=== PATIENT | female | born 1975 | race African-American/Black ===

== ENCOUNTER 2022-10-08 21:13 | Outpatient (OUT) | payer OTHER, SELFPAY ==
[2022-10-11 18:09] LABS: Age Gdln ACOG Testing Note (.); HPV Aptima Negative (Negative); IGP, Aptima HPV, rfx 16/18,45 Note (.)
== END 2022-10-08 21:14 ==
PROVIDERS: PCP Physician Assistant; Visit Provider Physician Assistant
DX: Z12.4 Encounter for screening for malignant neoplasm of cervix (principal); Z11.51 Encounter for screening for human papillomavirus (HPV)
CPT/HCPCS: 87624; G0145

== ENCOUNTER 2023-10-07 09:13 | Emergency (ER) | payer OTHER, SELFPAY ==
[2023-10-07 09:17] VITALS: BP 165/101; PULSE 74; TEMP 36.4; O2SAT 100; BMI 36.4
--- NOTE | 2023-10-07 09:43 | CT_ITS ---
The [address] [address] Patient Name: ERIC LANDIS MRN: [id number] date: 1975 Sex: F Assigned Patient Location: ER Current Patient Location: ER Accession/Order Number: [id number] Exam Date: 10/07/2023 10:28 Report Date: 10/07/2023 11:53 At the request of: THANH FLOREZ Procedure: CT head/brain wo con EXAMINATION: CT head/brain wo con, 10/07/2023 10:28 AM EDT HISTORY: headache COMPARISON: None. TECHNIQUE: CT scan of the head was performed without IV contrast. CT dose reduction technique was used, including Automated Exposure Control. FINDINGS: Linear hyperdensity is identified in the right middle cranial fossa on the initial images thought to possibly represent artifact, repeat scan through this area was therefore performed BRAIN: Hyperdensity posterior right middle cranial fossa axial images 8 through 11 on the initial exam, this changes slightly on the repeat exam and does not correspond to anatomic distribution of hemorrhage. Hemorrhage in this region would likely be related to significant trauma which also was not present. No additional parenchymal hemorrhage mass or attenuation artifact CSF SPACES: No hydrocephalus, subarachnoid hemorrhage, or mass. Appropriate for age. SKULL: No fracture, mass, or other significant visible lesion. SINUSES: No significant mucosal thickening or fluid on the limited views. ORBITS: No appreciable abnormality on the limited views. OTHER: Techniques were discussed with Dr. florez by telephone CT/CT head/brain wo con IMPRESSION: Linear hyperdensity posterior right middle cranial fossa slightly changed on repeat imaging. I favor artifact although hemorrhage cannot be entirely excluded. Electronically authenticated by: MORENA GALLARDO Date: 10/07/2023 11:53
--- NOTE | 2023-10-07 09:44 | ED_ITS ---
HPI HPI - General Adult General Chief complaint: Nausea/Vomiting/Diarrhea Stated complaint: HEADACHE/VOMITTING Time Seen by Provider: 10/07/23 09:31 Source: patient Mode of arrival: walk-in Limitations: no limitations History of Present Illness HPI narrative: Patient is a 48-year-old female who is presenting to the ER today with chief complaint of headache that started yesterday today, but patient is been having sinus congestion for the past week. Patient was at work today, she works at [employer]. Patient stated she was feeling hot, slightly lightheaded, sinus headache and pressure. Patient had 2 episodes of nausea and vomiting. Patient went to the nurses station, she was hypertensive. Patient does have a history of hypertension, she takes Cardizem 300 mg a day to help with blood pressure. Patient has had no new fall. Patient has no vision or hearing changes. No chest pain or shortness of breath. No syncopal episodes. Patient has mild nausea at this time, no abdominal pain. All systems are negative except as noted/marked. All systems reviewed and otherwise negative. Nurses note and vital signs reviewed and patient is not hypoxic. General: The patient appears well and in no apparent distress. Patient is resting comfortably on cart. Patient is not toxic, lethargic, or listless Skin: Warm, dry, no pallor noted. There is no rash noted. No petechiae, purpu ra. Head: Normocephalic, atraumatic; patient has no midline or paracervical tenderness to palpation. Full range of motion of cervical spine with no difficulty, no meningeal signs or symptoms. Eye: Normal conjunctiva, no drainage, EOMI. PERRL Ears, Nose, Mouth, and Throat: oral mucosa is moist. Nares patent. Mouth without vesicles. Cardiovascular: Regular Rate and Rhythm, no murmur, gallop, rub Respiratory: Patient is in no distress, no accessory muscle use, lungs are clear to auscultation, no wheezing, rales or rhonchi Back: non-tender, no CVA tenderness bilaterally to percussion. No CT LS midline pain GI: No midepigastric tenderness to palpation, no peritoneal signs, no flank pain bilateral, otherwise no tenderness to palpation, no masses appreciated. No rebound, guarding, or rigidity noted. No distention Musculoskeletal: Patient has full range of motion of all of the extremities, no motor, sensory, or focal neurological deficits Neurological: A&O x4, normal speech Psychiatric: Cooperative Related Data Previous Rx's ?Medication ?Instructions ?Recorded metoclopramide HCl 10 mg tablet 10 mg PO Q6H PRN nausea and 10/07/23 (Reglan) vomiting, headache 3 days #7 tabs Allergies Allergy/AdvReac Type Severity Reaction Status Date / Time No Known Drug Allergies Allergy Verified 10/07/23 09:16 Opioid HPI Opioid Management Most Recent Opioid Data: Last Pain Scale 2 10/07/23 10:53 Last ED Pain Assessment 10/07/23 10:53 Last MAR Pain Assessment 10/07/23 09:53 Exam Constitutional Vital Signs, click to edit/add: Last Vital Signs Temp 98.0 F 10/07/23 12:45 Pulse 77 10/07/23 12:45 Resp 16 10/07/23 12:45 BP 147/88 H 10/07/23 12:45 Pulse Ox 99 10/07/23 12:45 O2 Del Method Room Air 10/07/23 12:45 Course Vital Signs Vital signs: Vital Signs Temperature 97.5 F L 10/07/23 09:17 Pulse Rate 74 10/07/23 09:17 Respiratory Rate 17 10/07/23 09:17 Blood Pressure 165/101 H 10/07/23 09:17 Pulse Oximetry 100 10/07/23 09:17 Oxygen Delivery Method Room Air 10/07/23 09:17 Temperature 98.0 F 10/07/23 12:45 Pulse Rate 77 10/07/23 12:45 Respiratory Rate 16 10/07/23 12:45 Blood Pressure 147/88 H 10/07/23 12:45 Pulse Oximetry 99 10/07/23 12:45 Oxygen Delivery Method Room Air 10/07/23 12:45 Medical Decision Making MDM Narrative Medical decision making narrative: 2 attempts at IV access was done by Marcia ZELAYA, without success. Patient appears to have possible sinus symptoms and headache, but we will perform a CT of the brain to be safe secondary to high blood pressure and headache. Patient does have a history of high blood pressure, she did take her Cardizem 30 mg tablet this morning. Patient was given Zofran for nausea, Reglan for nausea, vomiting and headache, patient rates her headache a 5/10. Patient also will be given Tylenol for headache as well. Patient did take 2 ibuprofen this morning which did to help with her headache somewhat as well CT of the brain showed no acute findings. Patient initially had images of the brain, And there was some artifact and questionable images there were not clear so patient had repeat CT of the brain done. On the repeat CT of the brain, this was reviewed again by Doctor Ruffin and Doctor Ruffin also had a neuroradiologist review the films as well. I spoke to Dr. Irizarry on the phone about patient's CT of the brain.He believes that this was most likely artifact, but cannot 100% rule out any hemorrhage.Patient was given a copy of the CT report of the brain and the possibility of artifact versus hemorrhage was discussed in the impression of the CT report.Patient's headache has completely improved with medication given. Her nausea is better.Patient has been having sinus congestion and most likely sinus headache today. However patient is aware to return to the ER if she is having intractable headache, nausea, vomiting, or any other acute complaints. Patient is comfortable going home. Patient was sent home with a prescription for Reglan To use for nausea, vomiting or headache if needed. Patient mother was at bedside. We talked at length during HPI with patient and at discharge with patient and mother. Patient is aware to record her blood pressure twice a day to either purchase a blood pressure cuff or have it checked at work when she is working at [employer].Patient is aware that if her blood pressure is consistently 140/90, she may need medication adjustment. Patient understands this, no questions at discharge Discharge Plan Discharge Stand Alone Forms: Portal Instructions Chief Complaint: Nausea/Vomiting/Diarrhea Clinical Impression: Headache, Hypertension, Nausea & vomiting Patient Disposition: Home, Self-Care Time of Disposition Decision: 12:11 Condition: Fair Prescriptions / Home Meds: New metoclopramide HCl [Reglan] 10 mg tablet 10 mg PO Q6H PRN (Reason: nausea and vomiting, headache) 3 Days Qty: 7 0RF Print Language: Greek Instructions: Acute Nausea and Vomiting (ED), Hypertension (ED), General Headache (ED) Additional Instructions: Increase fluids at home. Increase fluids at home, Gatorade, Powerade, or water. Continue using Claritin or Zyrtec l, and Flonase. Add Mucinex as well as needed. Alternate Tylenol and Motrin every 4 hours to help with fever control, body aches or joint pain. Use [id number] vitamin C, vitamin D3, and zinc to help fight infection and help with her immune system. Prescription for Reglan was given to you if needed for nausea, vomiting or headache. Follow-up with PCP for further recommendations on changes of blood pressure medication if needed. Referrals: Zeina Portillo [Physician Super[employer]] - 1 week Hao Galvin MD [Primary Care Provider] - 1 week Discharge Date/Time: 10/07/23 12:46
[2023-10-07] MEDS: ONDANSETRON 4 MG RAPDIS TABLET SL (09:53)
[2023-10-07] MEDS: ACETAMINOPHEN 500 MG TABLET PO (09:53)
[2023-10-07] MEDS: METOCLOPRAMIDE HCL 10 MG TABLET PO (09:53)
[2023-10-07 12:45] VITALS: BP 147/88; PULSE 77; TEMP 36.7; O2SAT 99
== END 2023-10-07 12:46 | disposition home or self-care (01) ==
PROVIDERS: Emergency Provider Emergency Medicine; PCP Family Medicine
DX: R51.9 Headache, unspecified (principal); I10 Essential (primary) hypertension; R11.2 Nausea with vomiting, unspecified; Z79.899 Other long term (current) drug therapy
CPT/HCPCS: 70450; 99284; Q0162

== ENCOUNTER 2023-10-23 16:10 | Outpatient (OUT) | payer OTHER, SELFPAY ==
--- OUTSIDE RECORDS SUMMARY | 2023-10-23 16:18 | XMS_ITS | CCD ---
Author Organization [facility] Care Team Providers Care Aerospace Stress Engineer Name Role Phone HORACE, BARI Admitting Unavailable HORACE, BARI Attending Unavailable AP CARTYY Primary Care Unavailable HORACE, BARI Admitting Unavailable HORACE, BARI Attending Unavailable JASKARAN BRAXTON Primary Care Unavailable HORACE, BARI Consulting Unavailable HORACE, BARI Admitting Unavailable HORACE, BARI Attending Unavailable MACHELLE, BRANDI Primary Care Unavailable HORACE, BARI Consulting Unavailable HILLARY VAUGHAN JR Consulting Unavailable CAL WANG Consulting Unavailable HILLARY VAUGHAN JR Procedure Practitioner BARI Elliott Procedure Practitioner UnavailMARIA INES Gan Consulting Unavailable ERIN YIN Consulting Unavailable HORACE, BARI Admitting Unavailable HORACE, BARI Attending Unavailable MACHELLE, BRANDI Primary Care Unavailable HORACE, BARI Consulting Unavailable CAMILA WHITAKER Admitting Unavailable CAMILA WHITAKER Attending Unavailable CAMILA WHITAKER Primary Care Unavailable CAMILA WHITAKER Consulting Unavailable CAMILA WHITAKER Admitting Unavailable CAMILA WHITAKER Attending Unavailable CAMILA WHITAKER Consulting Unavailable Jez Givens Primary Care Provider JEZ LEE Attending Unavailable SHAWN ULLOA Referring Unavailable JEZ LEE Primary Care Unavailable Medications Current Medications Medication Drug Class(es) Dates Sig (Normalized) Sig (Original) [id number] 200 actuat albuterol 0.09 mg/actuat metered dose inhaler (3 sources) beta2-Adrenergic Agonist Start: 06-30-2022 albuterol (PROVENTIL HFA;VENTOLIN HFA) 90 mcg/actuation inhaler Inhale 2 puffs as needed. 0 06/30/2022 Active amoxicillin 500 mg oral capsule (1 source) Penicillin-class Antibacterial Start: 07-03-2023 End: 07-10-2023 take 1 capsule by mouth in the morning, then take 1 capsule by mouth at bedtime amoxicillin (AMOXIL) 500 mg capsule Take 1 capsule (500 mg total) by mouth in the morning and 1 capsule (500 mg total) before bedtime. Do all this for 7 days. 14 capsule 0 07/03/2023 07/10/2023 Active aspirin 81 mg chewable tablet (3 sources) Platelet Aggregation Inhibitor, Nonsteroidal Anti-inflammatory Drug aspirin 81 mg chewable tablet Chew 1 tablet (81 mg total) and swallow in the morning. 0 Active benzonatate 100 mg oral capsule (3 sources) Non-narcotic Antitussive Start: 07-03-2023 take 1 capsule by mouth three times daily as needed for cough benzonatate (TESSALON PERLES) 100 mg capsule Take 1 capsule (100 mg total) by mouth 3 (three) times a day as needed for cough. 20 capsule 0 07/03/2023 Active 24 hr dilTIAZem hydrochloride 300 mg extended release oral capsule (4 sources) Calcium Channel Nehemias Start: 01-17-2023 End: 07-17-2023 take 1 capsule by mouth every twenty-four hours in the morning dilTIAZem CD (CARDIZEM CD) 300 mg 24 hr capsule Indications: Primary hypertension , Essential hypertension TAKE 1 CAPSULE(300 MG) BY MOUTH IN THE MORNING 90 capsule 1 07/17/2023 Active 12 hr guaiFENesin 600 mg extended release oral tablet (3 sources) Start: 07-03-2023 take 1 tablet by mouth once guaiFENesin (MUCINEX) 600 mg tablet extended release 12hr Take 1 tablet (600 mg total) by mouth every 12 (twelve) hours. 14 tablet 0 07/03/2023 Active ibuprofen 800 mg oral tablet (3 sources) Nonsteroidal Anti-inflammatory Drug Start: 12-19-2021 take 1 tablet by mouth every eight hours as needed for pain ibuprofen (MOTRIN) 800 mg tablet Indications: Chronic pain of right knee Take 1 tablet (800 mg total) by mouth every 8 (eight) hours as needed for pain. 90 tablet 0 12/19/2021 Active loratadine 10 mg oral tablet (3 sources) Start: 08-20-2018 take 1 tablet by mouth twice daily loratadine (CLARITIN) 10 mg tablet Indications: Seasonal allergies Take one tablet by mouth BID 60 tablet 0 08/20/2018 Active predniSONE 20 mg oral tablet (1 source) Start: 07-03-2023 End: 07-08-2023 take 1 tablet by mouth in the morning, then take 1 tablet by mouth at bedtime predniSONE (DELTASONE) 20 mg tablet Take 1 tablet (20 mg total) by mouth in the morning and 1 tablet (20 mg total) before bedtime. Do all this for 5 days. 10 tablet 0 07/03/2023 07/08/2023 Active Completed/Discontinued Medications Medication Drug Class(es) Dates Sig (Normalized) Sig (Original) fluconazole 150 mg oral tablet (1 source) Azole Antifungal Start: 07-03-2023 End: 07-03-2023 take 1 tablet by mouth once fluconazole (DIFLUCAN) 150 mg tablet Take 1 tablet (150 mg total) by mouth once for 1 dose. 1 tablet 0 07/03/2023 07/03/2023 Problems Active Problems Problem Classification Problem Date Documented Date Episodic/Chronic Abdominal pain (1 source) Pelvic and perineal pain; Translations: [PELVIC AND PERINEAL PAIN] Onset: 9 Chronic obstructive pulmonary disease and bronchiectasis (2 sources) Bronchitis; Translations: [Bronchitis, not specified as acute or chronic] Onset: 4 07-03-2023 Episodic Deficiency and other anemia (3 sources) Iron deficiency anemia due to blood loss; Translations: [Iron deficiency anemia secondary to blood loss (chronic)] Onset: 3 01-28-2023 Chronic Disorders of lipid metabolism (1 source) Pure hypercholesterolemia, unspecified; Translations: [PURE HYPERCHOLESTEROLEMIA UNSPEC] Onset: 9 Endometriosis (2 sources) Endometriosis, unspecified; Translations: [Endometriosis of pelvic peritoneum] Onset: 9 Chronic Essential hypertension (8 sources) Essential (primary) hypertension; Translations: [Essential hypertension] Onset: 8 07-03-2023 Chronic Immunizations and screening for infectious disease (5 sources) Contact with and (suspected) exposure to infections with a predominantly sexual mode of transmission; Translations: [Encounter for screening for human papillomavirus (HPV)] Onset: 0 Episodic Menstrual disorders (1 source) Dysmenorrhea, unspecified; Translations: [DYSMENORRHEA UNSPECIFIED] Onset: 9 Chronic Other female genital disorders (3 sources) Abnormal uterine and vaginal bleeding, unspecified; Translations: [ABNORMAL UTERINE VAGINAL BLEED UNS] Onset: 9 Chronic Other female genital disorders (1 source) Unspecified dyspareunia; Translations: [UNSPECIFIED DYSPAREUNIA] Onset: 9 Other screening for suspected conditions (not mental disorders or infectious disease) (7 sources) Encounter for screening for malignant neoplasm of cervix; Translations: [Patient encounter status] Onset: 0 07-03-2023 Episodic Other upper respiratory infections (2 sources) Acute maxillary sinusitis; Translations: [Acute maxillary sinusitis, unspecified] Onset: 4 07-03-2023 Episodic Unclassified (1 source) Abnormal findings on diagnostic imaging of other specified body structures; Translations: [ABNORML FIND DX IMG OTH BODY STRUC] Onset: 9 Unclassified (1 source) new patient Onset: 4 Past or Other Problems Problem Classification Problem Date Documented Da te Episodic/Chronic Benign neoplasm of uterus (1 source) Leiomyoma of uterus, unspecified; Translations: [LEIOMYOMA OF UTERUS UNSPECIFIED] Onset: 12-15-2018 Episodic Mood disorders (3 sources) Mood disorders Onset: 07-03-2023 07-03-2023 Other aftercare (1 source) Other halfway (current) drug therapy; Translations: [OTH CLOTH WASHER BACK TENDER CURRENT DRUG THERAPY] Onset: 12-15-2018 Episodic Other aftercare (1 source) 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; Translations: [PRISON CURRENT USE OF ASPIRIN] Onset: 12-15-2018 Episodic Sprains and strains (3 sources) Strain of muscle of left groin region; Translations: [Strain of muscle, fascia and tendon of pelvis, initial encounter] Onset: 05-06-2018 05-06-2018 Episodic Unclassified (3 sources) Onset: 01-02-2022 01-02-2022 Results Test Name Value Interpretation Reference Range Facil ity PAP ACOG PANEL 2: 30 to 65on 10-30-2019 Age Gdln ACOG Testing 30-65 Normal [facility] Comment on above: Performed By: #### C BC #### [facility] [address] [address] Gomez Brown DIAGNOSIS: Comment Normal [facility] Comment on above: Result Comment: NEGA TIVE FOR INTRAEPITHELIAL LESION OR MALIGNANCY. Performed at: WB Performed By: #### C BC #### [facility] [address] [address] Gomez Brown HPV Aptima Negative Normal Negative [facility] Comment on above: Result Comment: This test was developed and its performance characteristics determined by [employer]. It has not been cleared or approved by the Food and Drug Administration. This nucleic acid amplification test detects fourteen high-risk HPV types (16,18,31,33,35,39,45,51,52,56,58,59,66,68) without differentiation. Performed at: =G Performed By: #### C BC #### [facility] [address] [place] [address] Gomez Brown Methodology: Comment Normal [facility] Comment on above: Result Comment: This liquid based SurePath(R) pap test was screened with the assistance of an image guided system. Performed at: WB Performed By: #### C BC #### [facility] [address] [address] Gomez Brown Note: Comment Normal [facility] Comment on above: Result Comment: The Pap smear is a screening test designed to aid in the detection of premalignant and malignant conditions of the uterine cervix. It is not a diagnostic procedure and should not be used as the sole means of detecting cervical cancer. Both false-positive and false-negative reports do occur. . Performed at: WB Performed By: #### C BC #### [facility] [address] [address] Gomez Brown Performed by: Comment Normal [facility] Comment on above: Result Comment: Dakota Baltazar, Component Engineer (ASCP) Performed at: WB Performed By: #### C BC #### [facility] [address] [address] Gomez Brown Specimen adequacy: Comment Normal [facility] Comment on above: Result Comment: Sati sfactory for evaluation. Endocervical and/or squamous metaplastic cells (endocervical component) are present. Performed at: WB Performed By: #### C BC #### [facility] [address] [place] [address] Gomez Brown . . Normal [facility] Comment on above: Result Comment: Perf ormed at: WB Performed By: #### C BC #### [facility] [address] [place] [address] Gomez Brown HEPATITIS PANEL, ACUTEon HBsAg Screen Negative Normal Negative [facility] Comment on above: Performed By: #### H EPACUT #### [facility] [address] [place] [address] Gomez Brown Hep A Ab, IgM Negative Normal Negative [facility] Comment on above: Performed By: #### H EPACUT #### [facility] [address] [place] [address] Gomez Brown Hep B Core Ab, IgM Negative Normal Negative [facility] Comment on above: Performed By: #### H EPACUT #### [facility] [address] [place] [address] Gomez Brown Hep C Virus Ab <0.1 Normal 0.0-0.9 [facility] Comment on above: Result Comment: Nega tive: < 0.8 Indeterminate: 0.8 - 0.9 Positive: > 0.9 . The CDC recommends that a positive HCV antibody result be followed up with a HCV Nucleic Acid Amplification test ([id number]). Performed By: #### H EPACUT #### [facility] [address] [place] [address] Gomez Brown HIV 1 AND 2 WITH REFLEXon HIV Screen 4th Generation wRfx Non Reactive Normal Non Reactive [facility] Comment on above: Performed By: #### H IV12 #### [facility] [address] [place] [address] Gomez Brown RPR QUANTon 10-24-2019 Rapid Plasma Reagin, Quant Non Reactive Normal NonRea<1:1 [facility] Comment on above: Performed By: #### C BC #### [facility] [address] [place], [place] [id number] Gomez Stephanie BUNon 12-04-2018 Urea nitrogen [Mass/Vol] 5.0 mg/dL Critically low 7.0-17.0 [facility] Comment on above: Performed By: #### B ALVARADO MARTINEZ #### [facility] [address] [place], [place] [id number] Gomez Stephanie CBC AUTO DIFFon 12-04-2018 Basophils (Bld) [#/Vol] 0.0 103/ul Normal 0.0-0.1 [facility] Comment on above: Performed By: #### C BC #### [facility] [address] [place] [address] Gomez Stephanie Basophils/100 WBC (Bld) 0.2 % Normal 0.2-2.0 [facility] Comment on above: Performed By: #### C BC #### [facility] [address] [place] [address] Gomez Stephanie Eosinophils (Bld) [#/Vol] 0.0 103/ul Normal 0.0-0.7 [facility] Comment on above: Performed By: #### C BC #### [facility] [address] [place] [address] Gomez Stephanie Eosinophils/100 WBC (Bld) 0.1 % Critically low 0.9-7.0 [facility] Comment on above: Performed By: #### C BC #### [facility] [address] [place] [address] Gomez Stephanie Erythrocyte distribution width (RBC) [Ratio] 12.1 % Normal 11.0-15.0 [facility] Comment on above: Performed By: #### C BC #### [facility] [address] [place] [address] Gomez Stephanie Hematocrit (Bld) [Volume fraction] 29.4 % Critically low 36.0-48.0 [facility] Comment on above: Performed By: #### C BC #### [facility] [address] [place] [address] Gomez Stephanie Hemoglobin (Bld) [Mass/Vol] 9.5 g/dL Critically low 12.0-16.0 [facility] Comment on above: Result Comment: FLUI DS GIVEN Performed By: #### C BC #### [facility] [address] [place] [address] Gomez Stephanie IG # 0.05 10e3/ul Critically high 0.00-0.03 [facility] Comment on above: Performed By: #### C BC #### [facility] [address] [place] [address] Gomez Stephanie IG % 0.4 % Normal 0.0-0.5 [facility] Comment on above: Performed By: #### C BC #### [facility] [address] [place] [address] Gomez Stephanie Lymphocytes (Bld) [#/Vol] 1.1 103/ul Critically low 1.2-3.8 [facility] Comment on above: Performed By: #### C BC #### [facility] [address] [place] [address] Gomez Stephanie Lymphocytes/100 WBC (Bld) 9.5 % Critically low 20.5-60.0 [facility] Comment on above: Performed By: #### C BC #### [facility] [address] [place], [place] [id number] Gomez Brown MANUAL DIFF REQ NO Normal [facility] Comment on above: Performed By: #### C BC #### [facility] [address] [place], [place] [address] Gomez Stephanie MCH (RBC) [Entitic mass] 29.7 pg Normal 26.7-34.0 [facility] Comment on above: Performed By: #### C BC #### [facility] [address] [place], [place] [id number] Gomez Stephanie MCHC (RBC) [Mass/Vol] 32.3 g/dL Normal 29.9-35.2 [facility] Comment on above: Performed By: #### C BC #### [facility] [address] [place], [place] [address] Gomez Stephanie MCV (RBC) [Entitic vol] 91.9 fL Normal 81.0-99.0 [facility] Comment on above: Performed By: #### C BC #### [facility] [address] [place] [id number] Gomez Stephanie Monocytes (Bld) [#/Vol] 1.5 103/ul Critically high 0.3-0.8 [facility] Comment on above: Performed By: #### C BC #### [facility] [address] [place], [place] [address] Gomez Stephanie Monocytes/100 WBC (Bld) 12.9 % Critically high 1.7-12.0 [facility] Comment on above: Performed By: #### C BC #### [facility] [address] [place], [place] [address] Gomez Stephanie Neutrophils (Bld) [#/Vol] 9.0 103/ul Critically high 1.4-6.5 [facility] Comment on above: Performed By: #### C BC #### [facility] [address] [place], [place] [address] Gomez Stephanie Neutrophils/100 WBC (Bld) 76.9 % Critically high 43.0-75.0 [facility] Comment on above: Performed By: #### C BC #### [facility] [address] [place], [place] [phone] Gomez Stephanie Platelet mean volume (Bld) [Entitic vol] 11.4 fL Normal 9.5-13.5 [facility] Comment on above: Performed By: #### C BC #### [facility] [address] [place], [place] [address] Gomez Stephanie Platelets (Bld) [#/Vol] 221 103/ul Normal 150-450 [facility] Comment on above: Performed By: #### C BC #### [facility] [address] [place], [place] [address] Gomez Stephanie RBC (Bld) [#/Vol] 3.20 106/ul Critically low 4.20-5.40 [facility] Comment on above: Performed By: #### C BC #### [facility] [address] [place] [address] Gomez Stephanie WBC (Bld) [#/Vol] 11.7 103/ul Critically high 4.0-11.0 [facility] Comment on above: Performed By: #### C BC #### [facility] [address] [place] [address] Gomez Stephanie CREATININEon 12-04-2018 Creatinine [Mass/Vol] mg/dL Normal >=60 [facility] Comment on above: Performed By: #### B JUAN, CREA #### [facility] [address] [place] [phone] Gomez Stephanie Creatinine [Mass/Vol] 0.72 mg/dL Normal 0.52-1.04 [facility] Comment on above: Performed By: #### B JUAN, CREA #### [facility] [address] [place] [address] Gomez Stephanie CBC AUTO DIFFon 12-03-2018 Basophils (Bld) [#/Vol] 0.1 103/ul Normal 0.0-0.1 [facility] Comment on above: Performed By: #### C BC #### [facility] [address] [place] [address] Gomez Stephanie Basophils/100 WBC (Bld) 0.7 % Normal 0.2-2.0 [facility] Comment on above: Performed By: #### C BC #### [facility] [address] [place] [address] Gomez Stephanie Eosinophils (Bld) [#/Vol] 0.2 103/ul Normal 0.0-0.7 [facility] Comment on above: Performed By: #### C BC #### [facility] [address] [place] [address] Gomez Stephanie Eosinophils/100 WBC (Bld) 2.4 % Normal 0.9-7.0 [facility] Comment on above: Performed By: #### C BC #### [facility] [address] [place] [address] Gomez Stephanie Erythrocyte distribution width (RBC) [Ratio] 12.2 % Normal 11.0-15.0 [facility] Comment on above: Performed By: #### C BC #### [facility] [address] [phone] Gomezvishal Brown Hematocrit (Bld) [Volume fraction] 36.9 % Normal 36.0-48.0 [facility] Comment on above: Performed By: #### C BC #### [facility] [address] [phone] Gomez Stephanie Hemoglobin (Bld) [Mass/Vol] 11.9 g/dL Critically low 12.0-16.0 [facility] Comment on above: Performed By: #### C BC #### [facility] [address] [place] [address] Gomezvishal Brown IG # 0.02 10e3/ul Normal 0.00-0.03 [facility] Comment on above: Performed By: #### C BC #### [facility] [address] [place] [address] Gomez Stephanie IG % 0.2 % Normal 0.0-0.5 [facility] Comment on above: Performed By: #### C BC #### [facility] [address] [place], [place] [address] Gomezvishal Brown Lymphocytes (Bld) [#/Vol] 1.8 103/ul Normal 1.2-3.8 [facility] Comment on above: Performed By: #### C BC #### [facility] [address] [place], [place] [address] Gomez Brown Lymphocytes/100 WBC (Bld) 19.3 % Critically low 20.5-60.0 [facility] Comment on above: Performed By: #### C BC #### [facility] [address] [place], [place] [address] Gomez Brown MANUAL DIFF REQ NO Normal [facility] Comment on above: Performed By: #### C BC #### [facility] [address] [place], [place] [address] Gomez Brown MCH (RBC) [Entitic mass] 29.9 pg Normal 26.7-34.0 [facility] Comment on above: Performed By: #### C BC #### [facility] [address] [place], [place] [address] Gomez Stephanie MCHC (RBC) [Mass/Vol] 32.2 g/dL Normal 29.9-35.2 [facility] Comment on above: Performed By: #### C BC #### [facility] [address] [place], [place] [address] Gomez Stephanie MCV (RBC) [Entitic vol] 92.7 fL Normal 81.0-99.0 [facility] Comment on above: Performed By: #### C BC #### [facility] [address] [place], [place] [address] Gomez Stephanie Monocytes (Bld) [#/Vol] 0.9 103/ul Critically high 0.3-0.8 [facility] Comment on above: Performed By: #### C BC #### [facility] [address] [place] [phone] Gomez Stephanie Monocytes/100 WBC (Bld) 9.5 % Normal 1.7-12.0 [facility] Comment on above: Performed By: #### C BC #### [facility] [address] [place], [place] [address] Gomez Stephanie Neutrophils (Bld) [#/Vol] 6.4 103/ul Normal 1.4-6.5 [facility] Comment on above: Performed By: #### C BC #### [facility] [address] [place] [address] Gomez Stephanie Neutrophils/100 WBC (Bld) 67.9 % Normal 43.0-75.0 [facility] Comment on above: Performed By: #### C BC #### [facility] [address] [place], [place] [address] Gomez Stephanie Platelet mean volume (Bld) [Entitic vol] 10.8 fL Normal 9.5-13.5 [facility] Comment on above: Performed By: #### C BC #### [facility] [address] [place], [place] [address] Gomez Stepahnie Platelets (Bld) [#/Vol] 262 103/ul Normal 150-450 [facility] Comment on above: Performed By: #### C BC #### [facility] [address] [place], [place] [address] Gomez Brown RBC (Bld) [#/Vol] 3.98 106/ul Critically low 4.20-5.40 [facility] Comment on above: Performed By: #### C BC #### [facility] [address] [place], [place] [address] Gomez Brown WBC (Bld) [#/Vol] 9.4 103/ul Normal 4.0-11.0 [facility] Comment on above: Performed By: #### C BC #### [facility] [address] [place], [place] [address] Gomez Brown PREG QUANT HCGon 12-03-2018 HCG QUANT <1.00 Normal [facility] Comment on above: Performed By: #### P REGQNT #### [facility] [address] [phone] Gomez Brown HCG RANGE SEE BELOW Normal [facility] Comment on above: Result Comment: 5-50 0-1 WEEK 40-300 1-2 WEEKS 100-1,000 2-3 WEEKS 500-6,000 3-4 WEEKS 5,000-200,000 1-2 MONTHS 10,000-100,000 2-3 MONTHS 3,000-50,000 2ND TRIMESTER 1,000-50,000 3RD TRIMESTER Performed By: #### P REGQNT #### [facility] [address] [phone] Gomezvishal Brown TYPE AND SCREENon 12-01-2018 TYPE AND SCREEN Negative Normal [facility] Comment on above: Performed By: #### T NS #### [facility] [address] [place], [place] [address] Gomez Brown Vital Signs Date Time Vital Sign Value Performing Clinician Facility 07-03-2023 15:05-0500 Body height 149.9 cm Jez Lee APRN-WARP YARN SORTER [facility] 07-03-2023 15:05-0500 Body mass index (BMI) [Ratio] 37.24 kg/m2 Jez Loreto HUMAN RESOURCES CLERK-[employer]ARP YARN SORTER Work Phone: [facility] 07-03-2023 15:05-0500 Body temperature 98.49 [degF] Jez Lee HUMAN RESOURCES CLERK-WARP YARN SORTER Work Phone: [facility] [employer] [facility] 07-03-2023 15:05-0500 Body weight 83.64 kg Jez Farfanuch HUMAN RESOURCES CLERK-[employer]ORTER Work Phone: [facility] 07-03-2023 15:05-0500 Diastolic blood pressure 80 mm[Hg] Jez Farfanuch HUMAN RESOURCES CLERK-[employer] Y[employer] SORTER Work Phone: [facility] 07-03-2023 15:05-0500 Heart rate 78 /min Jez Lee HUMAN RESOURCES CLERK-[employer]TER Work Phone: [facility] 07-03-2023 15:05-0500 SaO2% (BldA) [Mass fraction] 97 % Jez Lee HUMAN RESOURCES CLERK-[employer]ARP YARN SORTER Work Phone: [facility] [employer] [facility] 07-03-2023 15:05-0500 Systolic blood pressure 130 mm[Hg] [facility] HUMAN RESOURCES CLERKBrittmore GroupWARP YARN SORTER Work Phone: [facility] Encounters Encounter Date Encounter Type Care Provider Facility Start: 07-30-2023 Telephone encounter Shawn Ulloa APRN-WARP YARN SORTER Work Phone: [facility] Start: 07-15-2023 Refill Carlos Alberto Rodriguez MD Work Phone: [facility] Comment on above: Primary hypertension ; Essential hypertension Start: 07-03-2023 End: 07-03-2023 ambulatory [facility] Start: 07-03-2023 Encounter for genera l adult medical examination without abnormal findings [facility] Start: 07-03-2023 End: 07-03-2023 Office outpatient new 30 minutes Jez Chopra Rauch HUMAN RESOURCES CLERK-WARP YARN SORTER Work Phone: [facility] - Family Medicine Comment on above: Encounter for medica l examination to establish care (Primary Dx); Encounter for screening mammogram for malignant neoplasm of breast; Primary hypertension; Bronchitis; Acute non-recurrent maxillary sinusitis Start: 07-03-2023 End: 07-03-2023 Patient encounter status Jez Lee HUMAN RESOURCES CLERK-WARP YARN SORTER Work Phone: [facility] [employer] Work Phone: Start: 10-22-2019 End: 10-22-2019 Patient encounter procedure CAMILA WHITAKER Facility:H1 Start: 10-22-2019 End: 10-23-2019 Patient encounter procedure CAMILA WHITAKER Facility:H1 Start: 12-05-2018 Encounter for preprocedural laboratory examination BARI [facility] Start: 12-03-2018 End: 12-04-2018 Evaluation and management of inpatient BARI DAVISO Facility:H1 Start: 12-01-2018 End: 12-02-2018 Patient encounter procedure BARI HORACE Facility:H1 Start: 11-28-2018 Encounter for other preprocedural examination BARI [facility] Start: 11-19-2018 Patient encounter procedure BARI HORACE Facility:H1 Start: 11-17-2018 End: 11-18-2018 Patient encounter procedure BARI [facility] Facility:H1 Encounter for other preprocedural examination [facility] Encounter for preprocedural laboratory examination BARI [facility] Procedures Date Procedure Procedure Detail Performing Clinician Start: 07-25-2023 Mammography Shawn Ulloa HUMAN RESOURCES CLERK-WARP YARN SORTER Work Phone: Start: 07-03-2023 Adult depression scr eening assessment Jez Lee HUMAN RESOURCES CLERK-WARP YARN SORTER Work Phone: Start: 12-07-2022 Colonoscopy Jez Herrera ch HUMAN RESOURCES CLERK-WARP YARN SORTER Work Phone: Start: 07-12-2022 Mammography Jez Herrera ch HUMAN RESOURCES CLERK-WARP YARN SORTER Work Phone: Start: 12-03-2018 Removal of Intralumi nal Device from Ureter, Via Natural or Artificial Opening BARI HORACE Start: 12-03-2018 Resection of Bilater al Fallopian Tubes, Open Approach BARI HORACE Start: 12-03-2018 Resection of Uterus, Open Approach BARI VU Start: 12-03-2018 Dilation of Bilatera l Ureters with Intraluminal Device, Via Natural or Artificial Opening Endoscopic BARI VU Plan of Treatment Date Care Activity Detail Author Start: 12-07-2032 Screening for malign ant neoplasm of colon Colonoscopy [facility] Start: 07-24-2024 Adult BMI Screening Adult BMI Screen ing [facility] Start: 07-24-2024 Screening for malign ant neoplasm of breast Mammogram [facility] Start: 07-02-2024 Adult BMI Screening Adult BMI Screen ing [facility] Start: 07-02-2024 Depression Screening Depression Scre ening [facility] Start: 07-02-2024 Tobacco Screening Tobacco Screening [facility] Start: 02-06-2024 End: 02-06-2024 Patient encounter procedure 02/06/2024 3:40 PM EDT Office Visit [facility] Internal Medicine - Family Medicine [address] [place] [address] Jez Lee, HUMAN RESOURCES CLERK-WARP YARN SORTER [address] [place] [address] [facility] Internal Medicine - Family Medicine Start: 12-29-2023 Influenza vaccination Influenza Vacc ine [facility] Start: 07-31-2023 End: 07-31-2023 Patient encounter procedure 07/31/2023 4:00 PM EDT Office Visit [facility] [address] [place] [phone] Shawn Ulloa HUMAN RESOURCES CLERK-WARP YARN SORTER [address] [place] [address], [place] [phone] [facility] Start: 07-13-2023 Screening for malign ant neoplasm of breast Mammogram [facility] Start: 07-03-2023 End: 07-02-2024 DBT Breast - bilateral screening Mammography screening bilateral with CAD Imaging Routine Encounter for screening mammogram for malignant neoplasm of breast Expected: 07/03/2023, Expires: 07/02/2024 [facility] Work Phone: Comment on above: Expected: 07/03/2023 , Expires: 07/02/2024 Start: 2023 Administration of varicella zoster vaccine Zoster (Shingles) Vaccine (1 of 2) [facility] Start: 01-02-2023 Adult BMI Follow Up Plan Adult BMI Follow Up Plan [facility] Start: 12-28-2022 COVID-19 Vaccine ( season) COVID-19 Vaccine ( season) [facility] Start: 1992 DTaP,Tdap and Td Vac cines (1 - Tdap) DTaP,Tdap and Td Vaccines (1 - Tdap) [facility] Immunizations Immunization Date Immunization Notes Care Provider Bette alvares 01-28-2023 influenza, injectabl e, quadrivalent, preservative free Jez Loreto HUMAN RESOURCES CLERK-WARP YARN SORTER Work Phone: [facility] 01-28-2023 influenza virus vaccine, unspecified formulation Shawn Ulloa HUMAN RESOURCES CLERK-WARP YARN SORTER Work Phone: [facility] 10-08-2021 COVID-19, mRNA, LNP- S, PF, 100mcg/0.5mL Dose Jez Loreto HUMAN RESOURCES CLERK-WARP YARN SORTER Work Phone: [facility] 02-08-2021 influenza, injectabl e, quadrivalent, preservative free Jez Loreto HUMAN RESOURCES CLERK-WARP YARN SORTER Work Phone: [facility] 03-05-2020 influenza virus vaccine, unspecified formulation Jez Loreto HUMAN RESOURCES CLERK-WARP YARN SORTER Work Phone: [facility] 03-05-2020 influenza, injectabl e, quadrivalent, preservative free Jez Loreto HUMAN RESOURCES CLERK-WARP YARN SORTER Work Phone: [facility] 01-20-2018 influenza, injectabl e, quadrivalent, preservative free Jez Loreto HUMAN RESOURCES CLERK-WARP YARN SORTER Work Phone: [facility] 02-15-2017 Influenza, injectabl e, Madin Ellie Canine Kidney, preservative free, quadrivalent Jez Lee HUMAN RESOURCES CLERK-WARP YARN SORTER Work Phone: [facility] 03-02-2014 influenza, seasonal, injectable Jez Lee HUMAN RESOURCES CLERK-WARP YARN SORTER Work Phone: [facility] 02-23-2013 influenza virus vaccine, whole virus Jez Lee HUMAN RESOURCES CLERK-WARP YARN SORTER Work Phone: [facility] Payers Date Payer Category Payer Private Health [facility] [id number] 2022-Present [phone] [address] [address] [place] [address] [id number] 2022 Unknown [id number] 1975 Unknown [id number] 1975 Unknown [id number] 1973 Unknown [id number] 1973 Unknown [id number] 1973 Unknown [id number] 1973 Unknown [id number] 1973 Unknown [id number] 1959 Unknown [id number] Social History Date Type Detail Facility Start: 03-29-2022 Tobacco smoking stat [facility] Never smoked tobacco [facility] Start: 03-29-2022 Tobacco use and exposure Smokeless tobacco non-user [facility] Start: 07-03-2023 End: 07-25-2023 Alcohol intake Current drinker of alcohol (finding) [facility] Start: 05-11-2020 End: 07-03-2023 History of Social function [facility] Start: 05-11-2020 End: 07-03-2023 Tobacco use panel [facility] Adolescent depressio n screening assessment 0 [facility] Start: 10-21-2018 Alcohol Comment occasionally [facility] Start: 1975 Sex Assigned At Not on file P [facility] Note 07-30-2023 Telephone Encounter - [facility] Repliconu - 07/30/2023 8:42 AM EDT Note Date & Type Note Facility 07-30-2023 Miscellaneous Notes Formattin g of this note might be different from the original. Hand Polisher making appointment reminder calls. Noticed that patient has since established care as a New Patient with Jez Lee CNP. Patient is scheduled for an appointment with Shawn Ulloa CNP, 07/31/2023. Hand Polisher leaving voicemail to contact office to confirm cancellation of tomorrows appointment with Leoncio. documented in this encounter [facility] Telephone encounter Note 07-30-2023 Telephone Encounter - [facility] Currently Dominguez - 07/30/2023 8:42 AM EDT Note Date & Type Note Facility 07-30-2023 Telephone encounter Note Hand Polisher making appointment reminder calls. Noticed that patient has since established care as a New Patient with Jez Lee CNP. Patient is scheduled for an appointment with Shawn Ulloa CNP, 07/31/2023. Hand Polisher leaving voicemail to contact office to confirm cancellation of tomorrows appointment with Leoncio. [facility] History of Present illness Narrative 07-03-2023 RABIA Hutton - 07/03/2023 3:00 PM EST Note Date & Type Note Facility 07-03-2023 History of Presen t illness Narrative [address] [place] [address] Patient: Yang Swain Date of : 1975 Encounter Date: 07/03/2023 History of Present Illness: The patient is a 48 y.o. female, an established patient, and is here for Chief Complaint Patient presents with new patient . HPI Patient is new, here to establish care. She previously saw [facility]i [facility]. Patient is currently working for [employer] Her history is significant for hypertension for which she takes Cardizem and she states she has had an abnormal heart beat in the past but has never seen a zipper setter lockstitch. Her last echo from 2021 was reviewed which showed normal sinus rhythm. She has had 2 C sections and a hysterectomy for endometriosis, to right ankle surgeries with hardware and a left meniscus repair. She has history of iron-deficiency anemia related to blood loss from her past menstrual cycles. Currently patient is complaining of cold symptoms for the last 3 weeks that have just progressively gotten worse with sinus drainage, cough, congestion in her sinus and chest. When she lays down she feels her cough is much worse and she is not getting much sleep. She does feel slightly short of breath and she is not getting any mucus up when she coughs which is frustrating for her. She does have a history of environmental allergies and she is taken Mucinex, TheraFlu, emergency peels with little improvement. Problem List Items Addressed This Visit Cardiovascular and Mediastinum Hypertension Other Visit Diagnoses Encounter for medical examination to establish care - Primary Encounter for screening mammogram for malignant neoplasm of breast Relevant Orders Mammography screening bilateral with CAD Bronchitis Acute non-recurrent maxillary sinusitis Past Medical, Family, and Social History Update: The following portions of the patient's history were reviewed and updated as appropriate: allergies, current medications, past family history, past medical history, past social history, past surgical history and problem list. Past Medical History: Diagnosis Date Allergic Anemia Bronchitis Fractures Hypertension Visual impairment glasses Past Surgical History: Procedure Laterality Date ANKLE HARDWARE REMOVAL ANKLE SURGERY ARTHROSCOPY partial MENISCECTOMY MEDIAL KNEE Left 08/21/2021 Performed by Thanh Epps MD at [facility] SECTION x 2 COLONOSCOPY N/A 12/07/2022 Performed by Faith Kaufman MD at [facility] DEBRIDEMENT KNEE, CHONDROPLASTY, micro fxs Left 08/21/2021 Performed by Thanh Epps MD at [facility] DILATION AND CURETTAGE OF UTERUS 06/2018 HYSTERECTOMY 11/2018 TUBAL LIGATION Current Outpatient Medications Medication Sig Dispense Refill albuterol (PROVENTIL HFA;VENTOLIN HFA) 90 mcg/actuation inhaler Inhale 2 puffs as needed. aspirin 81 mg chewable tablet Chew 1 tablet (81 mg total) and swallow in the morning. dilTIAZem CD (CARDIZEM CD) 300 mg 24 hr capsule TAKE 1 CAPSULE(300 MG) BY MOUTH IN THE MORNING 90 capsule 1 ibuprofen (MOTRIN) 800 mg tablet Take 1 tablet (800 mg total) by mouth every 8 (eight) hours as needed for pain. 90 tablet 0 loratadine (CLARITIN) 10 mg tablet Take one tablet by mouth BID 60 tablet 0 amoxicillin (AMOXIL) 500 mg capsule Take 1 capsule (500 mg total) by mouth in the morning and 1 capsule (500 mg total) before bedtime. Do all this for 7 days. 14 capsule 0 benzonatate (TESSALON PERLES) 100 mg capsule Take 1 capsule (100 mg total) by mouth 3 (three) times a day as needed for cough. 20 capsule 0 guaiFENesin (MUCINEX) 600 mg tablet extended release 12hr Take 1 tablet (600 mg total) by mouth every 12 (twelve) hours. 14 tablet 0 predniSONE (DELTASONE) 20 mg tablet Take 1 tablet (20 mg total) by mouth in the morning and 1 tablet (20 mg total) before bedtime. Do all this for 5 days. 10 tablet 0 No current facility-administered medications for this visit. (All medications reviewed and updated by provider since last office visit or hospitalization) Allergies: No known drug allergies Tobacco History: Social History Tobacco Use Smoking Status Never Smokeless Tobacco Never (If patient a smoker, smoking cessation counseling offered) Social History: Social History Substance and Sexual Activity Alcohol Use Yes Comment: occasionally Review of Systems: Review of Systems Constitutional: Positive for fatigue. Negative for activity change, appetite change, chills, fever and unexpected weight change. HENT: Positive for congestion, hearing loss, postnasal drip, rhinorrhea, sinus pressure, sneezing, sore throat and voice change. Respiratory: Positive for cough, chest tightness and shortness of breath. Negative for wheezing. Cardiovascular: Negative. Gastrointestinal: Negative. Musculoskeletal: Negative. Allergic/Immunologic: Positive for environmental allergies. Neurological: Negative. Psychiatric/Behavioral: Negative. Physical Exam: BP 130/80 (BP Site: Left Arm, BP Postition: Sitting) Pulse 78 Temp 36.9 C (98.5 F) (Oral) Ht 149.9 cm (4' 11 ) Wt 83.6 kg (184 lb 6.4 oz) LMP 10/13/2018 (Within Days) SpO2 97% BMI 37.24 kg/m Physical Exam Vitals reviewed. Constitutional: Appearance: Normal appearance. She is obese. She is not ill-appearing. HENT: Head: Normocephalic and atraumatic. Right Ear: Tympanic membrane, ear canal and external ear normal. Left Ear: Hearing, ear canal and external ear normal. A middle ear effusion is present. Nose: Congestion and rhinorrhea present. Right Sinus: No maxillary sinus tenderness or frontal sinus tenderness. Left Sinus: No maxillary sinus tenderness or frontal sinus tenderness. Mouth/Throat: Mouth: Mucous membranes are moist. Pharynx: Posterior oropharyngeal erythema present. Eyes: Pupils: Pupils are equal, round, and reactive to light. Cardiovascular: Rate and Rhythm: Normal rate and regular rhythm. Heart sounds: Normal heart sounds. Pulmonary: Effort: No respiratory distress. Breath sounds: Wheezing (RUL) and rhonchi (RUL RML) present. Abdominal: General: Bowel sounds are normal. Palpations: Abdomen is soft. Tenderness: There is no abdominal tenderness. Musculoskeletal: Right lower leg: No edema. Left lower leg: No edema. Lymphadenopathy: Cervical: No cervical adenopathy. Skin: General: Skin is warm. Capillary Refill: Capillary refill takes less than 2 seconds. Neurological: General: No focal deficit present. Mental Status: She is alert and oriented to person, place, and time. Psychiatric: Mood and Affect: Mood normal. Behavior: Behavior normal. Assessment and Plan: Yang was seen today for new patient. Diagnoses and all orders for this visit: Encounter for medical examination to establish care Encounter for screening mammogram for malignant neoplasm of breast - Mammography screening bilateral with CAD; Future Primary hypertension Bronchitis Acute non-recurrent maxillary sinusitis Other orders - amoxicillin (AMOXIL) 500 mg capsule; Take 1 capsule (500 mg total) by mouth in the morning and 1 capsule (500 mg total) before bedtime. Do all this for 7 days. - predniSONE (DELTASONE) 20 mg tablet; Take 1 tablet (20 mg total) by mouth in the morning and 1 tablet (20 mg total) before bedtime. Do all this for 5 days. - benzonatate (TESSALON PERLES) 100 mg capsule; Take 1 capsule (100 mg total) by mouth 3 (three) times a day as needed for cough. - guaiFENesin (MUCINEX) 600 mg tablet extended release 12hr; Take 1 tablet (600 mg total) by mouth every 12 (twelve) hours. - fluconazole (DIFLUCAN) 150 mg tablet; Take 1 tablet (150 mg total) by mouth once for 1 dose. Follow-up: Will treat patient for bronchitis and sinusitis given long duration of symptoms and lower respiratory involvement. Patient states she develops yeast infections with all antibiotics so she was instructed to take the Diflucan if she develops symptoms of vaginal yeast infection only after she is finished with the amoxicillin. If she develops significant shortness of breath despite above treatment, she is to go to the ER. If her symptoms do not improve or resolve in the next week she should return to the office for recheck. Her blood pressure is very near goal and she should avoid decongestants. No changes. Some health maintenance was discussed today including mammogram but patient should follow-up in January for routine labs and wellness. RABIA HUTTON APRN-CNP 07/04/23 1217 documented [facility] this encounter [facility] Note Date & Type Note Facility Evaluation note Diagnosis Encounter for medical examination to establish care- Primary Encounter for screening mammogram for malignant neoplasm of breast Primary hypertension Unspecified essential hypertension Bronchitis Bronchitis, not specified as acute or chronic Acute non-recurrent maxillary sinusitis documented in this encounter [facility] [employer] [facility] Evaluation note Note Date & Type Note Facility Evaluation note Diagnosis Primary hypertension Unspecified essential hypertension Essential hypertension Unspecified essential hypertension [facility] Inst[facility] Attachments Note Date & Type Note Facility Instructions The following attachments cannot be sent through Care Everywhere.Acute bronchitis (Japanese)Sinusitis in adults (Japanese)documented in this encounter [employer] [facility] Instructions Note Date & Type Note Facility Instructions Not on filedocumented in this en counter [facility] Instructions Note Date & Type Note Facility Instructions Not on filedocumented in this en counter [facility] Summary Purpose Family History No Family History Records FoundNo Family History Records Found Advance Directives No Advanced Directives Records FoundNo Advanced Directives Records Found Procedure Findings Note [facility] [place], [place] NAME: YANG SWAIN DATE OF : MEDICAL REC#: [id number] PRODUCT DEVELOPMENT DIRECTOR: MELIZA DREW ADMIT DATE: 12/03/2018 06:12:00 ADMINISTRATIVE LIBRARY ASSISTANT DATE: 12/15/2018 07:00 DICTATING PHYSICIAN: BARI VU DICTATION DATE: 12/14/2018 10:00 OPERATIVE NOTE OPERATION DATE: 12-03-18 ANESTHETIC:General. ROAD MIXER OPERATOR:RAHUL Sarah. PREOPERATIVE DIAGNOSIS: 1. Uterine fibroids. 2. Endometriosis. 3. Pelvic pain. POSTOPERATIVE DIAGNOSIS:Same as above. PROCEDURE NAME:Total abdominal hysterectomy, bilateral salpingectomy, with cystoscopy, bilateral stent removal. NOTE: Bilateral ureteral stent placement. at the beginning of the case by Dr. Vaughan, which will be dictated by him. URINE OUTPUT:Yellow and clear. SPECIMENS:Uterus and tubes. BLOOD LOSS:100 mL. PROCEDURE: Patient was taken back to the Operating Room where she was given general anesthesia without difficulty. She was then prepped and draped in the normal sterile fashion. A Pfannens (more content not included)... Note DISCHARGE SUMMARY Discharge Date: 12-04-18 PRIMARY DIAGNOSIS: 1. Enlarged uterus. 2. Pelvic pain. 3. Dyspareunia. 4. Dysmenorrhea. 5. Abnormal uterine bleeding. 6. Uterine fibroids. PROCEDURE: Total abdominal hysterectomy with bilateral salpingectomy with cystoscopy. Intraoperative stent placement was performed and removed intraoperatively. CONSULTATION: Anesthesia. HOSPITAL COURSE: Was as expected, please see chart for full details. LABS: Please see chart. DISCHARGE CONDITION: Stable. DISCHARGE PLAN: ACTIVITY: Pelvic rest for 6 weeks. No heavy lifting for 6 weeks greater than [address] when pain free and no longer on narcotics. DIET: Regular. MEDICATIONS: Percocet, 5/325, 1-2 p.o. q4-5h p.r.n. pain, Motrin, 800, 1 p.o. q8h p.r.n. pain. FOLLOW-UP: In 1 week. The patient was instructed to return to the hospital with any vaginal bleeding greater than a period. Any fever unrelieved by Tylenol, any abdominal pain unrelieved with narcotics. [facility] Signed and Approved by: DR BARI VU (more content not included)... Hospital Course Note DISCHARGE SUMMARY Discharge Date: 12-04-18 PRIMARY DIAGNOSIS: 1. Enlarged uterus. 2. Pelvic pain. 3. Dyspareunia. 4. Dysmenorrhea. 5. Abnormal uterine bleeding. 6. Uterine fibroids. PROCEDURE: Total abdominal hysterectomy with bilateral salpingectomy with cystoscopy. Intraoperative stent placement was performed and removed intraoperatively. CONSULTATION: Anesthesia. HOSPITAL COURSE: Was as expected, please see chart for full details. LABS: Please see chart. DISCHARGE CONDITION: Stable. DISCHARGE PLAN: ACTIVITY: Pelvic rest for 6 weeks. No heavy lifting for 6 weeks greater than [address] when pain free and no longer on narcotics. DIET: Regular. MEDICATIONS: Percocet, 5/325, 1-2 p.o. q4-5h p.r.n. pain, Motrin, 800, 1 p.o. q8h p.r.n. pain. FOLLOW-UP: In 1 week. The patient was instructed to return to the hospital with any vaginal bleeding greater than a period. Any fever unrelieved by Tylenol, any abdominal pain unrelieved with narcotics. [facility] Signed and Approved by: DR BARI VU (more content not included)... Additional Source Comments INFORMATION SOURCE (unrecogn ized section and content) DATE CREATED AUTHOR 11/18/2019 [facility] DATE CREATED AUTHOR 'S ORGANBYRON ATION 07/04/2023 [facility] Reason for Visit (unrecogniz ed section and content) Reason Comments new patient Reason Comments Med Refill Care Teams (unrecognized sec tion and content) Aerospace Stress Engineer Relationship Specialty Start Date End Date Jez Lee APRN-CNP [address] [place] [address] [place] [address] PCP - General Internal Medicine 07/03/23 Aerospace Stress Engineer Relationship Specialty Start Date End Date Jez Lee APRN-CNP [address] [place] [address] PCP - General Internal Medicine 07/03/23 Aerospace Stress Engineer Relationship Specialty Start Date End Date Jez LeeCHARAN-WARP YARN SORTER [address] [place] [address] PCP - General Internal Medicine 07/03/23 FOR RECORDS PERTAINING TO PATIENTS WHO ARE OR HAVE BEEN ENROLLED IN A CHEMICAL DEPENDENCY/SUBSTANCEABUSE PROGRAM, SOME INFORMATION MAY BE OMITTED. This clinical summary was aggregated from multiple sources. Caution should be exercised in using it in the provision of clinical care. This summary normalizes information from multiple sources, and as a consequence, information in this document may materially change the coding, format and clinical context of patient data. In addition, data may be omitted in some cases. CLINICAL DECISIONS SHOULD BE BASED ON THE PRIMARY CLINICAL RECORDS. [facility]. provides no warranty or guarantee [id number] the accuracy [id number] completeness [phone] in this [id number]
[2023-10-25 05:08] LABS: HIV Ab/p24 Ag Screen Non Reactive (Non Reactive)
[2023-10-25 06:09] LABS: HBsAg Screen Negative (Negative)
[2023-10-25 10:09] LABS: Rapid Plasma Reagin, Quant Non Reactive titer (NonRea<1:1)
== END 2023-10-23 16:11 | disposition home or self-care (01) ==
LOC: LAB 16:11
PROVIDERS: PCP Family Medicine; Visit Provider Obstetrics & Gynecology
DX: Z01.419 Encounter for gynecological examination (general) (routine) without abnormal findings (principal); Z20.2 Contact with and (suspected) exposure to infections with a predominantly sexual mode of transmission
CPT/HCPCS: 36415; 86592; 87340; 87389; 87624; 88175

== ENCOUNTER 2023-10-23 20:21 | Outpatient (REF) | payer OTHER, SELFPAY ==
--- OUTSIDE RECORDS SUMMARY | 2023-10-23 20:25 | XMS_ITS | CCD ---
Author Organization [facility] Team Providers Care Logistics Assistant Name Role Phone HORACE, BARI Admitting Unavailable HORACE, BARI Attending Unavailable AP CARTYY Primary Care Unavailable HORACE, BARI Admitting Unavailable HORACE, BARI Attending Unavailable JASKARAN BRAXTON Primary Care Unavailable HORACE, BRAI Consulting Unavailable HORACE, BARI Admitting Unavailable HORACE, [...] Drug Class(es) Dates Sig (Normalized) Sig (Original) [id number] 200 actuat albuterol 0.09 mg/actuat metered dose [...] 07-03-2023 07-03-2023 Other aftercare (1 source) Other correction (current) drug therapy; Translations: [OTH CHAIRMAN OF THE BOARD CURRENT DRUG THERAPY] Onset: 12-15-2018 Episodic Other aftercare (1 source) 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 Performed at: WB Performed By: #### C BC #### [facility] [address] [address] Gomez Brown HPV Aptima Negative Normal Negative [facility] Comment on above: Result Comment: This test was developed and its performance characteristics determined by [employer]. It has not been cleared or approved by the Food and Drug Administration. This nucleic acid amplification test detects fourteen high-risk HPV types (16,18,31,33,35,39,45,51,52,56,58,59,66,68) without differentiation. Performed at: =G Performed By: #### C BC #### [facility] [address] [place] [address] Gomez Brown Methodology: Comment Normal [facility] Comment on above: Result Comment: This liquid based SurePath(R) pap test was screened with the assistance of an image guided system. Performed at: WB Performed By: #### C BC #### [facility] [address] [address] Gomez Brown Note: Comment Normal [facility] Comment on above: Result Comment: The Pap smear is a screening test designed to aid in the detection of premalignant and malignant conditions of the uterine cervix. It is not a diagnostic procedure and should not be used as the sole means of detecting cervical cancer. Both false-positive and false-negative reports do occur. . Performed at: WB Performed By: #### C BC #### [facility] [address] [address] Gomez Brown Performed by: Comment Normal [facility] Comment on above: Result Comment: Dakota Baltazar, Leadership Development Instructor (ASCP) Performed at: WB Performed By: #### C BC #### [facility] [address] [address] Gomez Brown Specimen adequacy: Comment Normal [facility] Comment on above: Result Comment: Sati sfactory for evaluation. Endocervical and/or squamous metaplastic cells (endocervical component) are present. Performed at: WB Performed By: #### C BC #### [facility] [address] [place] [address] Gomez Brown . . Normal [facility] Comment on above: Result Comment: Perf ormed at: WB Performed By: #### C BC #### [facility] [address] [place] [address] Gomez Brown HEPATITIS PANEL, ACUTEon HBsAg Screen Negative Normal Negative [facility] Comment on above: Performed By: #### H EPACUT #### [facility] [address] [place] [address] Gomez Brown Hep A Ab, IgM Negative Normal Negative [facility] Comment on above: Performed By: #### H EPACUT #### [facility] [address] [place] [address] Gomez Brown Hep B Core Ab, IgM Negative Normal Negative [facility] Comment on above: Performed By: #### H EPACUT #### [facility] [address] [place] [address] Gomez Brown Hep C Virus Ab <0.1 Normal 0.0-0.9 [facility] Comment on above: Result Comment: Nega tive: < 0.8 Indeterminate: 0.8 - 0.9 Positive: > 0.9 . The CDC recommends that a positive HCV antibody result be followed up with a HCV Nucleic Acid Amplification test (660119). Performed By: #### H EPACUT #### [facility] [address] [place] [address] Gomez Brown HIV 1 AND 2 WITH REFLEXon HIV Screen 4th Generation wRfx Non Reactive Normal Non Reactive [facility] Comment on above: Performed By: #### H IV12 #### [facility] [address] [place] [address] Gomez Brown RPR QUANTon 10-24-2019 Rapid Plasma Reagin, Quant Non Reactive Normal NonRea<1:1 [facility] Comment on above: Performed By: #### C BC #### [facility] [address] [place], [place] [id number] Gomez Stephanie BUNon 12-04-2018 Urea nitrogen [Mass/Vol] 5.0 mg/dL Critically low 7.0-17.0 [facility] Comment on above: Performed By: #### B ALVARADO MARTINEZ #### [facility] [address] [place], [place] [id number] Gomez Stephanie CBC AUTO DIFFon 12-04-2018 Basophils (Bld) [#/Vol] 0.0 103/ul Normal 0.0-0.1 [facility] Comment on above: Performed By: #### C BC #### [facility] [address] [place] [address] Gomez Stephanie Basophils/100 WBC (Bld) 0.2 % Normal 0.2-2.0 [facility] Comment on above: Performed By: #### C BC #### [facility] [address] [place] [address] Gomez Stephanie Eosinophils (Bld) [#/Vol] 0.0 103/ul Normal 0.0-0.7 [facility] Comment on above: Performed By: #### C BC #### [facility] [address] [place] [address] Gomez Stephanie Eosinophils/100 WBC (Bld) 0.1 % Critically low 0.9-7.0 [facility] Comment on above: Performed By: #### C BC #### [facility] [address] [place] [address] Gomez Stephanie Erythrocyte distribution width (RBC) [Ratio] 12.1 % Normal 11.0-15.0 [facility] Comment on above: Performed By: #### C BC #### [facility] [address] [place] [address] Gomez Stephanie Hematocrit (Bld) [Volume fraction] 29.4 % Critically low 36.0-48.0 [facility] Comment on above: Performed By: #### C BC #### [facility] [address] [place] [address] Gomez Stephanie Hemoglobin (Bld) [Mass/Vol] 9.5 g/dL Critically low 12.0-16.0 [facility] Comment on above: Result Comment: FLUI DS GIVEN Performed By: #### C BC #### [facility] [address] [place] [address] Gomez Stephanie IG # 0.05 10e3/ul Critically high 0.00-0.03 [facility] Comment on above: Performed By: #### C BC #### [facility] [address] [place] [address] Gomez Stephanie IG % 0.4 % Normal 0.0-0.5 [facility] Comment on above: Performed By: #### C BC #### [facility] [address] [place] [address] Gomez Stephanie Lymphocytes (Bld) [#/Vol] 1.1 103/ul Critically low 1.2-3.8 [facility] Comment on above: Performed By: #### C BC #### [facility] [address] [place] [address] Gomez Stephanie Lymphocytes/100 WBC (Bld) 9.5 % Critically low 20.5-60.0 [facility] Comment on above: Performed By: #### C BC #### [facility] [address] [place], [place] [id number] Gomez Brown MANUAL DIFF REQ NO Normal [facility] Comment on above: Performed By: #### C BC #### [facility] [address] [place], [place] [id number] Gomez Stephanie MCH (RBC) [Entitic mass] 29.7 pg Normal 26.7-34.0 [facility] Comment on above: Performed By: #### C BC #### [facility] [address] [place], [place] [id number] Gomez Stephanie MCHC (RBC) [Mass/Vol] 32.3 g/dL Normal 29.9-35.2 [facility] Comment on above: Performed By: #### C BC #### [facility] [address] [place], [place] [address] Gomez Stephanie MCV (RBC) [Entitic vol] 91.9 fL Normal 81.0-99.0 [facility] Comment on above: Performed By: #### C BC #### [facility] [address] [place] [phone] Gomez Stephanie Monocytes (Bld) [#/Vol] 1.5 103/ul Critically high 0.3-0.8 [facility] Comment on above: Performed By: #### C BC #### [facility] [address] [place], [place] [address] Gomez Stephanie Monocytes/100 WBC (Bld) 12.9 % Critically high 1.7-12.0 [facility] Comment on above: Performed By: #### C BC #### [facility] [address] [place], [place] [id number] Gomez Stephanie Neutrophils (Bld) [#/Vol] 9.0 103/ul Critically high 1.4-6.5 [facility] Comment on above: Performed By: #### C BC #### [facility] [address] [place], [place] [address] Gomez Stephanie Neutrophils/100 WBC (Bld) 76.9 % Critically high 43.0-75.0 [facility] Comment on above: Performed By: #### C BC #### [facility] [address] [place], [place] [address] Gomez Stephanie Platelet mean volume (Bld) [Entitic vol] 11.4 fL Normal 9.5-13.5 [facility] Comment on above: Performed By: #### C BC #### [facility] [address] [place], [place] [address] Gomez Stephanie Platelets (Bld) [#/Vol] 221 103/ul Normal 150-450 [facility] Comment on above: Performed By: #### C BC #### [facility] [address] [place], [place] [address] Gomez Stephanie RBC (Bld) [#/Vol] 3.20 106/ul Critically low 4.20-5.40 [facility] Comment on above: Performed By: #### C BC #### [facility] [address] [place] [phone] Gomez Stephanie WBC (Bld) [#/Vol] 11.7 103/ul Critically high 4.0-11.0 [facility] Comment on above: Performed By: #### C BC #### [facility] [address] [place] [phone] Gomez Stephanie CREATININEon 12-04-2018 Creatinine [Mass/Vol] mg/dL Normal >=60 [facility] Comment on above: Performed By: #### B JUAN, CREA #### [facility] [address] [place] [address] Gomez Stephanie Creatinine [Mass/Vol] 0.72 mg/dL Normal 0.52-1.04 [facility] Comment on above: Performed By: #### B JUAN, CREA #### [facility] [address] [place] [address] Gomez Stephanie CBC AUTO DIFFon 12-03-2018 Basophils (Bld) [#/Vol] 0.1 103/ul Normal 0.0-0.1 [facility] Comment on above: Performed By: #### C BC #### [facility] [address] [place] [address] Gomez Stephanie Basophils/100 WBC (Bld) 0.7 % Normal 0.2-2.0 [facility] Comment on above: Performed By: #### C BC #### [facility] [address] [place] [phone] Gomez Stephanie Eosinophils (Bld) [#/Vol] 0.2 103/ul Normal 0.0-0.7 [facility] Comment on above: Performed By: #### C BC #### [facility] [address] [place] [address] Gomez Stephanie Eosinophils/100 WBC (Bld) 2.4 % Normal 0.9-7.0 [facility] Comment on above: Performed By: #### C BC #### [facility] [address] [place] [address] Gomez Stephanie Erythrocyte distribution width (RBC) [Ratio] 12.2 % Normal 11.0-15.0 [facility] Comment on above: Performed By: #### C BC #### [facility] [address] [phone] Gomezvishal Brown Hematocrit (Bld) [Volume fraction] 36.9 % Normal 36.0-48.0 [facility] Comment on above: Performed By: #### C BC #### [facility] [address] [phone] Gomez Stephanie Hemoglobin (Bld) [Mass/Vol] 11.9 g/dL Critically low 12.0-16.0 [facility] Comment on above: Performed By: #### C BC #### [facility] [address] [place] [address] Gomezvishal Brown IG # 0.02 10e3/ul Normal 0.00-0.03 [facility] Comment on above: Performed By: #### C BC #### [facility] [address] [place] [address] Gomez Stephanie IG % 0.2 % Normal 0.0-0.5 [facility] Comment on above: Performed By: #### C BC #### [facility] [address] [place], [place] [phone] Gomezvishal Brown Lymphocytes (Bld) [#/Vol] 1.8 103/ul Normal 1.2-3.8 [facility] Comment on above: Performed By: #### C BC #### [facility] [address] [place], [place] [address] Gomez Brown Lymphocytes/100 WBC (Bld) 19.3 % Critically low 20.5-60.0 [facility] Comment on above: Performed By: #### C BC #### [facility] [address] [place], [place] [address] Gomez Brown MANUAL DIFF REQ NO Normal [facility] Comment on above: Performed By: #### C BC #### [facility] [address] [place], [place] [id number] Gomez Brown MCH (RBC) [Entitic mass] 29.9 pg Normal 26.7-34.0 [facility] Comment on above: Performed By: #### C BC #### [facility] [address] [place], [place] [address] Gomez Stephanie MCHC (RBC) [Mass/Vol] 32.2 g/dL Normal 29.9-35.2 [facility] Comment on above: Performed By: #### C BC #### [facility] [address] [place], [place] [address] Gomez Stephanie MCV (RBC) [Entitic vol] 92.7 fL Normal 81.0-99.0 [facility] Comment on above: Performed By: #### C BC #### [facility] [address] [place], [place] [address] Gomez Stephanie Monocytes (Bld) [#/Vol] 0.9 103/ul Critically high 0.3-0.8 [facility] Comment on above: Performed By: #### C BC #### [facility] [address] [place] [phone] Gomez Stephanie Monocytes/100 WBC (Bld) 9.5 % Normal 1.7-12.0 [facility] Comment on above: Performed By: #### C BC #### [facility] [address] [place], [place] [address] Gomez Stephanie Neutrophils (Bld) [#/Vol] 6.4 103/ul Normal 1.4-6.5 [facility] Comment on above: Performed By: #### C BC #### [facility] [address] [place] [id number] Gomez Stephanie Neutrophils/100 WBC (Bld) 67.9 % Normal 43.0-75.0 [facility] Comment on above: Performed By: #### C BC #### [facility] [address] [place], [place] [address] Gomez Stephanie Platelet mean volume (Bld) [Entitic vol] 10.8 fL Normal 9.5-13.5 [facility] Comment on above: Performed By: #### C BC #### [facility] [address] [place], [place] [address] Gomez Stephanie Platelets (Bld) [#/Vol] 262 103/ul Normal 150-450 [facility] Comment on above: Performed By: #### C BC #### [facility] [address] [place], [place] [address] Gomez Brown RBC (Bld) [#/Vol] 3.98 106/ul Critically low 4.20-5.40 [facility] Comment on above: Performed By: #### C BC #### [facility] [address] [place], [place] [address] Gomez Brown WBC (Bld) [#/Vol] 9.4 103/ul Normal 4.0-11.0 [facility] Comment on above: Performed By: #### C BC #### [facility] [address] [place], [place] [address] Gomez Brown PREG QUANT HCGon 12-03-2018 HCG QUANT <1.00 Normal [facility] Comment on above: Performed By: #### P REGQNT #### [facility] [address] [phone] Gomez Brown HCG RANGE SEE BELOW Normal [facility] Comment on above: Result Comment: 5-50 0-1 WEEK 40-300 1-2 WEEKS 100-1,000 2-3 WEEKS 500-6,000 3-4 WEEKS 5,000-200,000 1-2 MONTHS 10,000-100,000 2-3 MONTHS 3,000-50,000 2ND TRIMESTER 1,000-50,000 3RD TRIMESTER Performed By: #### P REGQNT #### [facility] [address] [phone] Gomezvishal Brown TYPE AND SCREENon 12-01-2018 TYPE AND SCREEN Negative Normal [facility] Comment on above: Performed By: #### T NS #### [facility] [address] [place], [place] [address] Gomez Brown Vital Signs Date Time Vital Sign Value Performing Clinician Facility 07-03-2023 15:05-0500 Body height 149.9 cm Jez Lee APRN-BUGGY RUNNER [facility] 07-03-2023 15:05-0500 Body mass index (BMI) [Ratio] 37.24 kg/m2 Jez Loreto ESCALATOR CONSTRUCTOR-BUGGY RUNNER Work Phone: [facility] 07-03-2023 15:05-0500 Body temperature 98.49 [degF] Jez Lee ESCALATOR CONSTRUCTOR-BUGGY RUNNER Work Phone: [facility] [employer] [facility] 07-03-2023 15:05-0500 Body weight 83.64 kg Jez Farfanuch ESCALATOR CONSTRUCTOR-BUGGY RUNNER Work Phone: [facility] 07-03-2023 15:05-0500 Diastolic blood pressure 80 mm[Hg] Jez Farfanuch ESCALATOR CONSTRUCTOR-BUGGY RUNNER Work Phone: [facility] 07-03-2023 15:05-0500 Heart rate 78 /min Jez Lee ESCALATOR CONSTRUCTOR-BUGGY RUNNER Work Phone: [facility] 07-03-2023 15:05-0500 SaO2% (BldA) [Mass fraction] 97 % Jez Lee ESCALATOR CONSTRUCTOR-BUGGY RUNNER Work Phone: [facility] [employer] [facility] 07-03-2023 15:05-0500 Systolic blood pressure 130 mm[Hg] [facility] ESCALATOR CONSTRUCTORCareerFoundryBUGGY RUNNER Work Phone: [facility] Encounters Encounter Date Encounter Type Care Provider Facility Start: 07-30-2023 Telephone encounter Shawn Ulloa APRN-BUGGY RUNNER Work Phone: [facility] Start: 07-15-2023 Refill Carlos Alberto Rodriguez MD Work Phone: [facility] Comment on above: Primary hypertension ; Essential hypertension Start: 07-03-2023 End: 07-03-2023 ambulatory [facility] Start: 07-03-2023 Encounter for genera l adult medical examination without abnormal findings [facility] Start: 07-03-2023 End: 07-03-2023 Office outpatient new 30 minutes Jez Chopra Rauch ESCALATOR CONSTRUCTOR-BUGGY RUNNER Work Phone: [facility] - [facility] Comment on above: Encounter for medica l examination to establish care (Primary Dx); Encounter for screening mammogram for malignant neoplasm of breast; Primary hypertension; Bronchitis; Acute non-recurrent maxillary sinusitis Start: 07-03-2023 End: 07-03-2023 Patient encounter status Jez Lee ESCALATOR CONSTRUCTOR-BUGGY RUNNER Work Phone: [facility] [employer] Work Phone: Start: 10-22-2019 End: 10-22-2019 Patient encounter procedure CAMILA WHITAKER Facility:[facility] Start: 10-22-2019 End: 10-23-2019 Patient encounter procedure CAMILA WHITAKER Facility:[facility] Start: 12-05-2018 Encounter for preprocedural laboratory examination BARI [facility] Start: 12-03-2018 End: 12-04-2018 Evaluation and management of inpatient BARI DAVISO Facility:[facility] Start: 12-01-2018 End: 12-02-2018 Patient encounter procedure BARI HORACE Facility:[facility] Start: 11-28-2018 Encounter for other preprocedural examination BARI [facility] Start: 11-19-2018 Patient encounter procedure BARI HORACE Facility:[facility] Start: 11-17-2018 End: 11-18-2018 Patient encounter procedure [facility]I [facility] Facility:[facility] Encounter for other preprocedural examination [facility] Encounter for preprocedural laboratory examination BARI [facility] Procedures Date Procedure Procedure Detail Performing Clinician Start: 07-25-2023 Mammography Shawn Ulloa ESCALATOR CONSTRUCTOR-[employer]GG[employer]NER Work Phone: Start: 07-03-2023 Adult depression scr eening assessment Jez Lee ESCALATOR CONSTRUCTOR-BUGGY RUNNER Work Phone: Start: 12-07-2022 Colonoscopy Jez Herrera ch ESCALATOR CONSTRUCTOR-BUGGY RUNNER Work Phone: Start: 07-12-2022 Mammography Jez Herrera ch ESCALATOR CONSTRUCTOR-BUGGY RUNNER Work Phone: Start: 12-03-2018 Removal of Intralumi [...] for malign ant neoplasm of colon Colonoscopy [facility] Start: 07-24-2024 Adult BMI Screening Adult BMI Screen ing [facility] Start: 07-24-2024 Screening for malign ant neoplasm of breast Mammogram [facility] Start: 07-02-2024 Adult BMI Screening Adult BMI Screen ing [facility] Start: 07-02-2024 Depression Screening Depression Scre ening [facility] Start: 07-02-2024 Tobacco Screening Tobacco Screening [facility] Start: 02-06-2024 End: 02-06-2024 Patient encounter procedure 02/06/2024 3:40 PM EDT Office Visit [facility] Internal Medicine - Family Medicine [address] [place] [address] Jez Lee, ESCALATOR CONSTRUCTOR-BUGGY RUNNER [address] [place] [address] [facility] - Family [facility] Start: 12-29-2023 Influenza vaccination Influenza Vacc ine [facility] Start: 07-31-2023 End: 07-31-2023 Patient encounter procedure 07/31/2023 4:00 PM EDT Office Visit [facility] [address] [place] [phone] Shawn Ulloa ESCALATOR CONSTRUCTOR-BUGGY RUNNER [address] [place] [address], [place] [phone] [facility] Start: 07-13-2023 Screening for malign ant neoplasm of breast Mammogram [facility] Start: 07-03-2023 End: 07-02-2024 DBT Breast - bilateral screening Mammography screening bilateral with CAD Imaging Routine Encounter for screening mammogram for malignant neoplasm of breast Expected: 07/03/2023, Expires: 07/02/2024 [facility] Work Phone: Comment on above: Expected: 07/03/2023 , Expires: 07/02/2024 Start: 2023 Administration of varicella zoster vaccine Zoster (Shingles) Vaccine (1 of 2) [facility] Start: 01-02-2023 Adult BMI Follow Up Plan Adult BMI Follow Up Plan [facility] Start: 12-28-2022 COVID-19 Vaccine ( season) COVID-19 Vaccine ( season) [facility] Start: 1992 DTaP,Tdap and Td Vac cines (1 - Tdap) DTaP,Tdap and Td Vaccines (1 - Tdap) [facility] Immunizations Immunization Date Immunization Notes Care Provider Bette alvares 01-28-2023 influenza, injectabl e, quadrivalent, preservative free Jez Loreto ESCALATOR CONSTRUCTOR-BUGGY RUNNER Work Phone: [facility] 01-28-2023 influenza virus vaccine, unspecified formulation Shawn Ulloa ESCALATOR CONSTRUCTOR-BUGGY RUNNER Work Phone: [facility] 10-08-2021 COVID-19, mRNA, LNP- S, PF, 100mcg/0.5mL Dose Jez Loreto ESCALATOR CONSTRUCTOR-BUGGY RUNNER Work Phone: [facility] 02-08-2021 influenza, injectabl e, quadrivalent, preservative free Jez Loreto ESCALATOR CONSTRUCTOR-BUGGY RUNNER Work Phone: [facility] 03-05-2020 influenza virus vaccine, unspecified formulation Jez Loreto ESCALATOR CONSTRUCTOR-BUGGY RUNNER Work Phone: [facility] 03-05-2020 influenza, injectabl e, quadrivalent, preservative free Jez Loreto ESCALATOR CONSTRUCTOR-BUGGY RUNNER Work Phone: [facility] 01-20-2018 influenza, injectabl e, quadrivalent, preservative free Jez Loreto ESCALATOR CONSTRUCTOR-BUGGY RUNNER Work Phone: [facility] 02-15-2017 Influenza, injectabl e, Madin Ellie Canine Kidney, preservative free, quadrivalent Jez Lee ESCALATOR CONSTRUCTOR-BUGGY RUNNER Work Phone: [facility] 03-02-2014 influenza, seasonal, injectable Jez Lee ESCALATOR CONSTRUCTOR-BUGGY RUNNER Work Phone: [facility] 02-23-2013 influenza virus vaccine, whole virus Jez Lee ESCALATOR CONSTRUCTOR-BUGGY RUNNER Work Phone: [facility] Payers Date Payer Category Payer Private Health Insurance [facility] [id number] 2022-Present [phone] [address] [address] [place] [address] [id number] 2022 Unknown [id number] 1975 Unknown [id number] 1973 Unknown [id number] .[id number] 1973 Unknown [id number] .[id number] 1973 Unknown [id number] .[id number] 1973 Unknown [id number] .[id number] 1973 Unknown [id number] .[id number] 1973 Unknown [id number] 1959 Unknown [id number] Social History Date Type Detail Facility Start: 03-29-2022 Tobacco smoking stat [facility] Never smoked tobacco [facility] Start: 03-29-2022 Tobacco use and exposure Smokeless tobacco non-user [facility] Start: 07-03-2023 End: 07-25-2023 Alcohol intake Current drinker of alcohol (finding) [facility] Start: 05-11-2020 End: 07-03-2023 History of Social function [facility] Start: 05-11-2020 End: 07-03-2023 Tobacco use panel [facility] Adolescent depressio n screening assessment 0 [facility] Start: 10-21-2018 Alcohol Comment occasionally [facility] Start: 1975 Sex Assigned At Not on file [facility] Note 07-30-2023 Telephone Encounter - [facility] [employer] - 07/30/2023 8:42 AM EDT Note Date & Type Note Facility 07-30-2023 Miscellaneous Notes Formattin g of this note might be different from the original. Network Firewall Engineer making appointment reminder calls. Noticed that patient has since established care as a New Patient with Jez Lee CNP. Patient is scheduled for an appointment with Shawn Ulloa CNP, 07/31/2023. Network Firewall Engineer leaving voicemail to contact office to confirm cancellation of tomorrows appointment with Leoncio. documented in this encounter [facility] Telephone encounter Note 07-30-2023 Telephone Encounter - [facility] Clifton Dominguez - 07/30/2023 8:42 AM EDT Note Date & Type Note Facility 07-30-2023 Telephone encounter Note Network Firewall Engineer making appointment reminder calls. Noticed that patient has since established care as a New Patient with Jez Lee CNP. Patient is scheduled for an appointment with Shawn Ulloa CNP, 07/31/2023. Network Firewall Engineer leaving voicemail to contact office to confirm cancellation of tomorrows appointment with Leoncio. [facility] History of Present illness Narrative 07-03-2023 RABIA Hutton - 07/03/2023 3:00 PM EST Note Date & Type Note Facility 07-03-2023 History of Presen t illness Narrative [address] [place] [address] Patient: Yang Swain Date of : 1975 Encounter Date: 07/03/2023 History of Present Illness: The patient is a 48 y.o. female, an established patient, and is here for Chief Complaint Patient presents with new patient . HPI Patient is new, here to establish care. She previously saw Brandi Laymascotsecret. Patient is currently working for [employer]. Her history is significant for hypertension for which she takes Cardizem and she states she has had an abnormal heart beat in the past but has never seen a mortgage loan computation clerk. Her last echo from 2021 was reviewed [...] 08/21/2021 Performed by Thanh Epps MD at [facility] SECTION x 2 COLONOSCOPY N/A 12/07/2022 Performed by Faith Kaufman MD at [facility] DEBRIDEMENT KNEE, CHONDROPLASTY, micro fxs Left 08/21/2021 Performed by Thanh Epps MD at [facility] D[facility] CURETTAGE OF UTERUS 06/2018 [...] APRN-CNP 07/04/23 1217 documented [facility] this [facility] Note Date & Type Note Facility Evaluation note Diagnosis Encounter for medical examination to establish care- Primary Encounter for screening mammogram for malignant neoplasm of breast Primary hypertension Unspecified essential hypertension Bronchitis Bronchitis, not specified as acute or chronic Acute non-recurrent maxillary sinusitis documented in this encounter [facility] [facility] Evaluation note Note Date & Type Note Facility Evaluation note Diagnosis Primary hypertension Unspecified essential hypertension Essential hypertension Unspecified essential hypertension [facility] Inst[facility] Attachments Note Date & Type Note Facility Instructions The following attachments cannot be sent through Care Everywhere.Acute bronchitis (Portuguese)Sinusitis in adults (Portuguese)documented in this encounter [employer] [facility] Instructions Note Date & Type Note Facility Instructions Not on filedocumented in this en counter [facility] Instructions Note Date & Type Note Facility Instructions Not on filedocumented in this en counter [facility] Summary Purpose Family History No Family History Records FoundNo Family History Records Found Advance Directives No Advanced Directives Records FoundNo Advanced Directives Records Found Procedure Findings Note The [place], [place] NAME: YANG SWAIN DATE OF : MEDICAL REC#: [id number] RECOVERY ASSISTANT: MELIZA DREW ADMIT DATE: 12/03/2018 06:12:00 NET SOFTWARE ENGINEER DATE: 12/15/2018 07:00 DICTATING PHYSICIAN: BARI VU DICTATION DATE: 12/14/2018 10:00 OPERATIVE NOTE OPERATION DATE: 12-03-18 ANESTHETIC:General. RUG WEAVER:RAHUL Sarah. PREOPERATIVE DIAGNOSIS: 1. Uterine fibroids. 2. [...] Tylenol, any abdominal pain unrelieved with narcotics. [facility] Signed and Approved by: DR BARI VU [...] Tylenol, any abdominal pain unrelieved with narcotics. [facility] Signed and Approved by: DR BARI VU (more content not included)... Additional Source Comments INFORMATION SOURCE (unrecogn ized section and content) DATE CREATED AUTHOR 11/18/2019 [facility] DATE CREATED AUTHOR 'S ORGANBYRON ATION 07/04/2023 [facility] Reason for Visit (unrecogniz ed section and content) Reason Comments new patient Reason Comments Med Refill Care Teams (unrecognized sec tion and content) Logistics Assistant Relationship Specialty Start Date End Date Jez Lee APRN-CNP [address] [place] [address] [place] [address] PCP - General Internal Medicine 07/03/23 Logistics Assistant Relationship Specialty Start Date End Date Jez Lee APRN-CNP [address] [place] [address] PCP - General Internal Medicine 07/03/23 Logistics Assistant Relationship Specialty Start Date End Date Jez LeeCHARAN-BUGGY RUNNER [address] [place] [address] PCP - General Internal Medicine 07/03/23 FOR [...] BE BASED ON THE PRIMARY CLINICAL RECORDS. [employer] [facility]. provides no warranty or guarantee of the accuracy or completeness of information in this document.
== END 2023-10-23 20:22 | disposition home or self-care (01) ==
LOC: LAB 20:21
PROVIDERS: PCP Family Medicine; Visit Provider Obstetrics & Gynecology
DX: Z01.419 Encounter for gynecological examination (general) (routine) without abnormal findings (principal)
CPT/HCPCS: 88175

== ENCOUNTER 2024-11-12 15:16 | Outpatient (OUT) | payer OTHER, SELFPAY ==
--- NOTE | 2024-11-12 15:18 | US_ITS ---
The [address] [address] Patient Name: ERIC LANDIS MRN: [id number] date: 1975 Sex: F Assigned Patient Location: Current Patient Location: Accession/Order Number: [id number] Exam Date: 11/13/2024 07:28 Report Date: 11/13/2024 07:31 At the request of: BARI VU DO Procedure: US pelvis w/ transvaginal ULTRASOUND PELVIS WITH TRANSVAGINAL COMPARISON: 06/16/2018 CLINICAL DATA: Pelvic pain for the past few months. Previous hysterectomy. Real-time ultrasound evaluation pelvis was performed utilizing both a transabdominal and transvaginal approach. TRANSABDOMINAL: The uterus is surgically absent. The vaginal cuff shows no obvious abnormalities. Neither ovary is identified. TRANSVAGINAL: Transvaginal scans were performed to better evaluate the uterus and adnexa. The uterus is surgically absent. The right ovary is not identified and this correlates with reported oophorectomy. The left ovary is seen. It measures 3.8 x 2.7 x 1.8 cm. Small follicles are present. There is an irregular thick-walled cystic structure with peripheral blood flow measuring 15 x 7 x 15 mm which might be a collapsing cyst/follicle. There is blood flow within the remainder of the ovary with resistive index of 0.6. No free fluid is seen. US/US pelvis w/ transvaginal IMPRESSION: POST HYSTERECTOMY PELVIS, WITHOUT ACUTE FINDINGS. Impression dictated by: Stephanie Marino M.D. 11/13/2024 7:31 AM Dictation Location: [place] [address] Electronically authenticated by: [id number] Y Date: 11/13/2024 07:31
--- OUTSIDE RECORDS SUMMARY | 2024-11-12 15:25 | XMS_ITS | Clinical Summary ---
Author Organization Mempile tem Address [facility] [place]-[id number] [address] [place] [address] Care Team Providers Care Facing Cutting Machine Operator Name Role Phone Christina Dangelo Keysha FARRAR-SPRING ASSEMBLER Primary Care Provider + Allergies Active Allergy Reactions Criticality Noted Date Comments No Known Drug Allergies 06/13/2017 Medications aspirin 81 mg chewable tablet Chew 1 tablet (81 mg total) and swallow in the morning. Active loratadine (CLARITIN) 10 mg tabletIndication s:Seasonal allergies Take one tablet by mouth BID 60 tablet 9 Active ibuprofen (MOTRIN) 800 mg tabletIndication s:Chronic pain of right knee Take 1 tablet (800 mg total) by mouth every 8 (eight) hours as needed for pain. 90 tablet 2 Active albuterol (PROVENTIL HFA;VENTOLIN HFA) 90 mcg/actuation inhaler Inhale 2 puffs as needed. 3 Active triamcinolone (KENALOG) 0.5 % ointment Apply 1 Application topically in the morning and 1 Application before bedtime. 30 g 1 4 Active fluticasone propionate (FLOVENT HFA) 44 mcg/actuation inhaler Inhale 2 puffs in the morning and 2 puffs before bedtime. 10.6 g 1 4 Active dilTIAZem CD (CARDIZEM CD) 300 mg 24 hr capsuleIndicatio ns:Primary hypertension,Ess ential hypertension TAKE 1 CAPSULE(300 MG) BY MOUTH IN THE MORNING 90 capsule 1 5 Active Active Problems Problem Noted Date Diagnosed Date Iron deficiency anemia due to chronic blood loss 01/28/2023 Overview (01/28/2023): Related to menstruation Strain of left inguinal muscle 05/06/2018 Hypertension 07/17/2017 Encounters Date Type Department Care Team Description 10/17/2024 Travel 10/05/2024 3:17 PM EDT - 10/05/2024 11:59 PM EDT Hospital Encounter [facility] - Mammography[facility]A [facility] [address] [place] [phone] Encounter for screening mammogram for malignant neoplasm of breast Discharge Disposition: Home 10/05/2024 Travel 09/04/2024 Orders Only [facility] - [facility] [address] [place] [address] Christina Dangelo, CHIEF DESIGN ENGINEER-SPRING ASSEMBLER Encounter for screening mammogram for malignant neoplasm of breast (Primary Dx) 09/03/2024 Telephone [facility] [address] [place] [address] Carine Ambrose, GARRY 08/21/2024 Refill [facility] [address] [place] [phone] Christina Dangelo, CHIEF DESIGN ENGINEER-SPRING ASSEMBLER Primary hypertension; Essential hypertension from Last 3 Months Immunizations Immunization Administration Dates Next Due COVID-19, mRNA, LNP-S, PF, 100mcg/0.5mL Dose 10/08/2021 Influenza (IM) Preservative Free 02/06/2024 Influenza Whole 02/23/2013 Influenza, Im Trivalent Preservative 03/02/2014 Influenza, Injectable, Mdck, Preservative Free, Quad 02/15/2017 Influenza, Injectable, quadr ivalent (PF) 01/28/2023,02/08/2021,03/05/2020,2017 Influenza, Unspecified 03/05/2020 Zoster Vaccine Recombinant 02/06/2024 Family History Medical History Relation Name Comments Diabetes Father Heart disease Father Breast cancer Maternal Grandmother unk ag e Heart disease Maternal Grandmother Hyperlipidemia Mother Hypertension Mother Other Mother colectomy due t o mass (non cancerous) Heart attack Sister Anesthesia problems Neg Hx Levon Breast Cancer Neg Hx Bleeding Disorder Neg Hx Relation Name Status Comments Father Maternal Grandmother Mother Sister Social History Tobacco Use Types Packs/Day Years Used Date Smoking Tobacco: Never Smokeless Tobacco: Never Tobacco Cessation:Counseling Given: Not Answered Alcohol Use Standard Drinks/Week Comments Yes 0 (1 standard drink = 0.6 oz pur e alcohol) occasionally PHQ-2 Answer Date Recorded Total Score 0 02/06/2024 Childcare Answer Date Recorded Childcare Unknown 10/08/2018 Employment Answer Date Recorded Employment Unknown 10/08/2018 Hunger Screening Answer Date Recorded Within the past 12 months we worried whether our food would run out before we got money to buy more. Never True 02/06/2024 Within the past 12 months th e food we bought just didn't last and we didn't have money to get more. Never True 02/06/2024 Purpose - Life Answer Date Recorded Purpose and direction in life Unknown Comments No Sex and Gender Information Value Date Recorded Sex Assigned at Not on file Legal Sex Female 11:46 AM EDT Gender Identity Not on file Sexual Orientation Not on file Last Filed Vital Signs Vital Sign Reading Time Taken Comments Blood Pressure 140/78 02/06/2024 3:50 PM EDT Pulse 73 02/06/2024 3:50 PM EDT Temperature 36.7 C (98 F) 02/06/2024 3:50 PM EDT Respiratory Rate 16 12/07/2022 8:20 AM EDT Oxygen Saturation 95% 02/06/2024 3:50 PM EDT Inhaled Oxygen Concentration - - Weight 83.9 kg (185 lb) 10/05/2024 3:18 PM EDT Height 151.1 cm (4' 11.5 ) 10/05/2024 3:18 PM ED T Body Mass Index 36.74 10/05/2024 3:18 PM EDT Plan of Treatment Health Maintenance Due Date Last Done Comments Adult BMI Follow Up Plan 1991 DTaP,Tdap and Td Vaccines (1 - Tdap) 1992 COVID-19 Vaccine (4 - 2023-2 5 season) 2023 10/08/2021, 08/18/2020, 07/26/2020 Zoster (Shingles) Vaccine (2 of 2) 04/02/2024 02/06/2024 Influenza Vaccine 12/28/2024 02/06/2024, , 02/08/2021, Additional history exists Depression Screening 02/05/2025 02/06/2024 Tobacco Screening 02/05/2025 02/06/2024 Adult BMI Screening 10/05/2025 10/05/2024 Mammogram 10/05/2025 10/05/2024, 03/11/2023, 07/12/2022, Additional history exists Colonoscopy 12/07/2032 12/07/2022, 12/07/2022 Pap Smear Discontinued 12/06/2022, 12/04/2016 Medical Devices Not on file Procedures Procedure Name Priority Date/Time Associated Diagnosis Comments COMPREHENSIVE METABOLIC PANEL Routine 10/17/2024 9:59 AM EDT Candidiasis, unspecified Endocrine disorder, unspecified Other fatigue CHOLESTEROL, TOTAL Routine 10/17/2024 9: 59 AM EDT Candidiasis, unspecified Endocrine disorder, unspecified Other fatigue TSH Routine 10/17/2024 9:59 AM EDT Candidiasis, unspecified Endocrine disorder, unspecified Other fatigue CBC WITH AUTO DIFFERENTIAL Routine 10/17/2024 9:59 AM EDT Candidiasis, unspecified Endocrine disorder, unspecified Other fatigue HEMOGLOBIN A1C Routine 10/17/2024 9:59 AM EDT Candidiasis, unspecified Endocrine disorder, unspecified Other fatigue MAMM SCREENING BILATERAL W CAD Routine 10/05/2024 3:29 PM EDT Encounter for screening mammogram for malignant neoplasm of breast PROVATION COLONOSCOPY Routine 12/07/2022 7:30 AM EDT from Last 3 Months or Most Recently Relevant to Health Maintenance Results * CBC auto differential (10/17/2024 9:59 AM EDT) WBC 6.9 4 - 11 x10E9/L 10/17/2024 3:19 PM EDT [facility] RBC Count 4.09 3.8 - 5.2 X10E12/L 10/17/2024 3:19 PM EDT [facility] Hemoglobin 13.2 11.7 - 15.5 g/dL 10/17/2024 3:19 PM EDT [facility] Hematocrit 38.5 35 - 47 % 10/17/2024 3:19 PM EDT [facility] MCV 94 80 - 100 fL 10/17/2024 3:19 PM EDT [facility] MCH 32.2 27 - 34 pg 10/17/2024 3:19 PM EDT [facility] MCHC 34.2 32 - 36 g/dL 10/17/2024 3:19 PM EDT [facility] RDW 12.4 11.5 - 15 % 10/17/2024 3:19 PM EDT [facility] Platelet Count 241 150 - 450 X10E9/L 10/17/2024 3:19 PM EDT [facility] MPV 9.0 7 - 12 fL 10/17/2024 3:19 PM EDT [facility] Neutrophils % 60.9 % 10/17/2024 3:19 PM EDT [facility] Lymphocytes % 28.5 % 10/17/2024 3:19 PM EDT [facility] Monocytes % 6.9 % 10/17/2024 3:19 PM EDT [facility] Eosinophils % 2.8 % 10/17/2024 3:19 PM EDT [facility] Basophils % 0.9 % 10/17/2024 3:19 PM EDT [facility] Neutrophils Absolute (A) 4.2 1.5 - 6.6 10*3/uL 10/17/2024 3:19 PM EDT [facility] Lymphocytes Absolute 2.0 1.0 - 3.5 10*3/uL 10/17/2024 3:19 PM EDT [facility] Monocytes Absolute 0.5 0.0 - 0.9 10*3/uL 10/17/2024 3:19 PM EDT [facility] Eosinophils Absolute 0.2 0.0 - 0.4 10*3/uL 10/17/2024 3:19 PM EDT [facility] Basophils Absolute 0.1 0.0 - 0.2 10*3/uL 10/17/2024 3:19 PM EDT [facility] Differential Type AUTOMATED DIFFERENTIAL 10/17/2024 3:19 PM EDT [facility] Blood Venous blood / Unknown Venipuncture / Unknown 10/17/2024 9:59 AM EDT 10/17/2024 9:59 AM EDT Link R Lidia LAB BLOOD ORDERABLES Final Resu lt [facility] [address] [place] [address], * TSH (10/17/2024 9:59 AM EDT) Pathologist [facility] TSH 1.45 0.49 - 4.67 uIU/mL 10/17/2024 3:49 PM EDT [facility] Blood Venous blood / Unknown Venipuncture / Unknown 10/17/2024 9:59 AM EDT 10/17/2024 9:59 AM EDT Link R Lidia DO LAB BLOOD ORDERABLES Final Resu lt [facility] [address] [place] [address], [place] [phone] * Hemoglobin A1c (10/17/2024 9:59 AM EDT) HEMOGLOBIN A1C 4.6 4.4 - 5.6 % 10/17/2024 3:49 PM EDT [facility] Comment: ADA Guidelines Result HgbA1c Normal : less than 5.7 % Prediabetes : 5.7 % to 6.4 % Diabetes : > 6.4 % Use with caution in patients with abnormal hemoglobin variants as the half-life of red blood cells and in vivo glycation rates are affected. EST. AVERAGE GLUCOSE 85 mg/dL 10/17/2024 3:49 PM EDT [facility] Blood Venous blood / Unknown Venipuncture / Unknown 10/17/2024 9:59 AM EDT 10/17/2024 9:59 AM EDT Link R Lidia LAB BLOOD ORDERABLES Final Resu lt [facility] [address] [place] [address], [place] [phone] * (ABNORMAL) Cholesterol, total (10/17/2024 9:59 AM EDT) CHOLESTEROL 210(H) 150 - 200 mg/dL 10/17/2024 3:47 PM EDT [facility] Blood Venous blood / Unknown Venipuncture / Unknown 10/17/2024 9:59 AM EDT 10/17/2024 9:59 AM EDT Link R Lidia DO LAB BLOOD ORDERABLES Final Resu lt [facility] [address] [place] [address], [place] [phone] * (ABNORMAL) Comprehensive metabolic panel (10/17/2024 9:59 AM EDT) SODIUM 138 134 - 146 mmol/L 10/17/2024 3:47 PM EDT [facility] POTASSIUM 4.1 3.5 - 5.0 mmol/L 10/17/2024 3:47 PM EDT [facility] CHLORIDE 107 98 - 109 mmol/L 10/17/2024 3:47 PM EDT [facility] CARBON DIOXIDE 21(L) 22 - 32 mmol/L 10/17/2024 3:47 PM EDT [facility] ANION GAP 10 5 - 15 mmol/L 10/17/2024 3:47 PM EDT [facility] BLOOD UREA NITROGEN 11 5 - 23 mg/dL 10/17/2024 3:47 PM EDT [facility] CREATININE 0.66 0.40 - 1.00 mg/dL 10/17/2024 3:47 PM EDT [facility] Comment:METHOD TRACEABLE TO [facility] STANDARD GLUCOSE 91 65 - 99 mg/dL 10/17/2024 3:47 PM EDT [facility] CALCIUM 9.3 8.5 - 10.5 mg/dL 10/17/2024 3:47 PM EDT [facility] TOTAL PROTEIN 7.4 6.0 - 8.0 g/dL 10/17/2024 3:47 PM T [facility] ALBUMIN 4.3 3.2 - 5.3 g/dL 10/17/2024 3:47 PM EDT [facility] ALKALINE PHOSPHATASE 45 39 - 130 U/L 10/17/2024 3:47 PM T [facility] AST 16 <=41 U/L 10/17/2024 3:47 PM T [facility] ALT 11 <=31 U/L 10/17/2024 3:47 PM T [facility] BILIRUBIN,TOTAL 0.7 0.3 - 1.2 mg/dL 10/17/2024 3:47 PM T [facility] EGFR Non-Race Dependent >90 >=60 ml/min/1.7 3sq.m 10/17/2024 3:47 PM T [facility] Comment: Reported eGFR is based on the CKD-EPI 2020 equation that does not use a race coefficient. Blood Venous blood / Unknown Venipuncture / Unknown 10/17/2024 9:59 AM EDT 10/17/2024 9:59 AM EDT us Link Murillo DO LAB BLOOD ORDERABLES Final Resu lt [facility] [address] [place] [address], * Mammography screening bilateral with CAD (10/05/2024 3:29 PM EDT) Anatomical Region Laterality Modality Breast Bilateral Mammography 10/07/2024 10:5 3 AM EDT Narrative 10/07/2024 10:59 AM EDT YANG LANDIS 1975 [id number] EXAM: MAMM SCREENING BILATERAL W CAD, 10/05/2024 3:17 PM CLINICAL INDICATIONS: Screening, Encounter for screening mammogram for malignant neoplasm of breast COMPARISON: 07/25/2023 and priors TECHNIQUE: Bilateral digital tomosynthesis MLO and CC views of the breasts were obtained, with creation of synthetic 2D views. Computer aided detection was utilized. FINDINGS: The breasts are heterogeneously dense, which may obscure small masses. There are no suspicious masses, calcifications, or areas of architectural distortion. IMPRESSION: No mammographic evidence of malignancy. BI-RADS: BI-RADS 1 - Negative RECOMMENDATION: Recommend MBI as a supplemental screening combined with annual mammography.. As a separate recommendation: Dense breast tissue can obscure small mammographic abnormalities. Supplemental screening methods may be considered to help detect abnormalities within dense tissue. These supplemental screening tests include Molecular Breast Imaging (MBI) and MRI. These tests should be performed in addition to, not as a replacement for, annual screening mammography. Patients should discuss with their healthcare provider which test is appropriate, as accessibility and/or insurance coverage may vary by patient and location. RISK ASSESSMENT: TC Lifetime risk: 10.4%. The patient's reported personal and family medical history was used calculate their Tyrer-Cuzick lifetime risk of malignancy. Scores less than 20% are not considered high risk per ACR guidelines and patient should continue with the above recommendation. Finalized by Elpidio Tijerina MD on 10/07/2024 10:59 AM 1 c MOLEC BR IMG FDA Accredited Performing Facility: [facility] - Mammography/DEXA Imaging [address] [facility] [id number] Procedure Note Elpidio Tijerina MD - 10/07/2024 YANG LANDIS 1975 [id number] EXAM: MAMM SCREENING BILATERAL W CAD, 10/05/2024 3:17 PM CLINICAL INDICATIONS: Screening, Encounter for screening mammogram formalignant neoplasm of breast COMPARISON: 07/25/2023 and priors TECHNIQUE: Bilateral digital tomosynthesis MLO and CC views of the breastswere obtained, with creation of synthetic 2D views. Computer aideddetection was utilized. FINDINGS: The breasts are heterogeneously dense, which may obscure small masses. There are no suspicious masses, calcifications, or areas of architecturaldistortion. IMPRESSION: No mammographic evidence of malignancy. BI-RADS: BI-RADS 1 - Negative RECOMMENDATION: Recommend MBI as a supplemental screening combined withannual mammography.. As a separate recommendation: Dense breast tissue can obscure smallmammographic abnormalities. Supplemental screening methods may beconsidered to help detect abnormalities within dense tissue. Thesesupplemental screening tests include Molecular Breast Imaging (MBI) andMRI. These tests should be performed in addition to, not as a replacement for, annual screeningmammography. Patients should discuss with their healthcare provider whichtest is appropriate, as accessibility and/or insurance coverage may varyby patient and location. RISK ASSESSMENT: TC Lifetime risk: 10.4%. The patient's reported personal and family medical history was usedcalculate their Tyrer-Cuzick lifetime risk of malignancy. Scores less than20% are not considered high risk per ACR guidelines and patient shouldcontinue with the above recommendation. Finalized by Elpidio Tijerina MD on 10/07/2024 10:59 AM 1 c [facility] [place] Accredited Performing Facility: [facility] - Mammography/DEXA Imaging [address] [facility] [id number] Christina Dangelo APRN-SPRING ASSEMBLER [facility] ORDERABL ES Final Result * Colonoscopy Report (12/07/2022 7:30 AM EDT) Narrative SYSTEMGENERATED, DOCUMENTATION - 12/07/2022 7:30 AM EDT This order has been auto-finalized for image and report archival in PACs. *For full report details, please reach out to your physician. This image is visible to you in MyChart.* Faith Kaufman MD IMG OR IMG ORDERABLES Usha robles Result from Last 3 Months or Most Recently Relevant to Health Maintenance Insurance [employer] [id number] Care Teams Facing Cutting Machine Operator Relationship Specialty Start Date End Date Christina Dangelo, CHIEF DESIGN ENGINEER-SPRING ASSEMBLER [address] [place] [address] PCP - General Internal Medicine 07/03/23
--- OUTSIDE RECORDS SUMMARY | 2024-11-12 15:25 | XMS_ITS | Encounter Summary ---
Author Organization [facility] Address [address] [place] [address] Care Team Providers Care Coal Carrier Name Role Phone Unavailable Primary Care Provider Unavailabl e Encounter Details Date Type Department Care Team (Late Contact Info) Description 10/06/2022 Abstract [facility] [address] [place] [address] Zeina Portillo, PA [address] [place] [address] Dr [place], [facility] Social History Tobacco Use Types Packs/Day Years Used Date Smoking Tobacco: Unknown Tobacco Cessation:Counseling Given: Not Answered Alcohol Use Standard Drinks/Week Comments Not Currently 0 (1 standard drink = 0.6 oz pur e alcohol) occasional beer, hard liquor Comments Unknown Sex and Gender Information Value Date Recorded Sex Assigned at Female 10/07/2022 3:38 PM EDT Legal Sex Female 11:47 PM EDT Gender Identity Female 10/07/2022 3:38 PM EDT Sexual Orientation Straight 10/07/2022 3: 38 PM EDT documented as of this encounter Plan of Treatment Upcoming Encounters Date Type Department Care Team (Late Contact Info) Description 11/26/2024 3:00 PM EDT Office Visit [facility] [address] [place] [address] Zeina Portillo, PA [address] [place] [address] Dr [place], [facility]11 documented as of this encounter Visit Diagnoses Not on filedocumented in this encounter
--- OUTSIDE RECORDS SUMMARY | 2024-11-12 15:25 | XMS_ITS | Encounter Summary ---
Author Organization [employer] tem Address [facility] [id number] [address] [place] [address] Care Team Providers Care Nurse Name Role Phone LoretoChristina goldman Keysha CAMARILLO Primary Care Provider + Encounter Details Date Type Department Care Team (Late st Contact Info) Description 07/16/2022 Telephone [facility] [address] [place] [phone] Xiomara Rubin CMA Social History Tobacco Use Types Packs/Day Years Used Date Smoking Tobacco: Never Smokeless Tobacco: Never Alcohol Use Standard Drinks/Week Comments Yes 0 (1 standard drink = 0.6 oz pur e alcohol) occasionally PHQ-2 Answer Date Recorded Total Score 0 06/22/2021 Childcare Answer Date Recorded Childcare Unknown 10/08/2018 Employment Answer Date Recorded Employment Unknown 10/08/2018 Purpose - Life Answer Date Recorded Purpose and direction in life Unknown Comments No Sex and Gender Information Value Date Recorded Sex Assigned at Not on file Legal Sex Female 11:46 AM EDT Gender Identity Not on file Sexual Orientation Not on file COVID-19 Exposure Response Date Recorded In the last month, have you been in contact with someone who was confirmed or suspected to have Coronavirus / COVID-19? No / Unsure 07/12/2022 3:07 PM EDT documented as of this encounter Miscellaneous Notes * Telephone Encounter - Xiomara Rubin CMA - 07/16/2022 10:51 AM EDT ----- Message from RABIA Walls sent at 07/12/2022 4:20 PM EDT ----- Normal mammogram- recheck annually * Telephone Encounter - Xiomara Rubin CMA - 07/16/2022 10:51 AM EDT Patient was called and given results. She stated she understood and was thankful for the call. documented in this encounter Plan of Treatment Not on file documented as of this encounter Visit Diagnoses Not on filedocumented in this encounter Additional Health Concerns Assessment Noted Time PHQ-9 Depression Total Score: 0 06/22/19 3:27 PM EST A Body Mass Index follow-up plan has been documented for the patient 01/02/2022 3:52 PM EDT documented as of this encounter Care Teams Nurse Relationship Specialty Start Date End Date Christina Dangelo APRN-GERSON [address] [place] [address] PCP - General Internal Medicine 07/03/23 documented as of this encounter
--- OUTSIDE RECORDS SUMMARY | 2024-11-12 15:25 | XMS_ITS | Encounter Summary ---
Author Organization [employer] [facility] tem Address [facility] [id number] [address] [place] [address] Care Team Providers Care Hvac Tech Name Role Phone Christina Dangelo CHARAN-MOLD DRESSER Primary Care Provider + Encounter Details Date Type Department Care Team (Late st Contact Info) Description 09/19/2021 Telephone [facility] [address] [place] [phone] Sera Vargas CMA Social History Tobacco Use Types Packs/Day [...] Exposure Response Date Recorded In the last 10 days, have yo u been in contact with someone who was confirmed or suspected to have Coronavirus/COVID-19? No / Unsure 08/21/2021 11:24 AM EDT documented as of this encounter Miscellaneous Notes * Telephone Encounter - Sera Vargas CMA - 09/19/2021 9:05 AM EDT Patient is requesting Metronidazole 500mg which is not on current med list. * Telephone Encounter - RABIA Walls - 09/19/2021 9:05 AM EDT Medication can not be refilled this is an antifungal and patient would need evaluation for the same * Telephone Encounter - Sera Vargas CMA - 09/19/2021 9:05 AM EDT CALLED PATIENT TO INFORM HER, SHE STATED SHE HAD SENT THE REQUEST FOR DR BOYER NOT OUR OFFICE. documented in this encounter Plan of Treatment Not on file documented as of this encounter Visit Diagnoses Not on filedocumented in this encounter Additional Health Concerns Assessment Noted Time PHQ-9 Depression Total Score: 0 06/22/19 22 3:27 PM EST A Body Mass Index follow-up plan has been documented for the patient 10/15/2019 3:54 PM EDT documented as of this encounter Care Teams Hvac Tech Relationship Specialty Start Date End Date Christina Dangelo APRN-CNP [address] [place] [address] PCP - General Internal Medicine 07/03/23 documented as of this encounter
--- OUTSIDE RECORDS SUMMARY | 2024-11-12 15:25 | XMS_ITS | Encounter Summary ---
Author Organization [employer] tem Address [facility] [id number] [address] [place] [address] Care Team Providers Care Dip Guider Stoves Name Role Phone Christina Dangelo CHARAN-INDUSTRIAL RELATIONS COUNSELOR Primary Care Provider + Encounter Details Date Type Department Care Team (Late st Contact Info) Description 02/12/2024 Refill [facility] - [facility] Medicine [address] [place] [phone] Kelley Glynn CMA Primary hypertension; Essential hypertension Social History Tobacco Use Types Packs/Day Years [...] on file Sexual Orientation Not on file documented as of this encounter Miscellaneous Notes * Telephone Encounter - Kelley Glynn CMA - 02/12/2024 3:21 PM EDT Pt needs a refill on diltiazem. Pharmacy is listed and correct. Pt states she is no longer seeing the prescribing dr. documented in this encounter Plan of Treatment Not on file documented as of this encounter Visit Diagnoses Diagnosis Primary hypertension Unspecified essential hypertension Essential hypertension Unspecified essential hypertension documented in this encounter Additional Health Concerns Assessment Noted Time PHQ-9 Depression Total Score: 0 02/06/20 3:49 PM EDT A Body Mass Index follow-up plan has been documented for the patient 01/02/2022 3:52 PM EDT documented as of this encounter Care Teams Dip Guider Stoves Relationship Specialty Start Date End Date Christina Dangelo APRN-INDUSTRIAL RELATIONS COUNSELOR [address] [place] [address] PCP - General Internal Medicine 07/03/23 documented as of this encounter
--- OUTSIDE RECORDS SUMMARY | 2024-11-12 15:25 | XMS_ITS | Encounter Summary ---
Author Organization [employer] [facility] tem Address [facility] [place]-[id number] [address] [place] [address] Care Team Providers Care Ripsaw Matcher Name Role Phone Christina Dangelo Keysha FARRAR-PATENT COUNSEL Primary Care Provider + Encounter Details Date Type Department Care Team (Late st Contact Info) Description 11/22/2022 Telephone [facility] [address] [place] [phone] Xiomara Rubin CMA Social History Tobacco [...] Telephone Encounter - Xiomara Rubin CMA - 11/22/2022 3:07 PM EDT Patient called into office requesting FMLA paperwork be filled out for her days off following her upcoming colonoscopy (12/07/22). Her previous provider (vera) [facility]. Patient stated she has not found a new PCP since she was on vacation. MA set her up with an appointment with Leoncio Zavala for the soonest available time slot with 45 minutes available. 12/05/22 was the first available in the afternoon (per patient request). Patient became upset that previous provider could not fill out paperwork since Vera was the ordering provider. Alyson explained to patient that new PCP hasn't seen patient yet and that the paperwork can be filled out at that time. Patient became enraged and hung up on MA. * Telephone Encounter - RABIA Vargas - 11/22/2022 3:07 PM EDT Her procedure is 12/07. So appointment for 12/05 should be okay for me to complete that paperwork, correct? You can let her know I can fill out the paperwork, but she has to be seen. * Telephone Encounter - Xiomara Rubin CMA - 11/22/2022 3:07 PM EDT Patient was informed of still needing to be seen but was still very upset. documented in this encounter Plan of Treatment Not on file documented as of this encounter Visit Diagnoses Not on filedocumented in this encounter Additional Health Concerns Assessment Noted Time PHQ-9 Depression Total Score: 0 06/22/19 3:27 PM EST A Body Mass Index follow-up plan has been documented for the patient 01/02/2022 3:52 PM EDT documented as of this encounter Care Teams Ripsaw Matcher Relationship Specialty Start Date End Date Christina Dangelo APRN-CNP [address] [place] [address] PCP - General Internal Medicine 07/03/23 documented as of this encounter
--- OUTSIDE RECORDS SUMMARY | 2024-11-12 15:25 | XMS_ITS | Encounter Summary ---
Author Organization [facility] Address [address] [place] [address] Care Team Providers Care Cordwood Cutter Name Role Phone Unavailable Primary Care Provider Unavailabl e Encounter Details Date Type Department Care Team ([facility] Contact Info) Description 10/15/2023 Orders Only [facility] OB [address] [place] [address] Roxana Zeng LPN [address] [facility] Social History Tobacco Use Types Packs/Day Years Used Date Smoking Tobacco: Unknown Alcohol Use Standard Drinks/Week Comments Not Currently [...] Upcoming Encounters Date Type Department Care Team ([facility] Contact Info) Description 11/26/2024 3:00 PM EDT Office Visit [facility] OB [address] [place] [address] Zeina Portillo PA [address] [place], [place] [id number] documented as of this encounter Procedures Procedure Name Priority Date/Time Associated Diagnosis Comments PAP SMEAR Routine 12/06/2022 12:00 AM EDT documented in this encounter Results * Pap Smear (12/06/2022 12:00 AM EDT) Swab Cervical swab / Unknown us Lidia Nurse [facility] CYTOLOGY ORDERABLES Final Result EXTERNAL LAB documented in this encounter Visit Diagnoses Not on filedocumented in this encounter
--- OUTSIDE RECORDS SUMMARY | 2024-11-12 15:25 | XMS_ITS | Encounter Summary ---
Author Organization [employer] [facility] tem Address [facility] [place] [id number] [address] [place] [address] Care Team Providers Care Batch Analyst Name Role Phone Christina Dangelo Keysha BONDING MACHINE TENDER-CERTIFIED FORKLIFT OPERATOR Primary Care Provider + Encounter Details Date Type Department Care Team (Late st Contact Info) Description 06/25/2022 Orders Only [facility] [address] [place] [phone] Vera Bazan APRN-CERTIFIED FORKLIFT OPERATOR [address] [place] [phone] Encounter for screening mammogram for malignant neoplasm of breast (Primary Dx) Social History Tobacco Use Types Packs/Day Years [...] on file documented as of this encounter Plan of Treatment Not on file documented as of this encounter Results * Mammography screening bilateral with CAD (07/12/2022 3:30 PM EDT) Anatomical Region Laterality Modality Breast Bilateral Mammography 07/12/2022 3:57 PM EDT Narrative 07/12/2022 3:58 PM EDT MAMM SCREENING BILATERAL W CAD WITH TOMOSYNTHESIS HISTORY: Screening. COMPARISON: 07/06/2021 and priors FINDINGS: The breasts are heterogeneously dense, which may obscure small masses. Negative for malignancy. Computer-aided detection was used in the interpretation of this examination. IMPRESSION: BIRADS 1 - Negative. Normal interval follow-up in 12 months. OVERALL ASSESSMENT- NEGATIVE. A letter of notification will be sent to the patient regarding the results. Finalized by Jadiel Nj MD on 07/12/2022 3:58 PM 1 c MAMM 1 YR Procedure Note Jadiel Nj MD - 07/12/2022 MAMM SCREENING BILATERAL W CAD WITH TOMOSYNTHESIS HISTORY: Screening. COMPARISON: 07/06/2021 and priors FINDINGS: The breasts are heterogeneously dense, which may obscure smallmasses. Negative for malignancy. Computer-aided detection was used in the interpretation of thisexamination. IMPRESSION: BIRADS 1 - Negative. Normal interval follow-up in 12 months. OVERALL ASSESSMENT- NEGATIVE. A letter of notification will be sent to the patient regarding theresults. Finalized by Jadiel Nj MD on 07/12/2022 3:58 PM 1 c MAMM 1 YR Vera Beninader CAMARILLO IMG MAMMOGRAPHY ORDERABL ES Final Result documented in this encounter Visit Diagnoses Diagnosis Encounter for screening mammogram for malignant neoplasm of breast- Primary Encounter for screening mammogram for malignant neoplasm of breast documented in this encounter Additional Health Concerns Assessment Noted Time PHQ-9 Depression Total Score: 0 06/22/19 22 3:27 PM EST A Body Mass Index follow-up plan has been documented for the patient 01/02/2022 3:52 PM EDT documented as of this encounter Care Teams Batch Analyst Relationship Specialty Start Date End Date Christina Dangelo APRN-CNP [address] [place] [address] PCP - General Internal Medicine 07/03/23 documented as of this encounter
--- OUTSIDE RECORDS SUMMARY | 2024-11-12 15:25 | XMS_ITS | Encounter Summary ---
Author Organization [email or web address] tem Address [facility]-[id number] [address] [place] [address] Care Team Providers Care Staff Counsel Name Role Phone LoretoAmandeep goldmanjerome Chopra BRADLEY LINEBACKER CREWMEMBER-MATTRESS SPRING ENCASER Primary Care Provider + Reason for Visit * Reason Comments Med Refill Encounter Details Date Type Department Care Team (Late st Contact Info) Description 04/14/2020 Refill [facility] [address] [place] [phone] Vera Bazan APRN-CNP [address] [place], [place] [id number] Essential hypertension Social History Tobacco Use Types Packs/Day Years Used Date Smoking Tobacco: Never Smokeless Tobacco: Never Alcohol Use Standard Drinks/Week Comments Yes 0 (1 standard drink = 0.6 oz pur e alcohol) occasionally PHQ-2 Answer Date Recorded PHQ-2 Score 0 05/06/2018 Childcare Answer Date Recorded Childcare Unknown 10/08/2018 Employment Answer Date Recorded Employment Unknown 10/08/2018 Comments No Sex and Gender Information Value Date Recorded Sex Assigned at Not on file Legal Sex Female 11:46 AM EDT Gender Identity Not on file Sexual Orientation Not on file documented as of this encounter Plan of Treatment Not on file documented as of this encounter Visit Diagnoses Diagnosis Essential hypertension Unspecified essential hypertension documented in this encounter Additional Health Concerns Assessment Noted Time PHQ-9 Depression Total Score: 0 10/15/19 20 3:13 PM EDT A Body Mass Index follow-up plan has been documented for the patient 10/15/2019 3:54 PM EDT documented as of this encounter Care Teams Staff Counsel Relationship Specialty Start Date End Date Christina Dangelo, BRADLEY LINEBACKER CREWMEMBER-MATTRESS SPRING ENCASER [address] [place] [address] PCP - General Internal Medicine 07/03/23 documented as of this encounter
--- OUTSIDE RECORDS SUMMARY | 2024-11-12 15:25 | XMS_ITS | Encounter Summary ---
Author Organization [employer] [facility] tem Address [facility] [id number] [address] [place] [address] Care Team Providers Care Mill Operator Helper Name Role Phone Christina Dangelo Keysha FARRAR-SALES LEDGER ADMINISTRATOR Primary Care Provider + Encounter Details Date Type Department Care Team (Late st Contact Info) Description 09/03/2024 Telephone [facility] - Family Medicine [address] [place] [phone] Carine Ambrose CMA Social History Tobacco Use Types Packs/Day [...] encounter Miscellaneous Notes * Telephone Encounter - Carine Ambrose CMA - 09/03/2024 5:00 PM EDT Pt called stated its that time of the year for her mammogram , can you put an order in epic? documented in this encounter Plan of Treatment Not on file documented as of this encounter Visit Diagnoses Not on filedocumented in this encounter Additional Health Concerns Assessment Noted Time PHQ-9 Depression Total Score: 0 02/06/20 3:49 PM EDT A Body Mass Index follow-up plan has been documented for the patient 01/02/2022 3:52 PM EDT documented as of this encounter Care Teams Mill Operator Helper Relationship Specialty Start Date End Date Christina Dangelo, TYPE COPYIST-SALES LEDGER ADMINISTRATOR [address] [place] [address] PCP - General Internal Medicine 07/03/23 documented as of this encounter
--- OUTSIDE RECORDS SUMMARY | 2024-11-12 15:25 | XMS_ITS | Encounter Summary ---
Author Organization [email or web address] [facility] tem Address [id number] [address] [place] [address] Care Team Providers Care Roll Form Operator Name Role Phone Christina Dangelo Keysha FARRAR-FLIGHT TEACHER Primary Care Provider + Encounter Details Date Type Department Care Team (Late st Contact Info) Description 01/22/2024 Telephone [facility] - Family Medicine [address] [place] [phone] Carine Ambrose CMA Social History Tobacco Use Types Packs/Day Years Used Date Smoking Tobacco: Never Smokeless Tobacco: Never Alcohol Use Standard Drinks/Week Comments Yes 0 (1 standard drink = 0.6 oz pur e alcohol) occasionally PHQ-2 Answer Date Recorded Total Score 0 07/03/2023 Childcare Answer Date Recorded Childcare Unknown 10/08/2018 Employment Answer Date Recorded Employment Unknown 10/08/2018 Hunger Screening Answer Date Recorded Within the past 12 months we worried whether our food would run out before we got money to buy more. Never True 07/03/2023 Within the past 12 months th e food we bought just didn't last and we didn't have money to get more. Never True 07/03/2023 Purpose - Life Answer Date Recorded Purpose and direction in life Unknown Comments No Sex and Gender Information Value Date Recorded Sex Assigned at Not on file Legal Sex Female 11:46 AM EDT Gender Identity Not on file Sexual Orientation Not on file documented as of this encounter Miscellaneous Notes * Telephone Encounter - Carine Ambrose CMA - 01/22/2024 10:13 AM EDT Pt called she would like her labs ordered that way she can get them done before her appt in oct documented in this encounter Plan of Treatment Not on file documented as of this encounter Visit Diagnoses Not on filedocumented in this encounter Additional Health Concerns Assessment Noted Time PHQ-9 Depression Total Score: 0 07/03/19 24 3:13 PM EST A Body Mass Index follow-up plan has been documented for the patient 01/02/2022 3:52 PM EDT documented as of this encounter Care Teams Roll Form Operator Relationship Specialty Start Date End Date Christina Dangelo, HOTEL MANAGER-FLIGHT TEACHER [address] [place] [address] PCP - General Internal Medicine 07/03/23 documented as of this encounter
--- OUTSIDE RECORDS SUMMARY | 2024-11-12 15:25 | XMS_ITS | Encounter Summary ---
Author Organization [facility] tem Address [facility] [place]-[id number] [address] [place] [address] Care Team Providers Care Insurance Agency Manager Name Role Phone Christina Dangelo COMMISSIONING SPECIALIST-[facility] Primary Care Provider + Reason for Visit * Reason Comments Med Refill Encounter Details Date Type Department Care Team (Late st Contact Info) Description 10/20/2021 Refill [facility] [address] [place] [phone] Jesica Wright APRN-CNP [address] [facility] [place] [place] [address] Essential hypertension Social History Tobacco Use Types [...] encounter Miscellaneous Notes * Telephone Encounter - RABIA Perkins - 10/20/2021 9:18 AM EDT Send to [place] documented in this encounter Plan of Treatment [...] documented as of this encounter Care Teams Insurance Agency Manager Relationship Specialty Start Date End Date Christina Dangelo APRN-CNP [address] [place] [address] PCP - General Internal Medicine 07/03/23 documented as of this encounter
--- OUTSIDE RECORDS SUMMARY | 2024-11-12 15:26 | XMS_ITS | Encounter Summary ---
Author Organization [employer] [facility] tem Address [facility] [place]-[id number] [address] [place] [address] Care Team Providers Care Caster Operator Name Role Phone Christina Dangelo CHARAN-CHARGE PREPARATION TECHNICIAN Primary Care Provider + Encounter Details Date Type Department Care Team ([facility] st Contact Info) Description 07/24/2021 [facility]phone [facility] [address] [place] [phone] Sera Vargas CMA Social History Tobacco [...] suspected to have Coronavirus/COVID-19? No / Unsure 07/11/2021 2:44 PM EDT documented as of this encounter [...] documented as of this encounter Care Teams Caster Operator Relationship Specialty Start Date End Date Christina Dangelo, SCHOOL SERVICES OFFICER-CHARGE PREPARATION TECHNICIAN [address] [place] [address] PCP - General Internal Medicine 07/03/23 documented as of this encounter
--- OUTSIDE RECORDS SUMMARY | 2024-11-12 15:26 | XMS_ITS | Encounter Summary ---
Author Organization [facility] tem Address [facility] [place][id number] [address] [place] [address] Care Team Providers Care Certified Corporate Travel Executive Name Role Phone Christina Dangelo Keysha DIGITAL MARKETING PROGRAM MANAGER-MEDICAL DEVICE Primary Care Provider + Reason for Visit * Reason Onset Date Comments Med Refill 09/18/2021 Encounter Details Date Type Department Care Team (Late st Contact Info) Description [facility] [address] [place] [phone] Vera Bazan APRN-MEDICAL DEVICE [address] [place], [place] [phone] Social History Tobacco Use Types Packs/Day Years [...] * Telephone Encounter - RABIA Perkins - 09/18/2021 6:45 PM EDT Send to vera please documented in this encounter Plan of Treatment Not on file documented as of this encounter Visit Diagnoses Not on filedocumented in this encounter Additional Health Concerns Assessment Noted Time PHQ-9 Depression Total Score: 0 06/22/19 22 3:27 PM EST A Body Mass Index follow-up plan has been documented for the patient 10/15/2019 3:54 PM EDT documented as of this encounter Care Teams Certified Corporate Travel Executive Relationship Specialty Start Date End Date Christina Dangelo APRN-CNP [address] [place] [address] PCP - General Internal Medicine 07/03/23 documented as of this encounter
--- OUTSIDE RECORDS SUMMARY | 2024-11-12 15:26 | XMS_ITS | Encounter Summary ---
Author Organization [employer] [facility] tem Address [facility] [place] [place]-[id number] [address] [place] [address] Care Team Providers Care Tool Setter Apprentice Name Role Phone Christina Dangelo Keysha CAMARILLO Primary Care Provider + Encounter Details Date Type Department Care Team (Late st Contact Info) Description 12/13/2021 Refill [facility] [address] [place] [phone] Sera Vargas CMA Essential hypertension Social History Tobacco Use Types [...] Miscellaneous Notes * Telephone Encounter - RABIA Walls - 12/13/2021 2:47 PM EDT Did the patient check with the pharmacy as this was refilled on 12/11/2021 documented in this encounter Plan of Treatment [...] documented as of this encounter Care Teams Tool Setter Apprentice Relationship Specialty Start Date End Date Christina Dangelo, AIR GUN OPERATOR-TUBE CLEANER [address] [place] [address] PCP - General Internal Medicine 07/03/23 documented as of this encounter
--- OUTSIDE RECORDS SUMMARY | 2024-11-12 15:26 | XMS_ITS | Clinical Summary ---
Author Organization [facility] Address [address] [place] [address] Care Team Providers Care Wireless Sales Associate Name Role Phone Unavailable Primary Care Provider Unavailabl e Allergies No known active allergies Medications dilTIAZem CD (Cardizem CD) 300 MG 24 hr capsule Take 300 mg by mouth in the morning. 3 Active aspirin 81 MG chewable tablet Chew 81 mg 1 (one) time. Active loratadine (Claritin) 10 MG tablet Take 10 mg by mouth in the morning. Active estradiol (Estrace) 0.1 MG/GM vaginal creamIndication s:Dyspareunia in female 2g vaginal daily for 2 weeks, then 2 times weekly following initial 2 weeks 42.5 g 5 Active metroNIDAZOLE (Flagyl) 500 MG tabletIndicatio ns:Bacterial vaginosis Take 1 tablet (500 mg) by mouth in the morning and 1 tablet (500 mg) before bedtime. Do all this for 7 days. Do not drink alcohol while taking this medication. 14 tablet 5 10/20/19 25 Encounters Date Type Department Care Team Description 10/17/2024 External Result Encounter [facility] External Department Unsolicited Link Murillo DO 10/12/2024 Results Follow-Up [facility] [address] [place] [address] Sarah Tse LPN 10/12/2024 [address]phone [facility] [address] [place] [address] Sarah Tse LPN 10/07/2024 3:50 PM EDT Office Visit [facility] [address] [place] [phone] Link Murillo, Pelvic pain in female; Dyspareunia in female; Yeast infection; Hormone imbalance; Fatigue, unspecified type 10/07/2024 External Result Encounter [facility] External Department Unsolicited Link Murillo, 10/07/2024 Bamboo flowsheet [facility] [address] [place] [address] Link Murillo, 09/30/2024 Travel from Last 3 Months Family History Medical History Relation Name Comments Alzheimer's disease Maternal Grandmother Breast cancer Maternal Grandmother Heart disease Maternal Grandmother Hyperlipidemia Maternal Grandmother Hypertension Maternal Grandmother Hyperlipidemia Mother Hypertension Mother Thyroid disease Mother Clotting disorder Sister Heart disease Sister Relation Name Status Comments Daughter 2 daughters Father Maternal Grandfather Alive Maternal Grandmother Other Mother Alive Paternal Grandfather Paternal Grandmother Sister Social History Tobacco Use Types Packs/Day Years Used Date Smoking Tobacco: Unknown Tobacco Cessation:Counseling Given: Not Answered Alcohol Use Standard Drinks/Week Comments Not Currently 0 (1 standard drink = 0.6 oz pur e alcohol) occasional beer, hard liquor Comments No Sex and Gender Information Value Date Recorded Sex Assigned at Female 10/07/2022 3:38 PM EDT Legal Sex Female 11:47 PM EDT Gender Identity Female 10/07/2022 3:38 PM EDT Sexual Orientation Straight 10/07/2022 3: 38 PM EDT Last Filed Vital Signs Vital Sign Reading Time Taken Comments Blood Pressure 124/74 10/23/2023 3:28 PM EDT Pulse - - Temperature - - Respiratory Rate - - Oxygen Saturation - - Inhaled Oxygen Concentration - - Weight 84.8 kg (187 lb) 10/23/2023 3:28 PM EDT Height 157.5 cm (5' 2 ) 10/08/2022 3:38 PM EDT Body Mass Index 34.2 10/08/2022 3:38 PM EDT Plan of Treatment Upcoming Encounters Date Type Department Care Team (Late st Contact Info) Description 11/26/2024 3:00 PM EDT Office Visit [facility] [address] [place] [address] Zeina Portillo PA [address] [facility] [place] [address] Health Maintenance Due Date Last Done Comments CT Colonography 1973 FIT-DNA 1973 FIT 1973 FOBT 1973 Sigmoidoscopy 1973 Influenza Vaccine (#1) 2024 , 01/28/2023, 02/08/2021, Additional history exists Mammogram 10/05/2025 10/05/2024, 06/28, 07/12/2022, Additional history exists Pap Smear 12/06/2025 12/06/2022, 12/04/2016 Cervical Cancer Screening 12/07/2027 HPV/Cotest 12/07/2027 12/06/2022 Colonoscopy 12/07/2032 12/07/2022 Colorectal Cancer Screening 12/07/2032 Procedures Procedure Name Priority Date/Time Associated Diagnosis Comments TSH ([facility]) Routine 10/17/2024 9:59 AM EDT HEMOGLOBIN A1C Routine 10/17/2024 9:59 AM EDT CHOLESTEROL, TOTAL Routine 10/17/2024 9: 59 AM EDT COMPREHENSIVE METABOLIC PANEL Routine 10/17/2024 9:59 AM EDT CBC WITH AUTO DIFFERENTIAL Routine 10/17/2024 9:59 AM EDT RECURRENT VAGINITIS (HTRX) Routine 10/07/2024 4:11 PM EDT POCT URINALYSIS DIPSTICK Routine 10/07/2024 3:39 PM EDT Pelvic pain in female THINPREP PAP AND HPV MRNA E6/E7 W/RFL HPV 16,18/45 Routine 12/06/2022 12:04 PM EDT Well woman exam with routine gynecological exam PAP SMEAR Routine 12/06/2022 12:00 AM EDT from Last 3 Months or Most Recently Relevant to Health Maintenance Results * TSH ([facility]) (10/17/2024 9:59 AM EDT) TSH 1.45 0.49 - 4.67 uIU/mL [facility] Comment: PERFORMED AT [facility] [address],[place] [address] 10/17/2024 9:59 AM EDT 10/17/2024 3:04 PM EDT us Link Lidia DO LAB BLOOD ORDERABLES Final Resul t [facility] * CBC auto differential (10/17/2024 9:59 AM EDT) WHITE BLOOD CELL COUNT, WBC 6.9 4 - 11 x10E9/L [facility] RED BLOOD CELL COUNT, RBC 4.09 3.8 - 5.2 X10E12/L [facility] HEMOGLOBIN 13.2 11.7 - 15.5 g/dL [facility] HEMATOCRIT 38.5 35 - 47 % [facility] MEAN CELL VOLUME, MCV 94 80 - 100 fL [facility] MEAN CELL HEMOGLOBIN, MCH 32.2 27 - 34 pg [facility] MEAN CELL HEMOGLOGIN CONCENTRATION, MCHC 34.2 32 - 36 g/dL [facility] RED CELL DISTRIBUTION WIDTH, RDW 12.4 11.5 - 15 % [facility] PLATELET COUNT 241 150 - 450 X10E9/L [facility] MEAN PLATELET VOLUME, MPV 9.0 7 - 12 fL [facility] % NEUTROPHILS 60.9 % [facility] % LYMPHOCYTES 28.5 % [facility] % MONOCYTES 6.9 % [facility] % EOSINOPHILS 2.8 % [facility] % BASOPHILS 0.9 % [facility] ABSOLUTE NEUTROPHIL 4.2 1.5 - 6.6 10*3/uL [facility] ABSOLUTE LYMPHOCYTE 2.0 1.0 - 3.5 10*3/uL [facility] ABSOLUTE MONOCYTE 0.5 0.0 - 0.9 10*3/uL [facility] ABSOLUTE EOSINOPHIL 0.2 0.0 - 0.4 10*3/uL [facility] ABSOLUTE BASOPHIL 0.1 0.0 - 0.2 10*3/uL [facility] DIFFERENTIAL TYPE AUTOMATED DIFFERENTIAL [facility] Comment: PERFORMED AT [address] [address] 10/17/2024 9:59 AM EDT 10/17/2024 3:04 PM EDT [facility] Lidia DO LAB BLOOD ORDERABLES Final Resul t Performing Organization Address [facility] Co de Phone Number [facility] * Hemoglobin A1c (10/17/2024 9:59 AM EDT) HEMOGLOBIN A1C 4.6 4.4 - 5.6 % [facility] Comment: ADA Guidelines Result HgbA1c Normal : less than 5.7 % Prediabetes : 5.7 % to 6.4 % Diabetes : > 6.4 % Use with caution in patients with abnormal hemoglobin variants as the half-life of red blood cells and in vivo glycation rates are affected. AVERAGE GLUCOSE 85 mg/dL [facility] Comment: PERFORMED AT [address] [place] [address] 10/17/2024 9:59 AM EDT 10/17/2024 3:04 PM EDT [facility] LAB BLOOD ORDERABLES Final Resul t Performing Organization Address [facility] Co de Phone Number [facility] * (ABNORMAL) Cholesterol, total (10/17/2024 9:59 AM EDT) CHOLESTEROL 210(H) 150 - 200 mg/dL [facility] Comment: PERFORMED AT [address], [place] [address] 10/17/2024 9:59 AM EDT 10/17/2024 3:04 PM EDT us Link Lidia DO LAB BLOOD ORDERABLES Final Resul t [facility] * (ABNORMAL) Comprehensive metabolic panel (10/17/2024 9:59 AM EDT) Sodium 138 134 - 146 mmol/L [facility] Potassium, Bld 4.1 3.5 - 5.0 mmol/L [facility] Chloride 107 98 - 109 mmol/L [facility] Carbon Dioxide 21(L) 22 - 32 mmol/L [facility] Anion Gap 10 5 - 15 mmol/L [facility] BUN 11 5 - 23 mg/dL [facility] Creatinine 0.66 0.40 - 1.00 mg/dL [facility] Comment:METHOD TRACEABLE TO IDMS STANDARD Glucose 91 65 - 99 mg/dL [facility] Calcium 9.3 8.5 - 10.5 mg/dL [facility] TOTAL PROTEIN 7.4 6.0 - 8.0 g/dL [facility] ALBUMIN 4.3 3.2 - 5.3 g/dL [facility] ALKALINE PHOSPHATASE 45 39 - 130 U/L [facility] AST 16 <=41 U/L [facility] ALT 11 <=31 U/L [facility] TOTAL BILIRUBIN 0.7 0.3 - 1.2 mg/dL [facility] EGFR >90 >=60 ml/min/1.7 3sq.m [facility] Comment: Reported eGFR is based on the CKD-EPI 2020 equation that does not use a race coefficient. PERFORMED AT [facility] [address],[place] [address] 10/17/2024 9:59 AM EDT 10/17/2024 3:04 PM EDT us Link Lidia DO LAB BLOOD ORDERABLES Final Resul t [facility] * (ABNORMAL) RECURRENT VAGINITIS (HTRX) (10/07/2024 4:11 PM EDT) ATOPOBIUM VAGINAE 21.481(A) 19.961 - 24.689 ppm 10/10/2024 7:43 AM EDT [facility] ATOPOBIUM VAGINAE Detected(A) 19.961 - 24.689 ppm 10/10/2024 7:43 AM EDT [facility] BVAB 2,3 (BACTERIAL VAGINOSIS ASSOCIATED BACTERIA 2, 3); MOBILUNCUS SPP 0.000 19.961 - 24.689 ppm 10/10/2024 7:43 AM EDT [facility] BVAB 2,3 (BACTERIAL VAGINOSIS ASSOCIATED BACTERIA 2, 3); MOBILUNCUS SPP Not Detected 19.961 - 24.689 ppm 10/10/2024 7:43 AM EDT [facility] MARIA ISABEL ALBICANS, PARAPSILOSIS, TROPICALIS 26.398(A) 19.961 - 30.770 ppm 10/10/2024 7:43 AM EDT [facility] MARIA ISABEL ALBICANS, PARAPSILOSIS, TROPICALIS Detected(A) 19.961 - 30.770 ppm 10/10/2024 7:43 AM EDT [facility] MARIA ISABEL GLABRATA 0.000 23.000 - 32.138 ppm 10/10/2024 7:43 AM EDT [facility] MARIA ISABEL GLABRATA Not Detected 23.000 - 32.138 ppm 10/10/2024 7:43 AM EDT [facility] MARIA ISABEL KRUSEI 0.000 23.000 - 32.271 ppm 10/10/2024 7:43 AM EDT [facility] MARIA ISABEL KRUSEI Not Detected 23.000 - 32.271 ppm 10/10/2024 7:43 AM EDT [facility] CHLAMYDIA TRACHOMATIS 0.000 23.000 - 31.467 ppm 10/10/2024 7:43 AM EDT [facility] CHLAMYDIA TRACHOMATIS Not Detected 23.000 - 31.467 ppm 10/10/2024 7:43 AM EDT [facility] GARDNERELLA VAGINALIS 20.804(A) 19.961 - 24.689 ppm 10/10/2024 7:43 AM EDT [facility] GARDNERELLA VAGINALIS Detected(A) 19.961 - 24.689 ppm 10/10/2024 7:43 AM EDT [facility] MEGASPHAERA (TYPES 1, 2) 0.000 19.961 - 24.689 ppm 10/10/2024 7:43 AM EDT [facility] MEGASPHAERA (TYPES 1, 2) Not Detected 19.961 - 24.689 ppm 10/10/2024 7:43 AM EDT [facility] NEISSERIA GONORRHOEAE 0.000 23.000 - 32.117 ppm 10/10/2024 7:43 AM EDT [facility] NEISSERIA GONORRHOEAE Not Detected 23.000 - 32.117 ppm 10/10/2024 7:43 AM EDT [facility] TRICHOMONAS VAGINALIS 0.000 23.000 - 32.119 ppm 10/10/2024 7:43 AM EDT [facility] TRICHOMONAS VAGINALIS Not Detected 23.000 - 32.119 ppm 10/10/2024 7:43 AM EDT [facility] MYCOPLASMA GENITALIUM 0.000 19.961 - 24.689 ppm 10/10/2024 7:43 AM EDT [facility] MYCOPLASMA GENITALIUM Not Detected 19.961 - 24.689 ppm 10/10/2024 7:43 AM EDT [facility] ERMB, C; MEFA 14.838(A) 23.000 - 27.611 ppm 10/10/2024 7:43 AM EDT [facility] ERMB, C; MEFA Detected(A) 23.000 - 27.611 ppm 10/10/2024 7:43 AM EDT [facility] TET B, TET M 18.652(A) 23.000 - 27.778 ppm 10/10/2024 7:43 AM EDT [facility] TET B, TET M Detected(A) 23.000 - 27.778 ppm 10/10/2024 7:43 AM EDT [facility] Tissue 10/07/2024 4:11 PM EDT 10/10/2024 3:19 AM EDT Link Murillo DO LAB BLOOD ORDERABLES Final Resul t [facility] [place] [place] [address] * (ABNORMAL) POCT urinalysis dipstick manually resulted (10/07/2024 3:39 PM EDT) Color, UA Yellow Clarity, UA Clear Glucose, UA Negative Negative - 2000(110) ++++ mg/dL Bilirubin, UA Negative Negative - 4(70) +++ mg/dL Ketones, UA Negative Negative - 160(16) ++++ mg/dL Spec Grav, UA 1.030 1 - 1.03 Blood, UA Negative Negative - 50 Kalyan/mcL pH, UA 5.5 5 - 9 Protein, UA Trace Negative - 2000(20) ++++ mg/dL Urobilinogen, UA 1.0 0.2 - 12 mg/dL Leukocytes, UA Negative Negative - 500+++ Maria Elena/mcL Nitrite, UA Negative Negative - Positive Urine 10/07/2024 3:39 PM EDT Link Murillo DO POINT OF CARE TEST ENTER/EDIT OR DERABLES Final Result * THINPREP PAP AND HPV MRNA E6/E7 W/RFL HPV 16,18/45 (12/06/2022 12:04 PM EDT) Zeina YE LAB BLOOD ORDERABLES Final Resul t EXTERNAL LAB * Pap Smear (12/06/2022 12:00 AM EDT) Swab Cervical swab / Unknown Lidia Zhu [facility] LAB CYTOLOGY ORDERABLES Final Result EXTERNAL LAB from Last 3 Months or Most Recently Relevant to Health Maintenance [place] [address]
--- OUTSIDE RECORDS SUMMARY | 2024-11-12 15:26 | XMS_ITS | Encounter Summary ---
Author Organization [employer] [facility] tem Address [id number] [address] [place] [address] Care Team Providers Care Computer Salesperson Retail Name Role Phone Christina Dangelo CHARAN-CARBIDE TOOL MAKER Primary Care Provider + Encounter Details Date Type Department Care Team (Late st Contact Info) Description 06/12/2021 Refill [facility] [address] [place] [phone] Sera Vargas CMA Chronic pain of left knee Social History Tobacco Use Types Packs/Day Years Used Date Smoking Tobacco: Never Smokeless Tobacco: Never Alcohol Use Standard Drinks/Week Comments Yes 0 (1 standard drink = 0.6 oz pur e alcohol) occasionally PHQ-2 Answer Date Recorded Total Score 0 05/23/2021 Childcare Answer Date Recorded Childcare Unknown 10/08/2018 [...] have Coronavirus / COVID-19? No / Unsure 06/05/2021 2:42 PM EST documented as of this encounter Miscellaneous Notes * Telephone Encounter - Sera Vargas CMA - 06/12/2021 8:04 AM EST Says the ibuprofen doesn't help wants something stronger. Got nasty and hung up on me when I told her I could send that back to be refilled. She wanted a pain med before she goes to physical therapy.Before I could say anything else she hung up * Telephone Encounter - RABIA Walls - 06/12/2021 8:04 AM EST Noted documented in this encounter Plan of Treatment Not on file documented as of this encounter Visit Diagnoses Diagnosis Chronic pain of left knee documented in this encounter Additional Health Concerns Assessment Noted Time PHQ-9 Depression Total Score: 0 05/23/19 22 4:19 PM EST A Body Mass Index follow-up plan has been documented for the patient 10/15/2019 3:54 PM EDT documented as of this encounter Care Teams Computer Salesperson Retail Relationship Specialty Start Date End Date Christina Dangelo APRN-CNP [address] [place] [address] PCP - General Internal Medicine 07/03/23 documented as of this encounter
--- OUTSIDE RECORDS SUMMARY | 2024-11-12 15:26 | XMS_ITS | Encounter Summary ---
Author Organization [facility] tem Address [id number] [address] [place] [address] Care Team Providers Care Yarn Comber Name Role Phone LoretoChristina goldman Keysha CAMARILLO Primary Care Provider + Encounter Details Date Type Department Care Team (Late st Contact Info) Description 05/25/2021 Telephone [facility] [address] [place] [phone] Shanna Mei CMA Social History Tobacco Use Types Packs/Day [...] have Coronavirus / COVID-19? No / Unsure 05/23/2021 4:14 PM EST documented as of this encounter Miscellaneous Notes * Telephone Encounter - Shanna Mei CMA - 05/25/2021 1:50 PM EST ----- Message from RABIA Walls sent at 05/25/2021 9:39 AM EST ----- Normal left knee Xray- will refer to physical therapy * Telephone Encounter - Shanna Mei CMA - 05/25/2021 1:50 PM EST lvm for patient to call us back. * Telephone Encounter - Sera Vargas CMA - 05/25/2021 1:50 PM EST PATIENT CALLED BACK, I INFORMED HER OF THE XRAY RESULTS. SHE VERBALIZED UNDERSTANDING. documented in this encounter Plan of Treatment Not on file documented as of this encounter Visit Diagnoses Not on filedocumented in this encounter Additional Health Concerns Assessment Noted Time PHQ-9 Depression Total Score: 0 05/23/19 22 4:19 PM EST A Body Mass Index follow-up plan has been documented for the patient 10/15/2019 3:54 PM EDT documented as of this encounter Care Teams Yarn Comber Relationship Specialty Start Date End Date Christina Dangelo APRN-GERSON [address] [place] [address] PCP - General Internal Medicine 07/03/23 documented as of this encounter
--- OUTSIDE RECORDS SUMMARY | 2024-11-12 15:26 | XMS_ITS | Encounter Summary ---
Author Organization [facility] Address [address] [place] [address] Care Team Providers Care Drop Wire Aligner Name Role Phone Unavailable Primary Care Provider Unavailabl e Encounter Details Date Type Department Care Team ([facility] Contact Info) Description 02/03/2024 External Result Encounter [facility] [address] [facility] [place] [address] Link Murillo DO [address] [place] [address] Dr Fernando Cheney, [facility] Social History Tobacco Use Types Packs/Day [...] Upcoming Encounters Date Type Department Care Team ([facility] Contact Info) Description 11/26/2024 3:00 PM EDT Office Visit [facility] OB [address] [facility] [place] [address] Zeina Portillo PA [address] [facility] [address] [place], [place] [id number] documented as of this encounter Procedures Procedure Name Priority Date/Time Associated Diagnosis Comments DEXA BONE DENSITY 02/03/2024 1:1 1 PM EDT documented in this encounter Results * DEXA bone density (02/03/2024 1:11 PM EDT) Anatomical Region Laterality Modality Body Radiographic Aurora ging 02/03/2024 1:11 PM EDT Narrative 02/03/2024 1:10 PM EDT THIS EXAM WAS PERFORMED AT [facility]. Bone densitometry: HISTORY: Postmenopausal osteoporosis screening. L1-L4 T score is 0.0 and Z score is -0.9. Left neck T score is -0.8 and Z score is -1.3. Right femoral T score is -1.1 and Z score is -1.6. 10 year probability of osteoporotic fractures 3.3%. 10 year probability of hip fracture 0.2%. Procedure: Bone density scan was performed in the regions indicated in the accompanying documents. Bone mineral density values for each site expressed in grams per square centimeter and shown on accompanying graphs and tables. These values are compared to the World Health Organization standards that state that bone mineral density values at or below -2.5 standard deviations (T score -2.5) standard deviations from a young adult ethnicity-matched population are indicative of osteoporosis, and bone mineral density values at or below -1.0 standard deviations (T score -1.0) from a young adult ethnicity-matched population are indicative of osteopenia. The comparison of this patient's values to the world health organization standards is given in the impression. When possible, this study has been compared to any prior DEXA study. Full color report will be mailed separately. Impression: 1. Osteopenia. The exam is considered to be osteopenic by the National Osteoporosis Foundation guidelines. Recommend consideration for initiation of therapy. The current National Osteoporosis Foundation guide recommends treating patients with FRAX ten year risk scores of greater than or equal to 3% for hip fracture or greater than or equal to 20% for major osteoporotic fracture, to reduce their fracture risk. Finalized by Stewart Cardenas MD on 02/03/2024 1:10 PM Procedure Note Radiology, Radiologist, - 02/03/2024 THIS EXAM WAS PERFORMED AT [facility]. Bone densitometry: HISTORY: Postmenopausal osteoporosis screening. L1-L4 T score is 0.0 and Z score is -0.9. Left neck T score is -0.8 and Zscore is -1.3. Right femoral T score is -1.1 and Z score is -1.6. 10 yearprobability of osteoporotic fractures 3.3%. 10 year probability of hipfracture 0.2%. Procedure: Bone density scan was performed in the regions indicated in theaccompanying documents. Bone mineral density values for each siteexpressed in grams per square centimeter and shown on accompanying graphsand tables. These values are compared to the World Health Organizationstandards that state that bone mineral density values at or below -2.5 standard deviations (T score-2.5) standard deviations from a young adult ethnicity-matched populationare indicative of osteoporosis, and bone mineral density values at orbelow -1.0 standard deviations (T score -1.0) from a young adult ethnicity-matched population are indicative of osteopenia. The comparisonof this patient's values to the world health organization standards isgiven in the impression. When possible, this study has been compared toany prior DEXA study. Full color report will be mailed separately. Impression: 1. Osteopenia. The exam is considered to be osteopenic by the NationalOsteoporosis Foundation guidelines. Recommend consideration for initiationof therapy. The current National Osteoporosis Foundation guide recommends treatingpatients with FRAX ten year risk scores of greater than or equal to 3% forhip fracture or greater than or equal to 20% for major osteoporoticfracture, to reduce their fracture risk. Finalized by Stewart Cardenas MD on 02/03/2024 1:10 PM Link Murillo DO [facility] DXA PROCEDURES Final Result documented in this encounter Visit Diagnoses Not on filedocumented in this encounter
--- OUTSIDE RECORDS SUMMARY | 2024-11-12 15:26 | XMS_ITS | Encounter Summary ---
Author Organization [employer] [facility] tem Address [id number] [address] [place] [address] Care Team Providers Care Social Sciences Professor Name Role Phone Christina Dangelo Keysha MODEL TECHNICIAN-OUTDOOR EMERGENCY CARE TECHNICIAN Primary Care Provider + Reason for Visit * Reason Comments Med Refill Encounter Details Date Type Department Care Team (Late st Contact Info) Description 12/03/2020 Refill [facility] [address] [place] [phone] Vera Bazan APRN-CNP [address] [place] [address] [place], [place] [id number] Hip pain, chronic, left Social History Tobacco Use Types Packs/Day Years Used Date Smoking Tobacco: Never Smokeless Tobacco: Never Alcohol Use Standard Drinks/Week Comments Yes 0 (1 standard drink = 0.6 oz pur e alcohol) occasionally PHQ-2 Answer Date Recorded Total Score 0 04/19/2020 Childcare Answer Date Recorded Childcare Unknown 10/08/2018 [...] as of this encounter Visit Diagnoses Diagnosis Hip pain, chronic, left documented in this encounter Additional Health Concerns Assessment Noted Time PHQ-9 Depression Total Score: 0 04/19/20 20 3:00 PM EST A Body Mass Index follow-up plan has been documented for the patient 10/15/2019 3:54 PM EDT documented as of this encounter Care Teams Social Sciences Professor Relationship Specialty Start Date End Date Christina Dangelo, MODEL TECHNICIAN-OUTDOOR EMERGENCY CARE TECHNICIAN [address] [place] [address] PCP - General Internal Medicine 07/03/23 documented as of this encounter
--- OUTSIDE RECORDS SUMMARY | 2024-11-12 15:26 | XMS_ITS | Encounter Summary ---
Author Organization [facility] Address [address] [place] [address] Care Team Providers Care Crank Hand Name Role Phone Unavailable Primary Care Provider Unavailabl e Encounter Details Date Type Department Care Team (Late st Contact Info) Description 10/12/2024 Results Follow-Up [facility] [address] [facility] [place] [phone] Sarah Tse LPN [address] [place] [id number] Social History Tobacco Use Types Packs/Day Years [...] as of this encounter Miscellaneous Notes * Result Encounter Note - Sarah Tse LPN - 10/12/2024 12:54 PM EDT Detailed voicemail left and medication was sent in documented in this encounter Plan of Treatment Upcoming Encounters Date Type Department Care Team (Late st Contact Info) Description 11/26/2024 3:00 PM EDT Office Visit [facility] [address] [place] [address] Zeina Portillo PA [address] [facility] [place] [address] documented as of this encounter Visit Diagnoses Not on filedocumented in this encounter
--- OUTSIDE RECORDS SUMMARY | 2024-11-12 15:26 | XMS_ITS | Encounter Summary ---
Author Organization [facility] tem Address [id number] [address] [place] [address] Care Team Providers Care Landscape Artist Name Role Phone Christina Dangelo Keysha SKIN DRIER-RN TRIAGE Primary Care Provider + Reason for Visit * Reason Onset Date Comments Med Refill 01/26/2021 Encounter Details Date Type Department Care Team (Late st Contact Info) Description 01/[facility]/[address] [facility] [address] [place] [address] [phone] Vera Bazan APRN-CNP [address] [place], [place] [id number] Bronchitis Social History Tobacco Use Types Packs/Day Years [...] as of this encounter Visit Diagnoses Diagnosis Bronchitis Bronchitis, not specified as acute or chronic documented in this encounter Additional Health Concerns Assessment Noted Time PHQ-9 Depression Total Score: 0 04/19/20 20 3:00 PM EST A Body Mass Index follow-up plan has been documented for the patient 10/15/2019 3:54 PM EDT documented as of this encounter Care Teams Landscape Artist Relationship Specialty Start Date End Date Christina Dangelo, CHARAN-RN TRIAGE [address] [place] [address] PCP - General Internal Medicine 07/03/23 documented as of this encounter
--- OUTSIDE RECORDS SUMMARY | 2024-11-12 15:26 | XMS_ITS | Encounter Summary ---
Author Organization [facility] tem Address [id number] [address] [place] [address] Care Team Providers Care Radio Recorder Name Role Phone Christina Dangelo Keysha CAMARILLO Primary Care Provider + Reason for Visit * Reason Onset Date Comments Med Refill 11/13/2021 Encounter Details Date Type Department Care Team (Late st Contact Info) Description [facility]/13[facility] [address] [place] [address] [phone] Vera Bazan APRN-CNP [address] [place], [place] [id number] Essential hypertension Social History Tobacco Use Types [...] * Telephone Encounter - RABIA Perkins - 11/13/2021 3:26 PM EDT Send to vera documented in this encounter Plan of Treatment [...] documented as of this encounter Care Teams Radio Recorder Relationship Specialty Start Date End Date Christina Dangelo APRN-CNP [address] [place] [address] PCP - General Internal Medicine 07/03/23 documented as of this encounter
--- OUTSIDE RECORDS SUMMARY | 2024-11-12 15:26 | XMS_ITS | Encounter Summary ---
[facility] Address [id number] [address] [place] [address] Care Team Providers Care Senior Bi Architect Name Role Phone Christina Dangelo Keysha FUR GLAZER-LIGHT BULB ASSEMBLER Primary Care Provider + Reason for Visit * Reason Comments Med Refill Encounter Details Date Type Department Care Team (Late st Contact Info) Description 10/23/2020 Refill [facility] [address] [place] [address] [phone] Vera Bazan APRN-CNP [address] [facility] [address] [place] [address] Essential hypertension Social History Tobacco Use Types [...] have Coronavirus / COVID-19? No / Unsure 10/20/2020 2:51 PM EDT documented as of this encounter [...] documented as of this encounter Care Teams Senior Bi Architect Relationship Specialty Start Date End Date Christina Dangelo, FUR GLAZER-LIGHT BULB ASSEMBLER [address] [place] [address] PCP - General Internal Medicine 07/03/23 documented as of this encounter
--- OUTSIDE RECORDS SUMMARY | 2024-11-12 17:26 | XMS_ITS | CCD ---
Author Organization [facility] Care Team Providers Care 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 Name Role Phone LIDIA, BARI Admitting Unavailable LIDIA, BARI Attending Unavailable MACHELLE, BRANDI Primary Care Unavailable LIDIA, BARI Admitting Unavailable LIDIA, BARI Attending Unavailable JASKARAN BRAXTON Primary Care Unavailable LIDIA, BARI Consulting Unavailable LIDIA, BARI Admitting Unavailable LIDIA, BARI Attending Unavailable MACHELLE, BRANDI Primary Care Unavailable LIDIA, BARI Consulting Unavailable HILLARY VAUGHAN JR Consulting Unavailable CAL WANG Consulting Unavailable HILLARY VAUGHAN JR Procedure Practitioner John DAVISO BARI Procedure Practitioner UnavailMARIA INES Gan Consulting Unavailable ERIN YIN Consulting Unavailable LIDIA, BARI Admitting Unavailable LIDIA, BARI Attending Unavailable MACHELLE, BRANDI Primary Care Unavailable LIDIA, BARI Consulting Unavailable CHRIS WHITAKERORY Admitting Unavailable CAMILA WHITAKER Attending Unavailable CAMILA WHITAKER Primary Care Unavailable CAMILA WHITAKER Consulting Unavailable CAMILA WHITAKER Admitting Unavailable KARCAMILA DIAZ Attending Unavailable CAMILA WHITAKER Consulting Unavailable ROSA, JEZ L Attending Unavailable SHAWN ULLOA Referring Unavailable ROSA, JEZ L Primary Care Unavailable ROSA, JEZ L Attending Unavailable ROSA, JEZ L Referring Unavailable ROSA, JEZ L Primary Care Unavailable Rosa GOLD LEAF LAYER-CHEST PAINTING LEADER, Jez L Primary Care Provider Rosa GOLD LEAF LAYER-CHEST PAINTING LEADER, Jez L Primary Care Provider Unavailable Primary Care Provider Unavailabl e SENDY MURILLOY Attending Unavailable LIDIA, BARI Attending Unavailable ROSA, JEZ L Referring Unavailable ROSA, JEZ L Primary Care Unavailable LIDIA, BARI R Referring Unavailable JEZ LEE Primary Care Unavailable JEZ LEE Referring Unavailable JEZ LEE Primary Care Unavailable BARI MURILLO Referring Unavailable ROSA JEZ Chopra Primary Care Unavailable Medications Current Medications Medication Drug Class(es) Dates Sig (Normalized) Sig (Original) [id number] 200 actuat albuterol 0.09 mg/actuat metered dose inhaler (8 sources) beta2-Adrenergic Agonist Start: 06-30-2022 albuterol (PROVENTIL HFA;VENTOLIN HFA) 90 mcg/actuation inhaler Inhale 2 puffs as needed. 06/30/2022 Active amoxicillin 500 mg oral capsule [...] 07/10/2023 Active aspirin 81 mg chewable tablet (13 sources) Platelet Aggregation Inhibitor, Nonsteroidal Anti-inflammatory Drug aspirin 81 MG chewable tablet Chew 81 mg 1 (one) time. Active aspirin 81 mg ch ewable tablet Chew 1 tablet (81 mg total) and swallow in the morning. Active 24 hr dilTIAZem hydrochloride 300 mg extended release oral capsule (16 sources) Calcium Channel Nehemias Start: 01-17-2023 End: 08-21-2024 take 1 capsule by mouth every twenty-four hours in the morning dilTIAZem CD (CARDIZEM CD) 300 mg 24 hr capsule Indications: Primary hypertension , Essential hypertension TAKE 1 CAPSULE(300 MG) BY MOUTH IN THE MORNING 90 capsule 1 08/21/2024 Active Start: 07-18-2022 take 1 capsule by mo uth in the morning, then take 1 capsule by mouth every twenty-four hours dilTIAZem CD (Cardizem CD) 300 MG 24 hr capsule Take 300 mg by mouth in the morning. 07/18/2022 Active estradiol 0.1 mg/ml vaginal cream (4 sources) Estrogen Start: 10-07-2024 estradiol (Est race) 0.1 MG/GM vaginal cream Indications: Dyspareunia in female 2g vaginal daily for 2 weeks, then 2 times weekly following initial 2 weeks 42.5 g 10/07/2024 Active fluconazole 150 mg oral tablet (3 sources) Azole Antifungal Start: 10-07-2024 End: 10-07-2024 fluconazole (Diflucan) 150 MG tablet Indications: Yeast infection Take 1 tablet (150 mg) by mouth 1 (one) time for 1 dose Repeat in 7 days if symptoms persist. 2 tablet 10/07/2024 10/07/2024 Active Start: 07-03-2023 End: 07-03-2023 take 1 tablet by mouth once fluconazole (DIFLUCAN) 150 mg tablet Take 1 tablet (150 mg total) by mouth once for 1 dose. 1 tablet 0 07/03/2023 07/03/2023 120 actuat fluticasone propionate 0.044 mg/actuat metered dose inhaler (4 sources) Corticosteroid Start: 02-06-2024 take 2 puff(s) by inhalation in the morning fluticasone propionate (FLOVENT HFA) 44 mcg/actuation inhaler Inhale 2 puffs in the morning and 2 puffs before bedtime. 10.6 g 1 02/06/2024 Active ibuprofen 800 mg oral tablet (8 sources) Nonsteroidal Anti-inflammatory Drug Start: 12-19-2021 take 1 tablet by mouth every eight hours as needed for pain ibuprofen (MOTRIN) 800 mg tablet Indications: Chronic pain of right knee Take 1 tablet (800 mg total) by mouth every 8 (eight) hours as needed for pain. 90 tablet 12/19/2021 Active loratadine 10 mg oral tablet (13 sources) Start: 08-20-2018 take 1 tablet by mouth twice daily loratadine (CLARITIN) 10 mg tablet Indications: Seasonal allergies Take one tablet by mouth BID 60 tablet 08/20/2018 Active metroNIDAZOLE 500 mg oral tablet (1 source) Nitroimidazole Antimicrobial Start: 10-12-2024 End: 10-19-2024 take 1 tablet by mouth in the morning metroNIDAZOLE (Flagyl) 500 MG tablet Indications: Bacterial vaginosis Take 1 tablet (500 mg) by mouth in the morning and 1 tablet (500 mg) before bedtime. Do all this for 7 days. Do not drink alcohol while taking this medication. 14 tablet 10/12/2024 10/19/2024 Active predniSONE 20 mg oral tablet (1 [...] days. 10 tablet 0 07/03/2023 07/08/2023 Active triamcinolone acetonide 0.005 mg/mg topical ointment (4 sources) Corticosteroid Start: 02-06-2024 triamcinolone (KENALOG) 0.5 % ointment Apply 1 Application topically in the morning and 1 Application before bedtime. 30 g 1 02/06/2024 Active Completed/Discontinued Medications Medication Drug Class(es) Dates Sig (Normalized) Sig (Original) benzonatate 100 mg oral capsule (5 sources) Non-narcotic Antitussive Start: 07-03-2023 End: 02-06-2024 take 1 capsule by mouth three times daily as needed for cough benzonatate (TESSALON PERLES) 100 mg capsule Take 1 capsule (100 mg total) by mouth 3 (three) times a day as needed for cough. 20 capsule 07/03/2023 02/06/2024 Discontinued (Therapy completed) 12 hr guaiFENesin 600 mg extended release oral tablet (5 sources) Start: 07-03-2023 End: 02-06-2024 take 1 tablet by mouth once guaiFENesin (MUCINEX) 600 mg tablet extended release 12hr Take 1 tablet (600 mg total) by mouth every 12 (twelve) hours. 14 tablet 07/03/2023 02/06/2024 Discontinued (Therapy completed) Problems Active Problems Problem Classification Problem Date Documented Date Episodic/Chronic Abdominal pain (2 sources) Pain in female pelvis; Translations: [Pelvic and perineal pain] 10-07-2024 Episodic Abdominal pain (1 source) Pelvic and perineal pain; Translations: [PELVIC AND PERINEAL PAIN] Onset: 9 Allergic reactions (2 sources) Atopic dermatitis, unspecified; Translations: [Atopic dermatitis] Onset: 4 02-06-2024 Chronic Asthma (2 sources) Mild intermittent asthma, uncomplicated; Translations: [Mild intermittent asthma] Onset: 4 02-06-2024 Chronic Deficiency and other anemia (8 sources) Iron deficiency anemia due to blood loss; Translations: [Iron deficiency anemia secondary to blood loss (chronic)] Onset: 3 01-28-2023 Chronic Disorders of lipid metabolism (1 source) Pure hypercholesterolemia, unspecified; Translations: [PURE HYPERCHOLESTEROLEMIA UNSPEC] Onset: 9 Endometriosis (2 sources) Endometriosis, unspecified; Translations: [Endometriosis of pelvic peritoneum] Onset: 9 Chronic Essential hypertension (18 sources) Essential (primary) hypertension; Translations: [Essential hypertension] Onset: 8 07-03-2023 Chronic Malaise and fatigue (3 sources) Fatigue; Translations: [Other fatigue] Onset: 5 10-07-2024 Episodic Menstrual disorders (1 source) Dysmenorrhea, unspecified; Translations: [DYSMENORRHEA UNSPECIFIED] Onset: 9 Chronic Mycoses (3 sources) Mycosis; Translations: [Candidiasis, unspecified] Onset: 5 10-07-2024 Episodic Other endocrine disorders (2 sources) Disorder of endocrine system; Translations: [Endocrine disorder, unspecified] 10-07-2024 Episodic Other endocrine disorders (1 source) Endocrine disorder, unspecified; Translations: [Endocrine disorder, unspecified] Onset: 5 Episodic Other female genital disorders (3 sources) Abnormal uterine and vaginal bleeding, unspecified; Translations: [ABNORMAL UTERINE VAGINAL BLEED UNS] Onset: 9 Chronic Other female genital disorders (2 sources) Pain in female genitalia on intercourse; Translations: [Unspecified dyspareunia] 10-07-2024 Chronic Other female genital disorders (1 source) Unspecified dyspareunia; Translations: [UNSPECIFIED DYSPAREUNIA] Onset: 9 Other nutritional; endocrine; and metabolic disorders (1 source) Severe obesity; Translations: [Class 2 severe obesity due to excess calories with serious comorbidity and body mass index (BMI) of 37.0 to 37.9 in adult ([facility] [place] 02-11-2024 Chronic Other screening for suspected conditions (not mental disorders or infectious disease) (9 sources) Encounter for screening for malignant neoplasm of cervix; Translations: [Encounter for screening mammogram for malignant neoplasm of breast] Onset: 0 07-03-2023 Episodic Unclassified (1 source) Abnormal findings on diagnostic imaging of other specified body structures; Translations: [ABNORML FIND DX IMG OT BODY STRUC] Onset: 9 Unclassified (1 source) Annual Exam Onset: 4 Unclassified (1 source) new patient Onset: 4 Past or Other Problems Problem Classification Problem Date Documented Date Episodic/Chronic Benign neoplasm of uterus (1 source) Leiomyoma of uterus, unspecified; Translations: [LEIOMYOMA OF UTERUS UNSPECIFIED] Onset: 12-15-2018 Episodic Chronic obstructive pulmonary disease and bronchiectasis (2 sources) Bronchitis, not specified as acute or chronic; Translations: [Bronchitis] Onset: 07-03-2023 07-03-2023 Episodic Immunizations and screening for infectious disease (8 sources) Contact with and (suspected) exposure to infections with a predominantly sexual mode of transmission; Translations: [Encounter for screening for human papillomavirus (HPV)] Onset: 10-22-2019 02-06-2024 Episodic Mood disorders (8 sources) Mood disorders Onset: 07-03-2023 Resolved: 02-06-2024 07-03-2023 Other aftercare (1 source) Other penitentiary (current) drug therapy; Translations: [[facility] CURRENT DRUG THERAPY] Onset: 12-15-2018 Episodic Other aftercare (1 source) retirement (current) use of aspirin; Translations: [[employer] CURRENT USE OF ASPIRIN] Onset: 12-15-2018 Episodic Other upper respiratory infections (2 sources) Acute maxillary sinusitis, unspecified; Translations: [Acute maxillary sinusitis] Onset: 07-03-2023 07-03-2023 Episodic Residual codes; unclassified (1 source) Asymptomatic menopausal state; Translations: [Asymptomatic menopausal state] Onset: 02-03-2024 Episodic Sprains and strains (8 sources) Strain of muscle of left groin region; Translations: [Strain of muscle, fascia and tendon of pelvis, initial encounter] Onset: 05-06-2018 05-06-2018 Episodic Unclassified (8 sources) Onset: 01-02-2022 01-02-2022 Results Test Name Value Interpretation Reference Range Facility CBC W Auto Differential pane l (Bld)on 10-17-2024 ABSOLUTE BASOPHIL 0.1 10*3/uL 0.0 - 0.2 10*3/uL [facility] Basophils/100 WBC (Bld) 0.9 % [facility] DIFFERENTIAL TYPE AUTOMATED DIFFERENTIAL [facility] Comment on above: PERFORMED AT [facility] [address],[place] [address] Eosinophils (Bld) [#/Vol] 0.2 10*3/uL 0.0 - 0.4 10*3/uL [facility] Eosinophils/100 WBC (Bld) 2.8 % [facility] Erythrocyte distribution width (RBC) [Ratio] 12.4 % 11.5 - 15 % [facility] Hematocrit (Bld) [Volume fraction] 38.5 % 35 - 47 % [facility] Hemoglobin (Bld) [Mass/Vol] 13.2 g/dL 11.7 - 15.5 g/dL [facility] Lymphocytes (Bld) [#/Vol] 2 10*3/uL 1.0 - 3.5 10*3/uL [facility] Lymphocytes/100 WBC (Bld) 28.5 % [facility] MCH (RBC) [Entitic mass] 32.2 pg 27 - 34 pg [facility] MCHC (RBC) [Mass/Vol] 34.2 g/dL 32 - 36 g/dL [facility] MCV (RBC) [Entitic vol] 94 fL 80 - 100 fL [facility] Monocytes (Bld) [#/Vol] 0.5 10*3/uL 0.0 - 0.9 10*3/uL [facility] Monocytes/100 WBC (Bld) 6.9 % [facility] Neutrophils (Bld) [#/Vol] 4.2 10*3/uL 1.5 - 6.6 10*3/uL [facility] Neutrophils/100 WBC (Bld) 60.9 % [facility] Platelet mean volume (Bld) [Entitic vol] 9 fL 7 - 12 fL [facility] Platelets (Bld) [#/Vol] 241 10*3/uL [facility] RBC (Bld) [#/Vol] 4.09 10*6/uL [facility] WBC corrected for nucl RBC Auto (Bld) [#/Vol] 6.[address] [facility] CBC WITH AUTO DIFFERENTIALon 10-17-2024 BASOPHILS ABSOLUTE COUNT (10*3/UL) BY AUTOMATED COUNT 0.1 10*3/uL Normal 0.0-0.2 [facility] Comment on above: Performed By: #### C BCA #### [facility] ([facility]) [address] [place] [address] VIR BASOPHILS RELATIVE PERCENT BY AUTOMATED COUNT 0.9 % Normal [facility] Comment on above: Performed By: #### C BCA #### [facility] ([facility]) [address] [place] [address] VIR CELLAVISION DIFFERENTIAL TYPE AUTOMATED DIFFERENTIAL Normal [facility] Comment on above: Performed By: #### C BCA #### [facility] ([facility]) [address] [place] [address] VIR Eosinophils (Bld) [#/Vol] 0.2 10*3/uL Normal 0.0-0.4 [facility] Comment on above: Performed By: #### C BCA #### [facility] ([facility]) [address] [place] [address] VIR EOSINOPHILS RELATIVE PERCENT BY AUTOMATED COUNT 2.8 % Normal [facility] Comment on above: Performed By: #### C BCA #### [facility] ([facility]) [address] [place] [address] VIR Erythrocyte distribution width (RBC) [Ratio] 12.4 % Normal 11.5-15 [facility] Comment on above: Performed By: #### C BCA #### [facility] ([facility]) [address] [place] [address] VIR Hematocrit (Bld) [Volume fraction] 38.5 % Normal 35-47 [facility] Comment on above: Performed By: #### C BCA #### [facility] ([facility]) [address] [place] [address] VIR Hemoglobin (Bld) [Mass/Vol] 13.2 g/dL Normal 11.7-15.5 [facility] Comment on above: Performed By: #### C BCA #### [facility] ([facility]) [address] [place] [address] VIR LYMPHOCYTES ABSOLUTE COUNT (10*3/UL) BY AUTOMATED COUNT 2.0 10*3/uL Normal 1.0-3.5 [facility] Comment on above: Performed By: #### C BCA #### [facility] ([facility]) [address] [place] [address] VIR LYMPHOCYTES RELATIVE PERCENT BY AUTOMATED COUNT 28.5 % Normal [facility] Comment on above: Performed By: #### C BCA #### [facility] ([facility]) [address] [place] [address] VIR MCH (RBC) [Entitic mass] 32.2 pg Normal 27-34 [facility] Comment on above: Performed By: #### C BCA #### [facility] ([facility]) [address] [place] [address] VIR MCHC (RBC) [Mass/Vol] 34.2 g/dL Normal 32-36 [facility] Comment on above: Performed By: #### C BCA #### [facility] ([facility]) [address] [place] [address] VIR MCV (RBC) [Entitic vol] 94 fL Normal 80-100 [facility] Comment on above: Performed By: #### C BCA #### [facility] ([facility]) [address] [place] [address] VIR MONOCYTES ABSOLUTE COUNT (10*3/UL) BY AUTOMATED COUNT 0.5 10*3/uL Normal 0.0-0.9 [facility] Comment on above: Performed By: #### C BCA #### [facility] ([facility]) [address] [place] [address] VIR MONOCYTES RELATIVE PERCENT BY AUTOMATED COUNT 6.9 % Normal [facility] Comment on above: Performed By: #### C BCA #### [facility] ([facility]) [address] [place] [address] VIR NEUTROPHILS ABSOLUTE COUNT BY AUTOMATED COUNT 4.2 10*3/uL Normal 1.5-6.6 [facility] Comment on above: Performed By: #### C BCA #### [facility] ([facility]) [address] [place] [address] VIR NEUTROPHILS RELATIVE PERCENT BY AUTOMATED COUNT 60.9 % Normal [facility] Comment on above: Performed By: #### C BCA #### [facility] ([facility]) [address] [place] [address] VIR Platelet mean volume (Bld) [Entitic vol] 9.0 fL Normal 7-12 [facility] Comment on above: Performed By: #### C BCA #### [facility] ([facility]) [address] [place] [address] VIR Platelets (Bld) [#/Vol] 241 10*3/uL Normal 150-450 [facility] Comment on above: Performed By: #### C BCA #### [facility] ([facility]) [address] [place] [address] VIR RBC COUNT 4.09 X10E12/L Normal 3.8-5.2 [facility] Comment on above: Performed By: #### C BCA #### [facility] ([facility]) [address] [place] [address] VIR WBC (Bld) [#/Vol] 6.9 10*3/uL Normal 4-11 [facility] Comment on above: Performed By: #### C BCA #### [facility] ([facility]) [address] [place] [address] VIR CHOLESTEROL, TOTALon 025 Cholesterol [Mass/Vol] 210 mg/dL High 150-200 [facility] Comment on above: Performed By: #### C HOL #### [facility] ([facility]) [address] [place] [address] VIR COMPREHENSIVE METABOLIC PANE Ulices 10-17-2024 Albumin [Mass/Vol] 4.3 g/dL Normal 3.2-5.3 [facility] Comment on above: Performed By: #### C MP #### [facility] ([facility]) [address] [place] [address] VIR ALP [Catalytic activity/Vol] 45 U/L Normal 39-130 [facility] Comment on above: Performed By: #### C MP #### [facility] ([facility]) [address] [place] [address] VIR ALT [Catalytic activity/Vol] 11 U/L Normal <=31 [facility] Comment on above: Performed By: #### C MP #### [facility] ([facility]) [address] [place] [address] VIR Anion gap [Moles/Vol] 10 mmol/L Normal 5-15 [facility] Comment on above: Performed By: #### C MP #### [facility] ([facility]) [address] [place] [address] VIR AST [Catalytic activity/Vol] 16 U/L Normal <=41 [facility] Comment on above: Performed By: #### C MP #### [facility] ([facility]) [address] [place] [address] VIR Bilirubin [Mass/Vol] 0.7 mg/dL Normal 0.3-1.2 [facility] Comment on above: Performed By: #### C MP #### [facility] ([facility]) [address] [place] [address] VIR Calcium [Mass/Vol] 9.3 mg/dL Normal 8.5-10.5 [facility] Comment on above: Performed By: #### C MP #### [facility] ([facility]) [address] [place] [address] VIR Chloride [Moles/Vol] 107 mmol/L Normal 98-109 [facility] Comment on above: Performed By: #### C MP #### [facility] ([facility]) [address] [place] [address] VIR CO2 [Moles/Vol] 21 mmol/L Low 22-32 [facility] Comment on above: Performed By: #### C MP #### [facility] ([facility]) [address] [place] [address] VIR Creatinine [Mass/Vol] 0.66 mg/dL Normal 0.40-1.00 [facility] Comment on above: Result Comment: METH OD TRACEABLE TO IDMS STANDARD Performed By: #### C MP #### [facility] ([facility]) [address] [place] [address] VIR EGFR (CKD-EPI) NON-RACE DEPENDENT >^90 Normal >=60 [facility] Comment on above: Result Comment: Repo rted eGFR is based on the CKD-EPI 2020 equation that does not use a race coefficient. Performed By: #### C MP #### [facility] ([facility]) [address] [place] [address] VIR Glucose [Mass/Vol] 91 mg/dL Normal 65-99 [facility] Comment on above: Performed By: #### C MP #### [facility] ([facility]) [address] [place] [address] VIR Potassium [Moles/Vol] 4.1 mmol/L Normal 3.5-5.0 [facility] Comment on above: Performed By: #### C MP #### [facility] ([facility]) [address] [place] [address] VIR Protein [Mass/Vol] 7.4 g/dL Normal 6.0-8.0 [facility] Comment on above: Performed By: #### C MP #### [facility] ([facility]) [address] [place] [address] VIR Sodium [Moles/Vol] 138 mmol/L Normal 134-146 [facility] Comment on above: Performed By: #### C MP #### [facility] ([facility]) [address] [place] [address] VIR Urea nitrogen [Mass/Vol] 11 mg/dL Normal 5-23 [facility] Comment on above: Performed By: #### C MP #### [facility] ([facility]) [address] [place] [address] VIR HEMOGLOBIN A1Con 10-17-2024 Glucose [Mass/Vol] 85 mg/dL Normal [facility] Comment on above: Performed By: #### H A1C #### [facility] ([facility]) [address] [place] [address] VIR HbA1c (Bld) [Mass fraction] 4.6 % Normal 4.4-5.6 [facility] Comment on above: Result Comment: ADA Guidelines Result HgbA1c Normal : less than 5.7 % Prediabetes : 5.7 % to 6.4 % Diabetes : > 6.4 % Use with caution in patients with abnormal hemoglobin variants as the half-life of red blood cells and in vivo glycation rates are affected. Performed By: #### H A1C #### [facility] ([facility]) [address] [place] [address] VIR TSHon 10-17-2024 TSH 1.45 uIU/mL Normal 0.49-4.67 [facility] Comment on above: Performed By: #### T SH #### [facility] ([facility]) [address] [place] [address] VIR RECURRENT VAGINITIS (HTRX)on 10-10-2024 ATOPOBIUM VAGINAE 21.481 Abnormal [facility] ATOPOBIUM VAGINAE Detected Abnormal [facility] BVAB 2,3 (BACTERIAL VAGINOSIS ASSOCIATED BACTERIA 2, 3); MOBILUNCUS SPP 0 [facility] BVAB 2,3 (BACTERIAL VAGINOSIS ASSOCIATED BACTERIA 2, 3); MOBILUNCUS SPP Not detected [facility] MARIA ISABEL ALBICANS, PARAPSILOSIS, TROPICALIS 26.398 Abnormal [facility] MARIA ISABEL ALBICANS, PARAPSILOSIS, TROPICALIS Detected Abnormal [facility] MARIA ISABEL GLABRATA 0 [facility] MARIA ISABEL GLABRATA Not detected [facility] MARIA ISABEL KRUSEI 0 [facility] MARIA ISABEL KRUSEI Not detected [facility] CHLAMYDIA TRACHOMATIS 0 [facility] CHLAMYDIA TRACHOMATIS Not detected [facility] ERMB, C; MEFA 14.838 Abnormal [facility] ERMB, C; MEFA Detected Abnormal [facility] GARDNERELLA VAGINALIS 20.804 Abnormal [facility] GARDNERELLA VAGINALIS Detected Abnormal [facility] Interpretation and review of laboratory results Abnormal [facility] MEGASPHAERA (TYPES 1, 2) 0 [facility] MEGASPHAERA (TYPES 1, 2) Not detected [facility] MYCOPLASMA GENITALIUM 0 [facility] MYCOPLASMA GENITALIUM Not detected [facility] NEISSERIA GONORRHOEAE 0 [facility] NEISSERIA GONORRHOEAE Not detected [facility] TET B, TET M 18.652 Abnormal [facility] TET B, TET M Detected Abnormal [facility] TRICHOMONAS VAGINALIS 0 [facility] TRICHOMONAS VAGINALIS Not detected [facility] MAMM SCREENING BILATERAL W C professional employer consultant 10-07-2024 MAMM SCREENING BILATERAL W CAD MAMM SCREENING BILATERAL W CAD YANG SHARIF [place] 1975 [id number] EXAM: MAMM SCREENING BILATERAL W CAD, 10/05/2024 [...] on 10/07/2024 10:59 AM 1 c MOLEC JACK IMG Normal [facility] Urinalysis macro (dipstick) panel (U)on 10-07-2024 Bilirubin, UA Negative Negative - 4(70) +++ mg/dL [facility] Blood, UA Negative Negative - 50 Kalyan/mcL [facility] Clarity, UA Clear [facility] Healthks re Color, UA Yellow [facility] Healthcar e Glucose, UA Negative Negative - 1999(110) ++++ mg/dL [facility] Interpretation and review of laboratory results Abnormal [facility] re Ketones, UA Negative Negative - 160(16) ++++ mg/dL [facility] Leukocytes, UA Negative Negative - 500+++ Maria Elena/mcL [facility] Nitrite, UA Negative Negative - Positive [facility] pH, UA 5.5 5 - [address] [facility] Health[facility] Protein, UA Trace Negative - 1999(20) ++++ mg/dL [facility] Spec Grav, UA 1.03 1 - 1.03 [facility] Urobilinogen, UA 1.0 0.2 - 12 mg/dL [facility] DEXA SCAN CENTRAL SKELETALon 02-03-2024 DEXA SCAN CENTRAL SKELETAL DEXA SCAN CENTRAL SKELETAL Bone densitometry: HISTORY: Postmenopausal osteoporosis screening. L1-L4 [...] Stewart Cardenas MD on 02/03/2024 1:10 PM Normal [facility] COMPREHENSIVE METABOLIC PANE Ulices 01-25-2024 Albumin [Mass/Vol] 4.2 g/dL Normal 3.2-5.3 [facility] Comment on above: Performed By: #### 2 4331-1, CMP #### [facility] ([id number]) [address], [address] [place] [address] ALP [Catalytic activity/Vol] 49 U/L Normal 39-130 [facility] Comment on above: Performed By: #### 2 4331-1, CMP #### [facility] ([id number]) [address], [address] [place] [address] ALT [Catalytic activity/Vol] 11 U/L Normal 0-31 [facility] Comment on above: Performed By: #### 2 4331-1, CMP #### [facility] ([id number]) [address], [address] [place] [address] Anion gap [Moles/Vol] 9 mmol/L Normal 5-15 [facility] Comment on above: Performed By: #### 2 4331-1, CMP #### [facility] ([id number]) [address], [address] [place] [address] AST [Catalytic activity/Vol] 17 U/L Normal 0-41 [facility] Comment on above: Performed By: #### 2 4331-1, CMP #### [facility] ([id number]) [address], [address] [place] [address] Bilirubin [Mass/Vol] 0.6 mg/dL Normal 0.3-1.2 [facility] Comment on above: Performed By: #### 2 4331-1, CMP #### [facility] ([id number]) [address], [address] [place] [address] Calcium [Mass/Vol] 9.5 mg/dL Normal 8.5-10.5 [facility] Comment on above: Performed By: #### 2 4331-1, CMP #### [facility] ([id number]) [address], [address] [place] [address] Chloride [Moles/Vol] 104 mmol/L Normal 98-109 [facility] Comment on above: Performed By: #### 2 4331-1, CMP #### [facility] ([id number]) [address], [address] [place] [address] CO2 [Moles/Vol] 26 mmol/L Normal 22-32 [facility] Comment on above: Performed By: #### 2 4331-1, CMP #### [facility] ([id number]) [address], [address] [place] [address] Creatinine [Mass/Vol] 0.66 mg/dL Normal 0.40-1.00 [facility] Comment on above: Result Comment: METH OD TRACEABLE TO IDMS STANDARD Performed By: #### 2 4331-1, CMP #### [facility] ([id number]) [address], [address] [place] [address] eGFR (CKD-EPI) NON-RACE DEPENDENT >90 Normal >59 [facility] Comment on above: Result Comment: Reported eGFR is based on the CKD-EPI 2020 equation that does not use a race coefficient. Performed By: #### 2 4331-1, CMP #### [facility] ([id number]) [address], [address] [place] [address] Glucose [Mass/Vol] 86 mg/dL Normal 65-99 [facility] Comment on above: Performed By: #### 2 4331-1, CMP #### [facility] ([id number]) [address], [address] [place] [address] Potassium [Moles/Vol] 4.2 mmol/L Normal 3.5-5.0 [facility] Comment on above: Performed By: #### 2 4331-1, CMP #### [facility] ([id number]) [address], [address] [place] [address] Protein [Mass/Vol] 7.5 g/dL Normal 6.0-8.0 [facility] Comment on above: Performed By: #### 2 4331-1, CMP #### [facility] ([id number]) [address], [address] [place] [address] Sodium [Moles/Vol] 139 mmol/L Normal 134-146 [facility] Comment on above: Performed By: #### 2 4331-1, CMP #### [facility] ([id number]) [address], [address] [place] [address] Urea nitrogen [Mass/Vol] 8 mg/dL Normal 5-23 [facility] Comment on above: Performed By: #### 2 4331-1, CMP #### [facility] ([id number]) [address], [address] [place] [address] Lipid 1996 panelon 4 Cholesterol [Mass/Vol] 202 mg/dL High 150-200 [facility] Comment on above: Performed By: #### 2 4331-1, CMP #### [facility] ([id number]) [address], [address] [place] [address] Cholesterol in HDL [Mass/Vol] 68 mg/dL Normal >39 [facility] Comment on above: Result Comment: HDL <40 mg/dL - High Risk HDL > or = 40mg/dL- Desirable HDL >60 mg/dL - Negative Risk Performed By: #### 2 4331-1, CMP #### [facility] ([id number]) [address], [address] [place] [address] Cholesterol in LDL [Mass/Vol] 125 mg/dL Normal <130 [facility] Comment on above: Result Comment: LDL <100 mg/dL - Desirable LDL >160 mg/dL - High Risk Performed By: #### 2 4331-1, CMP #### [facility] ([id number]) [address], [address] [place] [address] Cholesterol in VLDL [Mass/Vol] 9 mg/dL Normal 0-30 [facility] Comment on above: Performed By: #### 2 4331-1, CMP #### [facility] ([id number]) [address], [address] [place] [address] CHOLESTEROL:HDL 3.0 Normal 1.0-5.0 [facility] Comment on above: Performed By: #### 2 4331-1, CMP #### [facility] ([id number]) [address], [address] [place] [address] Triglyceride [Mass/Vol] 46 mg/dL Normal 27-150 [facility] Comment on above: Performed By: #### 2 4331-1, CMP #### [facility] ([id number]) [address], [address] [place] [address] PAP ACOG PANEL 2: 30 to 65on 10-30-2019 Age Gdln ACOG Testing 30-65 Normal [facility] Comment on above: Performed By: #### C BC #### [facility] [address] [place], [place] [address] Gomez Brown DIAGNOSIS: Comment Normal [facility] Comment on above: Result Comment: NEGA TIVE FOR INTRAEPITHELIAL LESION OR MALIGNANCY. Performed at: WB Performed By: #### C BC #### [facility] [address] [address] Gomez Brown HPV Aptima Negative Normal Negative [facility] Comment on above: Result Comment: This test was developed and its performance characteristics determined by [facility]. It has not been cleared or approved by the Food and Drug Administration. This nucleic acid amplification test detects fourteen high-risk HPV types (16,18,31,33,35,39,45,51,52,56,58,59,66,68) without differentiation. Performed at: =G Performed By: #### C BC #### [facility] [address] [id number] Gomez Brown Methodology: Comment Normal [facility] Comment on above: Result Comment: This liquid based SurePath(R) pap test was screened with the assistance of an image guided system. Performed at: WB Performed By: #### C BC #### [facility] [address] [id number] Gomez Brown Note: Comment Normal [facility] Comment on above: Result Comment: The Pap smear is a screening test designed to aid in the detection of premalignant and malignant conditions of the uterine cervix. It is not a diagnostic procedure and should not be used as the sole means of detecting cervical cancer. Both false-positive and false-negative reports do occur. . Performed at: WB Performed By: #### C BC #### [facility] [address] [place] [address] Gomezvishal Brown Performed by: Comment Normal [facility] Comment on above: Result Comment: Dakota Baltazar, Telegraphic Typewriter Installer (ASCP) Performed at: WB Performed By: #### C BC #### [facility] [address] [place] [address] Gomezvishal Brown Specimen adequacy: Comment Normal [facility] Comment on above: Result Comment: Sati sfactory for evaluation. Endocervical and/or squamous metaplastic cells (endocervical component) are present. Performed at: WB Performed By: #### C BC #### [facility] [address] [place] [address] Gomez Brown . . Normal [facility] Comment on above: Result Comment: Perf ormed at: WB Performed By: #### C BC #### [facility] [address] [place] [address] Gomez Tripletten HEPATITIS PANEL, ACUTEon HBsAg Screen Negative Normal Negative [facility] Comment on above: Performed By: #### H EPACUT #### [facility] [address] [place] [address] Gomez Stephanie Hep A Ab, IgM Negative Normal Negative [facility] Comment on above: Performed By: #### H EPACUT #### [facility] [address] [place] [address] Gomez Stephanie Hep B Core Ab, IgM Negative Normal Negative [facility] Comment on above: Performed By: #### H EPACUT #### [facility] [address] [place] [address] Gomez Stephanie Hep C Virus Ab <0.1 Normal 0.0-0.9 [facility] Comment on above: Result Comment: Nega tive: < 0.8 Indeterminate: 0.8 - 0.9 Positive: > 0.9 . The CDC recommends that a positive HCV antibody result be followed up with a HCV Nucleic Acid Amplification test (150862). Performed By: #### H EPACUT #### [facility] [address] [place] [address] Gomez Brown HIV 1 AND 2 WITH REFLEXon HIV Screen 4th Generation wRfx Non Reactive Normal Non Reactive [facility] Comment on above: Performed By: #### H IV12 #### [facility] [address] [place] [address] Gomez Brown RPR QUANTon 10-24-2019 Rapid Plasma Reagin, Quant Non Reactive Normal NonRea<1:1 [facility] Comment on above: Performed By: #### C BC #### [facility] [address] [place] [address] Gomezvishal Tripletten BUNon 12-04-2018 Urea nitrogen [Mass/Vol] 5.0 mg/dL Critically low 7.0-17.0 [facility] Comment on above: Performed By: #### B UN, CREA #### [facility] [address] [place], [place] [address] Gomez Tripletten CBC AUTO DIFFon 12-04-2018 Basophils (Bld) [#/Vol] 0.0 103/ul Normal 0.0-0.1 [facility] Comment on above: Performed By: #### C BC #### [facility] [address] [place] [address] Gomez Stephanie Basophils/100 WBC (Bld) 0.2 % Normal 0.2-2.0 [facility] Comment on above: Performed By: #### C BC #### [facility] [address] [place], [place] [address] Gomez Stephanie Eosinophils (Bld) [#/Vol] 0.0 103/ul Normal 0.0-0.7 [facility] Comment on above: Performed By: #### C BC #### [facility] [address] [place], [place] [address] Gomez Stephanie Eosinophils/100 WBC (Bld) 0.1 % Critically low 0.9-7.0 [facility] Comment on above: Performed By: #### C BC #### [facility] [address] [place] [address] Gomezvishal Brown Erythrocyte distribution width (RBC) [Ratio] 12.1 % Normal 11.0-15.0 [facility] Comment on above: Performed By: #### C BC #### [facility] [address] [place] [address] Gomez Stephanie Hematocrit (Bld) [Volume fraction] 29.4 % Critically low 36.0-48.0 [facility] Comment on above: Performed By: #### C BC #### [facility] [address] [place] [address] Gomez Stephanie Hemoglobin (Bld) [Mass/Vol] 9.5 g/dL Critically low 12.0-16.0 [facility] Comment on above: Result Comment: FLUI DS GIVEN Performed By: #### C BC #### [facility] [address] [place] [address] Gomezvishal Brown IG # 0.05 10e3/ul Critically high 0.00-0.03 [facility] [place] Comment on above: Performed By: #### C BC #### [facility] [address] [place] [address] Gomez Brown IG % 0.4 % Normal 0.0-0.5 [facility] Comment on above: Performed By: #### C BC #### [facility] [address] [place] [address] Ogmezvishal Brown Lymphocytes (Bld) [#/Vol] 1.1 103/ul Critically low 1.2-3.8 [facility] Comment on above: Performed By: #### C BC #### [facility] [address] [place] [address] Gomez Brown Lymphocytes/100 WBC (Bld) 9.5 % Critically low 20.5-60.0 [facility] Comment on above: Performed By: #### C BC #### [facility] [address] [place] [address] Gomezvishal Brown MANUAL DIFF REQ NO Normal [facility] Comment on above: Performed By: #### C BC #### [facility] [address] [id number] Gomezvishal Brown MCH (RBC) [Entitic mass] 29.7 pg Normal 26.7-34.0 [facility] Comment on above: Performed By: #### C BC #### [facility] [address] [place], [place] [address] Gomezvishal Brown MCHC (RBC) [Mass/Vol] 32.3 g/dL Normal 29.9-35.2 [facility] Comment on above: Performed By: #### C BC #### [facility] [address] [place], [place] [address] Gomezvishal Brown MCV (RBC) [Entitic vol] 91.9 fL Normal 81.0-99.0 [facility] Comment on above: Performed By: #### C BC #### [facility] [address] [place], [place] [address] Gomez Stephanie Monocytes (Bld) [#/Vol] 1.5 103/ul Critically high 0.3-0.8 [facility] Comment on above: Performed By: #### C BC #### [facility] [address] [place], [place] [address] Gomezvishal Tripletten Monocytes/100 WBC (Bld) 12.9 % Critically high 1.7-12.0 [facility] Comment on above: Performed By: #### C BC #### [facility] [address] [place], [place] [address] Gomez Stephanie Neutrophils (Bld) [#/Vol] 9.0 103/ul Critically high 1.4-6.5 [facility] Comment on above: Performed By: #### C BC #### [facility] [address] [place], [place] [address] Gomez Stephanie Neutrophils/100 WBC (Bld) 76.9 % Critically high 43.0-75.0 [facility] Comment on above: Performed By: #### C BC #### [facility] [address] [place], [place] [address] Gomez Stephanie Platelet mean volume (Bld) [Entitic vol] 11.4 fL Normal 9.5-13.5 [facility] Comment on above: Performed By: #### C BC #### [facility] [address] [place] [address] Gomez Stephanie Platelets (Bld) [#/Vol] 221 103/ul Normal 150-450 [facility] Comment on above: Performed By: #### C BC #### [facility] [address] [place] [address] Gomez Stephanie RBC (Bld) [#/Vol] 3.20 106/ul Critically low 4.20-5.40 [facility] Comment on above: Performed By: #### C BC #### [facility] [address] [place] [address] Gomez Stephanie WBC (Bld) [#/Vol] 11.7 103/ul Critically high 4.0-11.0 [facility] Comment on above: Performed By: #### C BC #### [facility] [address] [place] [address] Gomez Stephanie CREATININEon 12-04-2018 Creatinine [Mass/Vol] mg/dL Normal >=60 [facility] Comment on above: Performed By: #### B ALVARADO MARTINEZ #### [facility] [address] [place] [address] Gomez Stephanie Creatinine [Mass/Vol] 0.72 mg/dL Normal 0.52-1.04 [facility] Comment on above: Performed By: #### B JUAN CREYessy #### [facility] [address] [place] [address] Gomez Stephanie CBC AUTO DIFFon 12-03-2018 Basophils (Bld) [#/Vol] 0.1 103/ul Normal 0.0-0.1 [facility] Comment on above: Performed By: #### C BC #### [facility] [address] [place] [address] Gomez Stephanie Basophils/100 WBC (Bld) 0.7 % Normal 0.2-2.0 [facility] Comment on above: Performed By: #### C BC #### [facility] [address] [place], [place] [address] Gomez Stephanie Eosinophils (Bld) [#/Vol] 0.2 103/ul Normal 0.0-0.7 [facility] Comment on above: Performed By: #### C BC #### [facility] [address] [place], [place] [address] Gomez Stephanie Eosinophils/100 WBC (Bld) 2.4 % Normal 0.9-7.0 [facility] Comment on above: Performed By: #### C BC #### [facility] [address] [place] [address] Gomez Stephanie Erythrocyte distribution width (RBC) [Ratio] 12.2 % Normal 11.0-15.0 [facility] Comment on above: Performed By: #### C BC #### [facility] [address] [place] [address] Gomez Stephanie Hematocrit (Bld) [Volume fraction] 36.9 % Normal 36.0-48.0 [facility] Comment on above: Performed By: #### C BC #### [facility] [address] [place], [place] [address] Gomez Stephanie Hemoglobin (Bld) [Mass/Vol] 11.9 g/dL Critically low 12.0-16.0 [facility] Comment on above: Performed By: #### C BC #### [facility] [address] [place], [place] [address] Gomez Stephanie IG # 0.02 10e3/ul Normal 0.00-0.03 [facility] Comment on above: Performed By: #### C BC #### [facility] [address] [place] [address] Gomez Stephanie IG % 0.2 % Normal 0.0-0.5 [facility] Comment on above: Performed By: #### C BC #### [facility] [address] [place], [place] [address] Gomez Stephanie Lymphocytes (Bld) [#/Vol] 1.8 103/ul Normal 1.2-3.8 [facility] Comment on above: Performed By: #### C BC #### [facility] [address], [place] [address] Gomez Stephanie Lymphocytes/100 WBC (Bld) 19.3 % Critically low 20.5-60.0 [facility] Comment on above: Performed By: #### C BC #### [facility] [address], [place] [address] Gomez Stephanie MANUAL DIFF REQ NO Normal [facility] Comment on above: Performed By: #### C BC #### [facility] [address], [place] [address] Gomez Stephanie MCH (RBC) [Entitic mass] 29.9 pg Normal 26.7-34.0 [facility] Comment on above: Performed By: #### C BC #### [facility] [address] [place] [address] Gomez Stephanie MCHC (RBC) [Mass/Vol] 32.2 g/dL Normal 29.9-35.2 [facility] Comment on above: Performed By: #### C BC #### [facility] [address] [place] [address] Gomez Stephanie MCV (RBC) [Entitic vol] 92.7 fL Normal 81.0-99.0 [facility] Comment on above: Performed By: #### C BC #### [facility] [address] [place] [address] Gomez Stephanie Monocytes (Bld) [#/Vol] 0.9 103/ul Critically high 0.3-0.8 [facility] Comment on above: Performed By: #### C BC #### [facility] [address] [place] [address] Gomez Stephanie Monocytes/100 WBC (Bld) 9.5 % Normal 1.7-12.0 [facility] Comment on above: Performed By: #### C BC #### [facility] [address] [place] [address] Gomez Stephanie Neutrophils (Bld) [#/Vol] 6.4 103/ul Normal 1.4-6.5 [facility] Comment on above: Performed By: #### C BC #### [facility] [address], [place] [address] Gomez Stephanie Neutrophils/100 WBC (Bld) 67.9 % Normal 43.0-75.0 [facility] Comment on above: Performed By: #### C BC #### [facility] [address] [place] [id number] Gomez Stephanie Platelet mean volume (Bld) [Entitic vol] 10.8 fL Normal 9.5-13.5 [facility] Comment on above: Performed By: #### C BC #### [facility] [address] [place] [id number] Gomez Stephanie Platelets (Bld) [#/Vol] 262 103/ul Normal 150-450 [facility] Comment on above: Performed By: #### C BC #### [facility] [address] [place] [address] Gomez Stephanie RBC (Bld) [#/Vol] 3.98 106/ul Critically low 4.20-5.40 [facility] Comment on above: Performed By: #### C BC #### [facility] [address] [place] [id number] Gomez Stephanie WBC (Bld) [#/Vol] 9.4 103/ul Normal 4.0-11.0 [facility] [place] Comment on above: Performed By: #### C BC #### [facility] [address] [place] [id number] Gomez Stephanie PREG QUANT HCGon 12-03-2018 HCG QUANT <1.00 Normal [facility] Comment on above: Performed By: #### P REGQNT #### [facility] [address] [place] [id number] Gomez Stephanie HCG RANGE SEE BELOW Normal [facility] Comment on above: Result Comment: 5-50 0-1 WEEK 40-300 1-2 WEEKS 100-1,000 2-3 WEEKS 500-6,000 3-4 WEEKS 5,000-200,000 1-2 MONTHS 10,000-100,000 2-3 MONTHS 3,000-50,000 2ND TRIMESTER 1,000-50,000 3RD TRIMESTER Performed By: #### P REGQNT #### [facility] [address], [place] [address] Gomez Brown TYPE AND SCREENon 12-01-2018 TYPE AND SCREEN Negative Normal [facility] Comment on above: Performed By: #### T NS #### [facility] [address], [place] [address] Gomez Brown Vital Signs Date Time Vital Sign Value Performing Clinician Facility 02-06-2024 15:50-0400 Body height 149.9 cm Jez Rosa [employer]ING LEADER Work Phone: [facility] 02-06-2024 15:50-0400 Body mass index (BMI) [Ratio] 37.24 kg/m2 Jez Rosa [employer] PAINTING LEADER Work Phone: [facility] 02-06-2024 15:50-0400 Body temperature 98.01 [degF] Jez Rosa [employer] PAINTING LEADER Work Phone: [facility] 02-06-2024 15:50-0400 Body weight 83.64 kg [employer] G[employer]AF [employer]ER-CHEST PAINTING LEADER Work Phone: [facility] 02-06-2024 15:50-0400 Diastolic blood pressure 78 mm[Hg] Jez Rosa [employer]ST PAINTING LEADER Work Phone: [facility] 02-06-2024 15:50-0400 Heart rate 73 /min Jezjerome Lee G[employer]AF [employer]ER-CHEST PAINTING LEADER Work Phone: [facility] 02-06-2024 15:50-0400 SaO2% (BldA) [Mass fraction] 95 % Jez Rosa [employer]ST PAINTING LEADER Work Phone: [facility] 02-06-2024 15:50-0400 Systolic blood pressure 140 mm[Hg] Jez Rosa G[employer] LEAF [employer]-CHEST PAINTING LEADER Work Phone: [facility] [employer] [facility] 07-03-2023 15:05-0500 Body height 149.9 cm Jez Rosa [employer]-CHEST PAINTING LEADER [facility] 07-03-2023 15:05-0500 Body mass index (BMI) [Ratio] 37.24 kg/m2 Jez Lee APRN-CHEST PAINTING LEADER Work Phone: [facility] 07-03-2023 15:05-0500 Body temperature 98.49 [degF] Jez Lee [employer]-CHEST PAINTING LEADER [facility] 07-03-2023 15:05-0500 Body weight 83.64 kg Jez Lee [employer]-CHEST PAINTING LEADER Work Phone: [facility] 07-03-2023 15:05-0500 Diastolic blood pressure 80 mm[Hg] Jez Lee [employer]ST PAINTING LEADER [facility] 07-03-2023 15:05-0500 Heart rate 78 /min Jez Lee APRN-CHEST PAINTING LEADER Work Phone: [facility] 07-03-2023 15:05-0500 SaO2% (BldA) [Mass fraction] 97 % Jez Lee APRN-CHEST PAINTING LEADER Work Phone: [employer] 07-03-2023 15:05-0500 Systolic blood pressure 130 mm[Hg] Jez Lee APRN-CHEST PAINTING LEADER Work Phone: [facility] Encounters Encounter Date Encounter Type Care Provider Facility Start: 10-17-2024 End: 10-17-2024 External Result Encounter Bari Lidia DO Work Phone: [facility] Unsolicited Start: 10-17-2024 End: 10-17-2024 External Result Encounter Bari Lidia DO Work Phone: [facility] Unsolicited Start: 10-17-2024 ambulatory BARI R [facility] Start: 10-07-2024 End: 10-07-2024 Office outpatient visit 15 minutes Bari Lidia DO Work Phone: [facility] Comment on above: Pelvic pain in femal e; Dyspareunia in female; Yeast infection; Hormone imbalance; Fatigue, unspecified type Start: 10-07-2024 End: 10-07-2024 ambulatory BARI LIDIA Not Available Start: 10-07-2024 End: 10-07-2024 Bamboo flowsheet Bari Lidia DO Work Phone: [facility] Start: 10-07-2024 End: 10-10-2024 Bamboo flowsheet Bari Lidia DO Work Phone: [facility] Start: 10-07-2024 End: 10-10-2024 External Result Encounter Bari Lidia DO Work Phone: [facility] Unsolicited Start: 10-05-2024 End: 10-05-2024 ambulatory JEZ LEE [facility] Start: 09-04-2024 End: 09-04-2024 Orders Only Jez Lee [employer] PAINTING LEADER Work Phone: [facility] Comment on above: Encounter for screen ing mammogram for malignant neoplasm of breast (Primary Dx) Start: 08-21-2024 End: 08-21-2024 Refill Jez Lee [employer] PAINTING LEADER Work Phone: [facility] Comment on above: Primary hypertension ; Essential hypertension Start: 02-08-2024 End: 02-13-2024 Refill Carlos Alberto Rodriguez MD Work Phone: [facility] Comment on above: Primary hypertension ; Essential hypertension Start: 02-06-2024 End: 02-06-2024 Patient encounter status Jez Lee [employer] PAINTING LEADER Work Phone: [facility] [employer] Work Phone: Start: 02-06-2024 End: 02-06-2024 Periodic preventive med est patient 40-64yrs Jez Lee [employer] PAINTING LEADER Work Phone: [facility] Comment on above: Wellness examination (Primary Dx); Mild intermittent asthma without complication; Primary hypertension; Influenza vaccination administered at current visit; Atopic dermatitis, unspecified type; Need for shingles vaccine; Class 2 severe obesity due to excess calories with serious comorbidity and body mass index (BMI) of 37.0 to 37.9 in adult ([facility]) Start: 02-06-2024 End: 02-06-2024 ambulatory [facility] Start: 02-03-2024 End: 02-03-2024 ambulatory BARI R LIDIA [facility] Start: 01-25-2024 End: 01-25-2024 ambulatory [facility] Start: 01-25-2024 Encounter for genera l adult medical examination without abnormal findings [facility] Start: 01-23-2024 End: 01-23-2024 Orders Only Jez Chopra [facility] G[employer] PAINTING LEADER [facility] Comment on above: Wellness examination (Primary Dx) Start: 01-23-2024 End: 01-23-2024 Patient encounter status Jez Chopra [facility] [employer] PAINTING LEADER Work Phone: [facility] Work Phone: Start: 10-23-2023 End: 10-23-2023 ambulatory BARI MURILLO Not Available Start: 07-30-2023 Telephone encounter Shawn Ulloa [employer] PAINTING LEADER Work Phone: [facility] Start: 07-15-2023 Refmendoza Rodriguez MD Work Phone: [facility] Comment on above: Primary hypertension ; Essential hypertension Start: 07-03-2023 End: 07-03-2023 ambulatory [facility] Start: 07-03-2023 Encounter for genera l adult medical examination without abnormal findings [facility] Start: 07-03-2023 End: 07-03-2023 Office outpatient new 30 minutes Jez Lee [employer] PA[employer]ING LEADER Work Phone: [facility] Comment on above: Encounter for medica l examination to establish care (Primary Dx); Encounter for screening mammogram for malignant neoplasm of breast; Primary hypertension; Bronchitis; Acute non-recurrent maxillary sinusitis Start: 07-03-2023 End: 07-03-2023 Patient encounter status Jez Lee [employer] PAINTING LEADER Work Phone: [employer] Work Phone: Start: 10-22-2019 End: 10-22-2019 Patient encounter procedure CAMILA WHITAKER Facility:[facility] Start: 10-22-2019 End: 10-23-2019 Patient encounter procedure CAMILA WHITAKER Facility:[facility] Start: 12-05-2018 Encounter for preprocedural laboratory examination [facility] Start: 12-03-2018 End: 12-04-2018 Evaluation and management of inpatient BARI LIDIA Facility:[facility] Start: 12-01-2018 End: 12-02-2018 Patient encounter procedure BARI [facility] Facility: Start: 11-28-2018 Encounter for other preprocedural examination [facility] Start: 11-19-2018 Patient encounter procedure BARI LIDIA Facility:[facility] Start: 11-17-2018 End: 11-18-2018 Patient encounter procedure BARI [facility] Facility:[facility] Encounter for other preprocedural examination [facility] Encounter for preprocedural laboratory examination [facility] Procedures Date Procedure Procedure Detail Performing Clinician Start: 10-17-2024 Complete blood count with white cell differential, automated Bari Lidia DO Work Phone: Start: 10-07-2024 RECURRENT VAGINITIS (HTRX) Bari Lidia DO Work Phone: Start: 10-07-2024 Urnls dip stick/tabl et rgnt non-auto w/o micrscp Bari Lidia DO Work Phone: Start: 10-05-2024 Mammography Bari Fazi o DO Work Phone: Start: 02-06-2024 Adult depression scr eening assessment Jez Farfanuch [employer] PAINTING LEADER Work Phone: Start: 07-25-2023 Mammography Shawn Ulloa [employer] PAINTING LEADER Work Phone: Start: 07-03-2023 Adult depression scr eening assessment Jez Lee [employer] PAINTING LEADER Work Phone: Start: 12-07-2022 Colonoscopy Jez Herrera ch [employer] PAINTING LEADER Work Phone: Start: 12-06-2022 Microscopic observat ion [Identifier] in Cervix by Cyto stain Bari Murillo DO Work Phone: Start: 07-12-2022 Mammography Jez Herrera ch [employer] PAINTING LEADER Work Phone: Start: 12-03-2018 Removal of Intralumi nal Device from Ureter, Via Natural or Artificial Opening BARI LIDIA Start: 12-03-2018 Resection of Bilater al Fallopian Tubes, Open Approach BARI LIDIA Start: 12-03-2018 Resection of Uterus, Open Approach BARI LIDIA Start: 12-03-2018 Dilation of Bilatera l Ureters with Intraluminal Device, Via Natural or Artificial Opening Endoscopic BARI LIDIA Plan of Treatment Date Care Activity Detail Author Start: 12-07-2032 Screening for malign ant neoplasm of colon [facility] Start: 12-07-2027 Screening for malign ant neoplasm of cervix [facility] Start: 12-06-2025 Screening for malign ant neoplasm of cervix Pap Smear [facility] Start: 10-05-2025 Screening for malign ant neoplasm of breast Mammogram [facility] Start: 02-05-2025 Adult BMI Screening Adult BMI Screen ing [facility] Start: 02-05-2025 Depression Screening Depression Scre ening [facility] Start: 02-05-2025 Tobacco Screening Tobacco Screening [facility] Start: 12-28-2024 Influenza vaccination Influenza Vacc ine [facility] Start: 11-04-2024 End: 11-04-2024 Patient encounter procedure 11/04/2024 3:40 PM EDT Office Visit [facility] [address] [place] [address] Bari Murillo DO [address] [place] [address] [facility] Start: 11-02-2024 End: 11-02-2024 Patient encounter procedure 11/02/2024 4:00 PM EDT Office Visit [facility] [address] [place] [id number] Bari Murillo, DO [address] [place] [address] [facility] Start: 10-07-2024 End: 10-07-2024 Patient encounter procedure 10/07/2024 3:50 PM EDT Office Visit [facility] [address] [place] [id number] Bari Murillo, DO [address] [place] [address] Arrived [facility] Comment on above: Arrived Start: 10-07-2024 End: 10-07-2025 SURESWAB(R) ADVANCED VAGINITIS PLUS, TMA SURESWAB(R) ADVANCED VAGINITIS PLUS, TMA Pathology and Cytology Routine Pelvic pain in female Expected: 10/07/2024 (Approximate), Expires: 10/07/2025 [facility] Work Phone: Comment on above: Expected: 10/07/2024 (Approximate), Expires: 10/07/2025 Start: 10-07-2024 End: 10-07-2025 US Pelvis US Pelvis w/ TV Imaging Routine Pelvic pain in female Expected: 10/07/2024, Expires: 10/07/2025 [facility] Comment on above: Expected: 10/07/2024 , Expires: 10/07/2025 Start: 09-04-2024 End: 09-04-2025 DBT Breast - bilateral screening Mammography screening bilateral with CAD Imaging Routine Encounter for screening mammogram for malignant neoplasm of breast Expected: 09/04/2024, Expires: 09/04/2025 [facility] Work Phone: Comment on above: Expected: 09/04/2024 , Expires: 09/04/2025 Start: 07-24-2024 Adult BMI Screening Adult BMI Screen ing [facility] Start: 07-24-2024 Screening for malign ant neoplasm of breast Mammogram [facility] Start: 07-02-2024 Adult BMI Screening Adult BMI Screen ing [facility] Start: 07-02-2024 Depression Screening Depression Scre ening [facility] Start: 07-02-2024 Tobacco Screening Tobacco Screening [facility] Start: 04-23-2024 End: 04-23-2024 Patient encounter procedure 04/23/2024 1:40 PM EST Office Visit [facility] [address] [place] [address] Jez Lee, [employer]CHEST PAINTING LEADER [address] [place] [address] [facility] Start: 04-02-2024 Administration of varicella zoster vaccine Zoster (Shingles) Vaccine (2 of 2) [facility] Start: 02-06-2024 End: 02-06-2024 Patient encounter procedure 02/06/2024 3:40 PM EDT Office Visit [facility] [address] [place] [address] Jez Lee, [employer]CHE[employer] PAINTING LEADER [address] [place] [address] [facility] Start: 02-03-2024 End: 02-03-2024 Patient encounter procedure 02/03/2024 11:30 AM EDT Appointment [facility] [address] [place] [address] [facility] Start: 01-23-2024 End: 01-22-2025 Lipid 1996 panel - Serum or Plasma Lipid profile Lab Routine Wellness examination Expected: 01/23/2024 (Approximate), Expires: 01/22/2025 [employer] Work Phone: Comment on above: Expected: 01/23/2024 (Approximate), Expires: 01/22/2025 Start: 12-29-2023 COVID-19 Vaccine () COVID-19 Vaccine () [facility] Start: 12-29-2023 COVID-19 Vaccine () COVID-19 Vaccine () [facility] Start: 12-29-2023 Influenza vaccination Influenza Vacc ine [facility] Start: 07-31-2023 End: 07-31-2023 Patient encounter procedure 07/31/2023 4:00 PM EDT Office Visit [facility] [address] [place] [phone] Shawn Ulloa APRN-GERSON [address] [place] [phone] [facility] Start: 07-13-2023 Screening for malign ant neoplasm of breast Mammogram [facility] Start: 07-03-2023 End: 07-02-2024 DBT Breast - bilateral screening Mammography screening bilateral with CAD Imaging Routine Encounter for screening mammogram for malignant neoplasm of breast Expected: 07/03/2023, Expires: 07/02/[address] [facility] Comment on above: Expected: 07/03/2023 , Expires: 07/02/2024 Start: 2023 Administration of varicella zoster vaccine Zoster (Shingles) Vaccine (1 of 2) [facility] Start: 01-02-2023 Adult BMI Follow Up Plan Adult BMI Follow Up Plan [facility] Start: 12-28-2022 COVID-19 Vaccine () COVID-19 Vaccine () [facility] Start: 1992 DTaP,Tdap and Td Vaccines (1 - Tdap) DTaP,Tdap and Td Vaccines (1 - Tdap) [facility] Start: 1991 Adult BMI Follow Up Plan Adult BMI Follow Up Plan [facility] Start: 1973 Screening for malign ant neoplasm of colon [facility] CBC W Auto Different ial panel - Blood CBC auto differential Lab Routine Hormone imbalance Fatigue, unspecified type Ordered: 10/07/2024 [facility] Comment on above: Ordered: 10/07/2024 CHLAMYDIA TRACHOMATI S (GENITO/STI) CHLAMYDIA TRACHOMATIS (GENITO/STI) Lab Routine Pelvic pain in female Ordered: 10/07/2024 [facility] Comment on above: Ordered: 10/07/2024 Cholesterol [Mass/volume] in Serum or Plasma Cholesterol, total Lab Routine Hormone imbalance Fatigue, unspecified type Ordered: 10/07/2024 [facility] Comment on above: Ordered: 10/07/2024 End: 01-22-2025 Comprehensive metabolic 2000 panel - Serum or Plasma Comprehensive metabolic panel Lab Routine Wellness examination 1 Occurrences starting 01/23/2024 until 01/22/2025 [facility] Comment on above: 1 Occurrences starti ng 01/23/2024 until 01/22/2025 Comprehensive metabo lic 2000 panel - Serum or Plasma Comprehensive metabolic panel Lab Routine Hormone imbalance Fatigue, unspecified type Ordered: 10/07/2024 [facility] Comment on above: Ordered: 10/07/2024 Hemoglobin A1c/Hemoglobin.total in Blood Hemoglobin A1c Lab Routine Yeast infection Hormone imbalance Fatigue, unspecified type Ordered: 10/07/2024 [facility] Comment on above: Ordered: 10/07/2024 Neisseria gonorrhoea e DNA [Presence] in Unspecified specimen by CHRISTINE with probe detection Neisseria gonorrhea DNA probe, direct Lab Routine Pelvic pain in female Ordered: 10/07/2024 [facility] Comment on above: Ordered: 10/07/2024 Thyrotropin [Units/volume] in Serum or Plasma TSH Lab Routine Hormone imbalance Fatigue, unspecified type Ordered: 10/07/2024 [facility] Comment on above: Ordered: 10/07/2024 Immunizations Immunization Date Immunization Notes Care Provider Bette alvares 02-06-2024 influenza, seasonal, injectable, preservative free Jez Lee APRN-CHEST PAINTING LEADER Work Phone: [facility] 02-06-2024 zoster vaccine recombinant Jez Rosa [employer]ST PAINTING LEADER Work Phone: [facility] 02-06-2024 Immunization, In Clinic,; Translations: [Drug or medicament (substance)] Jez Lee [employer]ST PAINTING LEADER Work Phone: [facility] 02-06-2024 influenza virus vaccine, unspecified formulation Jez Rosa [employer]ST PAINTING LEADER Work Phone: [facility] 02-06-2024 zoster vaccine, unspecified formulation Jez Rosa [employer]CHEST PAINTING LEADER Work Phone: [facility] 01-28-2023 influenza, injectabl e, quadrivalent, preservative free Jez Rosa [employer]CHEST PAINTING LEADER Work Phone: [facility] 01-28-2023 influenza virus vaccine, unspecified formulation Shawn Ulloa G[employer]ER[employer]CHEST PAINTING LEADER Work Phone: [facility] 10-08-2021 COVID-19, mRNA, LNP- S, PF, 100mcg/0.5mL Dose Jez Rosa [employer] L[employer]-CHEST PAINTING LEADER Work Phone: [facility] 02-08-2021 influenza, injectabl e, quadrivalent, preservative free Jez Rosa G[employer] L[employer]CHEST PAINTING LEADER Work Phone: [facility] 03-05-2020 influenza virus vaccine, unspecified formulation Jez Rosa [employer]ST PAINTING LEADER Work Phone: [facility] 03-05-2020 influenza, injectabl e, quadrivalent, preservative free Jez Rosa G[employer]CHEST PAINTING LEADER Work Phone: [facility] 01-20-2018 influenza, injectabl e, quadrivalent, preservative free Jez Rosa [employer]CHEST PAINTING LEADER Work Phone: [facility] 02-15-2017 Influenza, injectabl e, Madin Ellie Canine Kidney, preservative free, quadrivalent Jez Rosa [employer]CHEST PAINTING LEADER Work Phone: [facility] 03-02-2014 influenza, seasonal, injectable Jez Lee APRN-CHEST PAINTING LEADER Work Phone: [facility] 02-23-2013 influenza virus vaccine, whole virus Jez Lee [employer]ST PAINTING LEADER Work Phone: [facility] Payers Date Payer Category Payer Managed Care Other (unspecified) [employer] [id number] 2022 Private Health Insurance [id number] 2022 Unknown [id number] 1973 Unknown [id number] [id number]. 2.593 1973 Unknown [id number] 2.16.840.1.233047.3.579. 2.593 1973 Unknown [id number] 2.16.840.1.114276.3.579. 2.593 1973 Unknown [id number] 2.16.840.1.843067.3.579. 2.593 1973 Unknown [id number] 2.16.840.1.098282.3.579. 2.593 1973 Unknown [id number] 2.16.840.1.595433.3.579. 2.593 1973 Unknown [id number] 2.16.840.1.937178.3.579. 2.1286 1973 Unknown [id number] 2.16.840.1.979828.3.579. 2.1286 1973 Unknown [id number] 2.16.840.1.137216.3.579. 2.1259 1973 Unknown [id number] 2.16.840.1.983622.3.579. 2.1259 1973 Unknown [id number] 2.16.840.1.583305.3.579. 2.1286 1973 Unknown [id number] 2.16.840.1.495253.3.579. 2.1286 1973 Unknown [id number] 2.16.840.1.364164.3.579. 2.1286 1973 Unknown [id number] [id number]. 2.1286 1959 Unknown [id number] Social History Date Type Detail Facility Start: 03-29-2022 Tobacco smoking status [facility] Never smoked tobacco [facility] Start: 03-29-2022 Tobacco use and exposure Smokeless tobacco non-user [facility] Start: 07-03-2023 End: 02-06-2024 Alcohol intake Current drinker of alcohol (finding) [facility] Start: 05-11-2020 End: 07-03-2023 History of Social function [facility] Start: 05-11-2020 End: 07-03-2023 Tobacco use panel [facility] Adolescent depressio n screening assessment 0 [facility] Start: 10-21-2018 Alcohol Comment occasionally [facility] Start: 1975 Sex Assigned At Not on file [facility] Start: 12-02-2014 Sex Female (finding) [facility] Start: 10-06-2022 Tobacco smoking status [facility] Tobacco smoking consumption unknown [facility] Start: 10-06-2022 End: 10-07-2024 Alcoholic beverage intake Ex-drinker (finding) [facility] Start: 10-06-2022 Alcohol Comment occasional beer, hard liquor [facility] Start: 1973 Sex assigned at Female [facility] Start: 10-07-2022 Gender identity Identifies as female gender (finding) [facility] Healthcare Start: 10-07-2022 Sexual orientation Heterosexual (finding) [facility] Clinical Notes 07-03-2023 to 10-07-2024 Stephanie Yan, EDDIE - 10/07/2024 3:50 PM RABIA Verduzco - 02/06/2024 3:40 PM EDTTelephone Encounter - Summer R Dominguez - 07/30/2023 8:42 AM RABIA Verduzco - 07/03/2023 3:00 PM EST Note Date & Type Note Facility 10-07-2024 History of Presen t illness Narrative Reason for Appointment: Patient ID: Yang Swain is a 49 y.o. female who presents for Pelvic Pain Patient presents today for Acute Visit. MEDICATIONS Current Outpatient Medications Medication Instructions aspirin 81 mg, Oral, Once dilTIAZem CD (CARDIZEM CD) 300 mg, Oral, Daily loratadine (CLARITIN) 10 mg, Oral, Daily ALLERGIES No Known Allergies PROBLEMS Active Ambulatory Problems Diagnosis Date Noted No Active Ambulatory Problems Resolved Ambulatory Problems Diagnosis Date Noted No Resolved Ambulatory Problems Past Medical History: Diagnosis Date Abnormal uterine bleeding Arthritis Endometriosis History of dilatation and curettage History of hysterectomy Hypercholesterolemia (CMS/HCC) Hypertension, essential (CMS/HCC) Obesity with body mass index of 30.0-39.9 Seasonal allergic rhinitis STD exposure Transfusion history Urinary frequency HISTORY PAST MEDICAL HISTORY SOCIAL HISTORY Past Medical History: Diagnosis Date Abnormal uterine bleeding Arthritis Endometriosis History of dilatation and curettage History of hysterectomy Hypercholesterolemia (CMS/HCC) Hypertension, essential (CMS/HCC) Obesity with body mass index of 30.0-39.9 Seasonal allergic rhinitis STD exposure Transfusion history Urinary frequency Social History Tobacco Use Smoking status: Unknown Smokeless tobacco: Not on file Substance Use Topics Alcohol use: Not Currently Comment: occasional beer, hard liquor Drug use: Never FAMILY HISTORY Family History Problem Relation Name Age of Onset Thyroid disease Mother Hypertension Mother Hyperlipidemia Mother Heart disease Sister Clotting disorder Sister Alzheimer's disease Maternal Grandmother Breast cancer Maternal Grandmother Hypertension Maternal Grandmother Hyperlipidemia Maternal Grandmother Heart disease Maternal Grandmother SURGICAL HISTORY Past Surgical History: Procedure Laterality Date ANKLE SURGERY 1995 SECTION, CLASSIC 07/27/1992 SECTION, CLASSIC 08/27/1995 DILATION AND CURETTAGE OF UTERUS 07/04/2018 HYSTERECTOMY 12/03/2018 TUBAL LIGATION Bilateral 1995 REVIEW OF SYSTEMS Review of Systems: Review of Systems Constitutional: Negative. HENT: Negative. Eyes: Negative. Respiratory: Negative. Cardiovascular: Negative. Gastrointestinal: Negative. Genitourinary: Negative. Musculoskeletal: Negative. Skin: Negative. Neurological: Negative. All other systems reviewed and are negative. Hematological: Negative. Endocrine: Negative. Allergic/Immunologic: Negative. OBJECTIVE Objective: Physical Exam Constitutional: Appearance: Normal appearance. She is well-developed. Genitourinary: Vulva normal. Vaginal cuff intact. Cervix is absent. Uterus is absent. Cardiovascular: Rate and Rhythm: Normal rate and regular rhythm. Abdominal: General: Bowel sounds are normal. There is no distension. Palpations: Abdomen is soft. Tenderness: There is no abdominal tenderness. There is no guarding or rebound. Musculoskeletal: General: No swelling. Normal range of motion. Right lower leg: No edema. Left lower leg: No edema. Neurological: Mental Status: She is alert and oriented to person, place, and time. Skin: General: Skin is warm and dry. Psychiatric: Mood and Affect: Mood normal. Behavior: Behavior normal. Vitals and nursing note reviewed. Exam conducted with a pearler present. Vitals: Estimated body mass index is 34.2 kg/m as calculated from the following: Height as of 10/08/22: 5' 2 . Weight as of 10/23/23: 187 lb. BP: No LMP recorded. Patient has had a hysterectomy. ASSESSMENT & PLAN ICD-10-CM 1. Pelvic pain in female R10.2 POCT urinalysis dipstick manually resulted SURESWAB(R) ADVANCED VAGINITIS PLUS, TMA Neisseria gonorrhea DNA probe, direct CHLAMYDIA TRACHOMATIS (GENITO/STI) US Pelvis w/ TV SURESWAB(R) ADVANCED VAGINITIS PLUS, TMA CANCELED: POCT , urine manually resulted 2. Dyspareunia in female N94.10 Pt presents with complaints of fullness, pelvic pain, and feeling of vagina is going to fall out Cultures and pelvic exam performed. Discussed referral to urology for urgency. Pt to have telehealth in one month for follow up on estrace cream and urgency. Rx for estrace cream and diflucan faxed to pharmacy. Pt given labs to have obtained. Documented by Stephanie Yan LPN on behalf of: Bari Murillo DO documented in this encounter [facility] 02-06-2024 History of Presen t illness Narrative [address] [place] [address] Patient: Yang Swain Date of : 1975 Encounter Date: 02/06/2024 History of Present Illness: The patient is a 48 y.o. female, an established patient, and is here for Chief Complaint Patient presents with Annual Exam . HPI Patient is here for a wellness. Patient reports that when the weather changes her allergies act up and she uses her rescue inhaler every day during the fall and summer change. She does not have a maintenance inhaler during this time period. She does use antihistamines. She has had 1 asthma exacerbation this year and no hospitalizations. Patient had hysterectomy 5 years ago for endometriosis. Problem List Items Addressed This Visit Cardiovascular and Mediastinum Hypertension Other Visit Diagnoses Wellness examination - Primary Mild intermittent asthma without complication Relevant Medications fluticasone propionate (FLOVENT HFA) 44 mcg/actuation inhaler Influenza vaccination administered at current visit Relevant Orders FLU VACCINE TS (6MOS UP)(PF) 45 MCG(15MCG X3)/0.5 ML IM SYRINGE (Completed) Atopic dermatitis, unspecified type Need for shingles vaccine Relevant Orders Zoster Subunit (Completed) Class 2 severe obesity due to excess calories with serious comorbidity and body mass index (BMI) of 37.0 to 37.9 in adult ([facility]) Past Medical, Family, and Social History Update: [...] 08/21/2021 Performed by Thanh Epps MD at [facility] SECTION x 2 COLONOSCOPY N/A 12/07/2022 Performed by Faith Kaufman MD at [facility] DEBRIDEMENT KNEE, CHONDROPLASTY, micro fxs Left 08/21/2021 Performed by Thanh Epps MD at [facility] DILATION AND CURETTAGE OF UTERUS 06/2018 HYSTERECTOMY [...] tablet by mouth BID 60 tablet 0 fluticasone propionate (FLOVENT HFA) 44 mcg/actuation inhaler Inhale 2 puffs in the morning and 2 puffs before bedtime. 10.6 g 1 triamcinolone (KENALOG) 0.5 % ointment Apply 1 Application topically in the morning and 1 Application before bedtime. 30 g 1 No current facility-administered medications for this visit. [...] Review of Systems: Review of Systems Constitutional: Negative for activity change, appetite change, chills, fatigue, fever and unexpected weight change. HENT: Positive for congestion, postnasal drip and rhinorrhea. Negative for hearing loss, sinus pressure, sneezing, sore throat and voice change. Respiratory: Positive for cough, chest tightness and shortness of breath. Negative for wheezing. Cardiovascular: Negative. Gastrointestinal: Negative. Musculoskeletal: Negative. Allergic/Immunologic: Positive for environmental allergies. Neurological: Negative. Psychiatric/Behavioral: Negative. Physical Exam: BP 140/78 (BP Site: Left Arm, BP Postition: Sitting) Pulse 73 Temp 36.7 C (98 F) (Oral) Ht 149.9 cm (4' 11 ) Wt 83.6 kg (184 lb 6.4 oz) LMP 10/13/2018 (Within Days) SpO2 95% BMI 37.24 kg/m Physical Exam Vitals reviewed. [...] tenderness. Mouth/Throat: Mouth: Mucous membranes are moist. Eyes: Pupils: Pupils are equal, round, and reactive to light. Cardiovascular: Rate and Rhythm: Normal rate and regular rhythm. Heart sounds: Normal heart sounds. Pulmonary: Effort: No respiratory distress. Breath sounds: No wheezing or rhonchi. Abdominal: General: Bowel sounds are normal. Palpations: Abdomen is soft. Tenderness: There is no abdominal tenderness. Musculoskeletal: Right lower leg: No edema. Left lower leg: No edema. Lymphadenopathy: Cervical: No cervical adenopathy. Skin: General: Skin is warm. Capillary Refill: Capillary refill takes less than 2 seconds. Comments: White to pink papules scattered to upper extremities, trunk Neurological: General: No focal deficit present. Mental Status: She is alert and oriented to person, place, and time. Psychiatric: Mood and Affect: Mood normal. Behavior: Behavior normal. Assessment and Plan: Yang was seen today for annual exam. Diagnoses and all orders for this visit: Wellness examination Mild intermittent asthma without complication Primary hypertension Influenza vaccination administered at current visit - FLU VACCINE TS 2023-(6MOS UP)(PF) 45 MCG(15MCG X3)/0.5 ML IM SYRINGE Atopic dermatitis, unspecified type Need for shingles vaccine - Zoster Subunit Class 2 severe obesity due to excess calories with serious comorbidity and body mass index (BMI) of 37.0 to 37.9 in adult ([facility]) Other orders - triamcinolone (KENALOG) 0.5 % ointment; Apply 1 Application topically in the morning and 1 Application before bedtime. - fluticasone propionate (FLOVENT HFA) 44 mcg/actuation inhaler; Inhale 2 puffs in the morning and 2 puffs before bedtime. Follow-up: Health maintenance and immunizations were reviewed. Patient would like her shingles vaccine and flu shot today. It was recommended that she get COVID booster and tetanus shot at her pharmacy. Options for stepping up her asthma therapy including addition of ICS inhaler during her poorly controlled months fall and spring were discussed. We do not have any samples in the office today but it appears Flovent HFA inhalers covered by her insurance. She should use 2 puffs twice a day and rinse mouth after use or brush teeth. Our goal is to cut down on her use of rescue inhaler if possible. We will recheck her symptoms in March. Patient does not need Pap. She is up-to-date with her DEXA screen and mammogram and self-breast exams were recommended. Her colorectal cancer screening is also up-to-date. Goal BMI of less than 25% was discussed with patient and recommendations were made. We reviewed her CMP and lipid that were previously drawn today. Her skin rash that she showed me today is likely atopic dermatitis and we will treat with moderate potency steroid above. She should use good moisturizer such as Aveeno eczema or Vaseline. Patient's blood pressure is borderline today, recheck at upcoming visit in March and it was recommended the patient check at home 2 to 3 times a week and record for next appointment. RABIA HUTTON APRN-CNP 02/11/24 0938 documented in this encounter [facility] 07-30-2023 Miscellaneous Notes Formattin g of this note might be different from the original. Photograph Enlarger making appointment reminder calls. Noticed that patient has since established care as a New Patient with Jez Lee CNP. Patient is scheduled for an appointment with Shawn Ulloa CNP, 07/31/2023. Photograph Enlarger leaving voicemail to contact office to confirm cancellation of tomorrows appointment with Leoncio. documented in this encounter [facility] 07-30-2023 Telephone encount er Note Photograph Enlarger making appointment reminder calls. Noticed that patient has since established care as a New Patient with Jez Lee CNP. Patient is scheduled for an appointment with Shawn Ulloa CNP, 07/31/2023. Photograph Enlarger leaving voicemail to contact office to confirm cancellation of tomorrows appointment with Leoncio. [facility] 07-03-2023 History of Presen t illness Narrative [address] [place] [id number] Patient: Yang Swain Date of : 1975 Encounter Date: 07/03/2023 History of Present Illness: The patient is a 48 y.o. female, an established patient, and is here for Chief Complaint Patient presents with new patient . HPI Patient is new, here to establish care. She previously saw Brandi Avitia. Patient is currently working for [employer]. Her history is significant for hypertension for which she takes Cardizem and she states she has had an abnormal heart beat in the past but has never seen a aquaculture worker. Her last echo from 2021 was reviewed [...] 08/21/2021 Performed by Thanh Epps MD at [facility] SECTION x 2 COLONOSCOPY N/A 12/07/2022 Performed by Faith Kaufman MD at [facility] DEBRIDEMENT KNEE, CHONDROPLASTY, micro fxs Left 08/21/2021 Performed by Thanh Epps MD at [facility] DILATION AND CURETTAGE OF UTERUS 06/2018 HYSTERECTOMY [...] APRN-CNP 07/04/23 1217 documented in this encounter [facility] Evaluation note Diagnosis Encounter for medical examination to establish care- Primary Encounter for screening mammogram for malignant neoplasm of breast Primary hypertension Unspecified essential hypertension Bronchitis Bronchitis, not specified as acute or chronic Acute non-recurrent maxillary sinusitis [facility] Diagnosis Primary hypertension Unspecified essential hypertension Essential hypertension Unspecified essential hypertension [facility]* Diagnosis Wellness examination- Primary Mild intermittent asthma without complication Primary hypertension Unspecified essential hypertension Influenza vaccination administered at current visit Atopic dermatitis, unspecified type Need for shingles vaccine Need for prophylactic vaccination and inoculation against varicella Class 2 severe obesity due to excess calories with serious comorbidity and body mass index (BMI) of 37.0 to 37.9 in adult ([facility]) documented in this encounter [facility]* Diagnosis Primary hypertension Unspecified essential hypertension Essential hypertension Unspecified essential hypertension documented in this encounter [facility]* Diagnosis Wellness examination- Primary documented in this encounter [facility]* Diagnosis Encounter for screening mammogram for malignant neoplasm of breast- Primary documented in this encounter [facility]* Diagnosis Pelvic pain in female Unspecified symptom associated with female genital organs Dyspareunia in female Yeast infection Hormone imbalance Fatigue, unspecified type documented in this encounter [facility]* Attachments The following attachments cannot be sent through Care Everywhere. * Acute bronchitis (Malaysian) * Sinusitis in adults (Malaysian) [facility]Not on [facility] SystemInstructionsNot on file [facility]* Attachments The following attachments cannot be sent through Care Everywhere. * Fluticasone (Oral Inhalation), ADULT (Malaysian) documented [facility] SystemInstructionsNot on file documented [facility] SystemInstructionsNot on file [facility] Summary Purpose Family History No Family History Records FoundNo Family History Records FoundNo Family History Records FoundNo Family History Records Found Advance Directives No Advanced Directives Records FoundNo Advanced Directives Records FoundNo Advanced Directives Records FoundNo Advanced Directives Records Found Procedure Findings Note [facility] [place], [place] NAME: YANG SWAIN DATE OF : MEDICAL REC#: [id number] 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 INDUSTRIAL THERAPIST:RAHUL Sarah. PREOPERATIVE DIAGNOSIS: 1. Uterine fibroids. 2. [...] draped in the normal sterile fashion. A Lm (more content not included)... Note DISCHARGE SUMMARY [...] Tylenol, any abdominal pain unrelieved with narcotics. [facility] Signed and Approved by: DR BARI MURILLO (more content not included)... Hospital Course Note [...] Tylenol, any abdominal pain unrelieved with narcotics. [facility] Signed and Approved by: DR BARI MURILLO (more content not included)... Additional Source Comments INFORMATION SOURCE (unrecogn ized section and content) DATE CREATED AUTHOR 11/18/2019 [facility] DATE CREATED AUTHOR AUTHOR'S ORGANIZ ATION 02/09/2024 [facility] DATE CREATED AUTHOR AUTHOR'S ORGANIZ ATION 10/10/2024 [facility] EP[facility] DATE CREATED AUTHOR AUTHOR'S ORGANIZ ATION 10/19/2024 [facility] Reason for Visit (unrecogniz ed section and content) Reason Comments new patient Reason Comments Med Refill Reason Comments Annual Exam Reason Comments Pelvic Pain Care Teams (unrecognized sec tion and content) 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 Relationship Specialty Start Date End Date Jez Lee APRN-CNP [address] [place] [address] PCP - General Internal Medicine 07/03/23 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 Relationship Specialty Start Date End Date Jez Lee APRN-CNP [address] [place] [address] PCP - General Internal Medicine 07/03/23 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 Relationship Specialty Start Date End Date [facility] [address] [place] [address] PCP - General Internal Medicine 07/03/23 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 Relationship Specialty Start Date End Date Jez [facility] [address] [place] [address] PCP - General Internal Medicine 07/03/23 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 [employer] [facility]. provides no warranty or guarantee of the accuracy or completeness of information in this document.
== END 2024-11-12 15:17 | disposition home or self-care (01) ==
LOC: US 15:16
PROVIDERS: Visit Provider Obstetrics & Gynecology
DX: R10.2 Pelvic and perineal pain (principal)
CPT/HCPCS: 76830; 76856

== ENCOUNTER 2024-11-26 19:34 | Outpatient (REF) | payer OTHER, SELFPAY ==
--- OUTSIDE RECORDS SUMMARY | 2024-11-26 19:55 | XMS_ITS | CCD ---
Author Organization [facility] Care Team Providers Care Clinical Support Specialist Name Role Phone LIDIA, BARI Admitting Unavailable [...] ROSA, JEZ L Primary Care Unavailable Rosa SUB ARC OPERATOR-CLINIC SCHEDULER, Jez L Primary Care Provider Rosa SUB ARC OPERATOR-CLINIC SCHEDULER, Jez L Primary Care Provider Unavailable Primary [...] Drug Class(es) Dates Sig (Normalized) Sig (Original) [id number] 200 actuat albuterol 0.09 mg/actuat metered dose [...] 07/10/2023 Active aspirin 81 mg chewable tablet (15 sources) Platelet Aggregation Inhibitor, Nonsteroidal Anti-inflammatory Drug aspirin 81 MG chewable tablet Chew 81 mg 1 (one) time. Active aspirin 81 mg ch ewable tablet Chew 1 tablet (81 mg total) and swallow in the morning. Active 24 hr dilTIAZem hydrochloride 300 mg extended release oral capsule (18 sources) Calcium Channel Nehemias Start: 01-17-2023 End: [...] 07/18/2022 Active estradiol 0.1 mg/ml vaginal cream (6 sources) Estrogen Start: 11-16-2024 estradiol (Est race) 0.1 MG/GM vaginal cream Indications: Dyspareunia in female PLACE 2 GRAMS VAGINALLY DAILY FOR 2 WEEKS, THEN TWICE A WEEK FOLLOWING INITIAL 2 WEEKS 42.5 g 3 11/16/2024 Active Start: 10-07-2024 estradiol (Est race) 0.1 MG/GM [...] 12/19/2021 Active loratadine 10 mg oral tablet (15 sources) Start: 08-20-2018 take 1 tablet by [...] (BMI) of 37.0 to 37.9 in adult ([facility])] 02-11-2024 Chronic Other screening for suspected conditions [...] 02-06-2024 07-03-2023 Other aftercare (1 source) Other technician terminal and repeater (current) drug therapy; Translations: [[facility] CHEMIST INORGANIC CURRENT DRUG THERAPY] Onset: 12-15-2018 Episodic Other aftercare (1 source) [facility] (current) use of aspirin; Translations: [USP CURRENT USE OF ASPIRIN] Onset: 12-15-2018 Episodic [...] Test Name Value Interpretation Reference Range Facility US PELVIS W/ TRANSVAGINALon 11-13-2024 [place] [address] Ultrasound Report Signed Patient: YANG SWAIN MR#: [id number] : 1975 Acct:[id number] Age/Sex: 49 / F ADM Date: 11/12/24 Loc: US Attending Dr: Bari Murillo D.O. Ordering Physician: Bari Murillo D.O. Date of Service: 11/12/24 Procedure(s): US pelvis w/ transvaginal Accession Number(s): [id number] cc: Bari Murillo D.O.; Physician,Non-Staff M.[place] [id number] Patient Name: YANG SWAIN MRN: [id number] date: 1975 Sex: F Assigned Patient Location: US Current Patient Location: Accession/Order Number: [id number] Exam Date: 11/13/2024 07:28 Report Date: 11/13/2024 07:31 At the request of: BARI MURILLO DO Procedure: US pelvis w/ transvaginal ULTRASOUND PELVIS WITH TRANSVAGINAL COMPARISON: 06/16/2018 CLINICAL DATA: Pelvic pain for the past few months. Previous hysterectomy. Real-time ultrasound evaluation pelvis was performed utilizing both a transabdominal and transvaginal approach. TRANSABDOMINAL: The uterus is surgically absent. The vaginal cuff shows no obvious abnormalities. Neither ovary is identified. TRANSVAGINAL: Transvaginal scans were performed to better evaluate the uterus and adnexa. The uterus is surgically absent. The right ovary is not identified and this correlates with reported oophorectomy. The left ovary is seen. It measures 3.8 x 2.7 x 1.8 cm. Small follicles are present. There is an irregular thick-walled cystic structure with peripheral blood flow measuring 15 x 7 x 15 mm which might be a collapsing cyst/follicle. There is blood flow within the remainder of the ovary with resistive index of 0.6. No free fluid is seen. US/US pelvis w/ transvaginal IMPRESSION: POST HYSTERECTOMY PELVIS, WITHOUT ACUTE FINDINGS. Impression dictated by: Stephanie Marino M.D. 11/13/2024 7:31 AM Dictation Location: [place] [address] Electronically authenticated by: [id number] Y Date: 11/13/2024 07:31 Dictated By: Stephanie Marino M.D. Signed By: 11/13/24 0734 DD/ 0731 TD/TT: Sponge Fisherman: [facility] Radiology, Radiologist, MD - 11/13/2024 [place] [address] Ultrasound Report Signed Patient: YANG SWAIN MR#: [id number] : 1975 Acct:[id number] Age/Sex: 49 / F ADM Date: 11/12/24 Loc: US Attending Dr: Bari Murillo D.O. Ordering Physician: Bari Murillo D.O. Date of Service: 11/12/24 Procedure(s): US pelvis w/ transvaginal Accession Number(s): [id number] cc: Bari Murillo D.O.; Physician,Non-Staff [place] The [address] [address] Patient Name: YANG SWAIN MRN: [facility]:[id number] date: 1975 Sex: F Assigned Patient Location: US Current Patient Location: Accession/Order Number: [id number] Exam Date: 11/13/2024 07:28 Report Date: 11/13/2024 07:31 At the request of: BARI MURILLO DO Procedure: US pelvis w/ transvaginal ULTRASOUND PELVIS WITH TRANSVAGINAL COMPARISON: 06/16/2018 CLINICAL DATA: Pelvic pain for the past few months. Previous hysterectomy. Real-time ultrasound evaluation pelvis was performed utilizing both a transabdominal and transvaginal approach. TRANSABDOMINAL: The uterus is surgically absent. The vaginal cuff shows no obvious abnormalities. Neither ovary is identified. TRANSVAGINAL: Transvaginal scans were performed to better evaluate the uterus and adnexa. The uterus is surgically absent. The right ovary is not identified and this correlates with reported oophorectomy. The left ovary is seen. It measures 3.8 x 2.7 x 1.8 cm. Small follicles are present. There is an irregular thick-walled cystic structure with peripheral blood flow measuring 15 x 7 x 15 mm which might be a collapsing cyst/follicle. There is blood flow within the remainder of the ovary with resistive index of 0.6. No free fluid is seen. US/US pelvis w/ transvaginal IMPRESSION: POST HYSTERECTOMY PELVIS, WITHOUT ACUTE FINDINGS. Impression dictated by: Stephanie Marino M.D. 11/13/2024 7:31 AM Dictation Location: [place] [address] Electronically authenticated by: [id number] Y Date: 11/13/2024 07:31 Dictated By: Stephanie Marino M.D. Signed By: 11/13/24 0734 DD/ 0731 TD/TT: Sponge Fisherman: [facility] Radiology Study observation (narrative) [facility] US PELVIS W/ TRANSVAGINALOrd ered By: Radiologist Radiology on 11-13-2024 [facility] Work Phone: CBC W Auto Differential pane l (Bld)on 10-17-2024 ABSOLUTE BASOPHIL 0.1 10*3/uL 0.0 - 0.2 10*3/uL [facility] Basophils/100 WBC (Bld) 0.9 % [facility] DIFFERENTIAL TYPE AUTOMATED DIFFERENTIAL [facility] Comment on above: PERFORMED AT [facility] [address],[place] [address] Eosinophils (Bld) [#/Vol] 0.2 10*3/uL 0.0 - 0.4 10*3/uL [facility] Eosinophils/100 WBC (Bld) 2.8 % [facility] Erythrocyte distribution width (RBC) [Ratio] 12.4 % 11.5 - 15 % [facility] Hematocrit (Bld) [Volume fraction] 38.5 % 35 - 47 % [facility] Hemoglobin (Bld) [Mass/Vol] 13.2 g/dL 11.7 - 15.5 g/dL [facility] Lymphocytes (Bld) [#/Vol] 2 10*3/uL 1.0 - 3.5 10*3/uL [facility] Lymphocytes/100 WBC (Bld) 28.5 % [facility] MCH (RBC) [Entitic mass] 32.2 pg 27 - 34 pg [facility] MCHC (RBC) [Mass/Vol] 34.2 g/dL 32 - 36 g/dL [facility] MCV (RBC) [Entitic vol] 94 fL 80 - 100 fL [facility] Monocytes (Bld) [#/Vol] 0.5 10*3/uL 0.0 - 0.9 10*3/uL [facility] Monocytes/100 WBC (Bld) 6.9 % [facility] Neutrophils (Bld) [#/Vol] 4.2 10*3/uL 1.5 - 6.6 10*3/uL [facility] Neutrophils/100 WBC (Bld) 60.9 % [facility] Platelet mean volume (Bld) [Entitic vol] 9 fL 7 - 12 fL [facility] Platelets (Bld) [#/Vol] 241 10*3/uL [facility] RBC (Bld) [#/Vol] 4.09 10*6/uL [facility] WBC corrected for nucl RBC Auto (Bld) [#/Vol] 6.9 [facility] CBC WITH AUTO DIFFERENTIALon 10-17-2024 BASOPHILS ABSOLUTE COUNT (10*3/UL) BY AUTOMATED COUNT 0.1 10*3/uL Normal 0.0-0.2 [facility] Comment on above: Performed By: #### C BCA #### [facility] ([facility]) [address] [place] [address] VIR BASOPHILS RELATIVE PERCENT BY AUTOMATED COUNT 0.9 % Normal [facility] Comment on above: Performed By: #### C BCA #### [facility] ([facility]) [address] [place] [address] VIR CELLAVISION DIFFERENTIAL TYPE AUTOMATED DIFFERENTIAL Normal [facility] Comment on above: Performed By: #### C BCA #### [facility] ([facility]) [address] [place] [address] VIR Eosinophils (Bld) [#/Vol] 0.2 10*3/uL Normal 0.0-0.4 [facility] Comment on above: Performed By: #### C BCA #### [facility] ([facility]) [address] [place] [address] VIR EOSINOPHILS RELATIVE PERCENT BY AUTOMATED COUNT 2.8 % Normal [facility] Comment on above: Performed By: #### C BCA #### [facility] ([facility]) [address] [place] [address] VIR Erythrocyte distribution width (RBC) [Ratio] 12.4 % Normal 11.5-15 [facility] Comment on above: Performed By: #### C BCA #### [facility] ([facility]) [address] [place] [address] VIR Hematocrit (Bld) [Volume fraction] 38.5 % Normal 35-47 [facility] Comment on above: Performed By: #### C BCA #### [facility] ([facility]) [address] [place] [address] VIR Hemoglobin (Bld) [Mass/Vol] 13.2 g/dL Normal 11.7-15.5 [facility] Comment on above: Performed By: #### C BCA #### [facility] ([facility]) [address] [place] [address] VIR LYMPHOCYTES ABSOLUTE COUNT (10*3/UL) BY AUTOMATED COUNT 2.0 10*3/uL Normal 1.0-3.5 [facility] Comment on above: Performed By: #### C BCA #### [facility] ([facility]) [address] [place] [address] VIR LYMPHOCYTES RELATIVE PERCENT BY AUTOMATED COUNT 28.5 % Normal [facility] Comment on above: Performed By: #### C BCA #### [facility] ([facility]) [address] [place] [address] VIR MCH (RBC) [Entitic mass] 32.2 pg Normal 27-34 [facility] Comment on above: Performed By: #### C BCA #### [facility] ([facility]) [address] [place] [address] VIR MCHC (RBC) [Mass/Vol] 34.2 g/dL Normal 32-36 [facility] Comment on above: Performed By: #### C BCA #### [facility] ([facility]) [address] [place] [address] VIR MCV (RBC) [Entitic vol] 94 fL Normal 80-100 [facility] Comment on above: Performed By: #### C BCA #### [facility] ([facility]) [address] [place] [address] VIR MONOCYTES ABSOLUTE COUNT (10*3/UL) BY AUTOMATED COUNT 0.5 10*3/uL Normal 0.0-0.9 [facility] Comment on above: Performed By: #### C BCA #### [facility] ([facility]) [address] [place] [address] VIR MONOCYTES RELATIVE PERCENT BY AUTOMATED COUNT 6.9 % Normal [facility] Comment on above: Performed By: #### C BCA #### [facility] ([facility]) [address] [place] [address] VIR NEUTROPHILS ABSOLUTE COUNT BY AUTOMATED COUNT 4.2 10*3/uL Normal 1.5-6.6 [facility] Comment on above: Performed By: #### C BCA #### [facility] ([facility]) [address] [place] [address] VIR NEUTROPHILS RELATIVE PERCENT BY AUTOMATED COUNT 60.9 % Normal [facility] Comment on above: Performed By: #### C BCA #### [facility] ([facility]) [address] [place] [address] VIR Platelet mean volume (Bld) [Entitic vol] 9.0 fL Normal 7-12 [facility] Comment on above: Performed By: #### C BCA #### [facility] ([facility]) [address] [place] [address] VIR Platelets (Bld) [#/Vol] 241 10*3/uL Normal 150-450 [facility] Comment on above: Performed By: #### C BCA #### [facility] ([facility]) [address] [place] [address] VIR RBC COUNT 4.09 X10E12/L Normal 3.8-5.2 [facility] Comment on above: Performed By: #### C BCA #### [facility] ([facility]) [address] [place] [address] VIR WBC (Bld) [#/Vol] 6.9 10*3/uL Normal 4-11 [facility] Comment on above: Performed By: #### C BCA #### [facility] ([facility]) [address] [place] [address] VIR CHOLESTEROL, TOTALon 025 Cholesterol [Mass/Vol] 210 mg/dL High 150-200 [facility] Comment on above: Performed By: #### C HOL #### [facility] ([facility]) [address] [place] [address] VIR COMPREHENSIVE METABOLIC PANE [place] 10-17-2024 Albumin [Mass/Vol] 4.3 g/dL Normal 3.2-5.3 [facility] Comment on above: Performed By: #### C MP #### [facility] ([facility]) [address] [place] [address] VIR ALP [Catalytic activity/Vol] 45 U/L Normal 39-130 [facility] Comment on above: Performed By: #### C MP #### [facility]) [address] [place] [address] VIR ALT [Catalytic activity/Vol] 11 U/L Normal <=31 [facility] Comment on above: Performed By: #### C MP #### [facility]) [address] [place] [address] VIR Anion gap [Moles/Vol] 10 mmol/L Normal 5-15 [facility] Comment on above: Performed By: #### C MP #### [facility]) [address] [place] [address] VIR AST [Catalytic activity/Vol] 16 U/L Normal <=41 [facility] Comment on above: Performed By: #### C MP #### [facility]) [address] [place] [address] VIR Bilirubin [Mass/Vol] 0.7 mg/dL Normal 0.3-1.2 [facility] Comment on above: Performed By: #### C MP #### [facility]) [address] [place] [address] VIR Calcium [Mass/Vol] 9.3 mg/dL Normal 8.5-10.5 [facility] Comment on above: Performed By: #### C MP #### [facility] ([facility]) [address] [place] [address] VIR Chloride [Moles/Vol] 107 mmol/L Normal 98-109 [facility] Comment on above: Performed By: #### C MP #### [facility]) [address] [place] [address] VIR CO2 [Moles/Vol] 21 mmol/L Low 22-32 [facility] Comment on above: Performed By: #### C MP #### [facility]) [address] [place] [address] VIR Creatinine [Mass/Vol] 0.66 mg/dL Normal 0.40-1.00 [facility] Comment on above: Result Comment: METH OD TRACEABLE TO IDMS STANDARD Performed By: #### C MP #### [facility]) [address] [place] [address] VIR EGFR (CKD-EPI) NON-RACE DEPENDENT >^90 Normal >=60 [facility] Comment on above: Result Comment: Repo rted eGFR is based on the CKD-EPI 2020 equation that does not use a race coefficient. Performed By: #### C MP #### [facility]) [address] [place] [address] VIR Glucose [Mass/Vol] 91 mg/dL Normal 65-99 [facility] Comment on above: Performed By: #### C MP #### [facility]) [address] [place] [address] VIR Potassium [Moles/Vol] 4.1 mmol/L Normal 3.5-5.0 [facility] Comment on above: Performed By: #### C MP #### [facility]) [address] [place] [address] VIR Protein [Mass/Vol] 7.4 g/dL Normal 6.0-8.0 [facility] Comment on above: Performed By: #### C MP #### [facility]) [address] [place] [address] VIR Sodium [Moles/Vol] 138 mmol/L Normal 134-146 [facility] Comment on above: Performed By: #### C MP #### [facility]) [address] [place] [address] VIR Urea nitrogen [Mass/Vol] 11 mg/dL Normal 5-23 [facility] Comment on above: Performed By: #### C MP #### [facility]) [address] [place] [address] VIR HEMOGLOBIN A1Con 10-17-2024 Glucose [Mass/Vol] 85 mg/dL Normal [facility] Comment on above: Performed By: #### H A1C #### [facility]) [address] [place] [address] VIR HbA1c (Bld) [Mass fraction] 4.6 % Normal 4.4-5.6 [facility] Comment on above: Result Comment: ADA Guidelines Result HgbA1c Normal : less than 5.7 % Prediabetes : 5.7 % to 6.4 % Diabetes : > 6.4 % Use with caution in patients with abnormal hemoglobin variants as the half-life of red blood cells and in vivo glycation rates are affected. Performed By: #### H A1C #### [facility]) [address] [place] [address] VIR TSHon 10-17-2024 TSH 1.45 uIU/mL Normal 0.49-4.67 [facility] Comment on above: Performed By: #### T SH #### [facility]) [address] [place] [address] VIR RECURRENT VAGINITIS (HTRX)on 10-10-2024 ATOPOBIUM VAGINAE 21.481 Abnormal [facility] ATOPOBIUM VAGINAE Detected Abnormal [facility] BVAB 2,3 (BACTERIAL VAGINOSIS ASSOCIATED BACTERIA 2, 3); MOBILUNCUS SPP 0 [facility] BVAB 2,3 (BACTERIAL VAGINOSIS ASSOCIATED BACTERIA 2, 3); MOBILUNCUS SPP Not detected [facility] Healthcare MARIA ISABEL ALBICANS, PARAPSILOSIS, TROPICALIS 26.398 Abnormal [facility] Healthcare MARIA ISABEL ALBICANS, PARAPSILOSIS, TROPICALIS Detected Abnormal [facility] MARIA ISABEL GLABRATA 0 [facility] MARIA ISABEL GLABRATA Not detected [facility] MARIA ISABEL KRUSEI 0 [facility] MARIA ISABEL KRUSEI Not detected [facility] CHLAMYDIA TRACHOMATIS 0 [facility] CHLAMYDIA TRACHOMATIS Not detected [facility] ERMB, C; MEFA 14.838 Abnormal [facility] ERMB, C; MEFA Detected Abnormal [facility] GARDNERELLA VAGINALIS 20.804 Abnormal [facility] GARDNERELLA VAGINALIS Detected Abnormal [facility] Interpretation and review of laboratory results Abnormal [facility] MEGASPHAERA (TYPES 1, 2) 0 [facility] MEGASPHAERA (TYPES 1, 2) Not detected [facility] MYCOPLASMA GENITALIUM 0 [facility] MYCOPLASMA GENITALIUM Not detected [facility] NEISSERIA GONORRHOEAE 0 [facility] NEISSERIA GONORRHOEAE Not detected [facility] TET B, TET M 18.652 Abnormal [facility] TET B, TET M Detected Abnormal [facility] TRICHOMONAS VAGINALIS 0 [facility] TRICHOMONAS VAGINALIS Not detected [facility] MAMM SCREENING BILATERAL W C measurer 10-07-2024 MAMM SCREENING BILATERAL W CAD MAMM SCREENING BILATERAL W CAD YANG JACKSON SWAIN 1975 [id number] EXAM: MAMM SCREENING BILATERAL W CAD, 10/05/2024 [...] 10:59 AM 1 c MOLEC BR IMG Normal [facility] Urinalysis macro (dipstick) panel (U)on 10-07-2024 Bilirubin, UA Negative Negative - 4(70) +++ mg/dL [facility] Blood, UA Negative Negative - 50 Kalyan/mcL [facility] Clarity, UA Clear [facility] Color, UA Yellow [facility] Glucose, UA Negative Negative - 2000(110) ++++ mg/dL [facility] Interpretation and review of laboratory results Abnormal [facility] Ketones, UA Negative Negative - 160(16) ++++ mg/dL [facility] Leukocytes, UA Negative Negative - 500+++ Maria Elena/mcL [facility] Nitrite, UA Negative Negative - Positive [facility] pH, UA 5.5 5 - 9 [facility] Protein, UA Trace Negative - 1999(20) ++++ mg/dL [facility] Spec Grav, UA 1.03 1 - 1.03 [facility] Urobilinogen, UA 1.0 0.2 - 12 mg/dL [facility] DEXA SCAN CENTRAL SKELETALon 02-03-2024 DEXA SCAN [...] Cardenas MD on 02/03/2024 1:10 PM Normal [facility] COMPREHENSIVE METABOLIC PANE [place] 01-25-2024 Albumin [Mass/Vol] 4.2 g/dL Normal 3.2-5.3 [facility] Comment on above: Performed By: #### 2 4331-1, CMP #### [facility] ([id number]) [address] [place] [address] ALP [Catalytic activity/Vol] 49 U/L Normal 39-130 [facility] Comment on above: Performed By: #### 2 4331-1, CMP #### [facility] ([id number]) [address] [place] [address] ALT [Catalytic activity/Vol] 11 U/L Normal 0-31 [facility] Comment on above: Performed By: #### 2 4331-1, CMP #### [facility] ([id number]) [address] [place] [address] Anion gap [Moles/Vol] 9 mmol/L Normal 5-15 [facility] Comment on above: Performed By: #### 2 4331-1, CMP #### [facility] ([id number]) [address] [place] [address] AST [Catalytic activity/Vol] 17 U/L Normal 0-41 [facility] Comment on above: Performed By: #### 2 4331-1, CMP #### [facility] ([id number]) [address] [place] [address] Bilirubin [Mass/Vol] 0.6 mg/dL Normal 0.3-1.2 [facility] Comment on above: Performed By: #### 2 4331-1, CMP #### [facility] ([id number]) [address] [place] [address] Calcium [Mass/Vol] 9.5 mg/dL Normal 8.5-10.5 [facility] Comment on above: Performed By: #### 2 4331-1, CMP #### [facility] ([id number]) [address] [place] [address] Chloride [Moles/Vol] 104 mmol/L Normal 98-109 [facility] Comment on above: Performed By: #### 2 4331-1, CMP #### [facility] ([id number]) [address] [place] [address] CO2 [Moles/Vol] 26 mmol/L Normal 22-32 [facility] Comment on above: Performed By: #### 2 4331-1, CMP #### [facility] ([id number]) [address] [place] [address] Creatinine [Mass/Vol] 0.66 mg/dL Normal 0.40-1.00 [facility] Comment on above: Result Comment: METH OD TRACEABLE TO IDMS STANDARD Performed By: #### 2 4331-1, CMP #### [facility] ([id number]) [address] [place] [address] eGFR (CKD-EPI) NON-RACE DEPENDENT >90 Normal >59 [facility] Comment on above: Result Comment: Reported eGFR is based on the CKD-EPI 2020 equation that does not use a race coefficient. Performed By: #### 2 4331-1, CMP #### [facility] ([id number]) [address], [address] [place] [address] Glucose [Mass/Vol] 86 mg/dL Normal 65-99 [facility] Comment on above: Performed By: #### 2 4331-1, CMP #### [facility] ([id number]) [address] [address] [place] [address] Potassium [Moles/Vol] 4.2 mmol/L Normal 3.5-5.0 [facility] Comment on above: Performed By: #### 2 4331-1, CMP #### [facility] ([id number]) [address], [address] [place] [address] Protein [Mass/Vol] 7.5 g/dL Normal 6.0-8.0 [facility] Comment on above: Performed By: #### 2 4331-1, CMP #### [facility] ([id number]) [address], [address] [place] [address] Sodium [Moles/Vol] 139 mmol/L Normal 134-146 [facility] Comment on above: Performed By: #### 2 4331-1, CMP #### [facility] ([id number]) [address], [address] [place] [address] Urea nitrogen [Mass/Vol] 8 mg/dL Normal 5-23 [facility] Comment on above: Performed By: #### 2 4331-1, CMP #### [facility] ([id number]) [address], [address] [place] [address] Lipid 1996 panelon 4 Cholesterol [Mass/Vol] 202 mg/dL High 150-200 [facility] Comment on above: Performed By: #### 2 4331-1, CMP #### [facility] ([id number]) [address], [address] [place] [address] Cholesterol in HDL [Mass/Vol] 68 mg/dL Normal >39 [facility] Comment on above: Result Comment: HDL <40 mg/dL - High Risk HDL > or = 40mg/dL- Desirable HDL >60 mg/dL - Negative Risk Performed By: #### 2 4331-1, CMP #### [facility] ([id number]) [address], [facility] [address] [place] [address] Cholesterol in LDL [Mass/Vol] 125 mg/dL Normal <130 [facility] Comment on above: Result Comment: LDL <100 mg/dL - Desirable LDL >160 mg/dL - High Risk Performed By: #### 2 4331-1, CMP #### [facility] ([id number]) [address], [address] [place] [address] Cholesterol in VLDL [Mass/Vol] 9 mg/dL Normal 0-30 [facility] Comment on above: Performed By: #### 2 4331-1, CMP #### [facility] ([id number]) [address], [address] [place] [address] CHOLESTEROL:HDL 3.0 Normal 1.0-5.0 [facility] Comment on above: Performed By: #### 2 4331-1, CMP #### [facility] ([id number]) [address], [facility] [address] [place] [address] Triglyceride [Mass/Vol] 46 mg/dL Normal 27-150 [facility] Comment on above: Performed By: #### 2 4331-1, CMP #### [facility] ([id number]) [address], [facility] [address] [place] [address] PAP ACOG PANEL 2: 30 to 65on 10-30-2019 Age Gdln ACOG Testing 30-65 Normal [facility] Comment on above: Performed By: #### C BC #### [facility] [address] [place] [address] Gomez Brown DIAGNOSIS: Comment Normal [facility] Comment on above: Result Comment: NEGA TIVE FOR INTRAEPITHELIAL LESION OR MALIGNANCY. Performed at: WB Performed By: #### C BC #### [facility] [address] [place] [address] Gomez Brown HPV Aptima Negative Normal Negative [facility] Comment on above: Result Comment: This test was developed and its performance characteristics determined by [employer]. It has not been cleared or approved by the Food and Drug Administration. This nucleic acid amplification test detects fourteen high-risk HPV types (16,18,31,33,35,39,45,51,52,56,58,59,66,68) without differentiation. Performed at: =G Performed By: #### C BC #### [facility] [address] [place] [address] Gomez Brown Methodology: Comment Normal [facility] Comment on above: Result Comment: This liquid based SurePath(R) pap test was screened with the assistance of an image guided system. Performed at: WB Performed By: #### C BC #### [facility] [address] [place] [address] Gomez Brown Note: Comment Normal [facility] Comment on above: Result Comment: The [...] WB Performed By: #### C BC #### [facility] [address] [place] [address] Gomez Brown Performed by: Comment Normal [facility] Comment on above: Result Comment: Dakota Baltazar, Coal Drier Operator (ASCP) Performed at: WB Performed By: #### C BC #### [facility] [address] [place] [address] Gomez Brown Specimen adequacy: Comment Normal [facility] Comment on above: Result Comment: Sati sfactory for evaluation. Endocervical and/or squamous metaplastic cells (endocervical component) are present. Performed at: WB Performed By: #### C BC #### [facility] [address] [place] [address] Gomez Brown . . Normal [facility] Comment on above: Result Comment: Perf ormed at: WB Performed By: #### C BC #### [facility] [address] [place] [address] Gomez Brown HEPATITIS PANEL, ACUTEon HBsAg Screen Negative Normal Negative [facility] Comment on above: Performed By: #### H EPACUT #### [facility] [address] [place] [address] Gomez Brown Hep A Ab, IgM Negative Normal Negative [facility] Comment on above: Performed By: #### H EPACUT #### [facility] [address] [place] [address] Gomez Brown Hep B Core Ab, IgM Negative Normal Negative [facility] Comment on above: Performed By: #### H EPACUT #### [facility] [address] [place] [address] Gomez Brown Hep C Virus Ab <0.1 Normal 0.0-0.9 [facility] Comment on above: Result Comment: Nega tive: < 0.8 Indeterminate: 0.8 - 0.9 Positive: > 0.9 . The CDC recommends that a positive HCV antibody result be followed up with a HCV Nucleic Acid Amplification test (367010). Performed By: #### H EPACUT #### [facility] [address] [place] [address] Gomez Brown HIV 1 AND 2 WITH REFLEXon HIV Screen 4th Generation wRfx Non Reactive Normal Non Reactive [facility] Comment on above: Performed By: #### H IV12 #### [facility] [address] [place] [address] Gomez Brown RPR QUANTon 10-24-2019 Rapid Plasma Reagin, Quant Non Reactive Normal NonRea<1:1 [facility] Comment on above: Performed By: #### C BC #### [facility] [address] [place] [address] Gomez Brown BUNon 12-04-2018 Urea nitrogen [Mass/Vol] 5.0 mg/dL Critically low 7.0-17.0 [facility] Comment on above: Performed By: #### B ALVARADO MARTINEZ #### [facility] [address] [place], [place] [id number] Gomez Stephanie CBC AUTO DIFFon 12-04-2018 Basophils (Bld) [#/Vol] 0.0 103/ul Normal 0.0-0.1 [facility] Comment on above: Performed By: #### C BC #### [facility] [address] [place] [address] Gomez Stephanie Basophils/100 WBC (Bld) 0.2 % Normal 0.2-2.0 [facility] Comment on above: Performed By: #### C BC #### [facility] [address] [place] [address] Gomez Stephanie Eosinophils (Bld) [#/Vol] 0.0 103/ul Normal 0.0-0.7 [facility] Comment on above: Performed By: #### C BC #### [facility] [address] [place] [address] Gomez Stephanie Eosinophils/100 WBC (Bld) 0.1 % Critically low 0.9-7.0 [facility] Comment on above: Performed By: #### C BC #### [facility] [address] [place] [address] Gomez Stephanie Erythrocyte distribution width (RBC) [Ratio] 12.1 % Normal 11.0-15.0 [facility] Comment on above: Performed By: #### C BC #### [facility] [address] [place] [address] Gomez Stephanie Hematocrit (Bld) [Volume fraction] 29.4 % Critically low 36.0-48.0 [facility] Comment on above: Performed By: #### C BC #### [facility] [address] [place], [place] [id number] Gomez Stephanie Hemoglobin (Bld) [Mass/Vol] 9.5 g/dL Critically low 12.0-16.0 [facility] Comment on above: Result Comment: FLUI DS GIVEN Performed By: #### C BC #### [facility] [address] [place], [place] [address] Gomez Stephanie IG # 0.05 10e3/ul Critically high 0.00-0.03 [facility] Comment on above: Performed By: #### C BC #### [facility] [address] [place] [id number] Gomez Stephanie IG % 0.4 % Normal 0.0-0.5 [facility] Comment on above: Performed By: #### C BC #### [facility] [address] [place] [id number] Gomez Stephanie Lymphocytes (Bld) [#/Vol] 1.1 103/ul Critically low 1.2-3.8 [facility] Comment on above: Performed By: #### C BC #### [facility] [address] [place], [place] [id number] Gomez Stephanie Lymphocytes/100 WBC (Bld) 9.5 % Critically low 20.5-60.0 [facility] Comment on above: Performed By: #### C BC #### [facility] [address] [place] [id number] Gomez Stephanie MANUAL DIFF REQ NO Normal [facility] Comment on above: Performed By: #### C BC #### [facility] [address] [place], [place] [id number] Gomez Stephanie MCH (RBC) [Entitic mass] 29.7 pg Normal 26.7-34.0 [facility] Comment on above: Performed By: #### C BC #### [facility] [address] [phone] Gomez Stephanie MCHC (RBC) [Mass/Vol] 32.3 g/dL Normal 29.9-35.2 [facility] Comment on above: Performed By: #### C BC #### [facility] [address] [phone] Gomez Stephanie MCV (RBC) [Entitic vol] 91.9 fL Normal 81.0-99.0 [facility] Comment on above: Performed By: #### C BC #### [facility] [address] [place], [place] [address] Gomez Stephanie Monocytes (Bld) [#/Vol] 1.5 103/ul Critically high 0.3-0.8 [facility] Comment on above: Performed By: #### C BC #### [facility] [address] [place], [place] [address] Gomez Stephanie Monocytes/100 WBC (Bld) 12.9 % Critically high 1.7-12. 0 [facility] Comment on above: Performed By: #### C BC #### [facility] [address] [place] [address] Gomez Stephanie Neutrophils (Bld) [#/Vol] 9.0 103/ul Critically high 1.4-6.5 [facility] Comment on above: Performed By: #### C BC #### [facility] [address] [place] [address] Gomez Stephanie Neutrophils/100 WBC (Bld) 76.9 % Critically high 43.0-75.0 [facility] Comment on above: Performed By: #### C BC #### [facility] [address] [place] [address] Gomez Stephanie Platelet mean volume (Bld) [Entitic vol] 11.4 fL Normal 9.5-13.5 [facility] Comment on above: Performed By: #### C BC #### [facility] [address] [place] [address] Gomez Stephanie Platelets (Bld) [#/Vol] 221 103/ul Normal 150-450 [facility] Comment on above: Performed By: #### C BC #### [facility] [address] [place] [address] Gomez Stephanie RBC (Bld) [#/Vol] 3.20 106/ul Critically low 4.20-5.40 [facility] Comment on above: Performed By: #### C BC #### [facility] [address] [place] [address] Gomez Stephanie WBC (Bld) [#/Vol] 11.7 103/ul Critically high 4.0-11.0 [facility] Comment on above: Performed By: #### C BC #### [facility] [address] [place], [place] [phone] Gomez Stephanie CREATININEon 12-04-2018 Creatinine [Mass/Vol] mg/dL Normal >=60 [facility] Comment on above: Performed By: #### B JUAN, CREA #### [facility] [address] [place], [place] [phone] Gomez Stephanie Creatinine [Mass/Vol] 0.72 mg/dL Normal 0.52-1.04 [facility] Comment on above: Performed By: #### B JUAN CREKatie #### [facility] [address] [place], [place] [id number] Gomez Stephanie CBC AUTO DIFFon 12-03-2018 Basophils (Bld) [#/Vol] 0.1 103/ul Normal 0.0-0.1 [facility] Comment on above: Performed By: #### C BC #### [facility] [address] [place], [place] [address] Gomez Stephanie Basophils/100 WBC (Bld) 0.7 % Normal 0.2-2.0 [facility] Comment on above: Performed By: #### C BC #### [facility] [address] [place], [place] [id number] Gomez Stephanie Eosinophils (Bld) [#/Vol] 0.2 103/ul Normal 0.0-0.7 [facility] Comment on above: Performed By: #### C BC #### [facility] [address] [place], [place] [address] Gomez Stephanie Eosinophils/100 WBC (Bld) 2.4 % Normal 0.9-7.0 [facility] Comment on above: Performed By: #### C BC #### [facility] [address] [place], [place] [id number] Gomez Stephanie Erythrocyte distribution width (RBC) [Ratio] 12.2 % Normal 11.0-15.0 [facility] Comment on above: Performed By: #### C BC #### [facility] [address] [phone] Gomezvishal Brown Hematocrit (Bld) [Volume fraction] 36.9 % Normal 36.0-48.0 [facility] Comment on above: Performed By: #### C BC #### [facility] [address] [place], [place] [phone] Gomez Stephanie Hemoglobin (Bld) [Mass/Vol] 11.9 g/dL Critically low 12.0-16.0 [facility] Comment on above: Performed By: #### C BC #### [facility] [address] [place], [place] [address] Gomez Stephanie IG # 0.02 10e3/ul Normal 0.00-0.03 [facility] Comment on above: Performed By: #### C BC #### [facility] [address] [place] [address] Gomez Stephanie IG % 0.2 % Normal 0.0-0.5 [facility] Comment on above: Performed By: #### C BC #### [facility] [address] [place], [place] [phone] Gomez Stephanie Lymphocytes (Bld) [#/Vol] 1.8 103/ul Normal 1.2-3.8 [facility] Comment on above: Performed By: #### C BC #### [facility] [address] [place], [place] [id number] Gomez Stephanie Lymphocytes/100 WBC (Bld) 19.3 % Critically low 20.5-60.0 [facility] Comment on above: Performed By: #### C BC #### [facility] [address] [place], [place] [id number] Gomez Brown MANUAL DIFF REQ NO Normal [facility] Comment on above: Performed By: #### C BC #### [facility] [address] [place], [place] [id number] Gomez Tripletten MCH (RBC) [Entitic mass] 29.9 pg Normal 26.7-34.0 [facility] Comment on above: Performed By: #### C BC #### [facility] [address] [place], [place] [phone] Gomez Stephanie MCHC (RBC) [Mass/Vol] 32.2 g/dL Normal 29.9-35.2 [facility] Comment on above: Performed By: #### C BC #### [facility] [address] [place], [place] [address] Gomez Brown MCV (RBC) [Entitic vol] 92.7 fL Normal 81.0-99.0 [facility] Comment on above: Performed By: #### C BC #### [facility] [address] [place], [place] [address] Gomez Stephanie Monocytes (Bld) [#/Vol] 0.9 103/ul Critically high 0.3-0.8 [facility] Comment on above: Performed By: #### C BC #### [facility] [address] [place], [place] [address] Gomez Stephanie Monocytes/100 WBC (Bld) 9.5 % Normal 1.7-12.0 [facility] Comment on above: Performed By: #### C BC #### [facility] [address] [place], [place] [address] Gomez Stephanie Neutrophils (Bld) [#/Vol] 6.4 103/ul Normal 1.4-6.5 [facility] Comment on above: Performed By: #### C BC #### [facility] [address] [place], [place] [address] Gomez Stephanie Neutrophils/100 WBC (Bld) 67.9 % Normal 43.0-75.0 [facility] Comment on above: Performed By: #### C BC #### [facility] [address] [place], [place] [id number] Gomez Stephanie Platelet mean volume (Bld) [Entitic vol] 10.8 fL Normal 9.5-13.5 [facility] Comment on above: Performed By: #### C BC #### [facility] [address] [place], [place] [id number] Gomez Stephanie Platelets (Bld) [#/Vol] 262 103/ul Normal 150-450 [facility] Comment on above: Performed By: #### C BC #### [facility] [address] [place], [place] [address] Gomez Brown RBC (Bld) [#/Vol] 3.98 106/ul Critically low 4.20-5.40 [facility] Comment on above: Performed By: #### C BC #### [facility] [address] [place], [place] [address] Gomez Brown WBC (Bld) [#/Vol] 9.4 103/ul Normal 4.0-11.0 [facility] [place] [facility] Comment on above: Performed By: #### C BC #### [facility] [address] [place], [place] [address] Gomez Brown PREG QUANT HCGon 12-03-2018 HCG QUANT <1.00 Normal [facility] Comment on above: Performed By: #### P REGQNT #### [facility] [address] [place] [address] Gomez Brown HCG RANGE SEE BELOW Normal [facility] Comment on above: Result Comment: 5-50 0-1 WEEK 40-300 1-2 WEEKS 100-1,000 2-3 WEEKS 500-6,000 3-4 WEEKS 5,000-200,000 1-2 MONTHS 10,000-100,000 2-3 MONTHS 3,000-50,000 2ND TRIMESTER 1,000-50,000 3RD TRIMESTER Performed By: #### P REGQNT #### [facility] [address] [place] [address] Gomez Brown TYPE AND SCREENon 12-01-2018 TYPE AND SCREEN Negative Normal [facility] Comment on above: Performed By: #### T NS #### [facility] [address] [place] [address] Gomez Brown Vital Signs Date Time Vital Sign Value Performing Clinician Facility 02-06-2024 15:50-0400 Body height 149.9 cm Jez CAMARILLO Work Phone: [facility] 02-06-2024 15:50-0400 Body mass index (BMI) [Ratio] 37.24 kg/m2 Jez CAMARILLO Work Phone: [facility] 02-06-2024 15:50-0400 Body temperature 98.01 [degF] Jez Lee SUB ARC OPERATOR-CLINIC SCHEDULER Work Phone: [facility] 02-06-2024 15:50-0400 Body weight 83.64 kg Jez Lee SUB ARC OPERATOR-CLINIC SCHEDULER Work Phone: [facility] 02-06-2024 15:50-0400 Diastolic blood pressure 78 mm[Hg] Jezjerome Lee SUB ARC OPERATOR-CLINIC SCHEDULER Work Phone: [facility] 02-06-2024 15:50-0400 Heart rate 73 /min Jezjerome Lee SUB ARC OPERATOR-CLINIC SCHEDULER Work Phone: [facility] 02-06-2024 15:50-0400 SaO2% (BldA) [Mass fraction] 95 % Jez Lee SUB ARC OPERATOR-CLINIC SCHEDULER Work Phone: [facility] 02-06-2024 15:50-0400 Systolic blood pressure 140 mm[Hg] Jez Lee SUB ARC OPERATOR-CLINIC SCHEDULER Work Phone: [facility] 07-03-2023 15:05-0500 Body height 149.9 cm Jez Lee SUB ARC OPERATOR-CLINIC SCHEDULER Work Phone: [facility] 07-03-2023 15:05-0500 Body mass index (BMI) [Ratio] 37.24 kg/m2 Jez Lee SUB ARC OPERATOR-CLINIC SCHEDULER Work Phone: [facility] 07-03-2023 15:05-0500 Body temperature 98.49 [degF] Jez Lee SUB ARC OPERATOR-CLINIC SCHEDULER Work Phone: [facility] 07-03-2023 15:05-0500 Body weight 83.64 kg Jez Lee SUB ARC OPERATOR-CLINIC SCHEDULER Work Phone: [facility] 07-03-2023 15:05-0500 Diastolic blood pressure 80 mm[Hg] Jezjerome Lee SUB ARC OPERATOR-CLINIC SCHEDULER Work Phone: [facility] 07-03-2023 15:05-0500 Heart rate 78 /min Jez CAMARILLO [facility] 07-03-2023 15:05-0500 SaO2% (BldA) [Mass fraction] 97 % Jez CAMARILLO [facility] 07-03-2023 15:05-0500 Systolic blood pressure 130 mm[Hg] Jez Lee APRNCLINIC SCHEDULER Work Phone: [facility] Encounters Encounter Date Encounter Type Care Provider Facility Start: 11-26-2024 End: 11-26-2024 Bamboo flowsheet Zeina YE Work Phone: [facility] Start: 11-26-2024 End: 11-26-2024 Bamboo flowsheet Zeina YE Work Phone: [facility] Start: 11-13-2024 End: 11-13-2024 Clinisync Result Encounter Bari Lidia DO Work Phone: [facility] Unsolicited Start: 11-13-2024 End: 11-13-2024 Clinisync Result Encounter Bari Lidia DO Work Phone: [facility] Unsolicited Start: 10-17-2024 End: 10-17-2024 External Result Encounter Bari Lidia DO Work Phone: [facility] Unsolicited Start: 10-17-2024 End: 10-17-2024 External Result Encounter Bari Lidia DO Work Phone: [facility] Unsolicited Start: 10-17-2024 ambulatory BARI R LIDIA [facility] Start: 10-07-2024 End: 10-07-2024 Office outpatient visit 15 minutes Bari Lidia DO Work Phone: [facility] Comment on above: Pelvic pain in [...] Start: 10-05-2024 End: 10-05-2024 ambulatory JEZ LEE [facility] Start: 09-04-2024 End: 09-04-2024 Orders Only Jez Lee SUB ARC OPERATOR-CLINIC SCHEDULER Work Phone: [facility] Comment on above: Encounter for screen ing mammogram for malignant neoplasm of breast (Primary Dx) Start: 08-21-2024 End: 08-21-2024 Refill Jez Lee SUB ARC OPERATOR-CLINIC SCHEDULER Work Phone: [facility] Comment on above: Primary hypertension ; Essential hypertension Start: 02-08-2024 End: 02-13-2024 Refill Carlos Alberto Rodriguez MD Work Phone: [facility] Comment on above: Primary hypertension ; Essential hypertension Start: 02-06-2024 End: 02-06-2024 Patient encounter status Jez Lee SUB ARC OPERATOR-CLINIC SCHEDULER Work Phone: [facility] Work Phone: Start: 02-06-2024 End: 02-06-2024 Periodic preventive med est patient 40-64yrs Jez Lee SUB ARC OPERATOR-CLINIC SCHEDULER Work Phone: [facility] Comment on above: Wellness examination (Primary Dx); Mild intermittent asthma without complication; Primary hypertension; Influenza vaccination administered at current visit; Atopic dermatitis, unspecified type; Need for shingles vaccine; Class 2 severe obesity due to excess calories with serious comorbidity and body mass index (BMI) of 37.0 to 37.9 in adult ([facility]) Start: 02-06-2024 End: 02-06-2024 ambulatory [facility] Start: 02-03-2024 End: 02-03-2024 ambulatory BARI DAVISO [facility] Start: 01-25-2024 End: 01-25-2024 ambulatory [facility] Start: 01-25-2024 Encounter for genera l adult medical examination without abnormal findings [facility] Start: 01-23-2024 End: 01-23-2024 [facility]-CLINIC SCHEDULER Work Phone: [facility] Comment on above: Wellness examination (Primary Dx) Start: 01-23-2024 End: 01-23-2024 [facility]PER[facility]-CLINIC SCHEDULER Work Phone: [facility] Work Phone: Start: 10-23-2023 End: 10-23-2023 ambulatory BARI MURILLO Not Available Start: 07-30-2023 Telephone encounter Shawn Ulloa SUB ARC OPERATOR-CLINIC SCHEDULER Work Phone: [facility] Start: 07-15-2023 Victorina Rodriguez MD Work Phone: [facility] Comment on above: Primary hypertension ; Essential hypertension Start: 07-03-2023 End: 07-03-2023 ambulatory [facility] Start: 07-03-2023 Encounter for genera l adult medical examination without abnormal findings [facility] Start: 07-03-2023 End: 07-03-2023 Office outpatient new 30 minutes Jez Lee SUB ARC OPERATOR-CLINIC SCHEDULER Work Phone: [facility] Comment on above: Encounter for medica l examination to establish care (Primary Dx); Encounter for screening mammogram for malignant neoplasm of breast; Primary hypertension; Bronchitis; Acute non-recurrent maxillary sinusitis Start: 07-03-2023 End: 07-03-2023 Patient encounter status Jez Lee APRN-CLINIC SCHEDULER Work Phone: [facility] [employer] Work Phone: Start: 10-22-2019 End: 10-22-2019 Patient encounter procedure CAMILA WHITAKER Facility:[facility] Start: 10-22-2019 End: 10-23-2019 Patient encounter procedure CAMILA WHITAKER Facility:H1 Start: 12-05-2018 Encounter for preprocedural laboratory examination [facility] Start: 12-03-2018 End: 12-04-2018 Evaluation and management of inpatient BARI DAVISO Facility:H1 Start: 12-01-2018 End: 12-02-2018 Patient encounter procedure BARI [facility] Facility:H1 Start: 11-28-2018 Encounter for other preprocedural examination [facility] Start: 11-19-2018 Patient encounter procedure BARI LIDIA Facility:H1 Start: 11-17-2018 End: 11-18-2018 Patient encounter procedure BARI [facility] Facility:H1 Encounter for other preprocedural examination [facility] Encounter for preprocedural laboratory examination [facility] Procedures Date Procedure Procedure Detail Performing Clinician Start: 11-13-2024 US PELVIS W/ TRANSVAGINAL Bari Lidia DO Work Phone: Start: 10-17-2024 Complete blood count with white cell differential, automated Bari Lidia DO Work Phone: Start: 10-07-2024 RECURRENT VAGINITIS (HTRX) Bari Lidia DO Work Phone: Start: 10-07-2024 Urnls dip stick/tabl et rgnt non-auto w/o micrscp Bari Lidia DO Work Phone: Start: 10-05-2024 Mammography Bari Fazi o DO Work Phone: Start: 02-06-2024 Adult depression scr eening assessment Jez Lee SUB ARC OPERATOR-CLINIC SCHEDULER Work Phone: Start: 10-23-2023 Microscopic observat ion [Identifier] in Cervix by Cyto stain Zeina YE Work Phone: Start: 07-25-2023 Mammography Shawn Ulloa SUB ARC OPERATOR-CLINIC SCHEDULER Work Phone: Start: 07-03-2023 Adult depression scr eening assessment Jez Lee SUB ARC OPERATOR-CLINIC SCHEDULER Work Phone: Start: 12-07-2022 Colonoscopy Jez Herrera SUB ARC OPERATOR-CLINIC SCHEDULER Work Phone: Start: 12-06-2022 Microscopic observat ion [Identifier] in Cervix by Cyto stain Bari Murillo DO Work Phone: Start: 07-12-2022 Mammography Jez Herrera SUB ARC OPERATOR-CLINIC SCHEDULER Work Phone: Start: 12-03-2018 Removal of Intralumi [...] Screening for malign ant neoplasm of colon [facility] Start: 12-07-2027 Screening for malign ant neoplasm of cervix [facility] Start: 10-22-2026 Screening for malign ant neoplasm of cervix Pap Smear [facility] Start: 12-06-2025 Screening for malign ant neoplasm of cervix Pap Smear [facility] Start: 10-05-2025 Screening for malign ant neoplasm of breast Mammogram [facility] Start: 02-05-2025 Adult BMI Screening Adult BMI Screen ing [facility] Start: 02-05-2025 Depression Screening Depression Scre ening [facility] Start: 02-05-2025 Tobacco Screening Tobacco Screening [facility] Start: 12-28-2024 Influenza vaccination [facility] Start: 11-26-2024 End: 11-26-2024 Patient encounter procedure 11/26/2024 3:00 PM EDT Office Visit [facility] [address] [place] [id number] Zeina Portillo PA [address] [facility] [place] [address] [facility] Start: 11-04-2024 End: 11-04-2024 Patient encounter procedure 11/04/2024 3:40 PM EDT Office Visit [facility] [address] [place] [address] Bari Murillo, DO [address] [place], [place] [id number] [facility] Start: 11-02-2024 End: 11-02-2024 Patient encounter procedure 11/02/2024 4:00 PM EDT Office Visit [facility] [address] [phone] Bari Murillo, DO [address] [facility] [address] [place] [address] [facility] Start: 10-07-2024 End: 10-07-2024 Patient encounter procedure 10/07/2024 3:50 PM EDT Office Visit [facility] [address] [facility] [address] Bari Murillo, DO [address] [facility] [address] [place] [address] Arrived [facility] Comment on above: Arrived Start: 10-07-2024 End: 10-07-2025 SURESWAB(R) ADVANCED VAGINITIS PLUS, TMA SURESWAB(R) ADVANCED VAGINITIS PLUS, TMA Pathology and Cytology Routine Pelvic pain in female Expected: 10/07/2024 (Approximate), Expires: 10/07/2025 [facility] Work Phone: Comment on above: Expected: 10/07/2024 (Approximate), Expires: 10/07/2025 Start: 10-07-2024 End: 10-07-2025 US Pelvis US Pelvis w/ TV Imaging Routine Pelvic pain in female Expected: 10/07/2024, Expires: 10/07/2025 [facility] Comment on above: Expected: 10/07/2024 , Expires: 10/07/2025 Start: 09-04-2024 End: 09-04-2025 DBT Breast - bilateral screening Mammography screening bilateral with CAD Imaging Routine Encounter for screening mammogram for malignant neoplasm of breast Expected: 09/04/2024, Expires: 09/04/2025 [facility]: Comment on above: Expected: 09/04/2024 [...] Screening Tobacco Screening [facility] Start: 04-23-2024 End: 04-23-2024 Patient encounter procedure 04/23/2024 1:40 PM EST Office Visit [facility] Internal [facility] - Family Medicine [address] [place] [address] Jez Lee, SUB ARC OPERATOR-CLINIC SCHEDULER [address] [facility] [place] [address] [facility] - [facility] Start: 04-02-2024 Administration of varicella zoster vaccine Zoster (Shingles) Vaccine (2 of 2) [facility] Start: 02-06-2024 End: 02-06-2024 Patient encounter procedure 02/06/2024 3:40 PM EDT Office Visit [facility] Internal [facility] - Family Medicine [address] [place] [address] Jez Lee, SUB ARC OPERATOR-CLINIC SCHEDULER [address] [place] [address] [facility] - [facility] Start: 02-03-2024 End: 02-03-2024 Patient encounter procedure 02/03/2024 11:30 AM EDT Appointment [facility] [address] [place] [phone] [facility] Start: 01-23-2024 End: 01-22-2025 Lipid 1996 panel - Serum or Plasma Lipid profile Lab Routine Wellness examination Expected: 01/23/2024 (Approximate), Expires: 01/22/2025 [facility] Work Phone: Comment on above: Expected: 01/23/2024 (Approximate), Expires: 01/22/2025 Start: 12-29-2023 COVID-19 Vaccine ( season) COVID-19 Vaccine ( season) [facility] Start: 12-29-2023 COVID-19 Vaccine ( season) COVID-19 Vaccine ( season) [facility] Start: 12-29-2023 Influenza vaccination Influenza Vacc ine [facility] Start: 07-31-2023 End: 07-31-2023 Patient encounter procedure 07/31/2023 4:00 PM EDT Office Visit [facility] Family Medicine [address] [place] [address] Shawn Ulloa SUB ARC OPERATOR-CLINIC SCHEDULER [address] [place], [place] [address] [facility] Start: 07-13-2023 Screening for malign ant neoplasm of breast Mammogram [facility] Start: 07-03-2023 End: 07-02-2024 DBT Breast - bilateral screening Mammography screening bilateral with CAD Imaging Routine Encounter for screening mammogram for malignant neoplasm of breast Expected: 07/03/2023, Expires: 07/02/2024 [facility] Work Phone: Comment on above: Expected: 07/03/2023 , Expires: 07/02/2024 Start: 2023 Administration of varicella zoster vaccine Zoster (Shingles) [facility] 2) [facility] Start: 01-02-2023 Adult BMI Follow Up Plan Adult BMI Follow Up Plan [facility] Start: 12-28-2022 COVID-19 Vaccine ( season) COVID-19 Vaccine ( season) [facility] Start: 1992 DTaP,Tdap and Td Vaccines (1 - Tdap) DTaP,Tdap and Td Vaccines (1 - Tdap) [facility] Start: 1991 Adult BMI Follow Up Plan Adult BMI [facility] Plan [facility] Start: 1973 Screening for malign ant neoplasm of colon [facility] CBC W Auto Different ial panel - Blood CBC auto differential Lab Routine Hormone imbalance Fatigue, unspecified type Ordered: 10/07/2024 [facility] Comment on above: Ordered: 10/07/2024 CHLAMYDIA TRACHOMATI S (GENITO/STI) CHLAMYDIA TRACHOMATIS (GENITO/STI) Lab Routine Pelvic pain in female Ordered: 10/07/2024 [facility] Comment on above: Ordered: 10/07/2024 Cholesterol [Mass/volume] in Serum or Plasma Cholesterol, total Lab Routine Hormone imbalance Fatigue, unspecified type Ordered: 10/07/2024 [facility] Comment on above: Ordered: 10/07/2024 End: 01-22-2025 Comprehensive metabolic 2000 panel - Serum or Plasma Comprehensive metabolic panel Lab Routine Wellness examination 1 Occurrences starting 01/23/2024 until 01/22/2025 [facility] Comment on above: 1 Occurrences starti ng 01/23/2024 until 01/22/2025 Comprehensive metabo lic 2000 panel - Serum or Plasma Comprehensive metabolic panel Lab Routine Hormone imbalance Fatigue, unspecified type Ordered: 10/07/2024 [facility] Comment on above: Ordered: 10/07/2024 Hemoglobin A1c/Hemoglobin.total in Blood Hemoglobin A1c Lab Routine Yeast infection Hormone imbalance Fatigue, unspecified type Ordered: 10/07/2024 [facility] Comment on above: Ordered: 10/07/2024 Neisseria gonorrhoea e DNA [Presence] in Unspecified specimen by CHRISTINE with probe detection Neisseria gonorrhea DNA probe, direct Lab Routine Pelvic pain in female Ordered: 10/07/2024 [facility] Comment on above: Ordered: 10/07/2024 Thyrotropin [Units/volume] in Serum or Plasma TSH Lab Routine Hormone imbalance Fatigue, unspecified type Ordered: 10/07/2024 [facility] Comment on above: Ordered: 10/07/2024 Immunizations Immunization Date Immunization Notes Care Provider [facility] 02-06-2024 influenza, seasonal, injectable, preservative free Jez Rosa SUB ARC OPERATOR-CLINIC SCHEDULER Work Phone: [facility] 02-06-2024 zoster vaccine recombinant Jez Rosa SUB ARC OPERATOR-CLINIC SCHEDULER Work Phone: [facility] 02-06-2024 Immunization, In Clinic,; Translations: [Drug or medicament (substance)] Jez Rosa SUB ARC OPERATOR-CLINIC SCHEDULER Work Phone: [facility] 02-06-2024 influenza virus vaccine, unspecified formulation Jez Rosa SUB ARC OPERATOR-CLINIC SCHEDULER Work Phone: [facility] 02-06-2024 zoster vaccine, unspecified formulation Jez Rosa SUB ARC OPERATOR-CLINIC SCHEDULER Work Phone: [facility] 01-28-2023 influenza, injectabl e, quadrivalent, preservative free Jez Rosa SUB ARC OPERATOR-CLINIC SCHEDULER Work Phone: [facility] 01-28-2023 influenza virus vaccine, unspecified formulation Shawn Ulloa SUB ARC OPERATOR-CLINIC SCHEDULER Work Phone: [facility] 10-08-2021 COVID-19, mRNA, LNP- S, PF, 100mcg/0.5mL Dose Jez Rosa SUB ARC OPERATOR-CLINIC SCHEDULER Work Phone: [facility] 02-08-2021 influenza, injectabl e, quadrivalent, preservative free Jez Rosa SUB ARC OPERATOR-CLINIC SCHEDULER Work Phone: [facility] 03-05-2020 influenza virus vaccine, unspecified formulation Jez Rosa SUB ARC OPERATOR-CLINIC SCHEDULER Work Phone: [facility] 03-05-2020 influenza, injectabl e, quadrivalent, preservative free Jez Rosa SUB ARC OPERATOR-CLINIC SCHEDULER Work Phone: [facility] 01-20-2018 influenza, injectabl e, quadrivalent, preservative free Jez Rosa SUB ARC OPERATOR-CLINIC SCHEDULER Work Phone: [facility] 02-15-2017 Influenza, injectabl e, [place] Canine Kidney, preservative free, quadrivalent Jez Rosa SUB ARC OPERATOR-CLINIC SCHEDULER Work Phone: [facility] 03-02-2014 influenza, seasonal, injectable Jez Rosa SUB ARC OPERATOR-CLINIC SCHEDULER Work Phone: [facility] 02-23-2013 influenza virus vaccine, whole virus Jez Rosa SUB ARC OPERATOR-CLINIC SCHEDULER Work Phone: [facility] Payers Date Payer Category Payer Managed Care Other (unspecified) [employer] [id number] 2022 Private Health Insurance [id number] 2022 Unknown [id number] 1973 Unknown [id number] [id number]. 2.593 1973 Unknown [id number] [id number]. 2.593 1973 Unknown [id number] [id number]. 2.593 1973 Unknown [id number] 2.16.840.1.117987.3.579. 2.593 1973 Unknown [id number] [id number]. 2.593 1973 Unknown [id number] 2.16.840.1.410686.3.579. 2.593 1973 Unknown [id number] 2.16.840.1.918505.3.579. 2.1286 1973 Unknown [id number] 2.16.840.1.606199.3.579. 2.1286 1973 Unknown [id number] 2.16.840.1.048996.3.579. 2.1259 1973 Unknown [id number] 2.16.840.1.891615.3.579. 2.1259 1973 Unknown [id number] 2.16.840.1.039848.3.579. 2.1286 1973 Unknown [id number] 2.16.840.1.960236.3.579. 2.1286 1973 Unknown [id number] 2.16.840.1.133503.3.579. 2.1286 1973 Unknown [id number] [id number]. 2.1286 1959 Unknown [id number] Social History Date Type Detail Facility Start: 03-29-2022 Tobacco smoking status AKIS Never smoked tobacco [facility] Start: 03-29-2022 Tobacco use and exposure Smokeless tobacco non-user [facility] Start: 07-03-2023 End: 02-06-2024 Alcohol intake Current drinker of alcohol (finding) [facility] Start: 05-11-2020 End: 07-03-2023 History of Social function [facility] Start: 05-11-2020 End: 07-03-2023 Tobacco use panel [facility] Adolescent depressio n screening assessment 0 [facility] Start: 10-21-2018 Alcohol Comment occasionally [facility] Start: 1975 Sex Assigned At Not on file [facility] Start: 12-02-2014 Sex Female (finding) [facility] Start: 10-06-2022 Tobacco smoking status AKIS Tobacco smoking consumption unknown [facility] Start: 10-06-2022 End: 10-07-2024 Alcoholic beverage intake Ex-drinker (finding) [facility] Start: 10-06-2022 Alcohol Comment occasional beer, hard liquor [facility] Start: 1975 Sex assigned at Female [facility] Start: 10-07-2022 Gender identity Identifies as female gender (finding) [facility] Start: 10-07-2022 Sexual orientation Heterosexual (finding) [facility] Clinical Notes 07-03-2023 to 10-07-2024 Stephanie Yan LPN - 10/07/2024 3:50 PM RABIA [facility]co - 02/06/2024 3:40 PM EDTTelephone Encounter - [facility] Tristen Dominguez - 07/30/2023 8:42 AM RABIA Ver[facility]zco [...] nursing note reviewed. Exam conducted with a police artist present. Vitals: Estimated body mass index is [...] Bari Murillo DO documented in this encounter [facility] 02-06-2024 History of Presen t illness Narrative [address] [place] [address] Patient: Yang Swain Date of : 1975 [...] (BMI) of 37.0 to 37.9 in adult ([facility]) Past Medical, Family, and Social History Update: [...] 08/21/2021 Performed by Thanh Epps MD at [facility] SECTION x 2 COLONOSCOPY N/A 12/07/2022 Performed by Faith Kaufman MD at [facility] DEBRIDEMENT KNEE, CHONDROPLASTY, micro fxs Left 08/21/2021 Performed by Thanh Epps MD at [facility] DILATION AND CURETTAGE OF UTERUS 06/2018 HYSTERECTOMY [...] (BMI) of 37.0 to 37.9 in adult ([facility]) Other orders - triamcinolone (KENALOG) 0.5 % [...] APRN-CNP 02/11/24 0938 documented in this encounter [facility] 07-30-2023 Miscellaneous Notes Formattin g of this note might be different from the original. Prevocational/Rehabilitation Counselor making appointment reminder calls. Noticed that patient has since established care as a New Patient with Jez Lee CNP. Patient is scheduled for an appointment with Shawn Ulloa CNP, 07/31/2023. Prevocational/Rehabilitation Counselor leaving voicemail to contact office to confirm cancellation of tomorrows appointment with Leoncio. documented in this encounter [facility] 07-30-2023 Telephone encount er Note Prevocational/Rehabilitation Counselor making appointment reminder calls. Noticed that patient has since established care as a New Patient with Jez Lee CNP. Patient is scheduled for an appointment with Shawn Ulloa CNP, 07/31/2023. Prevocational/Rehabilitation Counselor leaving voicemail to contact office to confirm cancellation of tomorrows appointment with Leoncio. [facility] 07-03-2023 History of Presen t illness Narrative [address] [facility] [address] Patient: Yang Swain Date of : 1975 Encounter Date: 07/03/2023 History of Present Illness: The patient is a 48 y.o. female, an established patient, and is here for Chief Complaint Patient presents with new patient . HPI Patient is new, here to establish care. She previously saw Brandi [facility] Systemsmarcelle. Patient is currently working for [employer]. Her history is significant for hypertension for which she takes Cardizem and she states she has had an abnormal heart beat in the past but has never seen a video control engineer. Her last echo from 2021 was reviewed [...] 08/21/2021 Performed by Thanh Epps MD at [facility] SECTION x 2 COLONOSCOPY N/A 12/07/2022 Performed by Faith Kaufman MD at [facility] DEBRIDEMENT KNEE, CHONDROPLASTY, micro fxs Left 08/21/2021 Performed by Thanh Epps MD at [facility] DILATION AND CURETTAGE OF UTERUS 06/2018 HYSTERECTOMY [...] APRN-CNP 07/04/23 1217 documented in this encounter [facility] Evaluation note Diagnosis Encounter for medical examination to establish care- Primary Encounter for screening mammogram for malignant neoplasm of breast Primary hypertension Unspecified essential hypertension Bronchitis Bronchitis, not specified as acute or chronic Acute non-recurrent maxillary sinusitis [facility] Diagnosis Primary hypertension Unspecified essential hypertension Essential hypertension Unspecified essential hypertension [facility] Diagnosis Wellness examination- Primary Mild intermittent asthma without complication Primary hypertension Unspecified essential hypertension Influenza vaccination administered at current visit Atopic dermatitis, unspecified type Need for shingles vaccine Need for prophylactic vaccination and inoculation against varicella Class 2 severe obesity due to excess calories with serious comorbidity and body mass index (BMI) of 37.0 to 37.9 in adult ([facility]) [facility] Diagnosis Primary hypertension Unspecified essential hypertension Essential hypertension Unspecified essential hypertension [facility] Diagnosis Wellness examination- Primary documented [facility] Diagnosis Encounter for screening mammogram for malignant neoplasm of breast- Primary [facility] Diagnosis Pelvic pain in female Unspecified symptom associated with female genital organs Dyspareunia in female Yeast infection Hormone imbalance Fatigue, unspecified type [facility] Attachments The following attachments cannot be sent through Care Everywhere. * Acute bronchitis (British) * Sinusitis in adults (British) [facility] on file documented in [facility] encounterPro[facility] SystemInstructionsNot on file documented in this [facility]Pro[facility] SystemInstructions* Attachments The following attachments cannot be sent through Care Everywhere. * Fluticasone (Oral Inhalation), ADULT (British) documented in this encounterPro[facility] SystemInstructionsNot on file documented in this encounterProGenesis Hospital SystemInstructionsNot on file [facility] Summary Purpose Family History No Family History Records FoundNo Family History Records FoundNo Family History Records FoundNo Family History Records Found Advance Directives No Advanced Directives Records FoundNo Advanced Directives Records FoundNo Advanced Directives Records FoundNo Advanced Directives Records Found Procedure Findings Note [facility] [place], [place] NAME: YANG SWAIN DATE OF : MEDICAL REC#: [id number] CASKET INSPECTOR: [id number] ADMIT DATE: 12/03/2018 06:12:00 RETAIL CLERK DATE: 12/15/2018 07:00 DICTATING PHYSICIAN: BARI MURILLO DICTATION DATE: 12/14/2018 10:00 OPERATIVE NOTE OPERATION DATE: 12-03-18 ANESTHETIC:General. LABOR CREW SUPERVISOR:RAHUL Sarah. PREOPERATIVE DIAGNOSIS: 1. Uterine fibroids. 2. [...] Tylenol, any abdominal pain unrelieved with narcotics. IF Signed and Approved by: DR BARI MURILLO [...] Tylenol, any abdominal pain unrelieved with narcotics. IF Signed and Approved by: DR BARI MURILLO (more content not included)... Additional Source Comments INFORMATION SOURCE (unrecogn ized section and content) DATE CREATED AUTHOR 11/18/2019 [facility] DATE CREATED AUTHOR AUTHOR'S ORGANIZ ATION 02/09/2024 [facility] DATE CREATED AUTHOR AUTHOR'S ORGANIZ ATION 10/10/2024 [facility] DATE CREATED AUTHOR AUTHOR'S ORGANBYRON ATION 10/19/2024 [facility] Reason for Visit (unrecogniz ed section and content) Reason Comments new patient Reason Comments Med Refill Reason Comments Annual Exam Reason Comments Pelvic Pain Care Teams (unrecognized sec tion and content) Clinical Support Specialist Relationship Specialty Start Date End Date Jez Lee SUB ARC OPERATOR-CLINIC SCHEDULER [address] [place] [address] PCP - General Internal Medicine 07/03/23 Clinical Support Specialist Relationship Specialty Start Date End Date Jez Lee SUB ARC OPERATOR-CLINIC SCHEDULER [address] [place] [address] PCP - General Internal Medicine 07/03/23 Clinical Support Specialist Relationship Specialty Start Date End Date Jez Lee SUB ARC OPERATOR-CLINIC SCHEDULER [address] [place] [address] PCP - General Internal Medicine 07/03/23 Clinical Support Specialist Relationship Specialty Start Date End Date Jez Lee SUB ARC OPERATOR-CLINIC SCHEDULER [address] [place] [address] PCP - General Internal Medicine 07/03/23 Clinical Support Specialist Relationship Specialty Start Date End Date Jez Lee SUB ARC OPERATOR-CLINIC SCHEDULER [address] [place] [address] PCP - General Internal Medicine 07/03/23 Clinical Support Specialist Relationship Specialty Start Date End Date Jez Lee SUB ARC OPERATOR-CLINIC SCHEDULER [address] [place] [address] PCP - General Internal Medicine 07/03/23 Clinical Support Specialist Relationship Specialty Start Date End Date Jez Lee SUB ARC OPERATOR-CLINIC SCHEDULER [address] [place] [address] PCP - General Internal Medicine 07/03/23 FOR [...] BE BASED ON THE PRIMARY CLINICAL RECORDS. [employer] provides no warranty or guarantee of the accuracy or completeness of information in this document.
[2024-12-01 13:11] LABS: Age Gdln ACOG Testing Note (.); IGP, Aptima HPV, rfx 16/18,45 Note (.)
== END 2024-11-26 19:35 | disposition home or self-care (01) ==
LOC: LAB 19:34
PROVIDERS: Visit Provider Physician Assistant
DX: Z01.419 Encounter for gynecological examination (general) (routine) without abnormal findings (principal)
CPT/HCPCS: 87624; 88175

== ENCOUNTER 2024-12-10 09:57 | Outpatient (OUT) | payer OTHER, SELFPAY ==
--- OUTSIDE RECORDS SUMMARY | 2024-12-02 15:20 | XMS_ITS | Encounter Summary ---
Author Organization [facility] Address [address] [place] [address] Care Team Providers Care Dry Cans Back Tender Name Role Phone Unavailable Primary Care Provider Unavailabl e Reason for Visit * Reason Comments Pre-op Visit Encounter Details Date Type Department Care Team (Late st Contact Info) Description 12/02/2024 3:20 PM EDT Procedure Visit [facility] [place] [facility] [address] [place] [phone] Link Murillo DO [address] [place] [place] [address] Pre-op examination; Dyspareunia in female; Pelvic pain; Cyst of ovary, unspecified laterality Social History Tobacco Use Types Packs/Day Years [...] PM EDT documented as of this encounter Last Filed Vital Signs Vital Sign Reading Time Taken Comments Blood Pressure 128/98 12/02/2024 3:43 PM EDT Pulse - - Temperature - - Respiratory Rate - - Oxygen Saturation - - Inhaled Oxygen Concentration - - Weight 85 kg (187 lb 6.4 oz) 12/02/2024 3:43 PM EDT Height - - Body Mass Index 34.28 10/08/2022 3:38 PM EDT documented in this encounter Progress Notes * Yaquelin Fermin - 12/02/2024 3:20 PM EDT Reason for Appointment: Patient ID: Yang Swain is a 49 y.o. female who presents for Pre-op Visit Patient presents today for Pre Op appointment. Patient is scheduled to undergo Diagnostic Laparoscopy, possible JAYLEN, possible FOE, possible BSO on 12-16-[address] Murillo at [facility]. MEDICATIONS Current Outpatient Medications Medication Instructions aspirin 81 mg, Oral, Once dilTIAZem CD (CARDIZEM CD) 300 mg, Oral, Daily estradiol (Estrace) 0.1 MG/GM vaginal cream PLACE 2 GRAMS VAGINALLY DAILY FOR 2 WEEKS, THEN TWICE AWEEK FOLLOWING INITIAL 2 WEEKS loratadine (CLARITIN) 10 mg, Oral, Daily ALLERGIES No Known Allergies PROBLEMS Active Ambulatory Problems Diagnosis Date Noted Pre-op examination 12/02/2024 Dyspareunia in female 12/02/2024 Cyst of ovary 12/02/2024 Pelvic pain 12/02/2024 Resolved Ambulatory Problems Diagnosis Date Noted No Resolved Ambulatory Problems Past Medical History: Diagnosis Date Abnormal uterine bleeding Arthritis Endometriosis History of dilatation and curettage History of hysterectomy Hypercholesterolemia Hypertension, essential Obesity with body mass index of 30.0-39.9 Seasonal allergic rhinitis STD exposure Transfusion history Urinary frequency HISTORY PAST MEDICAL HISTORY SOCIAL HISTORY Past Medical History: Diagnosis Date Abnormal uterine bleeding Arthritis Endometriosis History of dilatation and curettage History of hysterectomy Hypercholesterolemia Hypertension, essential Obesity with body mass index of 30.0-39.9 [...] UTERUS 07/04/2018 HYSTERECTOMY 12/03/2018 TUBAL LIGATION Bilateral 1996 REVIEW OF SYSTEMS Review of Systems: Review of Systems Constitutional: Negative. HENT: Negative. Eyes: Negative. Respiratory: Negative. Cardiovascular: Negative. Gastrointestinal: Negative. Genitourinary: Positive for dyspareunia and pelvic pain. Musculoskeletal: Negative. Skin: Negative. Neurological: Negative. All other systems reviewed and are negative. Hematological: Negative. Endocrine: Negative. Allergic/Immunologic: Negative. OBJECTIVE Objective: Physical Exam Constitutional: Appearance: Normal appearance. She is well-developed. Cardiovascular: Rate and Rhythm: Normal rate and regular rhythm. Pulmonary: Effort: Pulmonary effort is normal. Breath sounds: Normal breath sounds. Abdominal: General: Bowel sounds are normal. There [...] nursing note reviewed. Exam conducted with a audio video technician present. Vitals: Estimated body mass index is 34.2 kg/m?? as calculated from the following: Height as of 10/08/22: 5' 2 . Weight as of 11/26/24: 187 lb. BP: No LMP recorded. Patient has had a hysterectomy. ASSESSMENT & PLAN ICD-10-CM 1. Pre-op examination Z01.818 2. Dyspareunia in female N94.10 3. Pelvic pain R10.2 4. Cyst of ovary, unspecified laterality N83.209 Pre Op: Patient is doing well but has complaints of dyspareunia, pelvic pain and an ovarian cyst. I have discussed conservative management vs. surgical management with the patient in detail and patient desires surgical management at this time. Patient will undergo Diagnostic Laparoscopy, possible JAYLEN, possible FOE, possible BSO on 12-16-24. Surgical consents were signed, mmc was reviewed, and patient is to proceed to [facility] OR. Follow Up: Patient is to follow up between 1-2 weeks post operative to assess proper healing and recovery fromprocedure. Documented by Stephanie Yan LPN on behalf of: Link Murillo DO documented in this encounter Plan of Treatment Upcoming Encounters Date Type Department Care Team (Late st Contact Info) Description 12/23/2024 3:30 PM EDT Office Visit [facility] [address] [place] [address] Zeina Portillo PA [address] [place] [address] documented as of this encounter Visit Diagnoses Diagnosis Pre-op examination Dyspareunia in female Pelvic pain Cyst of ovary, unspecified laterality documented in this encounter
--- OUTSIDE RECORDS SUMMARY | 2024-12-10 10:00 | XMS_ITS | Encounter Summary ---
Author Organization [facility] Address [address] [place] [address] Care Team Providers Care Special Makeup Fx Artist Instructor Name Role Phone Unavailable Primary Care Provider Unavailabl e Encounter Details Date Type Department Care Team ([facility] Contact Info) Description 12/03/2024 Orders Only [facility] [address] [place] [address] Sarah Tse LPN [address] [phone] Social History Tobacco Use Types Packs/Day Years [...] Care Team ([facility] Contact Info) Description 12/23/2024 3:30 PM EDT Office Visit [facility] [address] [place] [address] Zeina Portillo PA [address] [place], [facility]11 documented as of this encounter Procedures Procedure Name Priority Date/Time Associated Diagnosis Comments PAP SMEAR Routine 11/26/2024 12:00 AM EDT documented in this encounter Results * Pap Smear (11/26/2024 12:00 AM EDT) Swab Cervical swab / Unknown us Zeina YE LAB CYTOLOGY ORDERABLES Final Re sult EXTERNAL LAB documented in this encounter Visit Diagnoses Not on filedocumented in this encounter
--- OUTSIDE RECORDS SUMMARY | 2024-12-10 10:00 | XMS_ITS | Clinical Summary ---
Author Organization [employer] tem Address [id number] [address] [place] [address] Care Team Providers Care Proposal Manager Writer Name Role Phone Christina Dangelo Keysha FARRAR-REVENUE INVESTIGATOR Primary Care Provider + Allergies Active Allergy [...] - 10/05/2024 11:59 PM EDT Hospital Encounter [facility] [address] [place] [phone] Encounter for screening mammogram for malignant neoplasm of breast Discharge Disposition: Home 10/05/2024 Travel from Last 3 Months Immunizations Immunization Administration [...] BMI Screening 10/05/2025 10/05/2024 Mammogram 10/05/2025 10/05/2024, 06/28, 07/12/2022, Additional history exists Colonoscopy 12/07/2032 12/07/2022, 12/07/2022 Pap Smear Discontinued 10/23/2023, 11/27, 12/04/2016 Medical Devices Not on file Procedures [...] - 11 x10E9/L 10/17/2024 3:19 PM EDT [facility] RBC Count 4.09 3.8 - 5.2 X10E12/L 10/17/2024 3:19 PM EDT [facility] Hemoglobin 13.2 11.7 - 15.5 g/dL 10/17/2024 3:19 PM EDT [facility] Hematocrit 38.5 35 - 47 % 10/17/2024 3:19 PM EDT [facility] MCV 94 80 - 100 fL 10/17/2024 3:19 PM EDT [facility] MCH 32.2 27 - 34 pg 10/17/2024 3:19 PM EDT [facility] MCHC 34.2 32 - 36 g/dL 10/17/2024 3:19 PM EDT [facility] RDW 12.4 11.5 - 15 % 10/17/2024 3:19 PM EDT [facility] Platelet Count 241 150 - 450 X10E9/L 10/17/2024 3:19 PM EDT [facility] MPV 9.0 7 - 12 fL 10/17/2024 3:19 PM EDT [facility] Neutrophils % 60.9 % 10/17/2024 3:19 PM EDT [facility] Lymphocytes % 28.5 % 10/17/2024 3:19 PM EDT [facility] Monocytes % 6.9 % 10/17/2024 3:19 PM EDT [facility] Eosinophils % 2.8 % 10/17/2024 3:19 PM EDT [facility] Basophils % 0.9 % 10/17/2024 3:19 PM EDT [facility] Neutrophils Absolute (A) 4.2 1.5 - 6.6 10*3/uL 10/17/2024 3:19 PM EDT [facility] Lymphocytes Absolute 2.0 1.0 - 3.5 10*3/uL 10/17/2024 3:19 PM EDT [facility] Monocytes Absolute 0.5 0.0 - 0.9 10*3/uL 10/17/2024 3:19 PM EDT [facility] Eosinophils Absolute 0.2 0.0 - 0.4 10*3/uL 10/17/2024 3:19 PM EDT [facility] Basophils Absolute 0.1 0.0 - 0.2 10*3/uL 10/17/2024 3:19 PM EDT [facility] Differential Type AUTOMATED DIFFERENTIAL 10/17/2024 3:19 PM T [facility] Blood Venous blood / Unknown Venipuncture / Unknown 10/17/2024 9:59 AM EDT 10/17/2024 9:59 AM EDT Link R Lidia DO LAB BLOOD ORDERABLES Final Resu lt [facility] [address] [place] [address], * TSH (10/17/2024 9:59 AM EDT) TSH 1.45 0.49 - 4.67 uIU/mL 10/17/2024 3:49 PM EDT [facility] Blood Venous blood / Unknown Venipuncture / Unknown 10/17/2024 9:59 AM EDT 10/17/2024 9:59 AM EDT Link R Lidia DO LAB BLOOD ORDERABLES Final Resu lt Performing Organization Address [facility] Co de Phone Number [facility] [address] [place] [address], * Hemoglobin A1c (10/17/2024 9:59 AM EDT) HEMOGLOBIN A1C 4.6 4.4 - 5.6 % 10/17/2024 3:49 PM EDT [facility] Comment: ADA Guidelines Result HgbA1c Normal : less than 5.7 % Prediabetes : 5.7 % to 6.4 % Diabetes : > 6.4 % Use with caution in patients with abnormal hemoglobin variants as the half-life of red blood cells and in vivo glycation rates are affected. EST. AVERAGE GLUCOSE 85 mg/dL 10/17/2024 3:49 PM EDT [facility] Blood Venous blood / Unknown Venipuncture / Unknown 10/17/2024 9:59 AM EDT 10/17/2024 9:59 AM EDT Link R Lidia DO LAB BLOOD ORDERABLES Final Resu lt Performing Organization Address City/State/[facility] Co de Phone Number [facility] [address] [place] [address], * (ABNORMAL) Cholesterol, total (10/17/2024 9:59 AM EDT) CHOLESTEROL 210(H) 150 - 200 mg/dL 10/17/2024 3:47 PM EDT [facility] Blood Venous blood / Unknown Venipuncture / Unknown 10/17/2024 9:59 AM EDT 10/17/2024 9:59 AM EDT Link Murillo DO LAB BLOOD ORDERABLES Final Resu lt Performing Organization Address City/[facility]/ZIP Co de Phone Number [facility] [address] [place] [address], * (ABNORMAL) Comprehensive metabolic panel (10/17/2024 9:59 AM EDT) SODIUM 138 134 - 146 mmol/L 10/17/2024 3:47 PM EDT [facility] POTASSIUM 4.1 3.5 - 5.0 mmol/L 10/17/2024 3:47 PM EDT [facility] CHLORIDE 107 98 - 109 mmol/L 10/17/2024 3:47 PM EDT [facility] CARBON DIOXIDE 21(L) 22 - 32 mmol/L 10/17/2024 3:47 PM EDT [facility] ANION GAP 10 5 - 15 mmol/L 10/17/2024 3:47 PM EDT [facility] BLOOD UREA NITROGEN 11 5 - 23 mg/dL 10/17/2024 3:47 PM EDT [facility] CREATININE 0.66 0.40 - 1.00 mg/dL 10/17/2024 3:47 PM EDT [facility] Comment:METHOD TRACEABLE TO IDMS STANDARD GLUCOSE 91 65 - 99 mg/dL 10/17/2024 3:47 PM EDT [facility] CALCIUM 9.3 8.5 - 10.5 mg/dL 10/17/2024 3:47 PM EDT [facility] TOTAL PROTEIN 7.4 6.0 - 8.0 g/dL 10/17/2024 3:47 PM EDT [facility] ALBUMIN 4.3 3.2 - 5.3 g/dL 10/17/2024 3:47 PM EDT [facility] ALKALINE PHOSPHATASE 45 39 - 130 U/L 10/17/2024 3:47 PM EDT [facility] AST 16 <=41 U/L 10/17/2024 3:47 PM EDT [facility] ALT 11 <=31 U/L 10/17/2024 3:47 PM EDT [facility] BILIRUBIN,TOTAL 0.7 0.3 - 1.2 mg/dL 10/17/2024 3:47 PM EDT [facility] EGFR Non-Race Dependent >90 >=60 ml/min/1.7 3sq.m 10/17/2024 3:47 PM EDT [facility] Comment: Reported eGFR is based on the CKD-EPI 2020 equation that does not use a race coefficient. Blood Venous blood / Unknown Venipuncture / Unknown 10/17/2024 9:59 AM EDT 10/17/2024 9:59 AM EDT us Link Murillo DO LAB BLOOD ORDERABLES Final Resu lt [facility] [address] [place] [address], * Mammography screening bilateral with CAD (10/05/2024 3:29 PM EDT) Anatomical Region Laterality Modality Breast Bilateral Mammography 10/07/2024 10:5 3 AM EDT Narrative 10/07/2024 10:59 AM EDT YANG LANDIS 1975 [id number] EXAM: MAMM SCREENING BILATERAL W CAD, 10/05/2024 [...] MD on 10/07/2024 10:59 AM 1 c KIRBY SANTIAGO G FDA Accredited Performing Facility: [facility] - [facility]ammography[facility]A Imaging [address] [address] Procedure Note Elpidio Tijerina MD - 10/07/2024 YANG MONROESKYLAR LANDIS 1975 [id number] EXAM: MAMM SCREENING BILATERAL W CAD, 10/05/2024 [...] MD on 10/07/2024 10:59 AM 1 c [facility] IMG FDA Accredited Performing Facility: [facility] - [facility]ography[facility] Imaging [address] [facility] [address] Christina Dangelo LABOR TRAINER-REVENUE INVESTIGATOR IMG MAMMOGRAPHY ORDERABL ES Final Result * Colonoscopy [...] Relevant to Health Maintenance Insurance [employer] Care Teams Proposal Manager Writer Relationship Specialty Start Date End Date Christina Dangelo, LABOR TRAINER-REVENUE INVESTIGATOR [address] [place] [address] PCP - General Internal Medicine 07/03/23
--- OUTSIDE RECORDS SUMMARY | 2024-12-10 10:00 | XMS_ITS | Encounter Summary ---
Author Organization [facility] tem Address [id number] [address] [place] [address] Care Team Providers Care Setter Helper Name Role Phone Christina Dangelo Keysha FARRAR-MANUFACTURED BUILDINGS REPAIRER Primary Care Provider + Encounter Details Date Type Department Care Team (Late st Contact Info) Description 09/03/2024 Telephone [facility] - Family Medicine [address] [place] [phone] Carine Ambrose CMA Social History Tobacco Use [...] documented as of this encounter Care Teams Setter Helper Relationship Specialty Start Date End Date Christina Dangelo, REALTIME REPORTER-MANUFACTURED BUILDINGS REPAIRER [address] [place] [address] PCP - General Internal Medicine 07/03/23 documented as of this encounter
--- OUTSIDE RECORDS SUMMARY | 2024-12-10 10:00 | XMS_ITS | Encounter Summary ---
Author Organization [facility] tem Address [facility]-[id number] [address] [place] [address] Care Team Providers Care Flame Hardening Machine Operator Name Role Phone LoretoAmandeep goldmanjerome Chopra ADMINISTRATOR OF HOME HEALTH-PROFESSIONAL GOLF TOURNAMENT PLAYER Primary Care Provider + Reason for Visit * Reason Comments Med Refill Encounter Details Date Type Department Care Team (Late st Contact Info) Description 04/14/2020 Refill [facility] [address] [place] [phone] Vera Bazan APRN-CNP [address] [phone] Essential hypertension Social History Tobacco Use Types [...] documented as of this encounter Care Teams Flame Hardening Machine Operator Relationship Specialty Start Date End Date Christina Dangelo, ADMINISTRATOR OF HOME HEALTH-PROFESSIONAL GOLF TOURNAMENT PLAYER [address] [place] [address] PCP - General Internal Medicine 07/03/23 documented as of this encounter
--- OUTSIDE RECORDS SUMMARY | 2024-12-10 10:00 | XMS_ITS | Encounter Summary ---
Author Organization [facility] Address [address] [place] [address] Care Team Providers Care Outpatient Dietitian Name Role Phone Unavailable Primary Care Provider Unavailabl e Encounter Details Date Type Department Care Team ([facility] Contact Info) Description 11/26/2024 Clinisync Result Encounter [facility] External Department Unsolicited Zeina Portillo PA [address] [place], [facility]11 Social History Tobacco Use Types Packs/Day [...] Department Care Team (Late Contact Info) Description 12/23/2024 3:30 PM EDT Office Visit [facility] [address] [place] [phone] Zeina Portillo PA [address] [place], [place] [phone] documented as of this encounter Procedures Procedure Name Priority Date/Time Associated Diagnosis Comments IGP,APTIMA HPV,AGE GDLN Routine 11/26/2024 3:22 PM EDT documented in this encounter Results * IGP,APTIMA HPV,AGE GDLN (11/26/2024 3:22 PM EDT) Pathologist [facility] CALIN ACOG TESTING Note . [facility] Comment: TESTS RESULT FLAG UNITS REF RANGE LAB Clinician Provided Cytology Information Source.............Vagina No. of containers..01 ThinPrep Vial Jayleen Darian [place] Mary... FLAG LEGEND: L-Low Normal,H-High Normal,LL-Alert Low,HH-Alert High <-Panic Low,>-Panic High,A-Abnormal,AA-Critical Abnormal Performed at: 01 =G [address] [address] Marina Aranda MD, IGP, APTIMA HPV, RFX 16/18,45 Note . [facility] Comment: TESTS RESULT FLAG UNITS REF RANGE LAB DIAGNOSIS: 02 NEGATIVE FOR INTRAEPITHELIAL LESION OR MALIGNANCY. Specimen adequacy: 02 Satisfactory for evaluation. No endocervical component is identified. Performed by: 02 Bryan John, Hose Operator ([facility]) . 02 Note: Note 02 The Pap smear is a screening test designed to aid in the detection of premalignant and malignant conditions of the uterine cervix. It is not a diagnostic procedure and should not be used as the sole means of detecting cervical cancer. Both false-positive and false-negative reports do occur. Test Methodology: Note 02 This liquid based ThinPrep(R) pap test was screened with the use of an image guided system. HPV Genotype Reflex Note 02 Criteria not met, HPV Genotype not performed. FLAG LEGEND: L-Low Normal,H-High Normal,LL-Alert Low,HH-Alert High <-Panic Low,>-Panic High,A-Abnormal,AA-Critical Abnormal Performed at: [address] [address] Marina Aranda MD, HPV APTIMA Negative Negative TB Comment: This nucleic acid amplification test detects fourteen high- risk HPV types (16,18,31,33,35,39,45,51,52,56,58,59,66,68) without differentiation. Performed at: =[address] [id number] Supervisor Stone: Marina Aranda MD, Phone: [phone] Performed at: [address] [id number] Supervisor Stone: Marina Aranda MD, Phone: [phone] 11/26/2024 3:22 PM EDT 11/27/2024 6:24 AM EDT Narrative [facility] - 12/01/2024 1:11 PM EDT SPATULA-ALONE VAGINA us Zeina YE LAB BLOOD ORDERABLES Final Resul t Performing Organization Address City/State/[place] Co de Phone Number [facility] documented in this encounter Visit Diagnoses Not on filedocumented in this encounter
--- OUTSIDE RECORDS SUMMARY | 2024-12-10 10:00 | XMS_ITS | Encounter Summary ---
Author Organization [employer] [facility] tem Address [id number] [address] [place] [address] Care Team Providers Care Roaster Operator Name Role Phone Christina Dangelo Keysha FARRAR-DROP WIRE STRINGER Primary Care Provider + Encounter Details Date Type Department Care Team (Late st Contact Info) Description 01/22/2024 Telephone [facility] - Family Medicine [address] [place] [phone] Carine Ambrose CMA Social History Tobacco Use [...] documented as of this encounter Care Teams Roaster Operator Relationship Specialty Start Date End Date Christina Dangelo, OUTSIDE PROPERTY AGENT-DROP WIRE STRINGER [address] [place] [address] PCP - General Internal Medicine 07/03/23 documented as of this encounter
--- OUTSIDE RECORDS SUMMARY | 2024-12-10 10:00 | XMS_ITS | Encounter Summary ---
Author Organization [facility] Address [address] [place] [address] Care Team Providers Care Home Worker Name Role Phone Unavailable Primary Care Provider Unavailabl e Encounter Details Date Type Department Care Team ([facility] Contact Info) Description 10/15/2023 Orders Only [facility] [address] [address] Roxana Zeng LPN [address] [place] [address] Social History Tobacco Use Types Packs/Day Years [...] EDT Office Visit [facility] [address] [place] [address] Zeina Portillo PA [address] [place], [facility]11 documented as of this encounter Procedures Procedure [...]
--- OUTSIDE RECORDS SUMMARY | 2024-12-10 10:00 | XMS_ITS | Encounter Summary ---
Author Organization [employer] tem Address [id number] [address] [place] [address] Care Team Providers Care Bus Girl Name Role Phone Christina Dangelo CHARAN-KNITTER HAND Primary Care Provider + Encounter Details Date Type Department Care Team (Late st Contact Info) Description 02/12/2024 Refill [facility] - Family Medicine [address] [place] [phone] Kelley Glynn CMA Primary hypertension; Essential hypertension [...] documented as of this encounter Care Teams Bus Girl Relationship Specialty Start Date End Date Christina Dangelo APRN-KNITTER HAND [address] [place] [address] PCP - General Internal Medicine 07/03/23 documented as of this encounter
--- OUTSIDE RECORDS SUMMARY | 2024-12-10 10:00 | XMS_ITS | Encounter Summary ---
Author Organization [facility] tem Address [facility]-[id number] [address] [place] [address] Care Team Providers Care Consumer Advocate Name Role Phone Christina Dangelo Keysha FARRAR-MECHANICAL ENGINEERING MANAGER Primary Care Provider + Encounter Details Date Type Department Care Team (Late st Contact Info) Description 11/22/2022 [facility]phone [facility] [address] [place] [phone] Xiomara Rubin CMA Social History Tobacco [...] [facility]. Patient stated she has not found a [...] documented as of this encounter Care Teams Consumer Advocate Relationship Specialty Start Date End Date Christina Dangelo APRN-CNP [address] [place] [address] PCP - General Internal Medicine 07/03/23 documented as of this encounter
--- OUTSIDE RECORDS SUMMARY | 2024-12-10 10:00 | XMS_ITS | Encounter Summary ---
Author Organization [facility] Address [address] [place] [address] Care Team Providers Care Full Stack Engineer Name Role Phone Unavailable Primary Care Provider Unavailabl e Encounter Details Date Type Department Care Team (Late Contact Info) Description 11/26/2024 Bamboo flowsheet KALI GRACIA [address] [place] [address] Zeina Portillo PA [address] [place], [facility]11 Social History Tobacco Use Types Packs/Day Years [...] Description 12/23/2024 3:30 PM EDT Office Visit [facility] GR[facility] [address] [place] [address] Zeina Portillo, PA [address] [place], [place] [address] documented as of this encounter Visit Diagnoses Not on filedocumented in this encounter
--- OUTSIDE RECORDS SUMMARY | 2024-12-10 10:00 | XMS_ITS | Encounter Summary ---
Author Organization [facility] Address [address] [place] [address] Care Team Providers Care Guncotton Packer Name Role Phone Unavailable Primary Care Provider Unavailabl e Encounter Details Date Type Department Care Team ([facility] Contact Info) Description 10/06/2022 Abstract KALI GRACIA [address] [place] [address] [place] [phone] Zeina Portillo PA [address] [place] [address] Dr [place], [facility]11 Social History Tobacco Use Types Packs/Day [...] Upcoming Encounters Date Type Department Care Team ([facility] Contact Info) Description 12/23/2024 3:30 PM EDT Office Visit KALI GRACIA [address] [facility] [place] [address] Zeina Portillo PA [address] [facility] [address] [place], [place] [address] documented as of this encounter Visit Diagnoses Not on filedocumented in this encounter
--- OUTSIDE RECORDS SUMMARY | 2024-12-10 10:01 | XMS_ITS | Encounter Summary ---
Author Organization [employer] [facility] tem Address [id number] [address] [place] [address] Care Team Providers Care Drift Miner Name Role Phone LoretoChristina goldman Keysha CAMARILLO Primary Care Provider + Encounter Details Date Type Department Care Team (Late st Contact Info) Description 05/25/2021 Telephone [facility] [address] [place] [phone] Shanna Mei CMA Social History Tobacco [...] documented as of this encounter Care Teams Drift Miner Relationship Specialty Start Date End Date Christina Dangelo APRN-GERSON [address] [place] [address] PCP - General Internal Medicine 07/03/23 documented as of this encounter
--- OUTSIDE RECORDS SUMMARY | 2024-12-10 10:01 | XMS_ITS | Encounter Summary ---
Author Organization [facility] tem Address [id number] [address] [place] [address] Care Team Providers Care Credit Risk Management Director Name Role Phone Christina Dangelo DISCHARGING MACHINE OPERATOR-PROJECT INTERNSHIP Primary Care Provider + Reason for Visit * Reason Comments Med Refill Encounter Details Date Type Department Care Team (Late st Contact Info) Description 10/20/2021 Refill [facility] [address] [place] [phone] Jesica Wright APRN-CNP [address] [facility] [address], [place] [address] Essential hypertension Social History Tobacco [...] - 10/20/2021 9:18 AM EDT Send to [facility] documented in this encounter Plan of Treatment [...] documented as of this encounter Care Teams Credit Risk Management Director Relationship Specialty Start Date End Date Christina Dangelo APRN-CNP [address] [place] [address] PCP - General Internal Medicine 07/03/23 documented as of this encounter
--- OUTSIDE RECORDS SUMMARY | 2024-12-10 10:01 | XMS_ITS | Encounter Summary ---
Author Organization [facility] tem Address [id number] [address] [place] [address] Care Team Providers Care Filling Operator Name Role Phone Christina Dangelo Keysha CAMARILLO Primary Care Provider + Encounter Details Date Type Department Care Team (Late st Contact Info) Description 12/13/2021 Refill [facility] [address] [place] [phone] Sera Vargas CMA Essential hypertension Social History [...] documented as of this encounter Care Teams Filling Operator Relationship Specialty Start Date End Date Christina Dangelo, MANAGER DISH-MANAGER IT TRAINING [address] [place] [address] PCP - General Internal Medicine 07/03/23 documented as of this encounter
--- OUTSIDE RECORDS SUMMARY | 2024-12-10 10:01 | XMS_ITS | Encounter Summary ---
Author Organization [facility] Address [address] [place] [address] Care Team Providers Care Area Operations Manager Name Role Phone Unavailable Primary Care Provider Unavailabl e Encounter Details Date Type Department Care Team (Late Contact Info) Description 10/12/2024 Results Follow-Up [facility] [address] [place] [address] Sarah Tse LPN [address] [employer] [place] [phone] RECURRENT VAGINITIS (HTRX) Social History Tobacco Use Types Packs/Day Years [...] PM EDT Office Visit KALI GRACIA [address] [facility] [phone] Zeina Portillo PA [address] [place] [address] documented as of this encounter Visit Diagnoses Not on filedocumented in this encounter
--- OUTSIDE RECORDS SUMMARY | 2024-12-10 10:01 | XMS_ITS | Encounter Summary ---
Author Organization [facility] tem Address [id number] [address] [place] [address] Care Team Providers Care Pig Sticker Name Role Phone Christina Dangelo Keysha DISPLAY ARTIST-AGRONOMY SPECIALIST Primary Care Provider + Reason for Visit * Reason Onset Date Comments Med Refill 09/18/2021 Encounter Details Date Type Department Care Team (Late st Contact Info) Description 09/18/2021 [facility] [address] [place] [phone] Vera Bazan APRN-AGRONOMY SPECIALIST [address] [place], [place] [phone] Social History Tobacco Use Types Packs/Day Years [...] documented as of this encounter Care Teams Pig Sticker Relationship Specialty Start Date End Date Christina Dangelo APRN-CNP [address] [place] [address] PCP - General Internal Medicine 07/03/23 documented as of this encounter
--- OUTSIDE RECORDS SUMMARY | 2024-12-10 10:01 | XMS_ITS | Encounter Summary ---
Author Organization [facility] tem Address [facility] [place]-[id number] [address] [place] [address] Care Team Providers Care Hand Ornament Maker Name Role Phone Christina Dangelo Keysha RESEARCH MANAGEMENT ASSOCIATE-DEVELOPER ADVOCATE Primary Care Provider + Reason for Visit * Reason Comments Med Refill Encounter Details Date Type Department Care Team (Late st Contact Info) Description 10/23/2020 Refill [facility] [address] [place] [phone] Vera Bazan APRN-CNP [address] [facility] [address] [place] [address] Essential hypertension Social History Tobacco Use Types [...] documented as of this encounter Care Teams Hand Ornament Maker Relationship Specialty Start Date End Date Christina Dangelo, RESEARCH MANAGEMENT ASSOCIATE-DEVELOPER ADVOCATE [address] [place] [address] PCP - General Internal Medicine 07/03/23 documented as of this encounter
--- OUTSIDE RECORDS SUMMARY | 2024-12-10 10:01 | XMS_ITS | Encounter Summary ---
Author Organization [facility] Address [address] [place] [address] Care Team Providers Care Silk Screener Name Role Phone Unavailable Primary Care Provider Unavailabl e Encounter Details Date Type Department Care Team (Late Contact Info) Description 02/03/2024 External Result Encounter [facility] Noni GRACIA [address] [place] [address] Link Murillo DO [address] [facility] [address] Fernando [place], [facility]11 Social History Tobacco Use Types Packs/Day [...] Description 12/23/2024 3:30 PM EDT Office Visit [facility] [address] [place] [address] Zeina Portillo PA [address] [facility] [address] [place], [facility]11 documented as of this encounter Procedures Procedure Name Priority Date/Time Associated Diagnosis Comments DEXA BONE DENSITY 02/03/2024 1:1 1 PM EDT documented in this encounter Results * DEXA bone density (02/03/2024 1:11 PM EDT) Anatomical Region Laterality Modality Body Radiographic [facility] ging 02/03/2024 1:11 PM EDT Narrative 02/03/2024 1:10 PM EDT THIS EXAM WAS PERFORMED AT [facility] Bone densitometry: HISTORY: Postmenopausal osteoporosis screening. L1-L4 [...] - 02/03/2024 THIS EXAM WAS PERFORMED AT [facility] Bone densitometry: HISTORY: Postmenopausal osteoporosis screening. L1-L4 [...] Stewart Cardenas MD on 02/03/2024 1:10 PM us Link Murillo DO IMG DXA PROCEDURES Final Result documented in this encounter Visit Diagnoses Not on filedocumented in this encounter
--- OUTSIDE RECORDS SUMMARY | 2024-12-10 10:01 | XMS_ITS | Encounter Summary ---
Author Organization [employer] [facility] tem Address [id number] [address] [place] [address] Care Team Providers Care Heavy Mobile Equipment Repairer Name Role Phone LoretoChristina goldman Keysha CAMARILLO Primary Care Provider + Encounter Details Date Type Department Care Team (Late st Contact Info) Description 07/16/2022 Telephone [facility] [address] [place] [phone] Xiomara Rubin CMA Social History Tobacco [...] documented as of this encounter Care Teams Heavy Mobile Equipment Repairer Relationship Specialty Start Date End Date Christina Dangelo APRN-GERSON [address] [place] [address] PCP - General Internal Medicine 07/03/23 documented as of this encounter
--- OUTSIDE RECORDS SUMMARY | 2024-12-10 10:01 | XMS_ITS | Encounter Summary ---
Author Organization [employer] [facility] tem Address [id number] [address] [place] [address] Care Team Providers Care Dental Technician Instructor Name Role Phone Christina Dangelo Keysha TOOL AND EQUIPMENT RENTAL CLERK-SPINNING DOFFER Primary Care Provider + Encounter Details Date Type Department Care Team (Late st Contact Info) Description 06/25/2022 Orders Only [facility] [address] [place] [phone] Vera Bazan APRN-SPINNING DOFFER [address] [place] [phone] Encounter for screening mammogram for malignant neoplasm [...] documented as of this encounter Care Teams Dental Technician Instructor Relationship Specialty Start Date End Date Christina Dangelo APRN-CNP [address] [place] [address] PCP - General Internal Medicine 07/03/23 documented as of this encounter
--- OUTSIDE RECORDS SUMMARY | 2024-12-10 10:01 | XMS_ITS | Encounter Summary ---
Author Organization [employer] [facility] tem Address [facility] [place] [id number] [address] [place] [address] Care Team Providers Care Supervisor Throwing Department Name Role Phone Christina Dangelo Keysah FARRAR-REFUELER Primary Care Provider + Encounter Details Date Type Department Care Team ([facility] st Contact Info) Description 07/24/2021 [facility] [address] [place] [phone] Sera Vargas CMA Social History Tobacco [...] documented as of this encounter Care Teams Supervisor Throwing Department Relationship Specialty Start Date End Date Christina Dangelo, CLOTH GRADER-REFUELER [address] [place] [address] PCP - General Internal Medicine 07/03/23 documented as of this encounter
--- OUTSIDE RECORDS SUMMARY | 2024-12-10 10:01 | XMS_ITS | Encounter Summary ---
Author Organization [employer] [facility] tem Address [facility]-[id number] [address] [place] [address] Care Team Providers Care Automatic Bow Maker Machine Tender Name Role Phone Christina Dangelo CHARAN-MATERIALS MANAGEMENT MANAGER Primary Care Provider + Encounter Details Date Type Department Care Team (Late st Contact Info) Description 09/19/2021 Telephone [facility] [address] [place] [phone] Sera Vargas CMA Social History Tobacco [...] documented as of this encounter Care Teams Automatic Bow Maker Machine Tender Relationship Specialty Start Date End Date Christina Dangelo APRN-CNP [address] [place] [address] PCP - General Internal Medicine 07/03/23 documented as of this encounter
--- OUTSIDE RECORDS SUMMARY | 2024-12-10 10:01 | XMS_ITS | Encounter Summary ---
Author Organization [facility] [employer] [facility] tem Address [facility][id number] [address] [place] [address] Care Team Providers Care Disease Education Specialist Name Role Phone Christina Dangelo Keysha WORKERS COMPENSATION CLAIMS SUPERVISOR-SAFETY GLASS INSTALLER Primary Care Provider + Reason for Visit * Reason Onset Date Comments Med Refill 01/26/2021 Encounter Details Date Type Department Care Team (Late st Contact Info) Description 01/26/2021 [facility] [address] [place] [phone] Vera Bazan APRN-CNP [address] [place], [place] [address] Bronchitis Social History Tobacco Use Types Packs/Day [...] documented as of this encounter Care Teams Disease Education Specialist Relationship Specialty Start Date End Date Christina Dangelo, CHARAN-SAFETY GLASS INSTALLER [address] [place] [address] PCP - General Internal Medicine 07/03/23 documented as of this encounter
--- OUTSIDE RECORDS SUMMARY | 2024-12-10 10:01 | XMS_ITS | Clinical Summary ---
Author Organization [facility] Address [address] [place] [address] Care Team Providers Care Social Problems Specialist Name Role Phone Unavailable Primary Care Provider Unavailabl e Allergies No known active allergies Medications dilTIAZem CD (Cardizem CD) 300 MG 24 hr capsule Take 300 mg by mouth in the morning. 07/19/19 23 Active aspirin 81 MG chewable tablet Chew 81 mg 1 (one) time. Active loratadine (Claritin) 10 MG tablet Take 10 mg by mouth in the morning. Active estradiol (Estrace) 0.1 MG/GM vaginal creamIndicatio ns:Dyspareunia in female PLACE 2 GRAMS VAGINALLY DAILY FOR 2 WEEKS, THEN TWICE A WEEK FOLLOWING INITIAL 2 WEEKS 42.5 g 3 11/17/19 25 Active estradiol (Estrace) 0.1 MG/GM vaginal creamIndicatio ns:Dyspareunia in female 2g vaginal daily for 2 weeks, then 2 times weekly following initial 2 weeks 42.5 g 10/08/19 25 025 Discontinued Active Problems Problem Noted Date Diagnosed Date Pre-op examination 12/02/2024 Dyspareunia in female 12/02/2024 Cyst of ovary 12/02/2024 Pelvic pain 12/02/2024 Encounters Date Type Department Care Team Description 12/03/2024 Orders Only [facility] [address] [place] [id number] Sarah Tse LPN 12/02/2024 3:20 PM EDT [place] [id number] Bari Murillo DO Pre-op examination; Dyspareunia in female; Pelvic pain; Cyst of ovary, unspecified laterality 11/26/2024 3:00 PM EDT Office Visit [facility] [address] [place] [address] Zeina Portillo PA Well woman exam with routine gynecological exam; H/O: hysterectomy 11/26/2024 Clinisync Result Encounter [facility] External Department Unsolicited Zeina Portillo PA 11/26/2024 Bamboo flowsheet [facility] [address] [place] [address] Zeina Portillo PA 11/14/2024 Refill [facility] [address] [place] [address] Bari Murillo, Dyspareunia in female 11/13/2024 Clinisync Result Encounter [facility] External Department Unsolicited Bari Murillo, 10/17/2024 External Result Encounter [facility] External Department Unsolicited Bari Murillo, DO 10/12/2024 Results Follow-Up [facility] [address] [place] [address] Sarah Tse LPN RECURRENT VAGINITIS (HTRX) 10/12/2024 Telephone [facility] [address] [place] [address] Sarah Tse LPN 10/07/2024 3:50 PM EDT Office Visit [facility] [address] [place] [address] Bari Murillo, Pelvic pain in female; Dyspareunia in female; Yeast infection; Hormone imbalance; Fatigue, unspecified type 10/07/2024 External Result Encounter [facility] External Department Unsolicited Bari Murillo, DO 10/07/2024 Bamboo flowsheet [facility] [address] [facility] [place] [address] Bari Murillo DO 09/30/2024 Travel from Last 3 Months Family [...] 6.4 oz) 12/02/2024 3:43 PM EDT Height 157.5 cm (5' 2 ) 10/08/2022 3:38 PM EDT Body Mass Index 34.28 10/08/2022 3:38 PM EDT Plan of Treatment Upcoming Encounters Date Type Department Care Team (Late st Contact Info) Description 12/23/2024 3:30 PM EDT Office Visit [facility] [address] [place] [phone] Zeina Portillo PA [address] [place] [address] Health Maintenance Due Date Last Done Comments CT Colonography 1973 FIT-DNA 1973 FIT 1975 FOBT 1975 Sigmoidoscopy 1975 Influenza Vaccine (#1) 2024 , 01/28/2023, 02/08/2021, Additional history exists Mammogram 10/05/2025 10/05/2024, 06/28, 07/12/2022, Additional history exists Pap Smear 11/27/2027 11/26/2024, 09/28, 12/06/2022, Additional history exists Cervical Cancer Screening 12/07/2027 HPV/Cotest 12/07/2027 12/06/2022 Colonoscopy 12/07/2032 12/07/2022 Colorectal Cancer Screening 12/07/2032 Procedures Procedure Name Priority Date/Time Associated Diagnosis Comments IGP,APTIMA HPV,AGE GDLN Routine 11/26/2024 3:22 PM EDT PAP SMEAR Routine 11/26/2024 12:00 AM EDT US PELVIS W/ TRANSVAGINAL 11/13/2024 7:31 AM EDT TSH ([facility]) Routine 10/17/2024 9:59 AM EDT [...] Well woman exam with routine gynecological exam from Last 3 Months or Most Recently Relevant to Health Maintenance Results * IGP,APTIMA HPV,AGE GDLN (11/26/2024 3:22 PM EDT) AGE CALIN ACOG TESTING Note . [facility] Comment: TESTS RESULT FLAG UNITS REF RANGE LAB Clinician Provided Cytology Information Source.............Vagina No. of containers..01 ThinPrep Vial Jayleen Darian [place] Mary... FLAG LEGEND: L-Low Normal,H-High Normal,LL-Alert Low,HH-Alert High <-Panic Low,>-Panic High,A-Abnormal,AA-Critical Abnormal Performed at: 01 =G [address] [address] Marina Aranda MD, IGP, APTIMA HPV, RFX 16/18,45 Note . [facility] Comment: TESTS RESULT FLAG UNITS REF RANGE LAB DIAGNOSIS: 02 NEGATIVE FOR INTRAEPITHELIAL LESION OR MALIGNANCY. Specimen adequacy: 02 Satisfactory for evaluation. No endocervical component is identified. Performed by: 02 Bryan John, Active Directory Engineer (ASCP) . 02 Note: Note 02 The Pap [...] <-Panic Low,>-Panic High,A-Abnormal,AA-Critical Abnormal Performed at: [address] [phone] Marina Aranda MD, HPV APTIMA Negative Negative [facility] Comment: This nucleic acid amplification test detects fourteen high- risk HPV types (16,18,31,33,35,39,45,51,52,56,58,59,66,68) without differentiation. Performed at: =[address] [id number] Guard Manager: Marina Aranda MD, Phone: [phone] Performed at: [address] [id number] Guard Manager: Marina Aranda MD, Phone: [phone] 11/26/2024 3:22 PM EDT 11/27/2024 6:24 AM EDT Narrative [facility] - 12/01/2024 1:11 PM EDT SPATULA-ALONE VAGINA us Zeina YE LAB BLOOD ORDERABLES Final Resul t [facility] TB * Pap Smear (11/26/2024 12:00 AM EDT) Swab Cervical swab / Unknown us Zeina YE LAB CYTOLOGY ORDERABLES Final Re sult Performing Organization Address City/[facility]/ZIP Co de Phone Number EXTERNAL LAB * US PELVIS W/ TRANSVAGINAL (11/13/2024 7:31 AM EDT) Anatomical Region Laterality Modality Other 11/13/2024 7:31 AM EDT Narrative 11/13/2024 7:34 [place] [address] Ultrasound Report Signed Patient: YANG LANDIS MR#: [id number] : 1975 Acct:[id number] Age/Sex: 49 / F ADM Date: 11/12/24 Loc: US Attending Dr: Bari Murillo D.O. Ordering Physician: Bari Murillo D.O. Date of Service: 11/12/24 Procedure(s): US pelvis w/ transvaginal Accession Number(s): [id number] cc: Bari Murillo D.O.; Physician,Non-Staff M.Ara [facility] [place] [id number] Patient Name: YANG LANDIS MRN: [id number] date: 1975 Sex: F Assigned Patient Location: US Current Patient Location: Accession/Order Number: [id number] Exam Date: 11/13/2024 07:28 Report Date: 11/13/2024 [...] Marino M.D. 11/13/2024 7:31 AM Dictation Location: [place] [address] Electronically authenticated by: [id number] Y Date: 11/13/2024 07:31 Dictated By: Stephanie Marino M.D. Signed By: 11/13/24 0734 DD/ 0731 TD/TT: Tow Picker: Procedure Note Radiology, Radiologist, MD - 11/13/2024 [place] [address] Ultrasound Report Signed Patient: YANG LANDIS DMR#: [id number] : 1975Acct:[id number] Age/Sex: 49 / FADM Date: 11/12/24 Loc: US Attending Dr: Bari Murillo D.O. Ordering Physician: Bari Murillo D.O. Date of Service: 11/12/24 Procedure(s): US pelvis w/ transvaginal Accession Number(s): [id number] cc: Bari Murillo D.O.; Physician,Non-Staff Vince The [address] [address] Patient Name: YANG LANDIS MRN: [id number] date: 1975 Sex: F Assigned Patient Location: Current Patient Location: Accession/Order Number: [id number] Exam Date: 11/13/2024 07:28 Report Date: 11/13/2024 07:31 At the request of: BARI MURILLO DO Procedure: US pelvis w/ transvaginal ULTRASOUND PELVIS WITH TRANSVAGINAL COMPARISON: 06/16/2018 CLINICAL DATA: Pelvic pain for the past few months. Previoushysterectomy. Real-time ultrasound evaluation pelvis was performed utilizing both a transabdominal and transvaginal approach. TRANSABDOMINAL: The uterus is surgically absent. The vaginal cuff showsno obvious abnormalities. Neither ovary is identified. TRANSVAGINAL: Transvaginal scans were performed to better evaluate theuterus and adnexa. The uterus is surgically absent. The right ovary is not identified and this correlates with reported oophorectomy. The left ovaryis seen. It measures 3.8 x 2.7 x 1.8 cm. Small follicles are present.There is an irregular thick-walled cystic structure with peripheral blood flow measuring 15 x 7 x 15 mm which might be a collapsing cyst/follicle. Thereis blood flow within the remainder of the ovary with resistive index of 0.6.No free fluid is seen. US/US pelvis w/ transvaginal IMPRESSION: POST HYSTERECTOMY PELVIS, WITHOUT ACUTE FINDINGS. Impression dictated by: Stephanie Marino M.D. 11/13/2024 7:31 AM Dictation Location: [place] [address] Electronically authenticated by: [id number] Y Date: 507:31 Dictated By: Stephanie Marino M.D. Signed By:11/13/24 0734 DD/ 0731 TD/TT: Tow Picker: us Bari Murillo DO [facility] Final Result * TSH ([facility]) (10/17/2024 9:59 AM EDT) TSH 1.45 0.49 - 4.67 uIU/mL [facility] Comment: PERFORMED AT [facility] [address],[place] [address] 10/17/2024 9:59 AM EDT 10/17/2024 3:04 PM EDT Lexyo DO LAB BLOOD ORDERABLES Final Resul t [...] TYPE AUTOMATED DIFFERENTIAL [facility] Comment: PERFORMED AT [facility] [address] [facility],[place] [address] 10/17/2024 9:59 AM EDT 10/17/2024 3:04 PM EDT Lexyo DO LAB BLOOD ORDERABLES Final Resul t Performing Organization Address City/[facility]/ZIP Co de Phone Number [facility] * Hemoglobin [...] GLUCOSE 85 mg/dL [facility] Comment: PERFORMED AT [address] [address] 10/17/2024 9:59 AM EDT 10/17/2024 3:04 PM EDT us Lexyo DO LAB BLOOD ORDERABLES Final Resul t Performing Organization Address [facility] Co de Phone Number [facility] * (ABNORMAL) Cholesterol, total (10/17/2024 9:59 AM EDT) CHOLESTEROL 210(H) 150 - 200 mg/dL [facility] Comment: PERFORMED AT [address], [place] [address] 10/17/2024 9:59 AM EDT 10/17/2024 3:04 PM EDT us Lexyo DO LAB BLOOD ORDERABLES Final Resul t [...] - 1.00 mg/dL [facility] Comment:[facility] Glucose 91 65 - 99 mg/dL [...] not use a race coefficient. PERFORMED AT [facility] [address],[place] [address] 10/17/2024 9:59 AM EDT 10/17/2024 3:04 PM EDT us Bari Murillo DO LAB BLOOD ORDERABLES Final Resul t [facility] * (ABNORMAL) RECURRENT VAGINITIS (HTRX) (10/07/2024 4:11 PM EDT) ATOPOBIUM VAGINAE 21.481(A) 19.961 - 24.689 ppm 10/10/2024 7:43 AM EDT [facility] ATOPOBIUM VAGINAE Detected(A) 19.961 - 24.689 ppm 10/10/2024 7:43 AM EDT [facility] BVAB 2,3 (BACTERIAL VAGINOSIS ASSOCIATED BACTERIA 2, 3); MOBILUNCUS SPP 0.000 19.961 - 24.689 ppm 10/10/2024 7:43 AM EDT [facility] BVAB 2,3 (BACTERIAL VAGINOSIS ASSOCIATED BACTERIA 2, 3); MOBILUNCUS SPP Not Detected 19.961 - 24.689 ppm 10/10/2024 7:43 AM EDT [facility] MARIA ISABEL ALBICANS, PARAPSILOSIS, TROPICALIS 26.398(A) 19.961 - 30.770 ppm 10/10/2024 7:43 AM EDT [facility] MARIA ISABEL ALBICANS, PARAPSILOSIS, TROPICALIS Detected(A) 19.961 - 30.770 ppm 10/10/2024 7:43 AM EDT [facility] MARIA ISABEL GLABRATA 0.000 23.000 - 32.138 ppm 10/10/2024 7:43 AM EDT [facility] MARIA ISABEL GLABRATA Not Detected 23.000 - 32.138 ppm 10/10/2024 7:43 AM EDT [facility] MARIA ISABEL KRUSEI 0.000 23.000 - 32.271 ppm 10/10/2024 7:43 AM EDT [facility] MARIA ISABEL KRUSEI Not Detected 23.000 - 32.271 ppm 10/10/2024 7:43 AM EDT [facility] CHLAMYDIA TRACHOMATIS 0.000 23.000 - 31.467 ppm 10/10/2024 7:43 AM EDT [facility] CHLAMYDIA TRACHOMATIS Not Detected 23.000 - 31.467 ppm 10/10/2024 7:43 AM EDT [facility] GARDNERELLA VAGINALIS 20.804(A) 19.961 - 24.689 ppm 10/10/2024 7:43 AM EDT [facility] GARDNERELLA VAGINALIS Detected(A) 19.961 - 24.689 ppm 10/10/2024 7:43 AM EDT [facility] MEGASPHAERA (TYPES 1, 2) 0.000 19.961 - 24.689 ppm 10/10/2024 7:43 AM EDT [facility] MEGASPHAERA (TYPES 1, 2) Not Detected 19.961 - 24.689 ppm 10/10/2024 7:43 AM EDT [facility] NEISSERIA GONORRHOEAE 0.000 23.000 - 32.117 ppm 10/10/2024 7:43 AM EDT [facility] NEISSERIA GONORRHOEAE Not Detected 23.000 - 32.117 ppm 10/10/2024 7:43 AM EDT [facility] TRICHOMONAS VAGINALIS 0.000 23.000 - 32.119 ppm 10/10/2024 7:43 AM EDT [facility] TRICHOMONAS VAGINALIS Not Detected 23.000 - 32.119 ppm 10/10/2024 7:43 AM EDT [facility] MYCOPLASMA GENITALIUM 0.000 19.961 - 24.689 ppm 10/10/2024 7:43 AM EDT [facility] MYCOPLASMA GENITALIUM Not Detected 19.961 - 24.689 ppm 10/10/2024 7:43 AM EDT [facility] ERMB, C; MEFA 14.838(A) 23.000 - 27.611 ppm 10/10/2024 7:43 AM EDT [facility] ERMB, C; MEFA Detected(A) 23.000 - 27.611 ppm 10/10/2024 7:43 AM EDT [facility] TET B, TET M 18.652(A) 23.000 - 27.778 ppm 10/10/2024 7:43 AM EDT [facility] TET B, TET M Detected(A) 23.000 - 27.778 ppm 10/10/2024 7:43 AM EDT [facility] Tissue 10/07/2024 4:11 PM EDT 10/10/2024 3:19 AM EDT us Bari Murillo DO LAB BLOOD ORDERABLES Final Resul t [facility] [address] [place] [address] * (ABNORMAL) POCT urinalysis dipstick manually resulted (10/07/2024 3:39 PM EDT) Color, UA Yellow Clarity, UA Clear Glucose, UA Negative Negative - 1999(110) ++++ mg/dL Bilirubin, UA Negative Negative - 4(70) +++ mg/dL Ketones, UA Negative Negative - 160(16) ++++ mg/dL Spec Grav, UA 1.030 1 - 1.03 Blood, UA Negative Negative - 50 Kalyan/mcL pH, UA 5.5 5 - 9 Protein, UA Trace Negative - 1999(20) ++++ mg/dL Urobilinogen, UA 1.0 0.2 - 12 mg/dL Leukocytes, UA Negative Negative - 500+++ Maria Elena/mcL Nitrite, UA Negative Negative - Positive Urine 10/07/2024 3:39 PM EDT us Bari Murillo DO POINT OF CARE TEST ENTER/EDIT OR DERABLES Final Result * THINPREP PAP AND HPV MRNA E6/E7 W/RFL HPV 16,18/45 (12/06/2022 12:04 PM EDT) Zeina YE LAB BLOOD ORDERABLES Final Resul t Performing Organization Address City/State/[facility] Co de Phone Number EXTERNAL LAB from Last 3 Months or Most Recently Relevant to Health Maintenance Insurance [employer]
--- OUTSIDE RECORDS SUMMARY | 2024-12-10 10:01 | XMS_ITS | Encounter Summary ---
Author Organization [facility] tem Address [facility][id number] [address] [place] [address] Care Team Providers Care County Program Technician Name Role Phone Christina Dangelo Keysha FARRRA-GRILL CHEF Primary Care Provider + Reason for Visit * Reason Onset Date Comments Med Refill 11/13/2021 Encounter Details Date Type Department Care Team (Late st Contact Info) Description [facility] [address] [place] [phone] Vera Bazan APRN-CNP [address] [place], [place] [phone] Essential hypertension Social History Tobacco Use Types [...] documented as of this encounter Care Teams County Program Technician Relationship Specialty Start Date End Date Christina Dangelo APRN-CNP [address] [place] [address] PCP - General Internal Medicine 07/03/23 documented as of this encounter
--- OUTSIDE RECORDS SUMMARY | 2024-12-10 10:01 | XMS_ITS | Encounter Summary ---
Author Organization [facility] tem Address [facility][id number] [address] [place] [address] Care Team Providers Care File Clerk Name Role Phone Christina Dangelo Keysha POWER LINE INSTALLER-TILT WALL SUPERVISOR Primary Care Provider + Reason for Visit * Reason Comments Med Refill Encounter Details Date Type Department Care Team (Late st Contact Info) Description 12/03/2020 Refill [facility] [address] [place] [phone] Vera Bazan APRN-CNP [address] [place], [place] [phone] Hip pain, chronic, left Social History Tobacco [...] documented as of this encounter Care Teams File Clerk Relationship Specialty Start Date End Date Christina Dangelo, POWER LINE INSTALLER-TILT WALL SUPERVISOR [address] [place] [address] PCP - General Internal Medicine 07/03/23 documented as of this encounter
--- OUTSIDE RECORDS SUMMARY | 2024-12-10 10:01 | XMS_ITS | Encounter Summary ---
Author Organization [facility] tem Address [facility]-[id number] [address] [place] [address] Care Team Providers Care Copywriting Intern Name Role Phone Christina Dangelo CHARAN-FILAMENT WELDER Primary Care Provider + Encounter Details Date Type Department Care Team (Late st Contact Info) Description 06/12/2021 Refill [facility] [address] [place] [phone] Sera Vargas CMA Chronic pain of [...] documented as of this encounter Care Teams Copywriting Intern Relationship Specialty Start Date End Date Christina Dangelo APRN-CNP [address] [place] [address] PCP - General Internal Medicine 07/03/23 documented as of this encounter
--- OUTSIDE RECORDS SUMMARY | 2024-12-10 10:05 | XMS_ITS | CCD ---
Author Organization [facility] Care Team Providers Care Tribal Council Member Name Role Phone LIDIA, LINK Admitting Unavailable LIDIA, LINK Attending Unavailable MACHELLE, BRANDI Primary Care Unavailable LIDIA, LINK Admitting Unavailable LIDIA, LINK Attending Unavailable JASKARAN BRAXTON Primary Care Unavailable LIDIA, LINK Consulting Unavailable LIDIA, LINK Admitting Unavailable LIDIA, LINK Attending Unavailable MACHELLE, BRANDI Primary Care Unavailable LIDIA, LINK Consulting Unavailable HILLARY VAUGHAN JR Consulting Unavailable CAL WANG Consulting Unavailable HILLARY VAUGHAN JR Procedure Practitioner John DAVISO, LINK Procedure Practitioner UnavailMARIA INES Gan Consulting Unavailable ERIN YIN Consulting Unavailable LIDIA, LINK Admitting Unavailable LIDIA, LINK Attending Unavailable MACHELLE, BRANDI Primary Care Unavailable LIDIA, LINK Consulting Unavailable CHRIS WHITAKERORY Admitting Unavailable CAMILA WHITAKER Attending Unavailable CMAILA WHITAKER Primary Care Unavailable CAMILA WHITAKER Consulting Unavailable CAMILA WHITAKER Admitting Unavailable CAMILA WHITAKER Attending Unavailable CAMILA WHITAKER Consulting Unavailable ROSA, JEZ L Attending Unavailable SHAWN ULLOA Referring Unavailable ROSA, JEZ L Primary Care Unavailable ROSA, JEZ L Attending Unavailable ROSA, JEZ L Referring Unavailable ROSA, JEZ L Primary Care Unavailable Rosa EMERGENCY MANAGEMENT CONSULTANT-Jez NIETO L Primary Care Provider Rosa EMERGENCY MANAGEMENT CONSULTANT-REIMBURSEMENT COUNSELORJez L Primary Care Provider Unavailable Primary Care Provider Unavailabl e ROSA, JEZ L Referring Unavailable ROSA, JEZ L Primary Care Unavailable LIDIA, LINK R Referring Unavailable ROSA, JEZ L Primary Care Unavailable ROSA, JEZ L Referring Unavailable JEZ LEE Primary Care Unavailable LINK MURILLO Referring Unavailable JEZ LEE Primary Care Unavailable LINK MURILLO Attending Unavailable ZEINA SANZ Attending Unavailable LINK MURILLO Attending Unavailable Medications Current Medications Medication Drug Class(es) Dates Sig (Normalized) Sig (Original) [id number] 200 actuat albuterol 0.09 mg/actuat metered dose [...] 07/10/2023 Active aspirin 81 mg chewable tablet (19 sources) Platelet Aggregation Inhibitor, Nonsteroidal Anti-inflammatory Drug aspirin 81 MG chewable tablet Chew 81 mg 1 (one) time. Active aspirin 81 mg ch ewable tablet Chew 1 tablet (81 mg total) and swallow in the morning. Active 24 hr dilTIAZem hydrochloride 300 mg extended release oral capsule (20 sources) Calcium Channel Nehemias Start: 01-17-2023 End: [...] 07/18/2022 Active estradiol 0.1 mg/ml vaginal cream (10 sources) Estrogen Start: 11-16-2024 estradiol (Est race) [...] 12/19/2021 Active loratadine 10 mg oral tablet (19 sources) Start: 08-20-2018 take 1 tablet by [...] Problem Date Documented Date Episodic/Chronic Abdominal pain (4 sources) Pain in female pelvis; Translations: [Pelvic and perineal pain] Onset: 10-07-2024 Episodic Abdominal pain (1 source) Pelvic [...] Onset: 9 Chronic Other female genital disorders (4 sources) Pain in female genitalia on intercourse; Translations: [Unspecified dyspareunia] Onset: 5 10-07-2024 Chronic Other female genital disorders (1 source) Unspecified dyspareunia; Translations: [UNSPECIFIED DYSPAREUNIA] Onset: 9 Other nutritional; endocrine; and metabolic disorders (1 source) Severe obesity; Translations: [Class 2 severe obesity due to excess calories with serious comorbidity and body mass index (BMI) of 37.0 to 37.9 in adult ([employer])] 02-11-2024 Chronic Other screening for suspected conditions (not mental disorders or infectious disease) (9 sources) Encounter for screening for malignant neoplasm of cervix; Translations: [Encounter for screening mammogram for malignant neoplasm of breast] Onset: 0 07-03-2023 Episodic Ovarian cyst (2 sources) Cyst of ovary; Translations: [Unspecified ovarian cyst, unspecified side] Onset: 5 12-02-2024 Episodic Unclassified (1 source) Abnormal findings on [...] 02-06-2024 07-03-2023 Other aftercare (1 source) Other director long term care (current) drug therapy; Translations: [OT PENITENTIARY CURRENT DRUG THERAPY] Onset: 12-15-2018 Episodic Other aftercare (1 source) director long term care (current) use of aspirin; Translations: [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 [facility] Comment on above: TESTS RESULT FLAG UN ITS REF RANGE LAB Clinician Provided Cytology Information Source.............Vagina No. of containers..01 ThinPrep Vial Age Algo ACOG Mary... 30-65 01 FLAG LEGEND: L-Low Normal,H-High Normal,LL-Alert Low,HH-Alert High <-Panic Low,>-Panic High,A-Abnormal,AA-Critical Abnormal Performed at: 01 =G [address] [address] Marina Aranda MD, HPV APTIMA Negative Negative [facility] Comment on above: This nucleic acid am plification test detects fourteen high- risk HPV types (16,18,31,33,35,39,45,51,52,56,58,59,66,68) without differentiation. Performed at: =G - [facility], [place] [id number] Lockstitch Coat Joiner: Marina Aranda MD, Phone: [phone] Performed at: WB - [facility], [place] [id number] Lockstitch Coat Joiner: Marina Aranda MD, Phone: [phone] IGP, APTIMA HPV, RFX 16/18,45 Note . [facility] Comment on above: TESTS RESULT FLAG UN ITS REF RANGE LAB DIAGNOSIS: 02 NEGATIVE FOR INTRAEPITHELIAL LESION OR MALIGNANCY. Specimen adequacy: 02 Satisfactory for evaluation. No endocervical component is identified. Performed by: 02 Bryan Lopez Professor Of Sociology ([facility]) . 02 Note: Note 02 [...] <-Panic Low,>-Panic High,A-Abnormal,AA-Critical Abnormal Performed at: 02 [facility] [address] [place] [address] Marina Aranda MD, SPATULA-ALONE VAGINA [facility] US PELVIS W/ TRANSVAGINALon 11-13-[address] [address] Ultrasound Report Signed Patient: ERIC SWAIN MR#: [id number] : 1975 Acct:[id number] Age/Sex: 49 / F ADM Date: 11/12/24 Loc: US Attending Dr: Link Murillo D.O. Ordering Physician: Link Murillo D.O. Date of Service: 11/12/24 Procedure(s): US pelvis w/ transvaginal Accession Number(s): [id number] cc: Link Murillo D.O.; Physician,Non-Staff M.DAkosua [address] [address] Patient Name: ERIC SWAIN MRN: [id number] date: 1975 Sex: F Assigned Patient Location: Current Patient Location: Accession/Order Number: [id number] Exam Date: 11/13/2024 07:28 Report Date: 11/13/2024 07:31 At the request of: LINK MURILLO DO Procedure: US pelvis w/ transvaginal [...] Marino M.D. 11/13/2024 7:31 AM Dictation Location: [place] [address] Electronically authenticated by: [id number] Y Date: 11/13/2024 07:31 Dictated By: Stephanie Marino M.D. Signed By: 11/13/24 0734 DD/ TD/TT: White Work Cleaner: [facility] Radiology, Radiologist, MD - 11/13/2024 [place] [address] Ultrasound Report Signed Patient: ERIC SWAIN MR#: [id number] : 1975 Acct:[id number] Age/Sex: 49 / F ADM Date: 11/12/24 Loc: US Attending Dr: Link Murillo D.O. Ordering Physician: Link Murillo D.O. Date of Service: 11/12/24 Procedure(s): US pelvis w/ transvaginal Accession Number(s): [id number] cc: Link Murillo D.O.; Physician,Non-Staff Vince The [address] [id number] Patient Name: ERIC SWAIN MRN: [facility]:[id number] date: 1975 Sex: F Assigned Patient Location: US Current Patient Location: Accession/Order Number: [id number] Exam Date: 11/13/2024 07:28 Report Date: 11/13/2024 07:31 At the request of: LINK MURILLO DO Procedure: US pelvis w/ transvaginal [...] PELVIS, WITHOUT ACUTE FINDINGS. Impression dictated by: tSephanie Marino M.D. 11/13/2024 7:31 AM Dictation Location: [place] [address] Electronically authenticated by: [id number] Y Date: 11/13/2024 07:31 Dictated By: Stephanie Marino M.D. Signed By: 11/13/24 0734 DD/ 0731 TD/TT: White Work Cleaner: [facility] Radiology Study observation (narrative) [facility] US PELVIS W/ TRANSVAGINALOrd ered By: Radiologist Radiology on 11-13-2024 [facility] Work Phone: CBC W Auto Differential pane l (Bld)on 10-17-2024 ABSOLUTE BASOPHIL 0.1 10*3/uL 0.0 - 0.2 10*3/uL [facility] Basophils/100 WBC (Bld) 0.9 % [facility] DIFFERENTIAL TYPE AUTOMATED DIFFERENTIAL [facility] Comment on above: PERFORMED AT [facility] [address],[place] [address] Eosinophils (Bld) [#/Vol] 0.2 10*3/uL 0.0 - 0.4 10*3/uL [facility] Eosinophils/100 WBC (Bld) 2.8 % [facility] Erythrocyte distribution width (RBC) [Ratio] 12.4 % 11.5 - 15 % [facility] Hematocrit (Bld) [Volume fraction] 38.5 % 35 - 47 % [facility] Hemoglobin (Bld) [Mass/Vol] 13.2 g/dL 11.7 - 15.5 g/dL [facility] Lymphocytes (Bld) [#/Vol] 2 10*3/uL 1.0 - 3.5 10*3/uL [facility] Lymphocytes/100 WBC (Bld) 28.5 % [facility] MCH (RBC) [Entitic mass] 32.2 pg 27 - 34 pg [facility] MCHC (RBC) [Mass/Vol] 34.2 g/dL 32 - 36 g/dL [facility] MCV (RBC) [Entitic vol] 94 fL 80 - 100 fL [facility] Monocytes (Bld) [#/Vol] 0.5 10*3/uL 0.0 - 0.9 10*3/uL [facility] Monocytes/100 WBC (Bld) 6.9 % [facility] Neutrophils (Bld) [#/Vol] 4.2 10*3/uL 1.5 - 6.6 10*3/uL [facility] Neutrophils/100 WBC (Bld) 60.9 % [facility] Platelet mean volume (Bld) [Entitic vol] 9 fL 7 - 12 fL [facility] Platelets (Bld) [#/Vol] 241 10*3/uL [facility] RBC (Bld) [#/Vol] 4.09 10*6/uL [facility] WBC corrected for nucl RBC Auto (Bld) [#/Vol] 6.9 [facility] CBC WITH AUTO DIFFERENTIALon 10-17-2024 BASOPHILS ABSOLUTE COUNT (10*3/UL) BY AUTOMATED COUNT 0.1 10*3/uL Normal 0.0-0.2 [facility] Comment on above: Performed By: #### C BCA #### [facility] ([facility]) [address] [place] [address] VIR BASOPHILS RELATIVE PERCENT BY AUTOMATED COUNT 0.9 % Normal [facility] Comment on above: Performed By: #### C BCA #### [facility] ([facility]) [address] [place] [address] VIR CELLAVISION DIFFERENTIAL TYPE AUTOMATED DIFFERENTIAL Normal [facility] Comment on above: Performed By: #### C BCA #### [facility] ([facility]) [address] [place] [address] VIR Eosinophils (Bld) [#/Vol] 0.2 10*3/uL Normal 0.0-0.4 [facility] Comment on above: Performed By: #### C BCA #### [facility] ([facility]) [address] [place] [address] VIR EOSINOPHILS RELATIVE PERCENT BY AUTOMATED COUNT 2.8 % Normal [facility] Comment on above: Performed By: #### C BCA #### [facility] ([facility]) [address] [place] [address] VIR Erythrocyte distribution width (RBC) [Ratio] 12.4 % Normal 11.5-15 [facility] Comment on above: Performed By: #### C BCA #### [facility] ([facility]) [address] [place] [address] VIR Hematocrit (Bld) [Volume fraction] 38.5 % Normal 35-47 [facility] Comment on above: Performed By: #### C BCA #### [facility] ([facility]) [address] [place] [address] VIR Hemoglobin (Bld) [Mass/Vol] 13.2 g/dL Normal 11.7-15.5 [facility] Comment on above: Performed By: #### C BCA #### [facility] ([facility]) [address] [place] [address] VIR LYMPHOCYTES ABSOLUTE COUNT (10*3/UL) BY AUTOMATED COUNT 2.0 10*3/uL Normal 1.0-3.5 [facility] Comment on above: Performed By: #### C BCA #### [facility] ([facility]) [address] [place] [address] VIR LYMPHOCYTES RELATIVE PERCENT BY AUTOMATED COUNT 28.5 % Normal [facility] Comment on above: Performed By: #### C BCA #### [facility] ([facility]) [address] [place] [address] VIR MCH (RBC) [Entitic mass] 32.2 pg Normal 27-34 [facility] Comment on above: Performed By: #### C BCA #### [facility] ([facility]) [address] [place] [address] VIR MCHC (RBC) [Mass/Vol] 34.2 g/dL Normal 32-36 [facility] Comment on above: Performed By: #### C BCA #### [facility] ([facility]) [address] [place] [address] VIR MCV (RBC) [Entitic vol] 94 fL Normal 80-100 [facility] Comment on above: Performed By: #### C BCA #### [facility] ([facility]) [address] [place] [address] VIR MONOCYTES ABSOLUTE COUNT (10*3/UL) BY AUTOMATED COUNT 0.5 10*3/uL Normal 0.0-0.9 [facility] Comment on above: Performed By: #### C BCA #### [facility] ([facility]) [address] [place] [address] VIR MONOCYTES RELATIVE PERCENT BY AUTOMATED COUNT 6.9 % Normal [facility] Comment on above: Performed By: #### C BCA #### [facility] ([facility]) [address] [place] [address] VIR NEUTROPHILS ABSOLUTE COUNT BY AUTOMATED COUNT 4.2 10*3/uL Normal 1.5-6.6 [facility] Comment on above: Performed By: #### C BCA #### [facility] ([facility]) [address] [place] [address] VIR NEUTROPHILS RELATIVE PERCENT BY AUTOMATED COUNT 60.9 % Normal [facility] Comment on above: Performed By: #### C BCA #### [facility] ([facility]) [address] [place] [address] VIR Platelet mean volume (Bld) [Entitic vol] 9.0 fL Normal 7-12 [facility] Comment on above: Performed By: #### C BCA #### [facility] ([facility]) [address] [place] [address] VIR Platelets (Bld) [#/Vol] 241 10*3/uL Normal 150-450 [facility] Comment on above: Performed By: #### C BCA #### [facility] ([facility]) [address] [place] [address] VIR RBC COUNT 4.09 X10E12/L Normal 3.8-5.2 [facility] Comment on above: Performed By: #### C BCA #### [facility] ([facility]) [address] [place] [address] VIR WBC (Bld) [#/Vol] 6.9 10*3/uL Normal 4-[address] [facility] Comment on above: Performed By: #### C BCA #### [facility] ([facility]) [address] [place] [address] VIR CHOLESTEROL, TOTALon 025 Cholesterol [Mass/Vol] 210 mg/dL High 150-200 [facility] Comment on above: Performed By: #### C HOL #### [facility] ([facility]) [address] [place] [address] VIR COMPREHENSIVE METABOLIC PANE Ulices 10-17-2024 Albumin [Mass/Vol] 4.3 g/dL Normal 3.2-5.[address] [facility] Comment on above: Performed By: #### C MP #### [facility] ([facility]) [address] [place] [address] VIR ALP [Catalytic activity/Vol] 45 U/L Normal 39-130 [facility] Comment on above: Performed By: #### C MP #### [facility] ([facility]) [address] [place] [address] VIR ALT [Catalytic activity/Vol] 11 U/L Normal <=31 [facility] Comment on above: Performed By: #### C MP #### [facility] ([facility]) [address] [place] [address] VIR Anion gap [Moles/Vol] 10 mmol/L Normal 5-15 [facility] Comment on above: Performed By: #### C MP #### [facility] ([facility]) [address] [place] [address] VIR AST [Catalytic activity/Vol] 16 U/L Normal <=41 [facility] Comment on above: Performed By: #### C MP #### [facility] ([facility]) [address] [place] [address] VIR Bilirubin [Mass/Vol] 0.7 mg/dL Normal 0.3-1.2 [facility] Comment on above: Performed By: #### C MP #### [facility] ([facility]) [address] [place] [address] VIR Calcium [Mass/Vol] 9.3 mg/dL Normal 8.5-10.[address] [facility] Comment on above: Performed By: #### C MP #### [facility] ([facility]) [address] [place] [address] VIR Chloride [Moles/Vol] 107 mmol/L Normal 98-109 [facility] Comment on above: Performed By: #### C MP #### [facility] ([facility]) [address] [place] [address] VIR CO2 [Moles/Vol] 21 mmol/L Low 22-32 [facility] Comment on above: Performed By: #### C MP #### [facility] ([facility]) [address] [place] [address] VIR Creatinine [Mass/Vol] 0.66 mg/dL Normal 0.40-1.00 [facility] Comment on above: Result Comment: METH OD TRACEABLE TO IDMS STANDARD Performed By: #### C MP #### [facility] ([facility]) [address] [place] [address] VIR EGFR (CKD-EPI) NON-RACE DEPENDENT >^90 Normal >=60 [facility] Comment on above: Result Comment: Repo rted eGFR is based on the CKD-EPI 2020 equation that does not use a race coefficient. Performed By: #### C MP #### [facility] ([facility]) [address] [place] [address] VIR Glucose [Mass/Vol] 91 mg/dL Normal 65-[address] [facility] Comment on above: Performed By: #### C MP #### [facility] ([facility]) [address] [place] [address] VIR Potassium [Moles/Vol] 4.1 mmol/L Normal 3.5-5.0 [facility] Comment on above: Performed By: #### C MP #### [facility] ([facility]) [address] [place] [address] VIR Protein [Mass/Vol] 7.4 g/dL Normal 6.0-8.[address] [facility] Comment on above: Performed By: #### C MP #### [facility] ([facility]) [address] [place] [address] VIR Sodium [Moles/Vol] 138 mmol/L Normal 134-[address] [facility] Comment on above: Performed By: #### C MP #### [facility] ([facility]) [address] [place] [address] VIR Urea nitrogen [Mass/Vol] 11 mg/dL Normal 5-23 [facility] Comment on above: Performed By: #### C MP #### [facility] ([facility]) [address] [place] [address] VIR HEMOGLOBIN A1Con 10-17-2024 Glucose [Mass/Vol] 85 mg/dL Normal [facility] Comment on above: Performed By: #### H A1C #### [facility] ([facility]) [address] [place] [address] VIR HbA1c (Bld) [Mass fraction] 4.6 % Normal 4.4-5.6 [facility] Comment on above: Result Comment: ADA Guidelines Result HgbA1c Normal : less than 5.7 % Prediabetes : 5.7 % to 6.4 % Diabetes : > 6.4 % Use with caution in patients with abnormal hemoglobin variants as the half-life of red blood cells and in vivo glycation rates are affected. Performed By: #### H A1C #### [facility] ([facility]) [address] [place] [address] VIR TSHon 10-17-2024 TSH 1.45 uIU/mL Normal 0.49-4.67 [facility] Comment on above: Performed By: #### T SH #### [facility] ([facility]) [address] [place] [address] VIR RECURRENT VAGINITIS (HTRX)on 10-10-2024 ATOPOBIUM VAGINAE 21.481 Abnormal [facility] ATOPOBIUM VAGINAE Detected Abnormal [facility] BVAB 2,3 (BACTERIAL VAGINOSIS ASSOCIATED BACTERIA 2, 3); MOBILUNCUS SPP 0 [facility] BVAB 2,3 (BACTERIAL VAGINOSIS ASSOCIATED BACTERIA 2, 3); MOBILUNCUS SPP Not detected [facility] MARIA ISABEL ALBICANS, PARAPSILOSIS, TROPICALIS 26.398 Abnormal [facility] Healthcare MARIA ISABEL ALBICANS, PARAPSILOSIS, TROPICALIS Detected Abnormal [facility] Healthcare MARIA ISABEL GLABRATA 0 [facility] MARIA ISABEL GLABRATA Not detected [facility] MARIA ISABEL KRUSEI 0 [facility] MARIA ISABEL KRUSEI Not detected [facility] CHLAMYDIA TRACHOMATIS 0 [facility] CHLAMYDIA TRACHOMATIS Not detected [facility] ERMB, C; MEFA 14.838 Abnormal [facility] Healthcare ERMB, C; MEFA Detected Abnormal [facility] Healthcare GARDNERELLA VAGINALIS 20.804 Abnormal [facility] GARDNERELLA VAGINALIS Detected Abnormal [facility] Interpretation and review of laboratory results [...] [facility] MAMM SCREENING BILATERAL W C external grinder tool 10-07-2024 MAMM SCREENING BILATERAL W CAD MAMM SCREENING BILATERAL W CAD ERIC JACKSON SWAIN 1975 [id number] EXAM: MAMM SCREENING BILATERAL W CAD, 10/05/2024 [...] AM 1 c MOLEC BR IMG Normal [facility] Urinalysis macro (dipstick) panel (U)on 10-07-2024 Bilirubin, UA Negative Negative - 4(70) +++ mg/dL [facility] Blood, UA Negative Negative - 50 Kalyan/mcL [facility] Clarity, UA Clear [facility] Color, UA Yellow [facility] Glucose, UA Negative Negative - 2000(110) ++++ mg/dL [facility] Interpretation and review of laboratory results Abnormal [facility] Ketones, UA Negative Negative - 160(16) ++++ mg/dL [facility] Leukocytes, UA Negative Negative - 500+++ Maria Elena/mcL [facility] Nitrite, UA Negative Negative - Positive [facility] pH, UA 5.5 5 - 9 [facility] Protein, UA Trace Negative - 1999(20) ++++ mg/dL [facility] Spec Grav, UA 1.03 1 - 1.03 [facility] Urobilinogen, UA 1.0 0.2 - 12 mg/dL [facility] DEXA SCAN CENTRAL SKELETALon 02-03-2024 DEXA SCAN [...] Cardenas MD on 02/03/2024 1:10 PM Normal [facility] COMPREHENSIVE METABOLIC PANE Ulices 01-25-2024 Albumin [Mass/Vol] 4.2 g/dL Normal 3.2-5.[address] [facility] Comment on above: Performed By: #### 2 4331-1, CMP #### [facility] ([id number]) [address] [place] [address] ALP [Catalytic activity/Vol] 49 U/L Normal 39-130 [facility] Comment on above: Performed By: #### 2 4331-1, CMP #### [facility] ([id number]) [address] [place] [address] ALT [Catalytic activity/Vol] 11 U/L Normal 0-31 [facility] [facility] Comment on above: Performed By: #### 2 4331-1, CMP #### [facility] ([id number]) [address], [address] [place] [address] Anion gap [Moles/Vol] 9 mmol/L Normal 5-15 [facility] Comment on above: Performed By: #### 2 4331-1, CMP #### [facility] ([id number]) [address], [address] [place] [address] AST [Catalytic activity/Vol] 17 U/L Normal 0-41 [facility] Comment on above: Performed By: #### 2 4331-1, CMP #### [facility] ([id number]) [address], [address] [place] [address] Bilirubin [Mass/Vol] 0.6 mg/dL Normal 0.3-1.2 [facility] Comment on above: Performed By: #### 2 4331-1, CMP #### [facility] ([id number]) [address], [address] [place] [address] Calcium [Mass/Vol] 9.5 mg/dL Normal 8.5-10.[address] [facility] Comment on above: Performed By: #### 2 4331-1, CMP #### [facility] ([id number]) [address], [address] [place] [address] Chloride [Moles/Vol] 104 mmol/L Normal 98-109 [facility] Comment on above: Performed By: #### 2 4331-1, CMP #### [facility] ([id number]) [address], [address] [place] [address] CO2 [Moles/Vol] 26 mmol/L Normal 22-32 [facility] Comment on above: Performed By: #### 2 4331-1, CMP #### [facility] ([id number]) [address], [address] [place] [address] Creatinine [Mass/Vol] 0.66 mg/dL Normal 0.40-1.00 [facility] Comment on above: Result Comment: METH OD TRACEABLE TO IDMS STANDARD Performed By: #### 2 4331-1, CMP #### [facility] ([id number]) [address], [address] [place] [address] eGFR (CKD-EPI) NON-RACE DEPENDENT >90 Normal >59 [facility] Comment on above: Result Comment: Reported eGFR is based on the CKD-EPI 2020 equation that does not use a race coefficient. Performed By: #### 2 4331-1, CMP #### [facility] ([id number]) [address], [address] [place] [address] Glucose [Mass/Vol] 86 mg/dL Normal 65-[address] [facility] Comment on above: Performed By: #### 2 4331-1, CMP #### [facility] ([id number]) [address], [address] [place] [address] Potassium [Moles/Vol] 4.2 mmol/L Normal 3.5-5.0 [facility] Comment on above: Performed By: #### 2 4331-1, CMP #### [facility] ([id number]) [address], [address] [place] [address] Protein [Mass/Vol] 7.5 g/dL Normal 6.0-8.[address] [facility] Comment on above: Performed By: #### 2 4331-1, CMP #### [facility] ([id number]) [address], [address] [place] [address] Sodium [Moles/Vol] 139 mmol/L Normal 134-[address] [facility] Comment on above: Performed By: #### 2 4331-1, CMP #### [facility] ([id number]) [address], [address] [place] [address] Urea nitrogen [Mass/Vol] 8 mg/dL Normal 5-23 [facility] Comment on above: Performed By: #### 2 4331-1, CMP #### [facility] ([id number]) [address], [address] [place] [address] Lipid 1996 panelon 4 Cholesterol [Mass/Vol] 202 mg/dL High 150-200 [facility] Comment on above: Performed By: #### 2 4331-1, CMP #### [facility] ([id number]) [address], [address] [place] [address] Cholesterol in HDL [Mass/Vol] 68 mg/dL Normal >39 [facility] Comment on above: Result Comment: HDL <40 mg/dL - High Risk HDL > or = 40mg/dL- Desirable HDL >60 mg/dL - Negative Risk Performed By: #### 2 4331-1, CMP #### [facility] ([id number]) [address], [address] [place] [address] Cholesterol in LDL [Mass/Vol] 125 mg/dL Normal <130 [facility] Comment on above: Result Comment: LDL <100 mg/dL - Desirable LDL >160 mg/dL - High Risk Performed By: #### 2 4331-1, CMP #### [facility] ([id number]) [address], [address] [place] [address] Cholesterol in VLDL [Mass/Vol] 9 mg/dL Normal 0-30 [facility] Comment on above: Performed By: #### 2 4331-1, CMP #### [facility] ([id number]) [address], [address] [place] [address] CHOLESTEROL:HDL 3.0 Normal 1.0-5.0 [facility] Comment on above: Performed By: #### 2 4331-1, CMP #### [facility] ([id number]) [address], [address] [place] [address] Triglyceride [Mass/Vol] 46 mg/dL Normal 27-150 [facility] Comment on above: Performed By: #### 2 4331-1, CMP #### [facility] ([id number]) [address], [address] [place] [address] Cytology Cervical or vaginal smear or scraping studyOrdered By: Heather Cotto on 10-23-2023 [facility] PAP ACOG PANEL 2: 30 to 65on 10-30-2019 Age Gdln ACOG Testing 30-[address] [facility] Comment on above: Performed By: #### C BC #### [facility] [address] [place] [address] Gomezvishal Brown DIAGNOSIS: Comment Normal [facility] Comment on above: Result Comment: NEGA TIVE FOR INTRAEPITHELIAL LESION OR MALIGNANCY. Performed at: WB Performed By: #### C BC #### [facility] [address] [place] [address] Gomez Brown HPV Aptima Negative Normal Negative [facility] Comment on above: Result Comment: This test was developed and its performance characteristics determined by [facility]. It has not been cleared or approved by the Food and Drug Administration. This nucleic acid amplification test detects fourteen high-risk HPV types (16,18,31,33,35,39,45,51,52,56,58,59,66,68) without differentiation. Performed at: =G Performed By: #### C BC #### [facility] [address] [place] [address] Gomez Brown Methodology: Comment Normal [facility] Comment on above: Result Comment: This liquid based SurePath(R) pap test was screened with the assistance of an image guided system. Performed at: WB Performed By: #### C BC #### [facility] [address] [place] [address] Gomez Brown Note: Comment Normal [facility] Comment on above: Result Comment: The [...] By: #### C BC #### [facility] [address] [place] [address] Gomez Brown Performed by: Comment Normal [facility] Comment on above: Result Comment: Dakota Baltazar, Metal Finisher (ASCP) Performed at: WB Performed By: #### C BC #### [facility] [address] [place] [address] Gomez Brown Specimen adequacy: Comment Normal [facility] Comment on above: Result Comment: Sati sfactory for evaluation. Endocervical and/or squamous metaplastic cells (endocervical component) are present. Performed at: WB Performed By: #### C BC #### [facility] [address] [place] [address] Gomez Brown . . Normal [facility] Comment on above: Result Comment: Perf ormed at: WB Performed By: #### C BC #### [facility] [address] [place] [address] Gomez Brown HEPATITIS PANEL, ACUTEon HBsAg Screen Negative Normal Negative [facility] Comment on above: Performed By: #### H EPACUT #### [facility] [address] [place] [address] Gomez Brown Hep A Ab, IgM Negative Normal Negative [facility] Comment on above: Performed By: #### H EPACUT #### [facility] [address] [place] [address] Gomez Brown Hep B Core Ab, IgM Negative Normal Negative [facility] Comment on above: Performed By: #### H EPACUT #### [facility] [address] [place] [address] Gomez Brown Hep C Virus Ab <0.1 Normal 0.0-0.9 [facility] Comment on above: Result Comment: Nega tive: < 0.8 Indeterminate: 0.8 - 0.9 Positive: > 0.9 . The CDC recommends that a positive HCV antibody result be followed up with a HCV Nucleic Acid Amplification test (034892). Performed By: #### H EPACUT #### [facility] [address] [place] [address] Gomez Brown HIV 1 AND 2 WITH REFLEXon HIV Screen 4th Generation wRfx Non Reactive Normal Non Reactive [facility] Comment on above: Performed By: #### H IV12 #### [facility] [address] [place] [address] Gomez Brown RPR QUANTon 10-24-2019 Rapid Plasma Reagin, Quant Non Reactive Normal NonRea<1:[address] [facility] Comment on above: Performed By: #### C BC #### [facility] [address] [place], [place] [id number] Gomez Stephanie BUNon 12-04-2018 Urea nitrogen [Mass/Vol] 5.0 mg/dL Critically low 7.0-17.[address] [facility] Comment on above: Performed By: #### B ALVARADO MARTINEZ #### [facility] [address] [place], [place] [id number] Gomez Stephanie CBC AUTO DIFFon 12-04-2018 Basophils (Bld) [#/Vol] 0.0 103/ul Normal 0.0-0.1 [facility] Comment on above: Performed By: #### C BC #### [facility] [address] [place], [place] [id number] Gomez Stephanie Basophils/100 WBC (Bld) 0.2 % Normal 0.2-2.0 [facility] Comment on above: Performed By: #### C BC #### [facility] [address] [place] [address] Gomez Stephanie Eosinophils (Bld) [#/Vol] 0.0 103/ul Normal 0.0-0.[address] [facility] Comment on above: Performed By: #### C BC #### [facility] [address] [place] [address] Gomez Stephanie Eosinophils/100 WBC (Bld) 0.1 % Critically low 0.9-7.[address] [facility] Comment on above: Performed By: #### C BC #### [facility] [address] [place] [address] Gomez Stephanie Erythrocyte distribution width (RBC) [Ratio] 12.1 % Normal 11.0-15.[address] [facility] Comment on above: Performed By: #### C BC #### [facility] [address] [place], [place] [id number] Gomez Stephanie Hematocrit (Bld) [Volume fraction] 29.4 % Critically low 36.0-48.[address] [facility] Comment on above: Performed By: #### C BC #### [facility] [address] [place], [place] [id number] Gomez Stephanie Hemoglobin (Bld) [Mass/Vol] 9.5 g/dL Critically low 12.0-16.[address] [facility] Comment on above: Result Comment: FLUI DS GIVEN Performed By: #### C BC #### [facility] [address] [place] [address] Gomez Stephanie IG # 0.05 10e3/ul Critically high 0.00-0.03 [facility] Comment on above: Performed By: #### C BC #### [facility] [address] [place] [address] Gomez Stephanie IG % 0.4 % Normal 0.0-0.[address] [facility] Comment on above: Performed By: #### C BC #### [facility] [address] [place] [address] Gomez Stephanie Lymphocytes (Bld) [#/Vol] 1.1 103/ul Critically low 1.2-3.[address] [facility] Comment on above: Performed By: #### C BC #### [facility] [address] [place] [address] Gomez Stephanie Lymphocytes/100 WBC (Bld) 9.5 % Critically low 20.5-60.[address] [facility] Comment on above: Performed By: #### C BC #### [facility] [address] [place] [address] Gomezvishal Brown MANUAL DIFF REQ NO Normal [facility] Comment on above: Performed By: #### C BC #### [facility] [address] [place] [address] Gomez Stephanie MCH (RBC) [Entitic mass] 29.7 pg Normal 26.7-34.[address] [facility] Comment on above: Performed By: #### C BC #### [facility] [address] [place], [place] [id number] Gomez Stephanie MCHC (RBC) [Mass/Vol] 32.3 g/dL Normal 29.9-35.2 [facility] Comment on above: Performed By: #### C BC #### [facility] [address] [place] [address] Gomez Stephanie MCV (RBC) [Entitic vol] 91.9 fL Normal 81.0-99.0 [facility] Comment on above: Performed By: #### C BC #### [facility] [address] [place], [place] [id number] Gomez Stephanie Monocytes (Bld) [#/Vol] 1.5 103/ul Critically high 0.3-0.[address] [facility] Comment on above: Performed By: #### C BC #### [facility] [address] [place], [place] [id number] Gomez Stephanie Monocytes/100 WBC (Bld) 12.9 % Critically high 1.7-12. [address] [facility] Comment on above: Performed By: #### C BC #### [facility] [address] [place] [address] Gomez Stephanie Neutrophils (Bld) [#/Vol] 9.0 103/ul Critically high 1.4-6.[address] [facility] Comment on above: Performed By: #### C BC #### [facility] [address] [place] [address] Gomez Stephanie Neutrophils/100 WBC (Bld) 76.9 % Critically high 43.0-75.[address] [facility] Comment on above: Performed By: #### C BC #### [facility] [address] [place] [address] Gomez Stephanie Platelet mean volume (Bld) [Entitic vol] 11.4 fL Normal 9.5-13.[address] [facility] Comment on above: Performed By: #### C BC #### [facility] [address] [place], [place] [phone] Gomez Stephanie Platelets (Bld) [#/Vol] 221 103/ul Normal 150-450 [facility] Comment on above: Performed By: #### C BC #### [facility] [address] [place], [place] [phone] Gomez Stephanie RBC (Bld) [#/Vol] 3.20 106/ul Critically low 4.20-5.40 [facility] Comment on above: Performed By: #### C BC #### [facility] [address] [place], [place] [address] Gomez Stephanie WBC (Bld) [#/Vol] 11.7 103/ul Critically high 4.0-11.0 [facility] Comment on above: Performed By: #### C BC #### [facility] [address] [place], [place] [phone] Gomez Stephanie CREATININEon 12-04-2018 Creatinine [Mass/Vol] mg/dL Normal >=[address] [facility] Comment on above: Performed By: #### B JUAN, CREKatie #### [facility] [address] [place], [place] [phone] Gomez Stephanie Creatinine [Mass/Vol] 0.72 mg/dL Normal 0.52-1.[address] [facility] Comment on above: Performed By: #### B JUAN CREKatie #### [facility] [address] [place] [address] Gomez Stephanie CBC AUTO DIFFon 12-03-2018 Basophils (Bld) [#/Vol] 0.1 103/ul Normal 0.0-0.1 [facility] Comment on above: Performed By: #### C BC #### [facility] [address] [place], [place] [phone] Gomez Stephanie Basophils/100 WBC (Bld) 0.7 % Normal 0.2-2.0 [facility] Comment on above: Performed By: #### C BC #### [facility] [address] [place], [place] [phone] Gomez Stephanie Eosinophils (Bld) [#/Vol] 0.2 103/ul Normal 0.0-0.[address] [facility] Comment on above: Performed By: #### C BC #### [facility] [address] [place], [place] [phone] Gomez Stephanie Eosinophils/100 WBC (Bld) 2.4 % Normal 0.9-7.[address] [facility] Comment on above: Performed By: #### C BC #### [facility] [address] [place], [place] [phone] Gomez Stephanie Erythrocyte distribution width (RBC) [Ratio] 12.2 % Normal 11.0-15.[address] [facility] Comment on above: Performed By: #### C BC #### [facility] [address] [place], [place] [address] Gomez Stephanie Hematocrit (Bld) [Volume fraction] 36.9 % Normal 36.0-48.[address] [facility] Comment on above: Performed By: #### C BC #### [facility] [address] [id number] Gomez Stephanie Hemoglobin (Bld) [Mass/Vol] 11.9 g/dL Critically low 12.0-16.[address] [facility] Comment on above: Performed By: #### C BC #### [facility] [address] [id number] Gomez Stephanie IG # 0.02 10e3/ul Normal 0.00-0.[address] [facility] Comment on above: Performed By: #### C BC #### [facility] [address] [id number] Gomez Stephanie IG % 0.2 % Normal 0.0-0.[address] [facility] Comment on above: Performed By: #### C BC #### [facility] [address] [place], [place] [address] Gomez Stephanie Lymphocytes (Bld) [#/Vol] 1.8 103/ul Normal 1.2-3.[address] [facility] Comment on above: Performed By: #### C BC #### [facility] [address] [id number] Gomez Stephanie Lymphocytes/100 WBC (Bld) 19.3 % Critically low 20.5-60.[address] [facility] Comment on above: Performed By: #### C BC #### [facility] [address] [place], [place] [address] Gomezvishal Kincaiden MANUAL DIFF REQ NO Normal [facility] Comment on above: Performed By: #### C BC #### [facility] [address] [place] [address] Gomez Kincaiden MCH (RBC) [Entitic mass] 29.9 pg Normal 26.7-34.[address] [facility] Comment on above: Performed By: #### C BC #### [facility] [address] [place], [place] [address] Gomez Stephanie MCHC (RBC) [Mass/Vol] 32.2 g/dL Normal 29.9-35.[address] [facility] Comment on above: Performed By: #### C BC #### [facility] [address] [place], [place] [address] Gomez Stephanie MCV (RBC) [Entitic vol] 92.7 fL Normal 81.0-99.0 [facility] Comment on above: Performed By: #### C BC #### [facility] [address] [place] [address] Gomez Stephanie Monocytes (Bld) [#/Vol] 0.9 103/ul Critically high 0.3-0.[address] [facility] Comment on above: Performed By: #### C BC #### [facility] [address] [place] [address] Gomez Stephanie Monocytes/100 WBC (Bld) 9.5 % Normal 1.7-12.0 [facility] Comment on above: Performed By: #### C BC #### [facility] [address] [place] [address] Gomez Stephanie Neutrophils (Bld) [#/Vol] 6.4 103/ul Normal 1.4-6.[address] [facility] Comment on above: Performed By: #### C BC #### [facility] [address] [place] [address] Gomez Stephanie Neutrophils/100 WBC (Bld) 67.9 % Normal 43.0-75.[address] [facility] Comment on above: Performed By: #### C BC #### [facility] [address] [place] [address] Gomez Stephanie Platelet mean volume (Bld) [Entitic vol] 10.8 fL Normal 9.5-13.[address] [facility] Comment on above: Performed By: #### C BC #### [facility] [address] [place] [address] Gomez Stephanie Platelets (Bld) [#/Vol] 262 103/ul Normal 150-450 [facility] Comment on above: Performed By: #### C BC #### [facility] [address] [place], [place] [address] Gomez Brown RBC (Bld) [#/Vol] 3.98 106/ul Critically low 4.20-5.40 [facility] e [facility] Comment on above: Performed By: #### C BC #### [facility] [address] [place], [place] [address] Gomez Brown WBC (Bld) [#/Vol] 9.4 103/ul Normal 4.0-11.0 [facility] Comment on above: Performed By: #### C BC #### [facility] [address] [place], [place] [address] Gomez Brown PREG QUANT HCGon 12-03-2018 HCG QUANT <1.[address] [facility] Comment on above: Performed By: #### P REGQNT #### [facility] [address] [id number] Gomez Brown HCG RANGE SEE BELOW Normal [facility] Comment on above: Result Comment: 5-50 0-1 WEEK 40-300 1-2 WEEKS 100-1,000 2-3 WEEKS 500-6,000 3-4 WEEKS 5,000-200,000 1-2 MONTHS 10,000-100,000 2-3 MONTHS 3,000-50,000 2ND TRIMESTER 1,000-50,000 3RD TRIMESTER Performed By: #### P REGQNT #### [facility] [address] [id number] Gomez Brown TYPE AND SCREENon 12-01-2018 TYPE AND SCREEN Negative Normal [facility] Comment on above: Performed By: #### T NS #### [facility] [address] [place], [place] [address] Gomez Brown Vital Signs Date Time Vital Sign Value Performing Clinician Facility 12-02-2024 15:43-0400 Body mass index (BMI) [Ratio] 34.28 kg/m2 Link Lidia DO Work Phone: [facility] 12-02-2024 15:43-0400 Body weight [address] [facility] Lidia DO Work Phone: [facility] 12-02-2024 15:43-0400 Diastolic blood pressure 98 mm[Hg] Link Lidia DO Work Phone: [facility] 12-02-2024 15:43-0400 Systolic blood pressure 128 mm[Hg] Link Lidia DO Work Phone: [facility] 11-26-2024 15:31-0400 Body mass index (BMI) [Ratio] 34.2 kg/m2 Zeina Sanz PA Work Phone: [facility] 11-26-2024 15:31-0400 Body weight 84.82 kg Zeina Sanz PA Work Phone: [facility] 11-26-2024 15:31-0400 Diastolic blood pressure 78 mm[Hg] Zeina Sanz PA Work Phone: [facility] 11-26-2024 15:31-0400 Systolic blood pressure 124 mm[Hg] Zeina Sanz PA Work Phone: [facility] 02-06-2024 15:50-0400 Body height 149.9 cm Jez Rosa EMERGENCY MANAGEMENT CONSULTANT-REIMBURSEMENT COUNSELOR Work Phone: [facility] 02-06-2024 15:50-0400 Body mass index (BMI) [Ratio] 37.24 kg/m2 Jez Rosa EMERGENCY MANAGEMENT CONSULTANT-REIMBURSEMENT COUNSELOR Work Phone: [facility] 02-06-2024 15:50-0400 Body temperature 98.01 [degF] Jez Rosa EMERGENCY MANAGEMENT CONSULTANT-REIMBURSEMENT COUNSELOR Work Phone: [facility] 02-06-2024 15:50-0400 Body weight 83.64 kg Jez Rosa EMERGENCY MANAGEMENT CONSULTANT-REIMBURSEMENT COUNSELOR Work Phone: [facility] 02-06-2024 15:50-0400 Diastolic blood pressure 78 mm[Hg] Jez Rosa EMERGENCY MANAGEMENT CONSULTANT-REIMBURSEMENT COUNSELOR Work Phone: [facility] 02-06-2024 15:50-0400 Heart rate 73 /min Jez Rosa EMERGENCY MANAGEMENT CONSULTANT-REIMBURSEMENT COUNSELOR [facility] 02-06-2024 15:50-0400 SaO2% (BldA) [Mass fraction] 95 % Jez Lee APRN-REIMBURSEMENT COUNSELOR [facility] Phone[facility] 02-06-2024 15:50-0400 Systolic blood pressure 140 mm[Hg] Jez Lee EMERGENCY MANAGEMENT CONSULTANT-REIMBURSEMENT COUNSELOR Work Phone: [facility] [employer] 07-03-2023 15:05-0500 Body height 149.9 cm Jez Lee EMERGENCY MANAGEMENT CONSULTANT-REIMBURSEMENT COUNSELOR Work Phone: [facility] 07-03-2023 15:05-0500 Body mass index (BMI) [Ratio] 37.24 kg/m2 Jez Lee APRN-REIMBURSEMENT COUNSELOR Work Phone: [facility] 07-03-2023 15:05-0500 Body temperature 98.49 [degF] Jez Lee EMERGENCY MANAGEMENT CONSULTANT-REIMBURSEMENT COUNSELOR Work Phone: [facility] [employer] 07-03-2023 15:05-0500 Body weight 83.64 kg Jez Lee EMERGENCY MANAGEMENT CONSULTANT-REIMBURSEMENT COUNSELOR Work Phone: [facility] 07-03-2023 15:05-0500 Diastolic blood pressure 80 mm[Hg] Jez Lee APRN-REIMBURSEMENT COUNSELOR Work Phone: [facility] 07-03-2023 15:05-0500 Heart rate 78 /min Jez Lee APRN-REIMBURSEMENT COUNSELOR Work Phone: [facility] [employer] 07-03-2023 15:05-0500 SaO2% (BldA) [Mass fraction] 97 % Jez Lee APRN-REIMBURSEMENT COUNSELOR Work Phone: [facility] 07-03-2023 15:05-0500 Systolic blood pressure 130 mm[Hg] Jez Lee EMERGENCY MANAGEMENT CONSULTANT-REIMBURSEMENT COUNSELOR Work Phone: [facility] En[facility]ters Encounter Date Encounter Type Care Provider Facility Start: 12-02-2024 End: 12-02-2024 Office outpatient visit 15 minutes Link Lidia DO Work Phone: [facility] Comment on above: Pre-op examination; Dyspareunia in female; Pelvic pain; Cyst of ovary, unspecified laterality Start: 12-02-2024 End: 12-02-2024 ambulatory LINK LIDIA Not Available Start: 12-02-2024 End: 12-02-2024 Preprocedural examination done Link Lidia DO Work Phone: [facility] Start: 11-26-2024 End: 11-26-2024 ambulatory ZEINA SANZ Not Available Start: 11-26-2024 End: 11-26-2024 Patient encounter procedure Zeina YE Work Phone: [facility] Start: 11-26-2024 End: 11-26-2024 Periodic preventive med est patient 40-64yrs Zeina YE Work Phone: [facility] Comment on above: Well woman exam with routine gynecological exam; H/O: hysterectomy Start: 11-26-2024 End: 11-26-2024 Bamboo flowsheet Zeina YE Work Phone: [facility] Start: 11-26-2024 End: 12-01-2024 Bamboo flowsheet Zeina YE Work Phone: [facility] Start: 11-26-2024 End: 12-01-2024 Clinisync Result Encounter Zeina YE Work Phone: [facility] Unsolicited Start: 11-13-2024 End: 11-13-2024 Clinisync Result Encounter Link Lidia DO Work Phone: [facility] Start: 11-13-2024 End: 11-13-2024 Clinisync Result Encounter Link Lidia DO Work Phone: [facility] Start: 10-17-2024 End: 10-17-2024 External Result Encounter Link Lidia DO Work Phone: [facility] Start: 10-17-2024 End: 10-17-2024 External Result Encounter Link Lidia DO Work Phone: [facility] Unsolic[facility] Start: 10-17-2024 ambulatory LINK DAVISO [facility] Start: 10-07-2024 End: 10-07-2024 Office outpatient visit 15 minutes Link Lidia DO Work Phone: [facility] Comment on above: Pelvic pain in femal e; Dyspareunia in female; Yeast infection; Hormone imbalance; Fatigue, unspecified type Start: 10-07-2024 End: 10-07-2024 ambulatory LINK LIDIA Not Available Start: 10-07-2024 End: 10-07-2024 Bamboo flowsheet Link Lidia DO Work Phone: [facility] Start: 10-07-2024 End: 10-10-2024 Bamboo flowsheet Link Lidia DO Work Phone: [facility] Start: 10-07-2024 End: 10-10-2024 External Result Encounter Link Lidia DO Work Phone: [facility] Unsolicited Start: 10-05-2024 End: 10-05-2024 ambulatory JEZ LEE [facility] Start: 09-04-2024 End: 09-04-2024 Orders Only Jez Lee EMERGENCY MANAGEMENT CONSULTANT-REIMBURSEMENT COUNSELOR Work Phone: [facility] Comment on above: Encounter for screen ing mammogram for malignant neoplasm of breast (Primary Dx) Start: 08-21-2024 End: 08-21-2024 Refill Jez Lee EMERGENCY MANAGEMENT CONSULTANT-REIMBURSEMENT COUNSELOR Work Phone: [facility] Comment on above: Primary hypertension ; Essential hypertension Start: 02-08-2024 End: 02-13-2024 Refill [facility] Comment on above: Primary hypertension ; Essential hypertension Start: 02-06-2024 End: 02-06-2024 Patient encounter status Jez Lee EMERGENCY MANAGEMENT CONSULTANT-REIMBURSEMENT COUNSELOR Work Phone: [employer] Work Phone: Start: 02-06-2024 End: 02-06-2024 Periodic preventive med est patient 40-64yrs Jez Lee EMERGENCY MANAGEMENT CONSULTANT-REIMBURSEMENT COUNSELOR [facility] Comment on above: Wellness examination (Primary Dx); Mild intermittent asthma without complication; Primary hypertension; Influenza vaccination administered at current visit; Atopic dermatitis, unspecified type; Need for shingles vaccine; Class 2 severe obesity due to excess calories with serious comorbidity and body mass index (BMI) of 37.0 to 37.9 in adult ([facility] Start: 02-06-2024 End: 02-06-2024 ambulatory [facility] Start: 02-03-2024 End: 02-03-2024 ambulatory [facility] Start: 01-25-2024 End: 01-25-2024 ambulatory [facility] Start: 01-25-2024 Encounter for genera l adult medical examination without abnormal findings [facility] Start: 01-23-2024 End: 01-23-2024 Orders Only Jez Lee EMERGENCY MANAGEMENT CONSULTANT-REIMBURSEMENT COUNSELOR Work Phone: [facility] Comment on above: Wellness examination (Primary Dx) Start: 01-23-2024 End: 01-23-2024 Patient encounter status Jez Lee EMERGENCY MANAGEMENT CONSULTANT-REIMBURSEMENT COUNSELOR Work Phone: [employer] Work Phone: Start: 07-30-2023 Telephone encounter Shawn Ulloa EMERGENCY MANAGEMENT CONSULTANT-REIMBURSEMENT COUNSELOR Work Phone: [facility] Start: 07-15-2023 Refill Carlos Alberto Rodriguez MD Work Phone: [facility] Comment on above: Primary hypertension ; Essential hypertension Start: 07-03-2023 End: 07-03-2023 ambulatory [facility] Start: 07-03-2023 Encounter for genera l adult medical examination without abnormal findings [facility] Start: 07-03-2023 End: 07-03-2023 Office outpatient new 30 minutes Jez Lee EMERGENCY MANAGEMENT CONSULTANT-REIMBURSEMENT COUNSELOR Work Phone: [facility] Comment on above: Encounter for medica l examination to establish care (Primary Dx); Encounter for screening mammogram for malignant neoplasm of breast; Primary hypertension; Bronchitis; Acute non-recurrent maxillary sinusitis Start: 07-03-2023 End: 07-03-2023 Patient encounter status Jez Keysha [facility] EMERGENCY MANAGEMENT CONSULTANT-REIMBURSEMENT COUNSELOR Work Phone: [employer] Work Phone: Start: 10-22-2019 End: 10-22-2019 Patient encounter procedure CAMILA KARJOE Facility:[facility] Start: 10-22-2019 End: 10-23-2019 Patient encounter procedure CAMILA KINCAIDJOE Facility:[facility] Start: 12-05-2018 Encounter for preprocedural laboratory examination LINK [facility] Start: 12-03-2018 End: 12-04-2018 Evaluation and management of inpatient LINK MURILLO Facility:[facility] Start: 12-01-2018 End: 12-02-2018 Patient encounter procedure LINK DAVISO Facility:[facility] Start: 11-28-2018 Encounter for other preprocedural examination [facility] Start: 11-19-2018 Patient encounter procedure LINK DAVISO Facility:[facility] Start: 11-17-2018 End: 11-18-2018 Patient encounter procedure LINK CABRERAZIO Facility:[facility] Encounter for other preprocedural examination [facility] Encounter for preprocedural laboratory examination LINK [facility] Procedures Date Procedure Procedure Detail Performing Clinician Start: 11-26-2024 IGP,APTIMA HPV,AGE GDLN Zeina YE Work Phone: Start: 11-26-2024 Microscopic observat ion [Identifier] in Cervix by Cyto stain Link Lidia DO Work Phone: Start: 11-13-2024 US PELVIS W/ TRANSVAGINAL Link Lidia DO Work Phone: Start: 10-17-2024 Complete blood count with white cell differential, automated Link Lidia DO Work Phone: Start: 10-07-2024 RECURRENT VAGINITIS (HTRX) Link Lidia DO Work Phone: Start: 10-07-2024 Urnls dip stick/tabl et rgnt non-auto w/o micrscp Link Lidia DO Work Phone: Start: 10-05-2024 Mammography Link Fa o DO Work Phone: Start: 02-06-2024 Adult depression scr eening assessment Jezjerome Lee EMERGENCY MANAGEMENT CONSULTANTHone and Strop Work Phone: Start: 10-23-2023 Microscopic observat ion [Identifier] in Cervix by Cyto stain Zeina YE Work Phone: Start: 10-23-2023 Cytp cerv/vag auto t hin layer prep [facility] Work [facility]: Start: 07-25-2023 Mammography Shawn Weisss EMERGENCY MANAGEMENT CONSULTANTHone and Strop Work Phone: Start: 07-03-2023 Adult depression scr eening assessment Jez Lee EMERGENCY MANAGEMENT CONSULTANTHone and Strop Work Phone: Start: 12-07-2022 Colonoscopy Jez Herrera ch EMERGENCY MANAGEMENT CONSULTANTHone and Strop Work Phone: Start: 12-06-2022 Microscopic observat ion [Identifier] in Cervix [facility]to [facility] Work Phone: Start: 07-12-2022 Mammography Jez Herrera ch EMERGENCY MANAGEMENT CONSULTANTHone and Strop Work Phone: Start: 12-03-2018 Removal of Intralumi nal Device from Ureter, Via Natural or Artificial Opening [facility] Start: 12-03-2018 Resection of Bilater al Fallopian Tubes, Open Approach [facility] Start: 12-03-2018 Resection of Uterus, Open Approach LINK LIDIA Start: 12-03-2018 Dilation of Bilatera l Ureters with Intraluminal Device, Via Natural or Artificial Opening Endoscopic LINK MURILLO H/O: hysterectomy H/O: hysterectomy Zeina YE Work Phone: Plan of Treatment Date Care Activity Detail Author Start: 12-07-2032 Screening for malign ant neoplasm of colon [facility] Start: 12-07-2027 Screening for malign ant neoplasm of cervix [facility] Start: 11-27-2027 Screening for malign ant neoplasm of cervix Pap Smear [facility] Start: 10-22-2026 Screening for malign ant neoplasm of cervix Pap Smear [facility] Start: 12-06-2025 Screening for malign ant neoplasm of cervix Pap Smear [facility] Start: 10-05-2025 Screening for malign ant neoplasm of breast Mammogram [facility] Start: 02-05-2025 Adult BMI Screening Adult BMI Screen ing [facility] Start: 02-05-2025 Depression Screening Depression Scre ening [facility] Start: 02-05-2025 Tobacco Screening Tobacco Screening [facility] Start: 12-28-2024 Influenza vaccination [facility] Start: 12-23-2024 End: 12-23-2024 Patient encounter procedure 12/23/2024 3:30 PM EDT Office Visit [facility] [address] [place] [phone] Zeina aSnz PA [address] [place] [address] [facility] Start: 12-02-2024 End: 12-02-2024 Patient encounter procedure 12/02/2024 3:20 PM EDT Procedure Visit [facility] GRACIA [address] [place] [id number] Link Murillo DO [address] [place] [address] [facility] [place] [facility] Start: 11-26-2024 End: 11-26-2024 Patient encounter procedure 11/26/2024 3:00 PM EDT Office Visit [facility] [address] [place] [phone] Zeina Sanz PA [address] [place] [address] [facility] Start: 11-04-2024 End: 11-04-2024 Patient encounter procedure 11/04/2024 3:40 PM EDT Office Visit [facility] [address] [place] [address] Link Murillo, DO [address] [place], [place] [id number] [facility] Start: 11-02-2024 End: 11-02-2024 Patient encounter procedure 11/02/2024 4:00 PM EDT Office Visit [facility] [address] [place] [phone] Link Murillo, DO [address] [place] [address] [facility] Start: 10-07-2024 End: 10-07-2024 Patient encounter procedure 10/07/2024 3:50 PM EDT Office Visit [facility] [address] [place] [address] Link Murillo, DO [address] [place] [address] Arrived [facility] Comment on above: Arrived Start: 10-07-2024 End: 10-07-2025 SURESWAB(R) ADVANCED VAGINITIS PLUS, TMA SURESWAB(R) ADVANCED VAGINITIS PLUS, TMA Pathology and Cytology Routine Pelvic pain in female Expected: 10/07/2024 (Approximate), Expires: 10/07/2025 [facility] Work Phone: Comment on above: Expected: 10/07/2024 (Approximate), Expires: 10/07/2025 Start: 10-07-2024 End: 10-07-2025 US Pelvis US Pelvis w/ TV Imaging Routine Pelvic pain in female Expected: 10/07/2024, Expires: 10/07/2025 [facility] Comment on above: Expected: 10/07/2024 , Expires: 10/07/2025 Start: 09-04-2024 End: 09-04-2025 DBT Breast - bilateral screening Mammography screening bilateral with CAD Imaging Routine Encounter for screening mammogram for malignant neoplasm of breast Expected: 09/04/2024, Expires: 09/04/2025 [facility] Work Phone: Comment on above: Expected: 09/04/2024 , Expires: 09/04/2025 Start: 07-24-2024 Adult BMI Screening Adult BMI Screen ing [facility] Start: 07-24-2024 Screening for malign ant neoplasm of breast Mammogram [facility] Start: 07-02-2024 Adult BMI Screening Adult BMI Screen ing [facility] Start: 07-02-2024 Depression Screening Depression Scre ening [facility] Start: 07-02-2024 Tobacco Screening Tobacco Screening [facility] Start: 04-23-2024 End: 04-23-2024 Patient encounter procedure 04/23/2024 1:40 PM EST Office Visit [facility] [address] [place] [address] Jez Lee, EMERGENCY MANAGEMENT CONSULTANT-REIMBURSEMENT COUNSELOR [address] [place] [address] [facility] Start: 04-02-2024 Administration of varicella zoster vaccine Zoster (Shingles) Vaccine (2 of 2) [facility] Start: 02-06-2024 End: 02-06-2024 Patient encounter procedure 02/06/2024 3:40 PM EDT Office Visit [facility] [address] [place] [address] Jez Lee, EMERGENCY MANAGEMENT CONSULTANT-REIMBURSEMENT COUNSELOR [address] [place] [address] [facility] Start: 02-03-2024 End: 02-03-2024 Patient encounter procedure 02/03/2024 11:30 AM EDT Appointment [facility] - Mammography/DEXA Imaging [address] [place] [phone] [facility] - [facility]amm[facility] Start: 01-23-2024 End: 01-22-2025 Lipid 1996 panel - Serum or Plasma Lipid profile Lab Routine Wellness examination Expected: 01/23/2024 (Approximate), Expires: 01/22/2025 [facility] Work Phone: Comment on above: Expected: 01/23/2024 (Approximate), Expires: 01/22/2025 Start: 12-29-2023 COVID-19 Vaccine ( season) COVID-19 Vaccine ( season) [facility] Start: 12-29-2023 COVID-19 Vaccine ( season) COVID-19 Vaccine ( season) [facility] Start: 12-29-2023 Influenza vaccination Influenza Vacc ine [facility] Start: 07-31-2023 End: 07-31-2023 Patient encounter procedure 07/31/2023 4:00 PM EDT Office Visit [facility] [address] [place] [address] Shawn Ulloa APRN-REIMBURSEMENT COUNSELOR [address] [place] [address], [place] [address] [facility] Start: 07-13-2023 Screening for malign ant neoplasm of breast Mammogram [facility] Start: 07-03-2023 End: 07-02-2024 DBT Breast - bilateral screening Mammography screening bilateral with CAD Imaging Routine Encounter for screening mammogram for malignant neoplasm of breast Expected: 07/03/2023, Expires: 07/02/2024 [facility] Work Phone: Comment on above: Expected: 07/03/2023 , Expires: 07/02/2024 Start: 2023 Administration of varicella zoster vaccine Zoster (Shingles) Vaccine (1 of 2) [facility] Start: 01-02-2023 Adult BMI Follow Up Plan Adult BMI Follow Up Plan [facility] Start: 12-28-2022 COVID-19 Vaccine ( season) COVID-19 Vaccine ( season) [facility] Start: 1992 DTaP,Tdap and Td Vaccines (1 - Tdap) DTaP,Tdap and Td Vaccines (1 - Tdap) [facility] Start: 1991 Adult BMI Follow Up Plan Adult BMI Follow Up Plan [facility] Start: 1973 Screening for malign ant neoplasm of colon [facility] CBC W Auto Different ial panel - Blood CBC auto differential Lab Routine Hormone imbalance Fatigue, unspecified type Ordered: 10/07/2024 [facility] Comment on above: Ordered: 10/07/2024 CHLAMYDIA TRACHOMATI S (GENITO/STI) CHLAMYDIA TRACHOMATIS (GENITO/STI) Lab Routine Pelvic pain in female Ordered: 10/07/2024 [facility] Comment on above: Ordered: 10/07/2024 Cholesterol [Mass/volume] in Serum or Plasma Cholesterol, total Lab Routine Hormone imbalance Fatigue, unspecified type Ordered: 10/07/2024 [facility] Comment on above: Ordered: 10/07/2024 End: 01-22-2025 Comprehensive metabolic 2000 panel - Serum or Plasma Comprehensive metabolic panel Lab Routine Wellness examination 1 Occurrences starting 01/23/2024 until 01/22/2025 [facility] Comment on above: 1 Occurrences starti ng 01/23/2024 until 01/22/2025 Comprehensive metabo lic 2000 panel - Serum or Plasma Comprehensive metabolic panel Lab Routine Hormone imbalance Fatigue, unspecified type Ordered: 10/07/2024 [facility] Comment on above: Ordered: 10/07/2024 Hemoglobin A1c/Hemoglobin.total in Blood Hemoglobin A1c Lab Routine Yeast infection Hormone imbalance Fatigue, unspecified type Ordered: 10/07/2024 [facility] Comment on above: Ordered: 10/07/2024 Neisseria gonorrhoea e DNA [Presence] in Unspecified specimen by CHRISTINE with probe detection Neisseria gonorrhea DNA probe, direct Lab Routine Pelvic pain in female Ordered: 10/07/2024 [facility] Comment on above: Ordered: 10/07/2024 THIN PREP TIS PAP AN D HR HPV DNA THIN PREP TIS PAP AND HR HPV DNA Pathology and Cytology Routine Well woman exam with routine gynecological exam Ordered: 11/26/2024 [facility] Work Phone: Comment on above: Ordered: 11/26/2024 Thyrotropin [Units/volume] in Serum or Plasma TSH Lab Routine Hormone imbalance Fatigue, unspecified type Ordered: 10/07/2024 [facility] Comment on above: Ordered: 10/07/2024 Immunizations Immunization Date Immunization Notes Care Provider [facility] 02-06-2024 influenza, seasonal, injectable, preservative free Jez Rosa EMERGENCY MANAGEMENT CONSULTANT-REIMBURSEMENT COUNSELOR Work Phone: [facility] 02-06-2024 zoster vaccine recombinant Jez Rosa EMERGENCY MANAGEMENT CONSULTANT-REIMBURSEMENT COUNSELOR Work Phone: [facility] 02-06-2024 Immunization, In Clinic,; Translations: [Drug or medicament (substance)] Jez Rosa EMERGENCY MANAGEMENT CONSULTANT-REIMBURSEMENT COUNSELOR Work Phone: [facility] 02-06-2024 influenza virus vaccine, unspecified formulation Jez Rosa EMERGENCY MANAGEMENT CONSULTANT-REIMBURSEMENT COUNSELOR Work Phone: [facility] 02-06-2024 zoster vaccine, unspecified formulation Jez Rosa EMERGENCY MANAGEMENT CONSULTANT-REIMBURSEMENT COUNSELOR Work Phone: [facility] 01-28-2023 influenza, injectabl e, quadrivalent, preservative free Jez Rosa EMERGENCY MANAGEMENT CONSULTANT-REIMBURSEMENT COUNSELOR Work Phone: [facility] 01-28-2023 influenza virus vaccine, unspecified formulation Shawn Ulloa EMERGENCY MANAGEMENT CONSULTANT-REIMBURSEMENT COUNSELOR Work Phone: [facility] 10-08-2021 COVID-19, mRNA, LNP- S, PF, 100mcg/0.5mL Dose Jez Rosa EMERGENCY MANAGEMENT CONSULTANT-REIMBURSEMENT COUNSELOR Work Phone: [facility] 02-08-2021 influenza, injectabl e, quadrivalent, preservative free Jez Rosa EMERGENCY MANAGEMENT CONSULTANT-REIMBURSEMENT COUNSELOR Work Phone: [facility] 03-05-2020 influenza virus vaccine, unspecified formulation Jez Rosa EMERGENCY MANAGEMENT CONSULTANT-REIMBURSEMENT COUNSELOR Work Phone: [facility] 03-05-2020 influenza, injectabl e, quadrivalent, preservative free Jez Rosa EMERGENCY MANAGEMENT CONSULTANT-REIMBURSEMENT COUNSELOR Work Phone: [facility] 01-20-2018 influenza, injectabl e, quadrivalent, preservative free Jez Rosa EMERGENCY MANAGEMENT CONSULTANT-REIMBURSEMENT COUNSELOR Work Phone: [facility] 02-15-2017 Influenza, injectabl e, Madin Ellie Canine Kidney, preservative free, quadrivalent Jez Rosa EMERGENCY MANAGEMENT CONSULTANT-REIMBURSEMENT COUNSELOR Work Phone: [facility] 03-02-2014 influenza, seasonal, injectable Jez Rosa EMERGENCY MANAGEMENT CONSULTANT-REIMBURSEMENT COUNSELOR Work Phone: [facility] 02-23-2013 influenza virus vaccine, whole virus Jez Rosa EMERGENCY MANAGEMENT CONSULTANT-REIMBURSEMENT COUNSELOR Work Phone: [facility] Payers Date Payer Category Payer Managed Care Other (unspecified) [employer] Member Subscriber Plan / Payer (Effective 2022-Present) Name: Eric Swain Relation to Subscriber: Self Name: Eric Swain Payer ID: [id number] (NAIC) Type: Not on file Address: [place] [id number] 2022 Private Health Insurance [id number] 2022 Unknown [id number] 1973 Unknown [id number] [id number]. 2.593 1973 Unknown [id number] 2.16.840.1.682117.3.579. 2.593 1973 Unknown [id number] 2.16.840.1.476262.3.579. 2.593 1973 Unknown [id number] 2.16.840.1.511109.3.579. 2.593 1973 Unknown [id number] 2.16.840.1.460579.3.579. 2.593 1973 Unknown [id number] 2.16.840.1.775729.3.579. 2.593 1973 Unknown [id number] 2.16.840.1.856266.3.579. 2.1286 1973 Unknown [id number] 2.16.840.1.253183.3.579. 2.1286 1973 Unknown [id number] 2.16.840.1.228628.3.579. 2.1286 1973 Unknown [id number] 2.16.840.1.692202.3.579. 2.1286 1973 Unknown [id number] 2.16.840.1.121669.3.579. 2.1286 1973 Unknown [id number] 2.16.840.1.507552.3.579. 2.1286 1973 Unknown [id number] 2.16.840.1.082352.3.579. 2.1259 1973 Unknown [id number] [id number]. 2.1259 1973 Unknown [id number] [id number]. 2.1259 1959 Unknown [id number] Social History Date Type Detail Facility Start: 03-29-2022 Tobacco smoking status NHIS Never smoked tobacco [facility] Start: 03-29-2022 Tobacco use and exposure Smokeless tobacco non-user [facility] Start: 07-03-2023 End: 02-06-2024 Alcohol intake Current drinker of alcohol (finding) [facility] Start: 05-11-2020 End: 07-03-2023 History of Social function [facility] Start: 05-11-2020 End: 07-03-2023 Tobacco use panel [facility] Adolescent depressio n screening assessment 0 [facility] Start: 10-21-2018 Alcohol Comment occasionally [facility] Start: 1975 Sex Assigned At Not on file [facility] Start: 12-02-2014 Sex Female (finding) [facility] Start: 10-06-2022 Tobacco smoking status MTIS Tobacco smoking consumption unknown [facility] Start: 10-06-2022 End: 11-26-2024 Alcoholic beverage intake Ex-drinker (finding) [facility] Start: 10-06-2022 Alcohol Comment occasional beer, hard liquor [facility] Start: 1975 Sex assigned at Female [facility] Healthcare Start: 10-07-2022 Gender identity Identifies as female gender (finding) [facility] Healthcare Start: 10-07-2022 Sexual orientation Heterosexual (finding) [facility] Clinical Notes 07-03-2023 to 12-02-2024 Yaquelin Fermin - 12/02/2024 3:20 PM EPHRAIM Monique - 11/26/2024 3:00 PM Asher Yan LPN - 10/07/2024 3:50 PM Herminio Lee APRN-GERSON - 02/06/2024 3:40 PM EDT Note Date & Type Note Facility 12-02-2024 History of Presen t illness Narrative Reason for Appointment: Patient ID: Eric Swain is a 49 y.o. female who presents for Pre-op Visit Patient presents today for Pre Op appointment. Patient is scheduled to undergo Diagnostic Laparoscopy, possible JAYLEN, possible FOE, possible BSO on 12-16-[address] Murillo at [facility]. MEDICATIONS Current Outpatient Medications Medication Instructions aspirin 81 mg, Oral, Once dilTIAZem CD (CARDIZEM CD) 300 mg, Oral, Daily estradiol (Estrace) 0.1 MG/GM vaginal cream PLACE 2 GRAMS VAGINALLY DAILY FOR 2 WEEKS, THEN TWICE A WEEK FOLLOWING INITIAL 2 WEEKS loratadine (CLARITIN) 10 [...] nursing note reviewed. Exam conducted with a animal laboratory technician present. Vitals: Estimated body mass index [...] reviewed, and patient is to proceed to [facility] OR. Follow Up: Patient is to follow up between 1-2 weeks post operative to assess proper healing and recovery from procedure. Documented by Stephanie Yan LPN on behalf of: Link Murillo DO documented in this encounter [facility] 11-26-2024 History of Presen t illness Narrative Reason for Appointment: Patient ID: Eric Swani is a 49 y.o. female who presents for Gynecologic Exam Patient presents today for Annual Exam. MEDICATIONS Current Outpatient Medications Medication Instructions aspirin 81 mg, Oral, Once dilTIAZem CD (CARDIZEM CD) 300 mg, Oral, Daily estradiol (Estrace) 0.1 MG/GM vaginal cream PLACE 2 GRAMS VAGINALLY DAILY FOR 2 WEEKS, THEN TWICE A WEEK FOLLOWING INITIAL 2 WEEKS loratadine (CLARITIN) 10 [...] Objective: Physical Exam Constitutional: Appearance: Normal appearance. Genitourinary: Right Adnexa: not tender and no mass present. Left Adnexa: not tender and no mass present. Cervix is absent. Uterus is absent. Breasts: Breasts are soft. Right: Normal. Left: Normal. HENT: Head: Normocephalic. Nose: Nose normal. Mouth/Throat: Mouth: Mucous membranes are moist. Cardiovascular: Rate and Rhythm: Normal rate. Pulmonary: Effort: Pulmonary effort is normal. Abdominal: General: Bowel sounds are normal. Palpations: Abdomen is soft. Musculoskeletal: General: Normal range of motion. Cervical back: Normal range of motion. Neurological: General: No focal deficit present. Mental Status: She is alert. Skin: General: Skin is warm and dry. Psychiatric: Mood and Affect: Mood normal. Vitals and nursing note reviewed. Exam conducted with a animal laboratory technician present. Vitals: Estimated body mass index is 34.2 kg/m as calculated from the following: Height as of 10/08/22: 5' 2 . Weight as of 10/23/23: 187 lb. BP: No LMP recorded. Patient has had a hysterectomy. ASSESSMENT & PLAN ICD-10-CM 1. Well woman exam with routine gynecological exam Z01.419 Annual Exam: Patient presents today for an annual exam. Patient states she is doing well and has no complaints. Pap was obtained without difficulty. No orders of the defined types were placed in this encounter. Follow Up: Patient is to return in one year for annual unless needed otherwise. Documented by Mary Allan MA on behalf of: EPHRAIM Shah documented in this encounter [facility] 10-07-2024 History of Presen t illness Narrative Reason for Appointment: Patient ID: Eric Swain is a 49 y.o. female who [...] History of hysterectomy Hypercholesterolemia (CMS/HCC) Hypertension, essential (CMS/[facility]) Obesity with body mass index of 30.0-39.9 [...] nursing note reviewed. Exam conducted with a animal laboratory technician present. Vitals: Estimated body mass index [...] Link Murillo DO documented in this encounter [facility] 02-06-2024 History of Presen t illness Narrative [address] [place] [address] Patient: Eric Swain Date of : 1975 Encounter Date: [...] current visit Relevant Orders FLU VACCINE TS 2023-(6MOS UP)(PF) 45 MCG(15MCG X3)/0.5 ML IM SYRINGE (Completed) Atopic dermatitis, unspecified type Need for shingles vaccine Relevant Orders Zoster Subunit (Completed) Class 2 severe obesity due to excess calories with serious comorbidity and body mass index (BMI) of 37.0 to 37.9 in adult ([facility]) Past Medical, Family, and Social History Update: [...] 08/21/2021 Performed by Thanh Epps MD at [facility] SECTION x 2 COLONOSCOPY N/A 12/07/2022 Performed by Faith Kaufman MD at [facility] DEBRIDEMENT KNEE, CHONDROPLASTY, micro fxs Left 08/21/2021 Performed by Thanh Epps MD at [facility] DILATION AND CURETTAGE OF UTERUS 06/2018 [...] normal. Behavior: Behavior normal. Assessment and Plan: Eric was seen today for annual exam. Diagnoses [...] (BMI) of 37.0 to 37.9 in adult ([facility]) Other orders - triamcinolone (KENALOG) 0.5 % [...] APRN-CNP 02/11/24 0938 documented in this encounter [facility] 07-30-2023 Miscellaneous Notes Formattin g of this note might be different from the original. Manager Developmental making appointment reminder calls. Noticed that patient has since established care as a New Patient with Jez Lee CNP. Patient is scheduled for an appointment with Shawn Ulloa CNP, 07/31/2023. Manager Developmental leaving voicemail to contact office to confirm cancellation of tomorrows appointment with Leoncio. documented in this encounter [facility] 07-30-2023 Telephone encount er Note Manager Developmental making appointment reminder calls. Noticed that patient has since established care as a New Patient with Jez Lee CNP. Patient is scheduled for an appointment with Shawn Ulloa CNP, 07/31/2023. Manager Developmental leaving voicemail to contact office to confirm cancellation of tomorrows appointment with Leoncio. [facility] 07-03-2023 History of Presen t illness Narrative [address] [facility] [address] Patient: Eric Swain Date of : 1975 Encounter Date: 07/03/2023 History of Present Illness: The patient is a 48 y.o. female, an established patient, and is here for Chief Complaint Patient presents with new patient . HPI Patient is new, here to establish care. She previously saw Brandi Avitia. Patient is currently working for [employer]. Her history is significant for hypertension for which she takes Cardizem and she states she has had an abnormal heart beat in the past but has never seen a senior svp. Her last echo from 2021 was reviewed [...] 08/21/2021 Performed by Thanh Epps MD at [facility] SECTION x 2 COLONOSCOPY N/A 12/07/2022 Performed by Faith Kaufman MD at [facility] DEBRIDEMENT KNEE, CHONDROPLASTY, micro fxs Left 08/21/2021 Performed by Thanh Epps MD at [facility] DILATION AND CURETTAGE OF UTERUS 06/2018 [...] normal. Behavior: Behavior normal. Assessment and Plan: Eric was seen today for new patient. Diagnoses [...] APRN-CNP 07/04/23 1217 documented in this encounter [facility] System Evaluation note Diagnosis Encounter for medical examination to establish care- Primary Encounter for screening mammogram for malignant neoplasm of breast Primary hypertension Unspecified essential hypertension Bronchitis Bronchitis, not specified as acute or chronic Acute non-recurrent maxillary sinusitis [facility]* Diagnosis Primary hypertension Unspecified essential hypertension Essential hypertension Unspecified essential hypertension documented in this encounter [facility] SystemEvaluation note* Diagnosis Wellness examination- Primary Mild intermittent asthma without complication Primary hypertension Unspecified essential hypertension Influenza vaccination administered at current visit Atopic dermatitis, unspecified type Need for shingles vaccine Need for prophylactic vaccination and inoculation against varicella Class 2 severe obesity due to excess calories with serious comorbidity and body mass index (BMI) of 37.0 to 37.9 in adult ([facility]) documented in this encounter [facility] SystemEvaluation note* Diagnosis Primary hypertension Unspecified essential hypertension Essential hypertension Unspecified essential hypertension documented in this encounter [facility] SystemEvaluation note* Diagnosis Wellness examination- Primary documented in this encounter [facility] SystemEvaluation note* Diagnosis Encounter for screening mammogram for malignant neoplasm of breast- Primary documented in this encounter [facility] SystemEvaluation note* Diagnosis Pelvic pain in female Unspecified symptom associated with female genital organs Dyspareunia in female Yeast infection Hormone imbalance Fatigue, unspecified type documented in this encounter [facility] HealthcareEvaluation note* Diagnosis Well woman exam with routine gynecological exam Routine gynecological examination H/O: hysterectomy Acquired absence of both cervix and uterus documented in this encounter [facility] HealthcareEvaluation note* Diagnosis Pre-op examination Dyspareunia in female Pelvic pain Cyst of ovary, unspecified laterality documented in this encounter [facility] Healthcare[facility]ructions* Attachments The following attachments cannot be sent through Care Everywhere. * Acute bronchitis (Kazakh) * Sinusitis in adults (Kazakh) [facility] System[facility]ructionsNot on file [facility] SystemInstructionsNot on file documented in this [facility] SystemInstructions* Attachments The following attachments cannot be sent through Care Everywhere. * Fluticasone (Oral Inhalation), ADULT (Kazakh) documented in this [facility] SystemInstructionsNot on file documented in this encounterPro[facility] SystemInstructionsNot on file documented in this [facility]Pro[facility] Summary Purpose Family History No Family History Records FoundNo Family History Records FoundNo Family History Records FoundNo Family History Records Found Advance Directives No Advanced Directives Records FoundNo Advanced Directives Records FoundNo Advanced Directives Records FoundNo Advanced Directives Records Found Procedure Findings Note [facility] [place] [place] NAME: ERIC SWAIN DATE OF : MEDICAL REC#: [id number] ROUTE DELIVERY MANAGER: MELIZA DREW ADMIT DATE: 12/03/2018 06:12:00 BARREL COOPER DATE: 12/15/2018 07:00 DICTATING PHYSICIAN: LINK MURILLO DICTATION DATE: 12/14/2018 10:00 OPERATIVE NOTE OPERATION DATE: 12-03-18 ANESTHETIC:General. ASSEMBLY LINE ROBOT OPERATOR:RAHUL Sarah. PREOPERATIVE DIAGNOSIS: 1. Uterine fibroids. [...] narcotics. IF Signed and Approved by: DR LINK MURILLO (more content not included)... Hospital Course [...] Tylenol, any abdominal pain unrelieved with narcotics. IFC Signed and Approved by: DR LINK MURILLO (more content not included)... Additional Source Comments INFORMATION SOURCE (unrecogn ized section and content) DATE CREATED AUTHOR 11/18/2019 [facility] DATE CREATED AUTHOR AUTHOR'S ORGANIZ ATION [facility]20[facility] DATE CREATED AUTHOR AUTHOR'S ORGANIZ ATION 10/19/2024 [facility] DATE CREATED AUTHOR AUTHOR'S ORGANIZ ATION 12/05/[address] [facility] d[facility] Specialists EPIC Reason for Visit (unrecogniz ed section and content) Reason Comments new patient Reason Comments Med Refill Reason Comments Annual Exam Reason Comments Pelvic Pain Reason Comments Gynecologic Exam Reason Comments Pre-op Visit Care Teams (unrecognized sec tion and content) Tribal Council Member Relationship Specialty Start Date End Date Jez Lee APRN-REIMBURSEMENT COUNSELOR [address] [place] [address] PCP - General Internal Medicine 07/03/23 Tribal Council Member Relationship Specialty Start Date End Date Jez Lee APRNREIMBURSEMENT COUNSELOR [address] [place] [address] PCP - General Internal Medicine 07/03/23 Tribal Council Member Relationship Specialty Start Date End Date Jez Lee APRN-REIMBURSEMENT COUNSELOR [address] [place] [address] PCP - General Internal Medicine 07/03/23 Tribal Council Member Relationship Specialty Start Date End Date Jez Lee APRN-REIMBURSEMENT COUNSELOR [address] [place] [address] PCP - General Internal Medicine 07/03/23 Tribal Council Member Relationship Specialty Start Date End Date Jez Lee EMERGENCY MANAGEMENT CONSULTANT-REIMBURSEMENT COUNSELOR [address] [place] [address] PCP - General Internal Medicine 07/03/23 Tribal Council Member Relationship Specialty Start Date End Date Jez Lee EMERGENCY MANAGEMENT CONSULTANT-REIMBURSEMENT COUNSELOR [address] [place] [address] PCP - General Internal Medicine 07/03/23 Tribal Council Member Relationship Specialty Start Date End Date Jez Lee, CHARAN-REIMBURSEMENT COUNSELOR [address] [place] [address] PCP - General Internal Medicine 07/03/23 FOR [...] BE BASED ON THE PRIMARY CLINICAL RECORDS. [facility] [employer] [facility]. provides no warranty or guarantee of the accuracy or completeness of information in this document.
--- NOTE | 2024-12-10 10:10 | ECG_ITS ---
[facility] Test Date: 2024-12-10 Pat Name: ERIC LANDIS Department: Room: - Gender: Female [place]: : 1975 Requested By: BARI VU Order Number: [id number] Reading MD: CHARLES WILSON M.D. Measurements Intervals [place] Rate: 59 P: 45 WV: 177 QRS: 46 QRSD: 82 T: 25 QT: 386 QTc: 384 Interpretive Statements SINUS BRADYCARDIA Borderline ECG Compared to ECG 10/17/2018 08:35:38 Sinus rhythm no longer present Electronically Signed On 12-10-2024 19:31:40 EDT by CHARLES WILSON M.D.
== END 2024-12-10 09:58 | disposition home or self-care (01) ==
LOC: PST 09:58
PROVIDERS: Visit Provider Obstetrics & Gynecology
DX: Z01.810 Encounter for preprocedural cardiovascular examination (principal); N94.10 Unspecified dyspareunia; R10.2 Pelvic and perineal pain; N83.209 Unspecified ovarian cyst, unspecified side
CPT/HCPCS: 93005

== ENCOUNTER 2024-12-16 07:17 | Day surgery (SDC) | payer OTHER, SELFPAY ==
[2024-12-10 10:39] VITALS: BP 134/83; PULSE 61; TEMP 36.3; O2SAT 99; BMI 37.0
[2024-12-16] VITALS (9 sets, daily range): BP systolic 126–161; BP diastolic 83–90; PULSE 60–91; TEMP 36.1–36.7; O2SAT 98–100
--- OUTSIDE RECORDS SUMMARY | 2024-12-16 07:20 | XMS_ITS | CCD ---
Author Organization [facility] Care Team Providers Care Rib Stiffener And Heel Dipper Name Role Phone LIDIA, LINK Admitting Unavailable [...] Attending Unavailable CAMILA WHITAKER Consulting Unavailable ROSA, CHRISTINA L Attending Unavailable SHAWN ULLOA Referring Unavailable ROSA, CHRISTINA L Primary Care Unavailable ROSA, CHRISTINA L Attending Unavailable ROSA, CHRISTINA L Referring Unavailable ROSA, CHRISTINA L Primary Care Unavailable Rosa EMPLOYMENT TRAINING SPECIALIST-Christina NIETO L Primary Care Provider Rosa EMPLOYMENT TRAINING SPECIALIST-BULBS FARMWORKERChristina L Primary Care Provider Unavailable Primary Care Provider Unavailabl e ROSA, CHRISTINA L Referring Unavailable ROSA, CHRISTINA L Primary Care Unavailable LIDIA, LINK R Referring Unavailable ROSA, CHRISTINA L Primary Care Unavailable ROSA, CHRISTINA L Referring Unavailable CHRISTINA LEE Primary Care Unavailable LINK MURILLO Referring Unavailable CHRISTINA LEE Primary Care Unavailable LINK MURILLO Attending Unavailable ZEINA SANZ Attending Unavailable LINK MURILLO Attending Unavailable Medications Current Medications Medication Drug Class(es) Dates Sig (Normalized) Sig (Original) [id number] 200 actuat albuterol 0.09 mg/actuat metered dose [...] 07/10/2023 Active aspirin 81 mg chewable tablet (20 sources) Platelet Aggregation Inhibitor, Nonsteroidal Anti-inflammatory Drug [...] 07/18/2022 Active estradiol 0.1 mg/ml vaginal cream (11 sources) Estrogen Start: 11-16-2024 estradiol (Est race) [...] 12/19/2021 Active loratadine 10 mg oral tablet (20 sources) Start: 08-20-2018 take 1 tablet by [...] Problem Date Documented Date Episodic/Chronic Abdominal pain (5 sources) Pain in female pelvis; Translations: [Pelvic [...] Onset: 9 Chronic Other female genital disorders (5 sources) Pain in female genitalia on intercourse; Translations: [Unspecified dyspareunia] Onset: 5 10-07-2024 Chronic Other female genital disorders (1 source) Unspecified dyspareunia; Translations: [UNSPECIFIED DYSPAREUNIA] Onset: 9 Other nutritional; endocrine; and metabolic disorders (1 source) Severe obesity; Translations: [Class 2 severe obesity due to excess calories with serious comorbidity and body mass index (BMI) of 37.0 to 37.9 in adult [place] [place] 02-11-2024 Chronic Other screening for suspected conditions (not mental disorders or infectious disease) (9 sources) Encounter for screening for malignant neoplasm of cervix; Translations: [Encounter for screening mammogram for malignant neoplasm of breast] Onset: 0 07-03-2023 Episodic Ovarian cyst (3 sources) Cyst of ovary; Translations: [Unspecified ovarian [...] 02-06-2024 07-03-2023 Other aftercare (1 source) Other terminal carman (current) drug therapy; Translations: [OT GROUP HOME CURRENT DRUG THERAPY] Onset: 12-15-2018 Episodic Other aftercare (1 source) 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 Ordering Physician: Link Murillo D.O. Date of Service: 12/10/24 Procedure(s): ECG 12 lead Accession Number(s): [id number] cc: The [facility] Test Date: 2024-12-10 Pat Name: ERIC SWAIN Department: Room: - Gender: Female Color Television Console Monitor: : 1975 Requested By: LINK MURILLO Order Number: [id number] Reading MD: CHARLES WILSON M.D. Measurements Intervals [place] Rate: 59 P: 45 LA: 177 QRS: 46 QRSD: 82 T: 25 QT: 386 QTc: 384 Interpretive Statements SINUS BRADYCARDIA Borderline ECG Compared to ECG 10/17/2018 08:35:38 Sinus rhythm no longer present Electronically Signed On 12-10-2024 19:31:40 EDT by CHARLES WILSON M.D. Dictated By: CHARLES WILSON Signed By: 12/10/241930 DD/ 7 TD/TT: Senior Linux Systems Administrator: [facility] Radiology, Radiologist, - 12/10/[address] [address] Electrocardiograph Report Signed Patient: ERIC SWAIN MR#: [id number] : 1975 Acct:[id number] Age/Sex: 49 / F ADM Date: 12/10/24 Loc: PST Attending Dr: Link Murillo D.O. Ordering Physician: Link Murillo D.O. Date of Service: 12/10/24 Procedure(s): ECG 12 lead Accession Number(s): [id number] cc: [facility] Test Date: 2024-12-10 Pat Name: ERIC SWAIN Department: Room: - Gender: Female Color Television Console Monitor: : 1975 Requested By: LINK MURILLO Order Number: [id number] Reading MD: CHARLES WILSON M.D. Measurements Intervals [place] Rate: 59 P: 45 LA: 177 QRS: 46 QRSD: 82 T: 25 QT: 386 QTc: 384 Interpretive Statements SINUS BRADYCARDIA Borderline ECG Compared to ECG 10/17/2018 08:35:38 Sinus rhythm no longer present Electronically Signed On 12-10-2024 19:31:40 EDT by CHARLES WILSON M.D. Dictated By: CHARLES WILSON Signed By: 12/10/241930 DD/ 0838 TD/TT: Senior Linux Systems Administrator: [facility] Radiology Study observation (narrative) [facility] ECG 12-LEADOrdered By: [facility] Radiology on 12-10-2024 [facility] Work Phone: IGP,APTIMA HPV,AGE GDLNon AGE GDLN ACOG TESTING Note . [facility] Comment on above: TESTS RESULT FLAG UN ITS REF RANGE LAB Clinician Provided Cytology Information Source.............Vagina No. of containers..01 ThinPrep Vial Age Algo ACOG Mary... 3065 01 FLAG LEGEND: L-Low Normal,H-High Normal,LL-Alert Low,HH-Alert High <-Panic Low,>-Panic High,A-Abnormal,AA-Critical Abnormal Performed at: 01 =[address] [address] Marina Aranda MD, HPV APTIMA Negative Negative [facility] Comment on above: This nucleic acid am plification test detects fourteen high- risk HPV types (16,18,31,33,35,39,45,51,52,56,58,59,66,68) without differentiation. Performed at: =[address] [id number] [employer] Mechanical Designer: Marina Aranda MD, Phone: [phone] Performed at: [address] [id number] [employer] Mechanical Designer: Marina Aranda MD, Phone: [phone] IGP, APTIMA HPV, RFX 16/18,45 Note . [facility] Comment on above: TESTS RESULT FLAG UN ITS REF RANGE LAB DIAGNOSIS: 02 NEGATIVE FOR INTRAEPITHELIAL LESION OR MALIGNANCY. Specimen adequacy: 02 Satisfactory for evaluation. No endocervical component is identified. Performed by: Jose Lopez Mechanical Equipment Test Engineer ([facility]) . 02 Note: Note 02 The [...] <-Panic Low,>-Panic High,A-Abnormal,AA-Critical Abnormal Performed at: [address] [address] Marina Aranda MD, SPATULA-ALONE VAGINA [facility] US PELVIS W/ TRANSVAGINALon 11-13-[address] [address] Ultrasound Report Signed Patient: ERIC SWAIN MR#: [id number] : 1975 Acct:[id number] Age/Sex: 49 / F ADM Date: 11/12/24 Loc: US Attending Dr: Link Murillo D.O. Ordering Physician: Link Murillo D.O. Date of Service: 11/12/24 Procedure(s): US pelvis w/ transvaginal Accession Number(s): [id number] cc: Link Murillo D.O.; Physician,Non-Staff M.Ara [address] [address] Patient Name: ERIC SWAIN MRN: [id number] date: 1975 Sex: F Assigned Patient Location: US Current Patient Location: Accession/Order Number: [id number] Exam Date: 11/13/2024 07:28 Report Date: 11/13/2024 [...] Marino M.D. 11/13/2024 7:31 AM Dictation Location: [place] [address] Electronically authenticated by: [id number] Y Date: 11/13/2024 07:31 Dictated By: Stephanie Marino M.D. Signed By: 11/13/24 0734 DD/ 0731 TD/TT: Senior Linux Systems Administrator: [facility] Radiology, Radiologist, MD - 11/13/2024 [place] [address] Ultrasound Report Signed Patient: ERIC SWAIN MR#: [id number] : 1975 Acct:[id number] Age/Sex: 49 / F ADM Date: 11/12/24 Loc: US Attending Dr: Link Murillo D.O. Ordering Physician: Link Murillo D.O. Date of Service: 11/12/24 Procedure(s): US pelvis w/ transvaginal Accession Number(s): [id number] cc: Link Murillo D.O.; Physician,Non-Staff [place] [address] Patient Name: ERIC SWAIN MRN: [facility]:[id number] date: 1975 Sex: F Assigned Patient Location: US Current Patient Location: Accession/Order Number: [id number] Exam Date: 11/13/2024 07:28 Report Date: 11/13/2024 [...] Marino M.D. 11/13/2024 7:31 AM Dictation Location: [place] [address] Electronically authenticated by: [id number] Y Date: 11/13/2024 07:31 Dictated By: Stephanie Marino M.D. Signed By: 11/13/24 0734 DD/ 0731 TD/TT: Senior Linux Systems Administrator: [facility] Radiology Study observation (narrative) [facility] US PELVIS W/ TRANSVAGINALOrd ered By: Radiologist Radiology on 11-13-2024 [facility] Work Phone: CBC W Auto Differential pane l (Bld)on 10-17-2024 ABSOLUTE BASOPHIL 0.1 10*3/uL 0.0 - 0.2 10*3/uL [facility] Basophils/100 WBC (Bld) 0.9 % [facility] DIFFERENTIAL TYPE AUTOMATED DIFFERENTIAL [facility] Comment on above: PERFORMED AT [facility] [address],[place] [address] Eosinophils (Bld) [#/Vol] 0.2 10*3/uL 0.0 - 0.4 10*3/uL [facility] Eosin[facility]/100 WBC (Bld) 2.8 % [facility] Erythrocyte distribution width (RBC) [Ratio] 12.4 % 11.5 - 15 % [facility] Hematocrit (Bld) [Volume fraction] 38.5 % 35 - 47 % [facility] Hemoglobin (Bld) [Mass/Vol] 13.2 g/dL 11.7 - 15.5 g/dL [facility] Lymphocytes (Bld) [#/Vol] 2 10*3/uL 1.0 - 3.5 10*3/uL [facility] Lymphocytes/100 WBC (Bld) 28.5 % [facility] MCH (RBC) [Entitic mass] 32.2 pg 27 - 34 pg [facility] MCHC (RBC) [Mass/Vol] 34.2 g/dL 32 - 36 g/dL [facility] MCV (RBC) [Entitic vol] 94 fL 80 - 100 fL [facility] Monocytes (Bld) [#/Vol] 0.5 10*3/uL 0.0 - 0.9 10*3/uL [facility] Monocytes/100 WBC (Bld) 6.9 % [facility] Neutrophils (Bld) [#/Vol] 4.2 10*3/uL 1.5 - 6.6 10*3/uL [facility] Neutrophils/100 WBC (Bld) 60.9 % [facility] Platelet mean volume (Bld) [Entitic vol] 9 fL 7 - 12 fL [facility] Platelets (Bld) [#/Vol] 241 10*3/uL [facility] RBC (Bld) [#/Vol] 4.09 10*6/uL [facility] WBC corrected for nucl RBC Auto (Bld) [#/Vol] 6.9 [facility] CBC WITH AUTO DIFFERENTIALon 10-17-2024 BASOPHILS ABSOLUTE COUNT (10*3/UL) BY AUTOMATED COUNT 0.1 10*3/uL Normal 0.0-0.2 [facility] Comment on above: Performed By: #### C BCA #### [facility] ([facility]) [address] [place] [address] VIR BASOPHILS RELATIVE PERCENT BY AUTOMATED COUNT 0.9 % Normal [facility] Comment on above: Performed By: #### C BCA #### [facility] ([facility]) [address] [place] [address] VIR CELLAVISION DIFFERENTIAL TYPE AUTOMATED DIFFERENTIAL Normal [facility] Comment on above: Performed By: #### C BCA #### [facility] ([facility]) [address] [place] [address] VIR Eosinophils (Bld) [#/Vol] 0.2 10*3/uL Normal 0.0-0.4 [facility] Comment on above: Performed By: #### C BCA #### [facility] ([facility]) [address] [place] [address] VIR EOSINOPHILS RELATIVE PERCENT BY AUTOMATED COUNT 2.8 % Normal [facility] Comment on above: Performed By: #### C BCA #### [facility] ([facility]) [address] [place] [address] VIR Erythrocyte distribution width (RBC) [Ratio] 12.4 % Normal 11.5-15 [facility] Comment on above: Performed By: #### C BCA #### [facility] ([facility]) [address] [place] [address] VIR Hematocrit (Bld) [Volume fraction] 38.5 % Normal 35-47 [facility] Comment on above: Performed By: #### C BCA #### [facility] ([facility]) [address] [place] [address] VIR Hemoglobin (Bld) [Mass/Vol] 13.2 g/dL Normal 11.7-15.5 [facility] Comment on above: Performed By: #### C BCA #### [facility] ([facility]) [address] [place] [address] VIR LYMPHOCYTES ABSOLUTE COUNT (10*3/UL) BY AUTOMATED COUNT 2.0 10*3/uL Normal 1.0-3.5 [facility] Comment on above: Performed By: #### C BCA #### [facility] ([facility]) [address] [place] [address] VIR LYMPHOCYTES RELATIVE PERCENT BY AUTOMATED COUNT 28.5 % Normal [facility] Comment on above: Performed By: #### C BCA #### [facility] ([facility]) [address] [place] [address] VIR MCH (RBC) [Entitic mass] 32.2 pg Normal 27-34 [facility] Comment on above: Performed By: #### C BCA #### [facility] ([facility]) [address] [place] [address] VIR MCHC (RBC) [Mass/Vol] 34.2 g/dL Normal 32-36 [facility] Comment on above: Performed By: #### C BCA #### [facility] ([facility]) [address] [place] [address] VIR MCV (RBC) [Entitic vol] 94 fL Normal 80-100 [facility] Comment on above: Performed By: #### C BCA #### [facility] ([facility]) [address] [place] [address] VIR MONOCYTES ABSOLUTE COUNT (10*3/UL) BY AUTOMATED COUNT 0.5 10*3/uL Normal 0.0-0.9 [facility] Comment on above: Performed By: #### C BCA #### [facility] ([facility]) [address] [place] [address] VIR MONOCYTES RELATIVE PERCENT BY AUTOMATED COUNT 6.9 % Normal [facility] Comment on above: Performed By: #### C BCA #### [facility] ([facility]) [address] [place] [address] VIR NEUTROPHILS ABSOLUTE COUNT BY AUTOMATED COUNT 4.2 10*3/uL Normal 1.5-6.6 [facility] Comment on above: Performed By: #### C BCA #### [facility] ([facility]) [address] [place] [address] VIR NEUTROPHILS RELATIVE PERCENT BY AUTOMATED COUNT 60.9 % Normal [facility] Comment on above: Performed By: #### C BCA #### [facility] ([facility]) [address] [place] [address] VIR Platelet mean volume (Bld) [Entitic vol] 9.0 fL Normal 7-12 [facility] Comment on above: Performed By: #### C BCA #### [facility] ([facility]) [address] [place] [address] VIR Platelets (Bld) [#/Vol] 241 10*3/uL Normal 150-450 [facility] Comment on above: Performed By: #### C BCA #### [facility] ([facility]) [address] [place] [address] VIR RBC COUNT 4.09 X10E12/L Normal 3.8-5.2 [facility] Comment on above: Performed By: #### C BCA #### [facility] ([facility]) [address] [place] [address] VIR WBC (Bld) [#/Vol] 6.9 10*3/uL Normal 4-11 [facility] Comment on above: Performed By: #### C BCA #### [facility] ([facility]) [address] [place] [address] VIR CHOLESTEROL, TOTALon 025 Cholesterol [Mass/Vol] 210 mg/dL High 150-200 [facility] Comment on above: Performed By: #### C HOL #### [facility] ([facility]) [address] [place] [address] VIR COMPREHENSIVE METABOLIC PANE Ulices 10-17-2024 Albumin [Mass/Vol] 4.3 g/dL Normal 3.2-5.3 [facility] Comment on above: Performed By: #### C MP #### [facility] ([facility]) [address] [place] [address] VIR ALP [Catalytic activity/Vol] 45 U/L Normal 39-130 [facility] Comment on above: Performed By: #### C MP #### [facility] ([facility]) [address] [place] [address] VIR ALT [Catalytic activity/Vol] 11 U/L Normal <=31 [facility] Comment on above: Performed By: #### C MP #### [facility] ([facility]) [address] [place] [address] VIR Anion gap [Moles/Vol] 10 mmol/L Normal 5-15 [facility] Comment on above: Performed By: #### C MP #### [facility] ([facility]) [address] [place] [address] VIR AST [Catalytic activity/Vol] 16 U/L Normal <=41 [facility] Comment on above: Performed By: #### C MP #### [facility] ([facility]) [address] [place] [address] VIR Bilirubin [Mass/Vol] 0.7 mg/dL Normal 0.3-1.2 [facility] Comment on above: Performed By: #### C MP #### [facility] ([facility]) [address] [place] [address] VIR Calcium [Mass/Vol] 9.3 mg/dL Normal 8.5-10.5 [facility] Comment on above: Performed By: #### C MP #### [facility] ([facility]) [address] [place] [address] VIR Chloride [Moles/Vol] 107 mmol/L Normal 98-109 [facility] Comment on above: Performed By: #### C MP #### [facility] ([facility]) [address] [place] [address] VIR CO2 [Moles/Vol] 21 mmol/L Low 22-32 [facility] Comment on above: Performed By: #### C MP #### [facility] ([facility]) [address] [place] [address] VIR Creatinine [Mass/Vol] 0.66 mg/dL Normal 0.40-1.00 [facility] Comment on above: Result Comment: METH OD TRACEABLE TO IDMS STANDARD Performed By: #### C MP #### [facility] ([facility]) [address] [place] [address] VIR EGFR (CKD-EPI) NON-RACE DEPENDENT >^90 Normal >=60 [facility] Comment on above: Result Comment: Repo rted eGFR is based on the CKD-EPI 2020 equation that does not use a race coefficient. Performed By: #### C MP #### [facility] ([facility]) [address] [place] [address] VIR Glucose [Mass/Vol] 91 mg/dL Normal 65-99 [facility] Comment on above: Performed By: #### C MP #### [facility] ([facility]) [address] [place] [address] VIR Potassium [Moles/Vol] 4.1 mmol/L Normal 3.5-5.0 [facility] Comment on above: Performed By: #### C MP #### [facility] ([facility]) [address] [place] [address] VIR Protein [Mass/Vol] 7.4 g/dL Normal 6.0-8.0 [facility] Comment on above: Performed By: #### C MP #### [facility] ([facility]) [address] [place] [address] VIR Sodium [Moles/Vol] 138 mmol/L Normal 134-146 [facility] Comment on above: Performed By: #### C MP #### [facility] ([facility]) [address] [place] [address] VIR Urea nitrogen [Mass/Vol] 11 mg/dL Normal 5-23 [facility] Comment on above: Performed By: #### C MP #### [facility] ([facility]) [address] [place] [address] VIR HEMOGLOBIN A1Con 10-17-2024 Glucose [Mass/Vol] 85 mg/dL Normal [facility] Comment on above: Performed By: #### H A1C #### [facility] ([facility]) [address] [place] [address] VIR HbA1c (Bld) [Mass fraction] 4.6 % Normal 4.4-5.6 [facility] Comment on above: Result Comment: ADA Guidelines Result HgbA1c Normal : less than 5.7 % Prediabetes : 5.7 % to 6.4 % Diabetes : > 6.4 % Use with caution in patients with abnormal hemoglobin variants as the half-life of red blood cells and in vivo glycation rates are affected. Performed By: #### H A1C #### [facility] ([facility]) [address] [place] [address] VIR TSHon 10-17-2024 TSH 1.45 uIU/mL Normal 0.49-4.67 [facility] Comment on above: Performed By: #### T SH #### [facility] ([facility]) [address] [place] [address] VIR RECURRENT VAGINITIS (HTRX)on 10-10-2024 ATOPOBIUM VAGINAE 21.481 Abnormal [facility] ATOPOBIUM VAGINAE Detected Abnormal [facility] BVAB 2,3 (BACTERIAL VAGINOSIS ASSOCIATED BACTERIA 2, 3); MOBILUNCUS SPP 0 [facility] BVAB 2,3 (BACTERIAL VAGINOSIS ASSOCIATED BACTERIA 2, 3); MOBILUNCUS SPP Not detected [facility] MARIA ISABEL ALBICANS, PARAPSILOSIS, TROPICALIS 26.398 Abnormal [facility] MARIA ISABEL ALBICANS, PARAPSILOSIS, TROPICALIS Detected Abnormal [facility] MARIA ISABEL GLABRATA 0 [facility] MARIA ISABEL GLABRATA Not detected [facility] MARIA ISABEL KRUSEI 0 [facility] MARIA ISABEL KRUSEI Not detected [facility] CHLAMYDIA TRACHOMATIS 0 [facility] CHLAMYDIA TRACHOMATIS Not detected [facility] ERMB, C; MEFA 14.838 Abnormal [facility] [...] [facility] MAMM SCREENING BILATERAL W C tagman 10-07-2024 MAMM SCREENING BILATERAL W CAD MAMM SCREENING BILATERAL W CAD [facility] 1975 [id number] EXAM: MAMM SCREENING BILATERAL W CAD, 10/05/2024 [...] AM 1 c MOLEC BR IMG Normal [facility] Urinalysis macro (dipstick) panel (U)on 10-07-2024 Bilirubin, UA Negative Negative - 4(70) +++ mg/dL [facility] Blood, UA Negative Negative - 50 Kalyan/mcL [facility] Clarity, UA Clear [facility] Color, UA Yellow [facility] Glucose, UA Negative Negative - 2000(110) ++++ mg/dL [facility] Interpretation and review of laboratory results Abnormal [facility] Ketones, UA Negative Negative - 160(16) ++++ mg/dL [facility] Leukocytes, UA Negative Negative - 500+++ Maria Elena/mcL [facility] Nitrite, UA Negative Negative - Positive [facility] pH, UA 5.5 5 - 9 [facility] Protein, UA Trace Negative - 2000(20) ++++ mg/dL [facility] Spec Grav, UA 1.03 1 - 1.03 [facility] Urobilinogen, UA 1.0 0.2 - 12 mg/dL [facility] DEXA SCAN CENTRAL SKELETALon 02-03-2024 DEXA SCAN [...] Cardenas MD on 02/03/2024 1:10 PM Normal [facility] COMPREHENSIVE METABOLIC PANE Ulices 01-25-2024 Albumin [Mass/Vol] 4.2 g/dL Normal 3.2-5.3 [facility] Comment on above: Performed By: #### 2 4331-1, CMP #### [facility] ([id number]) [address] [place] [address] ALP [Catalytic activity/Vol] 49 U/L Normal 39-130 [facility] Comment on above: Performed By: #### 2 4331-1, CMP #### [facility] ([id number]) [address] [place] [address] ALT [Catalytic activity/Vol] 11 U/L Normal 0-31 [facility] Comment on above: Performed By: #### 2 4331-1, CMP #### [facility] ([id number]) [address] [place] [address] Anion gap [Moles/Vol] 9 mmol/L Normal 5-15 [facility] Comment on above: Performed By: #### 2 4331-1, CMP #### [facility] ([id number]) [address] [place] [address] AST [Catalytic activity/Vol] 17 U/L Normal 0-41 [facility] Comment on above: Performed By: #### 2 4331-1, CMP #### [facility] ([id number]) [address], [address] [place] [address] Bilirubin [Mass/Vol] 0.6 mg/dL Normal 0.3-1.2 [facility] Comment on above: Performed By: #### 2 4331-1, CMP #### [facility] ([id number]) [address], [address] [place] [address] Calcium [Mass/Vol] 9.5 mg/dL Normal 8.5-10.5 [facility] Comment on above: Performed By: #### 2 4331-1, CMP #### [facility] ([id number]) [address], [address] [place] [address] Chloride [Moles/Vol] 104 mmol/L Normal 98-109 [facility] Comment on above: Performed By: #### 2 4331-1, CMP #### [facility] ([id number]) [address], [address] [place] [address] CO2 [Moles/Vol] 26 mmol/L Normal 22-32 [facility] Comment on above: Performed By: #### 2 4331-1, CMP #### [facility] ([id number]) [address] [place] [address] Creatinine [Mass/Vol] 0.66 mg/dL Normal 0.40-1.00 [facility] Comment on above: Result Comment: METH OD TRACEABLE TO IDMS STANDARD Performed By: #### 2 4331-1, CMP #### [facility] ([id number]) [address], [address] [place] [address] eGFR (CKD-EPI) NON-RACE DEPENDENT >90 Normal >59 [facility] Comment on above: Result Comment: Reported eGFR is based on the CKD-EPI 2020 equation that does not use a race coefficient. Performed By: #### 2 4331-1, CMP #### [facility] ([id number]) [address] [place] [address] Glucose [Mass/Vol] 86 mg/dL Normal 65-99 [facility] Comment on above: Performed By: #### 2 4331-1, CMP #### [facility] ([id number]) [address] [place] [address] Potassium [Moles/Vol] 4.2 mmol/L Normal 3.5-5.0 [facility] Comment on above: Performed By: #### 2 4331-1, CMP #### [facility] ([id number]) [address], [address] [place] [address] Protein [Mass/Vol] 7.5 g/dL Normal 6.0-8.0 [facility] Comment on above: Performed By: #### 2 4331-1, CMP #### [facility] ([id number]) [address] [place] [address] Sodium [Moles/Vol] 139 mmol/L Normal 134-146 [facility] Comment on above: Performed By: #### 2 4331-1, CMP #### [facility] ([id number]) [address] [place] [address] Urea nitrogen [Mass/Vol] 8 mg/dL Normal 5-23 [facility] Comment on above: Performed By: #### 2 4331-1, CMP #### [facility] ([id number]) [address], [address] [place] [address] Lipid 1996 panelon 4 Cholesterol [Mass/Vol] 202 mg/dL High 150-200 [facility] Comment on above: Performed By: #### 2 4331-1, CMP #### [facility] ([id number]) [address], [address] [place] [address] Cholesterol in HDL [Mass/Vol] 68 mg/dL Normal >39 [facility] Comment on above: Result Comment: HDL <40 mg/dL - High Risk HDL > or = 40mg/dL- Desirable HDL >60 mg/dL - Negative Risk Performed By: #### 2 4331-1, CMP #### [facility] ([id number]) [address] [place] [address] Cholesterol in LDL [Mass/Vol] 125 mg/dL Normal <130 [facility] Comment on above: Result Comment: LDL <100 mg/dL - Desirable LDL >160 mg/dL - High Risk Performed By: #### 2 4331-1, CMP #### [facility] ([id number]) [address] [place] [address] Cholesterol in VLDL [Mass/Vol] 9 mg/dL Normal 0-30 [facility] Comment on above: Performed By: #### 2 4331-1, CMP #### [facility] ([id number]) [address] [place] [address] CHOLESTEROL:HDL 3.0 Normal 1.0-5.0 [facility] Comment on above: Performed By: #### 2 4331-1, CMP #### [facility] ([id number]) [address] [place] [address] Triglyceride [Mass/Vol] 46 mg/dL Normal 27-150 [facility] Comment on above: Performed By: #### 2 4331-1, CMP #### [facility] ([id number]) [address] [place] [address] Cytology Cervical or vaginal smear or scraping studyOrdered By: Heather Cotto on 10-23-2023 [facility] PAP ACOG PANEL 2: 30 to 65on 10-30-2019 Age Gdln ACOG Testing 30-65 Normal [facility] Comment on above: Performed By: #### C BC #### [facility] [address] [address] Gomez Brown DIAGNOSIS: Comment Normal [facility] Comment on above: Result Comment: NEGA TIVE FOR INTRAEPITHELIAL LESION OR MALIGNANCY. Performed at: WB Performed By: #### C BC #### [facility] [address] [address] Gomez Brown HPV Aptima Negative Normal Negative [facility] Comment on above: Result Comment: This test was developed and its performance characteristics determined by [employer]. It has not been cleared or approved by the Food and Drug Administration. This nucleic acid amplification test detects fourteen high-risk HPV types (16,18,31,33,35,39,45,51,52,56,58,59,66,68) without differentiation. Performed at: =G Performed By: #### C BC #### [facility] [address] [address] Gomez Brown Methodology: Comment Normal [facility] Comment on above: Result Comment: This liquid based SurePath(R) pap test was screened with the assistance of an image guided system. Performed at: WB Performed By: #### C BC #### [facility] [address] [place] [address] Gomezvishal Brown Note: Comment Normal [facility] Comment on above: Result Comment: [...] By: #### C BC #### [facility] [address] [place] [address] Gomez Stephanie Performed by: Comment Normal [facility] Comment on above: Result Comment: Dakota Baltazar, Clinic Physician Director (ASCP) Performed at: WB Performed By: #### C BC #### [facility] [address] [place] [address] Gomezvishal Brown Specimen adequacy: Comment Normal [facility] Comment on above: Result Comment: Sati sfactory for evaluation. Endocervical and/or squamous metaplastic cells (endocervical component) are present. Performed at: WB Performed By: #### C BC #### [facility] [address] [place] [address] Gomezvishal Brown . . Normal [facility] Comment on above: Result Comment: Perf ormed at: WB Performed By: #### C BC #### [facility] [address] [place] [address] Gomez Brown HEPATITIS PANEL, ACUTEon HBsAg Screen Negative Normal Negative [facility] Comment on above: Performed By: #### H EPACUT #### [facility] [address] [place] [address] Gomez Stephanie Hep A Ab, IgM Negative Normal Negative [facility] Comment on above: Performed By: #### H EPACUT #### [facility] [address] [place] [address] Gomezvishal Brown Hep B Core Ab, IgM Negative Normal Negative [facility] Comment on above: Performed By: #### H EPACUT #### [facility] [address] [place] [address] Gomez Brown Hep C Virus Ab <0.1 Normal 0.0-0.9 [facility] Comment on above: Result Comment: Nega tive: < 0.8 Indeterminate: 0.8 - 0.9 Positive: > 0.9 . The CDC recommends that a positive HCV antibody result be followed up with a HCV Nucleic Acid Amplification test (495753). Performed By: #### H EPACUT #### [facility] [address] [place] [address] Gomez Brown HIV 1 AND 2 WITH REFLEXon HIV Screen 4th Generation wRfx Non Reactive Normal Non Reactive [facility] Comment on above: Performed By: #### H IV12 #### [facility] [address] [place] [address] Gomez Brown RPR QUANTon 10-24-2019 Rapid Plasma Reagin, Quant Non Reactive Normal NonRea<1:1 [facility] Comment on above: Performed By: #### C BC #### [facility] [address] [place] [address] Gomez Brown BUNon 12-04-2018 Urea nitrogen [Mass/Vol] 5.0 mg/dL Critically low 7.0-17.0 [facility] Comment on above: Performed By: #### B ALVARADO MARTINEZ #### [facility] [address] [place] [address] Gomez Brown CBC AUTO DIFFon 12-04-2018 Basophils (Bld) [#/Vol] 0.0 103/ul Normal 0.0-0.1 [facility] Comment on above: Performed By: #### C BC #### [facility] [address] [place] [address] Gomez Brown Basophils/100 WBC (Bld) 0.2 % Normal 0.2-2.0 [facility] Comment on above: Performed By: #### C BC #### [facility] [address] [place] [address] Gomez Stephanie Eosinophils (Bld) [#/Vol] 0.0 103/ul Normal 0.0-0.7 [facility] Comment on above: Performed By: #### C BC #### [facility] [address] [place], [place] [address] Gomez Stephanie Eosinophils/100 WBC (Bld) 0.1 % Critically low 0.9-7.0 [facility] Comment on above: Performed By: #### C BC #### [facility] [address] [place], [place] [address] Gomez Stephanie Erythrocyte distribution width (RBC) [Ratio] 12.1 % Normal 11.0-15.0 [facility] Comment on above: Performed By: #### C BC #### [facility] [address] [place], [place] [address] Gomez Stephanie Hematocrit (Bld) [Volume fraction] 29.4 % Critically low 36.0-48.0 [facility] Comment on above: Performed By: #### C BC #### [facility] [address] [place] [address] Gomez Stephanie Hemoglobin (Bld) [Mass/Vol] 9.5 g/dL Critically low 12.0-16.0 [facility] Comment on above: Result Comment: FLUI DS GIVEN Performed By: #### C BC #### [facility] [address] [place], [place] [address] Gomez Stephanie IG # 0.05 10e3/ul Critically high 0.00-0.03 [facility] Comment on above: Performed By: #### C BC #### [facility] [address] [place], [place] [address] Gomez Stephanie IG % 0.4 % Normal 0.0-0.5 [facility] Comment on above: Performed By: #### C BC #### [facility] [address] [place], [place] [address] Gomez Stephanie Lymphocytes (Bld) [#/Vol] 1.1 103/ul Critically low 1.2-3.[address] [facility] Comment on above: Performed By: #### C BC #### [facility] [address] [place], [place] [address] Gomez Stephanie Lymphocytes/100 WBC (Bld) 9.5 % Critically low 20.5-60.0 [facility] Comment on above: Performed By: #### C BC #### [facility] [address] [place], [place] [address] Gomez Stephanie MANUAL DIFF REQ NO Normal [facility] Comment on above: Performed By: #### C BC #### [facility] [address] [place], [place] [address] Gomez Stephanie MCH (RBC) [Entitic mass] 29.7 pg Normal 26.7-34.0 [facility] Comment on above: Performed By: #### C BC #### [facility] [address] [place], [place] [address] Gomez Stephanie MCHC (RBC) [Mass/Vol] 32.3 g/dL Normal 29.9-35.2 [facility] Comment on above: Performed By: #### C BC #### [facility] [address] [place] [address] Gomez Stephanie MCV (RBC) [Entitic vol] 91.9 fL Normal 81.0-99.0 [facility] Comment on above: Performed By: #### C BC #### [facility] [address] [place] [address] Gomez Stephanie Monocytes (Bld) [#/Vol] 1.5 103/ul Critically high 0.3-0.8 [facility] Comment on above: Performed By: #### C BC #### [facility] [address] [place] [address] Gomez Stephanie Monocytes/100 WBC (Bld) 12.9 % Critically high 1.7-12. 0 [facility] Comment on above: Performed By: #### C BC #### [facility] [address] [place] [address] Gomez Stephanie Neutrophils (Bld) [#/Vol] 9.0 103/ul Critically high 1.4-6.5 [facility] Comment on above: Performed By: #### C BC #### [facility] [address] [place] [address] Gomez Stephanie Neutrophils/100 WBC (Bld) 76.9 % Critically high 43.0-75.0 [facility] Comment on above: Performed By: #### C BC #### [facility] [address] [place], [place] [address] Gomezvishal Brown Platelet mean volume (Bld) [Entitic vol] 11.4 fL Normal 9.5-13.5 [facility] Comment on above: Performed By: #### C BC #### [facility] [address] [place], [place] [address] Gomez Stephanie Platelets (Bld) [#/Vol] 221 103/ul Normal 150-450 [facility] Comment on above: Performed By: #### C BC #### [facility] [address] [place] [address] Gomez Stephanie RBC (Bld) [#/Vol] 3.20 106/ul Critically low 4.20-5.40 [facility] Comment on above: Performed By: #### C BC #### [facility] [address] [place], [place] [address] Gomez Stephanie WBC (Bld) [#/Vol] 11.7 103/ul Critically high 4.0-11.0 [facility] Comment on above: Performed By: #### C BC #### [facility] [address] [place], [place] [address] Gomez Stephanie CREATININEon 12-04-2018 Creatinine [Mass/Vol] mg/dL Normal >=60 [facility] Comment on above: Performed By: #### B JUAN CREA #### [facility] [address] [place], [place] [address] Gomez Stephanie Creatinine [Mass/Vol] 0.72 mg/dL Normal 0.52-1.04 [facility] Comment on above: Performed By: #### B JUAN CREA #### [facility] [address] [place], [place] [address] Gomez Stephanie CBC AUTO DIFFon 12-03-2018 Basophils (Bld) [#/Vol] 0.1 103/ul Normal 0.0-0.1 [facility] Comment on above: Performed By: #### C BC #### [facility] [address] [place], [place] [address] Gomez Stephanie Basophils/100 WBC (Bld) 0.7 % Normal 0.2-2.0 [facility] Comment on above: Performed By: #### C BC #### [facility] [address] [place] [address] Gomez Stephanie Eosinophils (Bld) [#/Vol] 0.2 103/ul Normal 0.0-0.7 [facility] Comment on above: Performed By: #### C BC #### [facility] [address] [place] [address] Gomez Stephanie Eosinophils/100 WBC (Bld) 2.4 % Normal 0.9-7.0 [facility] Comment on above: Performed By: #### C BC #### [facility] [address] [place] [address] Gomez Stephanie Erythrocyte distribution width (RBC) [Ratio] 12.2 % Normal 11.0-15.0 [facility] Comment on above: Performed By: #### C BC #### [facility] [address] [place] [address] Gomez Stephanie Hematocrit (Bld) [Volume fraction] 36.9 % Normal 36.0-48.0 [facility] Comment on above: Performed By: #### C BC #### [facility] [address] [place] [address] Gomez Stephanie Hemoglobin (Bld) [Mass/Vol] 11.9 g/dL Critically low 12.0-16.0 [facility] Comment on above: Performed By: #### C BC #### [facility] [address] [place] [address] Gomez Stephanie IG # 0.02 10e3/ul Normal 0.00-0.[address] [facility] Comment on above: Performed By: #### C BC #### [facility] [address] [place] [address] Gomez Stephanie IG % 0.2 % Normal 0.0-0.5 [facility] Comment on above: Performed By: #### C BC #### [facility] [address] [place] [address] Gomez Stephanie Lymphocytes (Bld) [#/Vol] 1.8 103/ul Normal 1.2-3.8 [facility] Comment on above: Performed By: #### C BC #### [facility] [address] [place], [place] [address] Gomez Brown Lymphocytes/100 WBC (Bld) 19.3 % Critically low 20.5-60.0 [facility] Comment on above: Performed By: #### C BC #### [facility] [address] [place], [place] [address] Gomez Brown MANUAL DIFF REQ NO Normal [facility] Comment on above: Performed By: #### C BC #### [facility] [address] [place], [place] [address] Gomezvishal Tripletten MCH (RBC) [Entitic mass] 29.9 pg Normal 26.7-34.0 [facility] Comment on above: Performed By: #### C BC #### [facility] [address] [place] [address] Gomezvishal Brown MCHC (RBC) [Mass/Vol] 32.2 g/dL Normal 29.9-35.2 [facility] Comment on above: Performed By: #### C BC #### [facility] [address] [place], [place] [address] Gomezvishal Brown MCV (RBC) [Entitic vol] 92.7 fL Normal 81.0-99.0 [facility] Comment on above: Performed By: #### C BC #### [facility] [address] [place], [place] [address] Gomez Stephanie Monocytes (Bld) [#/Vol] 0.9 103/ul Critically high 0.3-0.8 [facility] Comment on above: Performed By: #### C BC #### [facility] [address] [place], [place] [address] Gomezvishal Tripletten Monocytes/100 WBC (Bld) 9.5 % Normal 1.7-12.0 [facility] Comment on above: Performed By: #### C BC #### [facility] [address] [place], [place] [address] Gomez Stephanie Neutrophils (Bld) [#/Vol] 6.4 103/ul Normal 1.4-6.5 [facility] Comment on above: Performed By: #### C BC #### [facility] [address] [place], [place] [address] Gomez Stephanie Neutrophils/100 WBC (Bld) 67.9 % Normal 43.0-75.0 [facility] Comment on above: Performed By: #### C BC #### [facility] [address] [place] [address] Gomez Stephanie Platelet mean volume (Bld) [Entitic vol] 10.8 fL Normal 9.5-13.5 [facility] Comment on above: Performed By: #### C BC #### [facility] [address] [place], [place] [address] Gomez Stephanie Platelets (Bld) [#/Vol] 262 103/ul Normal 150-450 [facility] Comment on above: Performed By: #### C BC #### [facility] [address] [place], [place] [address] Gomez Stephanie RBC (Bld) [#/Vol] 3.98 106/ul Critically low 4.20-5.40 [facility] Comment on above: Performed By: #### C BC #### [facility] [address] [place], [place] [address] Gomez Stephanie WBC (Bld) [#/Vol] 9.4 103/ul Normal 4.0-11.0 [facility] Comment on above: Performed By: #### C BC #### [facility] [address] [place], [place] [address] Gomez Stephanie PREG QUANT HCGon 12-03-2018 HCG QUANT <1.00 Normal [facility] Comment on above: Performed By: #### P REGQNT #### [facility] [address] [place], [place] [address] Gomez Stephanie HCG RANGE SEE BELOW Normal [facility] Comment on above: Result Comment: 5-50 0-1 WEEK 40-300 1-2 WEEKS 100-1,000 2-3 WEEKS 500-6,000 3-4 WEEKS 5,000-200,000 1-2 MONTHS 10,000-100,000 2-3 MONTHS 3,000-50,000 2ND TRIMESTER 1,000-50,000 3RD TRIMESTER Performed By: #### P REGQNT #### [facility] [address] [place], [place] [address] Gomez Brown TYPE AND SCREENon 12-01-2018 TYPE AND SCREEN Negative Normal [facility] Comment on above: Performed By: #### T NS #### [facility] [address] [place], [place] [address] Gomez Brown Vital Signs Date Time Vital Sign Value Performing Clinician Facility 12-02-2024 15:43-0400 Body mass index (BMI) [Ratio] 34.28 kg/m2 Link Lidia DO Work Phone: [facility] 12-02-2024 15:43-0400 Body weight 85 kg Link Lidia DO Work Phone: [facility] 12-02-2024 15:43-0400 Diastolic blood pressure 98 mm[Hg] Link Lidia DO Work Phone: [facility] 12-02-2024 15:43-0400 Systolic blood pressure 128 mm[Hg] Link Lidia DO Work Phone: [facility] 11-26-2024 15:31-0400 Body mass index (BMI) [Ratio] 34.2 kg/m2 Zeina YE Work Phone: [facility] 11-26-2024 15:31-0400 Body weight 84.82 kg Zeina YE Work Phone: [facility] 11-26-2024 15:31-0400 Diastolic blood pressure 78 mm[Hg] Zeina YE Work Phone: [facility] 11-26-2024 15:31-0400 Systolic blood pressure 124 mm[Hg] Zeina YE Work Phone: [facility] 02-06-2024 15:50-0400 Body height 149.9 cm Christina CAMARILLO Work Phone: [facility] 02-06-2024 15:50-0400 Body mass index (BMI) [Ratio] 37.24 kg/m2 Christina Lee EMPLOYMENT TRAINING SPECIALIST[employer] Work Phone: [facility] 02-06-2024 15:50-0400 Body temperature 98.01 [degF] Christinajerome Lee EMPLOYMENT TRAINING SPECIALIST-[employer] F[employer] Work Phone: [facility] 02-06-2024 15:50-0400 Body weight 83.64 kg Christinajerome Lee EMPLOYMENT TRAINING SPECIALIST-[employer] F[employer] Work Phone: [facility] 02-06-2024 15:50-0400 Diastolic blood pressure 78 mm[Hg] Christina Lee EMPLOYMENT TRAINING SPECIALIST-[employer] F[employer]WORKER Work Phone: [facility] 02-06-2024 15:50-0400 Heart rate 73 /min Christina Lee EMPLOYMENT TRAINING SPECIALIST-[employer] Work Phone: [facility] [place] 02-06-2024 15:50-0400 SaO2% (BldA) [Mass fraction] 95 % Christina Lee EMPLOYMENT TRAINING SPECIALIST-[employer] Work Phone: [facility] [facility] 02-06-2024 15:50-0400 Systolic blood pressure 140 mm[Hg] Christina Lee EMPLOYMENT TRAINING SPECIALIST-[employer] FARMWORK[employer] Work Phone: [facility] [place] 07-03-2023 15:05-0500 Body height 149.9 cm Christina Lee EMPLOYMENT TRAINING SPECIALIST-B[employer]BS FARMWORKER Work Phone: [facility] 07-03-2023 15:05-0500 Body mass index (BMI) [Ratio] 37.24 kg/m2 Christinajerome Lee EMPLOYMENT TRAINING SPECIALIST-BULBS FARMWORKER Work Phone: [facility] 07-03-2023 15:05-0500 Body temperature 98.49 [degF] Christina Rosa EMPLOYMENT TRAINING SPECIALIST-[employer] FARMWORKER Work Phone: [facility] 07-03-2023 15:05-0500 Body weight 83.64 kg Christinajerome Lee EMPLOYMENT TRAINING SPECIALIST-[employer] FARMWORKER Work Phone: [facility] 07-03-2023 15:05-0500 Diastolic blood pressure 80 mm[Hg] Christina Lee EMPLOYMENT TRAINING SPECIALIST-[employer] FARMWORKER Work Phone: [facility] 07-03-2023 15:05-0500 Heart rate 78 /min Christina Lee EMPLOYMENT TRAINING SPECIALIST-[employer] FARMWORKER Work Phone: [facility] 07-03-2023 15:05-0500 SaO2% (BldA) [Mass fraction] 97 % Christina Lee EMPLOYMENT TRAINING SPECIALIST-[employer] FARMWORK[employer] Work Phone: [facility] 07-03-2023 15:05-0500 Systolic blood pressure 130 mm[Hg] Christina Lee EMPLOYMENT TRAINING SPECIALIST-[employer] FARMWORKER Work Phone: [facility] Encounters Encounter Date Encounter Type Care Provider Facility Start: 12-10-2024 End: 12-10-2024 Clinisync Result Encounter Link Lidia DO Work Phone: [facility] External Department Unsolicited Start: 12-10-2024 End: 12-10-2024 Clinisync Result Encounter Link Lidia DO Work Phone: [facility] External Department Unsolicited Start: 12-02-2024 End: 12-02-2024 Office outpatient visit 15 minutes Link Lidia DO Work Phone: [facility] GRAC[facility] Comment on above: Pre-op examination; Dyspareunia in female; Pelvic pain; Cyst of ovary, unspecified laterality Start: 12-02-2024 End: 12-02-2024 ambulatory LINK LIDIA Not Available Start: 12-02-2024 End: 12-02-2024 Preprocedural examination done Link Lidia DO Work Phone: [facility] [employer] Start: 11-26-2024 End: 11-26-2024 ambulatory ZEINA SANZ Not Available Start: 11-26-2024 End: 11-26-2024 Patient encounter procedure Zeina YE Work Phone: [facility] [employer] Start: 11-26-2024 End: 11-26-2024 Periodic preventive med est patient 40-64yrs Zeina YE Work Phone: [facility] Comment on above: Well woman exam with routine gynecological exam; H/O: hysterectomy Start: 11-26-2024 End: 11-26-2024 Bamboo flowsheet Zeina YE Work Phone: [facility] Start: 11-26-2024 End: 12-01-2024 Bamboo flowsheet Zeina YE Work Phone: [facility] Start: 11-26-2024 End: 12-01-2024 Clinisync Result Encounter [...] External Department Unsolicited Start: 10-17-2024 ambulatory LINK R LIDIA [facility] Start: 10-07-2024 End: 10-07-2024 Office outpatient visit 15 minutes Link Lidia DO Work Phone: [facility] [place] Comment on above: Pelvic pain in femal e; Dyspareunia in female; Yeast infection; Hormone imbalance; Fatigue, unspecified type Start: 10-07-2024 End: 10-07-2024 ambulatory LINK LIDIA Not Available Start: 10-07-2024 End: 06-11-2025 Bamboo flowsheet Link Lidia DO Work Phone: [facility] Start: 10-07-2024 End: 10-10-2024 Bamboo flowsheet Link Lidia DO Work Phone: [facility] Start: 10-07-2024 End: 10-10-2024 External Result Encounter Link Lidia DO Work Phone: [facility] External Department Unsolicited Start: 10-05-2024 End: 10-05-2024 ambulatory CHRISTINA LEE [facility] Start: 09-04-2024 End: 09-04-2024 Orders Only Christina Lee EMPLOYMENT TRAINING SPECIALIST-B[employer]BS FARMWORKER Work Phone: [facility] Comment on above: Encounter for screen ing mammogram for malignant neoplasm of breast (Primary Dx) Start: 08-21-2024 End: 08-21-2024 Refill Christina Lee EMPLOYMENT TRAINING SPECIALIST-[employer] FARMWORKER Work Phone: [facility] Comment on above: Primary hypertension ; Essential hypertension Start: 02-08-2024 End: 02-13-2024 Refill Carlos Alberto Rodriguez MD Work Phone: [facility] Comment on above: Primary hypertension ; Essential hypertension Start: 02-06-2024 End: 02-06-2024 Patient encounter status Christina Lee EMPLOYMENT TRAINING SPECIALIST-[employer] FARMWORKER Work Phone: [facility] Work Phone: Start: 02-06-2024 End: 02-06-2024 Periodic preventive med est patient 40-64yrs Christina Keysha Lee EMPLOYMENT TRAINING SPECIALIST-BULBS FARMWORKER Work Phone: [facility] Comment on above: Wellness examination (Primary Dx); Mild intermittent asthma without complication; Primary hypertension; Influenza vaccination administered at current visit; Atopic dermatitis, unspecified type; Need for shingles vaccine; Class 2 severe obesity due to excess calories with serious comorbidity and body mass index (BMI) of 37.0 to 37.9 in adult ([facility] Start: 02-06-2024 End: 02-06-2024 ambulatory [facility] Start: 02-03-2024 End: 02-03-2024 [facility] Start: 01-25-2024 End: 01-25-2024 ambulatory [facility] Start: 01-25-2024 Encounter for genera l adult medical examination without abnormal findings [facility] Start: 01-23-2024 End: 01-23-2024 Orders Only Christina Chopra [facility] EMPLOYMENT TRAINING SPECIALIST-B[employer]BS FARMWORKER [facility] Comment on above: Wellness examination (Primary Dx) Start: 01-23-2024 End: 01-23-2024 Patient encounter status Christina Lee EMPLOYMENT TRAINING SPECIALIST-[employer] FARMWORKER Work Phone: [facility] Work Phone: Start: 07-30-2023 Telephone encounter Shawn Ulloa EMPLOYMENT TRAINING SPECIALIST-BULBS FARMWORKER Work Phone: [facility] Start: 07-15-2023 Refill Carlos Alberto Rodriguez MD Work Phone: [facility] Comment on above: Primary hypertension ; Essential hypertension Start: 07-03-2023 End: 07-03-2023 ambulatory [facility] Start: 07-03-2023 Encounter for genera l adult medical examination without abnormal findings [facility] Start: 07-03-2023 End: 07-03-2023 Office outpatient new 30 minutes Christina Chopra Rosa EMPLOYMENT TRAINING SPECIALIST-BULBS FARMWORKER [facility] Comment on above: Encounter for medica l examination to establish care (Primary Dx); Encounter for screening mammogram for malignant neoplasm of breast; Primary hypertension; Bronchitis; Acute non-recurrent maxillary sinusitis Start: 07-03-2023 End: 07-03-2023 Patient encounter status Christina Lee EMPLOYMENT TRAINING SPECIALIST-[employer] FARMWORKER Work Phone: [facility] Work Phone: Start: 10-22-2019 End: 10-22-2019 Patient encounter procedure CAMILA WHITAKER Facility:[facility] Start: 10-22-2019 End: 10-23-2019 Patient encounter procedure CAMILA WHITAKER Facility:[facility] Start: 12-05-2018 Encounter for preprocedural laboratory examination [facility] Start: 12-03-2018 End: 12-04-2018 Evaluation and management of inpatient LINK MURILLO Facility:[facility] Start: 12-01-2018 End: 12-02-2018 Patient encounter procedure LINK [facility] Facility:[facility] Start: 11-28-2018 Encounter for other preprocedural examination [facility] Start: 11-19-2018 Patient encounter procedure LINK CABRERAZIO Facility:[facility] Start: 11-17-2018 End: 11-18-2018 Patient encounter procedure LINK [facility] Facility: Encounter for other preprocedural examination [facility] Encounter for preprocedural laboratory examination LINK [facility] Procedures Date Procedure Procedure Detail Performing Clinician Start: 12-10-2024 ECG 12-LEAD Link Fazi o DO Work Phone: Start: 11-26-2024 IGP,APTIMA HPV,AGE GDLN Zeina YE [...] DO Work Phone: Start: 10-05-2024 Mammography Link Fazi o DO Work Phone: Start: 02-06-2024 Adult depression scr eening assessment Christina Lee EMPLOYMENT TRAINING SPECIALIST[employer] Work Phone: Start: 10-23-2023 Microscopic observat ion [Identifier] in Cervix by Cyto stain Zeina YE Work Phone: Start: 10-23-2023 Cytp cerv/vag auto t hin layer prep mnl screen Link Lidia DO Work Phone: Start: 07-25-2023 Mammography Shawn Ulloa EMPLOYMENT TRAINING SPECIALIST[employer] Work Phone: Start: 07-03-2023 Adult depression scr eening assessment Christina Lee EMPLOYMENT TRAINING SPECIALISTn1health Work Phone: Start: 12-07-2022 Colonoscopy Christina Herrera EMPLOYMENT TRAINING SPECIALISTn1[facility] Work Phone: Start: 12-06-2022 Microscopic observat ion [Identifier] in Cervix by Cyto stain Link Lidia DO Work Phone: Start: 07-12-2022 Mammography Christina Herrera EMPLOYMENT TRAINING SPECIALIST[employer] Work Phone: Start: 12-03-2018 Removal of Intralumi nal Device from Ureter, Via Natural or Artificial Opening LINK L[facility]IA Start: 12-03-2018 Resection of Bilater al Fallopian Tubes, Open Approach [facility] Start: 12-03-2018 Resection of Uterus, Open Approach [facility] Start: 12-03-2018 Dilation of Bilatera l Ureters with Intraluminal Device, Via Natural or Artificial Opening Endoscopic LINK L[facility]IA H/O: hysterectomy H/O: hysterectomy Zeina YE Work Phone: Plan of Treatment Date Care Activity Detail Author Start: 12-07-2032 Screening for malign ant neoplasm of colon [facility] Start: 12-07-2027 Screening for malign ant neoplasm of cervix [facility] Start: 11-27-2027 Screening for malign ant neoplasm of cervix Pap Smear [facility] Start: 10-22-2026 Screening for malign ant neoplasm of cervix Pap Smear [facility] Start: 12-06-2025 Screening for malign ant neoplasm of cervix Pap Smear [facility] Start: 10-05-2025 Screening for malign ant neoplasm of breast Mammogram [facility] Start: 02-05-2025 Adult BMI Screening Adult BMI Screen ing [facility] Start: 02-05-2025 Depression Screening Depression Scre ening [facility] Start: 02-05-2025 Tobacco Screening Tobacco Screening [facility] Start: 12-28-2024 Influenza vaccination [facility] Start: 12-23-2024 End: 12-23-2024 Patient encounter procedure 12/23/2024 3:30 PM EDT Office Visit [facility] [address] [place] [phone] Zeina Sanz, PA [address] [place] [address] [facility] Start: 12-02-2024 End: 12-02-2024 Patient encounter procedure 12/02/2024 3:20 PM EDT Procedure Visit [facility] [address] [place] [phone] Link Murillo DO [address] [place] [address] [facility] Start: 11-26-2024 End: 11-26-2024 Patient encounter procedure 11/26/2024 3:00 PM EDT Office Visit [facility] [address] [place] [phone] Zeina Sanz, PA [address] [place] [address] [facility] Start: 11-04-2024 End: 11-04-2024 Patient encounter procedure 11/04/2024 3:40 PM EDT Office Visit [facility] [address] [place] [address] Link Murillo, DO [address] [place] [address] [facility] Start: 11-02-2024 End: 11-02-2024 Patient encounter procedure 11/02/2024 4:00 PM EDT Office Visit [facility] [address] [place] [phone] Link Murillo, DO [address] [place] [address] [facility] Start: 10-07-2024 End: 10-07-2024 Patient encounter procedure 10/07/2024 3:50 PM EDT Office Visit [facility] [address] [place] [phone] Link Murillo, DO [address] [place] [address] Arrived [facility] Comment on above: Arrived Start: 10-07-2024 End: 10-07-2025 SURESWAB(R) ADVANCED VAGINITIS PLUS, TMA SURESWAB(R) ADVANCED VAGINITIS PLUS, TMA Pathology and Cytology Routine Pelvic pain in female Expected: 10/07/2024 (Approximate), Expires: 10/07/2025 [facility] Work Phone: Comment on above: Expected: 10/07/2024 (Approximate), Expires: 10/07/2025 Start: 10-07-2024 End: 10-07-2025 US Pelvis US Pelvis w/ TV Imaging Routine Pelvic pain in female Expected: 10/07/2024, Expires: 10/07/2025 [facility] Comment on above: Expected: 10/07/2024 , Expires: 10/07/2025 Start: 09-04-2024 End: 09-04-2025 DBT Breast - bilateral screening Mammography screening bilateral with CAD Imaging Routine Encounter for screening mammogram for malignant neoplasm of breast Expected: 09/04/2024, Expires: 09/04/2025 [facility] Work Phone: Comment on above: Expected: 09/04/2024 , Expires: 09/04/2025 Start: 07-24-2024 Adult BMI Screening Adult BMI Screen ing [facility] Start: 07-24-2024 Screening for malign ant neoplasm of breast Mammogram [facility] Start: 07-02-2024 Adult BMI Screening Adult BMI Screen ing [facility] Start: 07-02-2024 Depression Screening Depression Scre ening [facility] Start: 07-02-2024 Tobacco Screening Tobacco Screening [facility] Start: 04-23-2024 End: 04-23-2024 Patient encounter procedure 04/23/2024 1:40 PM EST Office Visit [facility] [address] [place] [address] Christina Lee, EMPLOYMENT TRAINING SPECIALIST-[employer] FARMWORKER [address] [place] [address] [facility] Start: 04-02-2024 Administration of varicella zoster vaccine Zoster (Shingles) Vaccine (2 of 2) [facility] Start: 02-06-2024 End: 02-06-2024 Patient encounter procedure 02/06/2024 3:40 PM EDT Office Visit [facility] [address] [place] [address] Christina Lee, EMPLOYMENT TRAINING SPECIALIST-[employer] FARMWORKER [address] [place] [address] [facility] Start: 02-03-2024 End: 02-03-2024 Patient encounter procedure 02/03/2024 11:30 AM EDT Appointment [facility] - Mammography/DEXA Imaging [address] [place] [address] [facility] Start: 01-23-2024 End: 01-22-2025 Lipid 1996 panel - Serum or Plasma Lipid profile Lab Routine Wellness examination Expected: 01/23/2024 (Approximate), Expires: 01/22/2025 [facility] Work Phone: Comment on above: Expected: 01/23/2024 (Approximate), Expires: 01/22/2025 Start: 12-29-2023 COVID-19 Vaccine () COVID-19 Vaccine () [facility] Start: 12-29-2023 COVID-19 Vaccine () COVID-19 Vaccine () [facility] Start: 12-29-2023 Influenza vaccination Influenza Vacc ine [facility] Start: 07-31-2023 End: 07-31-2023 Patient encounter procedure 07/31/2023 4:00 PM EDT Office Visit [facility] [address] [place] [phone] Shawn Ulloa, EMPLOYMENT TRAINING SPECIALIST-[employer] F[employer]WORKER [address] [place] [phone] [facility] Start: 07-13-2023 Screening for malign ant neoplasm of breast Mammogram [facility] Start: 07-03-2023 End: 07-02-2024 DBT Breast - bilateral screening Mammography screening bilateral with CAD Imaging Routine Encounter for screening mammogram for malignant neoplasm of breast Expected: 07/03/2023, Expires: 07/02/2024 [facility] Work Phone: Comment on above: Expected: 07/03/2023 , Expires: 07/02/2024 Start: 2023 Administration of varicella zoster vaccine Zoster (Shingles) Vaccine (1 of 2) [facility] Start: 01-02-2023 Adult BMI Follow Up Plan Adult BMI Follow Up Plan [facility] Start: 12-28-2022 COVID-19 Vaccine () COVID-19 Vaccine () [facility] Start: 1992 DTaP,Tdap and Td Vaccines (1 - Tdap) DTaP,Tdap and Td Vaccines (1 - Tdap) [facility] Start: 1991 Adult BMI Follow Up Plan Adult BMI Follow Up Plan [facility] Start: 1973 Screening for malign ant neoplasm of colon [facility] CBC W Auto Different ial panel - Blood CBC auto differential Lab Routine Hormone imbalance Fatigue, unspecified type Ordered: 10/07/2024 [facility] Comment on above: Ordered: 10/07/2024 CHLAMYDIA TRACHOMATI S (GENITO/STI) CHLAMYDIA TRACHOMATIS (GENITO/STI) Lab Routine Pelvic pain in female Ordered: 10/07/2024 [facility] Comment on above: Ordered: 10/07/2024 Cholesterol [Mass/volume] in Serum or Plasma Cholesterol, total Lab Routine Hormone imbalance Fatigue, unspecified type Ordered: 10/07/2024 [facility] Comment on above: Ordered: 10/07/2024 End: 01-22-2025 Comprehensive metabolic 2000 panel - Serum or Plasma Comprehensive metabolic panel Lab Routine Wellness examination 1 Occurrences starting 01/23/2024 until 01/22/2025 [facility] Comment on above: 1 Occurrences starti ng 01/23/2024 until 01/22/2025 Comprehensive metabo lic 2000 panel - Serum or Plasma Comprehensive metabolic panel Lab Routine Hormone imbalance Fatigue, unspecified type Ordered: 10/07/2024 [facility] Comment on above: Ordered: 10/07/2024 Hemoglobin A1c/Hemoglobin.total in Blood Hemoglobin A1c Lab Routine Yeast infection Hormone imbalance Fatigue, unspecified type Ordered: 10/07/2024 [facility] Comment on above: Ordered: 10/07/2024 Neisseria gonorrhoea e DNA [Presence] in Unspecified specimen by CHRISTINE with probe detection Neisseria gonorrhea DNA probe, direct Lab Routine Pelvic pain in female Ordered: 10/07/2024 [facility] Comment on above: Ordered: 10/07/2024 THIN PREP TIS PAP AN D HR HPV DNA THIN PREP TIS PAP AND HR HPV DNA Pathology and Cytology Routine Well woman exam with routine gynecological exam Ordered: 11/26/2024 [facility] Work Phone: Comment on above: Ordered: 11/26/2024 Thyrotropin [Units/volume] in Serum or Plasma TSH Lab Routine Hormone imbalance Fatigue, unspecified type Ordered: 10/07/2024 [facility] Comment on above: Ordered: 10/07/2024 Immunizations Immunization Date Immunization Notes Care Provider Bette giorgio 02-06-2024 influenza, seasonal, injectable, preservative free Christina Rosa EMPLOYMENT TRAINING SPECIALIST-[employer] Work Phone: [facility] 02-06-2024 zoster vaccine recombinant Christina Rosa EMPLOYMENT TRAINING SPECIALIST-[employer] F[employer]WORK[employer] Work Phone: [facility] 02-06-2024 Immunization, In Clinic,; Translations: [Drug or medicament (substance)] Christina Rosa EMPLOYMENT TRAINING SPECIALIST-[employer] F[employer]WORK[employer] Work Phone: [facility] 02-06-2024 influenza virus vaccine, unspecified formulation Christina Rosa EMPLOYMENT TRAINING SPECIALIST-[employer] F[employer]WORK[employer] Work Phone: [facility] 02-06-2024 zoster vaccine, unspecified formulation Christina Rosa EMPLOYMENT TRAINING SPECIALIST-[employer] F[employer]WORK[employer] Work Phone: [facility] 01-28-2023 influenza, injectabl e, quadrivalent, preservative free Christina Rosa EMPLOYMENT TRAINING SPECIALIST-[employer] F[employer]WORK[employer] Work Phone: [facility] 01-28-2023 influenza virus vaccine, unspecified formulation Shawn Ulloa EMPLOYMENT TRAINING SPECIALIST-[employer] F[employer] Work Phone: [facility] 10-08-2021 COVID-19, mRNA, LNP- S, PF, 100mcg/0.5mL Dose Christina Rosa EMPLOYMENT TRAINING SPECIALIST-[employer] Work Phone: [facility] 02-08-2021 influenza, injectabl e, quadrivalent, preservative free Christina Rosa EMPLOYMENT TRAINING SPECIALIST-[employer] Work Phone: [facility] 03-05-2020 influenza virus vaccine, unspecified formulation Christina Rosa EMPLOYMENT TRAINING SPECIALIST-[employer] F[employer]WORK[employer] Work Phone: [facility] 03-05-2020 influenza, injectabl e, quadrivalent, preservative free Christina Rosa EMPLOYMENT TRAINING SPECIALIST-[employer] Work Phone: [facility] 01-20-2018 influenza, injectabl e, quadrivalent, preservative free Christina Rosa EMPLOYMENT TRAINING SPECIALIST-[employer] Work Phone: [facility] 02-15-2017 Influenza, injectabl e, Madin [place] Canine Kidney, preservative free, quadrivalent Christina Rosa EMPLOYMENT TRAINING SPECIALIST-[employer] Work Phone: [facility] 03-02-2014 influenza, seasonal, injectable Christina Rosa EMPLOYMENT TRAINING SPECIALIST-[employer] Work Phone: [facility] 02-23-2013 influenza virus vaccine, whole virus Christina Rosa EMPLOYMENT TRAINING SPECIALIST-[employer] Work Phone: [facility] Payers Date Payer Category Payer Managed Care Other (unspecified) [employer] [id number] 2022 Private Health Insurance [id number] 2022 Unknown [id number] 1973 Unknown [id number] [id number]. 2.593 1973 Unknown [id number] 2.16.840.1.616124.3.579. 2.593 1973 Unknown [id number] 2.16.840.1.606868.3.579. 2.593 1973 Unknown [id number] 2.16.840.1.016015.3.579. 2.593 1973 Unknown [id number] 2.16.840.1.035180.3.579. 2.593 1973 Unknown [id number] [id number]. 2.593 1973 Unknown [id number] 2.16.840.1.051045.3.579. 2.1286 1973 Unknown [id number] 2.16.840.1.737503.3.579. 2.1286 1973 Unknown [id number] 2.16.840.1.789027.3.579. 2.1286 1973 Unknown [id number] 2.16.840.1.590531.3.579. 2.1286 1973 Unknown [id number] 2.16.840.1.144115.3.579. 2.1286 1973 Unknown [id number] 2.16.840.1.971427.3.579. 2.1286 1973 Unknown [id number] 2.16.840.1.727864.3.579. 2.1259 1973 Unknown [id number] [id number]. 2.1259 1973 Unknown [id number] [id number]. 2.1259 1959 Unknown [id number] Social History Date Type Detail Facility Start: 03-29-2022 Tobacco smoking status NHIS Never smoked tobacco [facility] Start: 03-29-2022 Tobacco use and exposure Smokeless tobacco non-user [facility] Start: 07-03-2023 End: 02-06-2024 Alcohol intake Current drinker of alcohol (finding) [facility] Start: 05-11-2020 End: 07-03-2023 History of Social function [facility] Start: 05-11-2020 End: 07-03-2023 Tobacco use panel [facility] Adolescent depressio n screening assessment 0 [facility] Start: 10-21-2018 Alcohol Comment occasionally [facility] Start: 1975 Sex Assigned At Not on file [facility] Start: 12-02-2014 Sex Female (finding) [facility] Start: 10-06-2022 Tobacco smoking status NHIS Tobacco smoking consumption unknown [facility] Start: 10-06-2022 End: 11-26-2024 Alcoholic beverage intake Ex-drinker (finding) [facility] Start: 10-06-2022 Alcohol Comment occasional beer, hard liquor [facility] Start: 1975 Sex assigned at Female [facility] Start: 10-07-2022 Gender identity Identifies as female gender (finding) [facility] Start: 10-07-2022 Sexual orientation Heterosexual (finding) [facility] Clinical Notes 07-03-2023 to 12-02-2024 Yaquelin Fermin - 12/02/2024 3:20 PM EPHRAIM Monique - 11/26/2024 3:00 PM Asher Yan LPN - 10/07/2024 3:50 PM EDBasil Lee APRN-BULBS FARMWORKER - 02/06/2024 3:40 PM EDT Note Date [...] with Dr. Murillo at [facility]. MEDICATIONS Current Outpatient Medications Medication [...] nursing note reviewed. Exam conducted with a dairy nutrition specialist present. Vitals: Estimated body mass index is [...] reviewed, and patient is to proceed to [facility] OR. Follow Up: Patient is to follow up between 1-2 weeks post operative to assess proper healing and recovery from procedure. Documented by Stephanie Yan LPN on behalf of: Link Murillo DO documented in this encounter [facility] 11-26-2024 History of Presen t illness Narrative [...] nursing note reviewed. Exam conducted with a dairy nutrition specialist present. Vitals: Estimated body mass index is [...] of: EPHRAIM Shah documented in this encounter [facility] 10-07-2024 History of Presen t illness Narrative [...] History of hysterectomy Hypercholesterolemia (CMS/HCC) Hypertension, essential ([facility]/HCC) Obesity with body mass index of 30.0-39.9 [...] nursing note reviewed. Exam conducted with a dairy nutrition specialist present. Vitals: Estimated body mass index is [...] Link Murillo DO documented in this encounter [facility] 02-06-2024 History of Presen t illness Narrative [address] [place] [address] Patient: Eric Swain Date of : 1975 [...] (BMI) of 37.0 to 37.9 in adult ([facility]) Past Medical, Family, and Social [...] 08/21/2021 Performed by Thanh Epps MD at [facility] SECTION x 2 COLONOSCOPY N/A 12/07/2022 Performed by Faith Kaufman MD at [facility] DEBRIDEMENT KNEE, CHONDROPLASTY, micro fxs Left 08/21/2021 Performed by Thanh Epps MD at [facility] DILATION AND CURETTAGE OF UTERUS 06/2018 [...] at current visit - FLU VACCINE TS (6MOS UP)(PF) 45 MCG(15MCG X3)/0.5 ML IM SYRINGE Atopic dermatitis, unspecified type Need for shingles vaccine - Zoster Subunit Class 2 severe obesity due to excess calories with serious comorbidity and body mass index (BMI) of 37.0 to 37.9 in adult ([facility]) Other orders - triamcinolone (KENALOG) [...] APRN-CNP 02/11/24 0938 documented in this encounter [facility] 07-30-2023 Miscellaneous Notes Formattin g of this note might be different from the original. Printed Circuit Boards Inspector making appointment reminder calls. Noticed that patient has since established care as a New Patient with Christina Lee CNP. Patient is scheduled for an appointment with Shawn Ulloa CNP, 07/31/2023. Printed [employer] Boards Inspector leaving voicemail to contact office to confirm cancellation of tomorrows appointment with Leoncio. documented in this encounter [facility] 07-30-2023 Telephone encount er Note Printed Circuit Boards Inspector making appointment reminder calls. Noticed that patient has since established care as a New Patient with Christina Lee CNP. Patient is scheduled for an appointment with Shawn Ulloa CNP, 07/31/2023. Printed Circuit Boards Inspector leaving voicemail to contact office to confirm cancellation of tomorrows appointment with Leoncio. [facility] History of Presen t illness Narrative [address] [place] [address] Patient: Eric Swain Date of : 1975 Encounter Date: 07/03/2023 History of Present Illness: The patient is a 48 y.o. female, an established patient, and is here for Chief Complaint Patient presents with new patient . HPI Patient is new, here to establish care. She previously saw Brandi Avitia. Patient is currently working for [employer]. Her history is significant for hypertension for which she takes Cardizem and she states she has had an abnormal heart beat in the past but has never seen a mechanical repair worker. Her last echo from 2021 was [...] 08/21/2021 Performed by Thanh Epps MD at [facility] SECTION x 2 COLONOSCOPY N/A 12/07/2022 Performed by Faith Kaufman MD at [facility] DEBRIDEMENT KNEE, CHONDROPLASTY, micro fxs Left 08/21/2021 Performed by Thanh Epps MD at [facility] DILATION AND CURETTAGE OF UTERUS 06/2018 [...] APRN-CNP 07/04/23 1217 documented in this encounter [facility] Evaluation note Diagnosis Encounter for medical examination to establish care- Primary Encounter for screening mammogram for malignant neoplasm of breast Primary hypertension Unspecified essential hypertension Bronchitis Bronchitis, not specified as acute or chronic Acute non-recurrent maxillary sinusitis [facility] Primary hypertension Unspecified essential hypertension Essential hypertension Unspecified essential hypertension [facility] Diagnosis Wellness examination- Primary Mild intermittent asthma without complication Primary hypertension Unspecified essential hypertension Influenza vaccination administered at current visit Atopic dermatitis, unspecified type Need for shingles vaccine Need for prophylactic vaccination and inoculation against varicella Class 2 severe obesity due to excess calories with serious comorbidity and body mass index (BMI) of 37.0 to 37.9 in adult ([facility]) documented in this encounter [facility]* Diagnosis Primary hypertension Unspecified essential hypertension Essential hypertension Unspecified essential hypertension documented in this encounter [facility]* Diagnosis Wellness examination- Primary documented in this encounter [facility]* Diagnosis Encounter for screening mammogram for malignant neoplasm of breast- Primary documented in this encounter [facility]* Diagnosis Pelvic pain in female Unspecified symptom associated with female genital organs Dyspareunia in female Yeast infection Hormone imbalance Fatigue, unspecified type documented in this encounter [facility] HealthcareEvaluation note* Diagnosis Well woman exam with routine gynecological exam Routine gynecological examination H/O: hysterectomy Acquired absence of both cervix and uterus documented in this encounter [facility] HealthcareEvaluation note* Diagnosis Pre-op examination Dyspareunia in female Pelvic pain Cyst of ovary, unspecified laterality documented in this encounter [facility] HealthcareInstructions* Attachments The following attachments cannot be sent through Care Everywhere. * Acute bronchitis (Bulgarian) * Sinusitis in adults (Bulgarian) [facility] SystemInstructionsNot on file [facility]* Attachments The following attachments cannot be sent through Care Everywhere. * Fluticasone (Oral Inhalation), ADULT (Bulgarian) [facility] SystemInstructionsNot on file [facility] SystemInstructionsNot on file [facility] Summary Purpose Family History No Family History Records FoundNo Family History Records FoundNo Family History Records FoundNo Family History Records Found Advance Directives No Advanced Directives Records FoundNo Advanced Directives Records FoundNo Advanced Directives Records FoundNo Advanced Directives Records Found Procedure Findings Note [facility] [place], [place] NAME: ERIC SWAIN DATE OF : MEDICAL REC#: [id number] SECURITY ASSOCIATE: [address] ADMIT DATE: 12/03/2018 06:12:00 DOUBLE END TRIMMER DATE: 12/15/2018 07:00 DICTATING PHYSICIAN: LINK MURILLO DICTATION DATE: 12/14/2018 10:00 OPERATIVE NOTE OPERATION DATE: 12-03-18 ANESTHETIC:General. PAPER SHEETER:RAHUL Sarah. PREOPERATIVE DIAGNOSIS: 1. Uterine fibroids. 2. [...] draped in the normal sterile fashion. A Lloydnnens (more content not included)... Note DISCHARGE SUMMARY [...] Tylenol, any abdominal pain unrelieved with narcotics. [facility] Signed and Approved by: DR LINK MURILLO [...] Tylenol, any abdominal pain unrelieved with narcotics. [facility] Signed and Approved by: DR LINK MURILLO (more content not included)... Additional Source Comments INFORMATION SOURCE (unrecogn ized section and content) DATE CREATED AUTHOR 11/18/2019 [facility] DATE CREATED AUTHOR AUTHOR'S ORGANIZ ATION 02/09/2024 [facility] DATE CREATED AUTHOR AUTHOR'S ORGANIZ ATION 10/19/2024 [facility] DATE CREATED AUTHOR AUTHOR'S ORGANIZ ATION 12/05/2024 [facility] EPIC Reason for Visit (unrecogniz ed section and content) Reason Comments new patient Reason Comments Med Refill Reason Comments Annual Exam Reason Comments Pelvic Pain Reason Comments Gynecologic Exam Reason Comments Pre-op Visit Care Teams (unrecognized sec tion and content) Rib Stiffener And Heel Dipper Relationship Specialty Start Date End Date Christina Lee APRN-CNP [address] [place] [address] PCP - General Internal Medicine 07/03/23 Rib Stiffener And Heel Dipper Relationship Specialty Start Date End Date Christina Lee APRN-CNP [address] [place] [address] PCP - General Internal Medicine 07/03/23 Rib Stiffener And Heel Dipper Relationship Specialty Start Date End Date Christina Lee APRNBULBS FARMWORKER [address] [place] [address] PCP - General Internal Medicine 07/03/23 Rib Stiffener And Heel Dipper Relationship Specialty Start Date End Date Christina Lee EMPLOYMENT TRAINING SPECIALISTBULBS FARMWORKER [address] [place] [address] PCP - General Internal Medicine 07/03/23 Rib Stiffener And Heel Dipper Relationship Specialty Start Date End Date Christina Lee APRNBULBS FARMWORKER [address] [place] [address] PCP - General Internal Medicine 07/03/23 Rib Stiffener And Heel Dipper Relationship Specialty Start Date End Date Christina Lee APRNBULBS FARMWORKER [address] [place] [address] PCP - General Internal Medicine 07/03/23 Rib Stiffener And Heel Dipper Relationship Specialty Start Date End Date Christina Lee EMPLOYMENT TRAINING SPECIALISTBULBS FARMWORKER [address] [place] [address] PCP - General Internal Medicine 07/03/23 FOR [...] BE BASED ON THE PRIMARY CLINICAL RECORDS. [facility] provides no warranty or guarantee of the accuracy or completeness of information in this document.
[2024-12-16 07:25] LABS: Hematocrit 36.0 % (36.0-48.0); Hemoglobin 12.5 g/dL (12.0-16.0); Immature Granulocytes Abs Auto 0.01 10^3/uL (0.00-0.03); Immature Granulocytes Pct Auto 0.2 % (0.0-0.5); Lymphocytes Absolute Auto 2.0 10^3/uL (1.2-3.8); Mean Corpuscular HGB Conc 34.7 g/dL (29.9-35.2); Mean Corpuscular Hemoglobin 33.2 pg (26.7-34.0); Mean Corpuscular Volume 95.7 fL (81.0-99.0); Platelet Count 250 10^3/uL (150-450); Red Blood Count 3.76 10^6/uL (4.20-5.40); White Blood Count 6.5 10^3/uL (4.0-11.0)
--- NOTE | 2024-12-16 09:48 | PM.ONB ---
Brief Operative Note Date of procedure: 12/16/24 Pre-op diagnosis general: pelvic pain Post-op diagnosis: same as pre-op Procedure: NAME OF PROCEDURE: [diagnostic laparoscopy, lysis of omental adhesions from anterior abdominal wall] PROCEDURE: The patient was taken back to the Operating Room where she was placed in dorsal lithotomy position after given general anesthesia. The patient was prepped and draped in normal sterile fashion. A sponge stick was placed into the patient's vagina. Attention was turned to the patient's abdomen, where a small umbilical incision was made. The fascia was tented using Rosemary clamps and the fascia was entered sharply. Confirmation of intraabdominal placement of the 10 mm port was confirmed under direct visualization using a laparoscope. The patient's abdomen was then insufflated using CO2 gas with approximately 4 liters. A second port was placed rt laterally, this was done under direct visualization with a 5 mm port. Survey of the patient's abdomen demonstrated normal liver and gallbladder. Survey of the patient's pelvic anatomy demonstrated absent uterus, normal appearing rt ovary, could not visual lt ovary due to extensive bowel adhesions, prominent pelvic vessels noted on the left side. significant omental adhesions removed with the ligasure. bowel adhesions to the anterior abdominal wall. All instruments were removed from the patient's abdomen. The patient's abdomen was deinsufflated of CO2 gas. The patient tolerated the procedure well. Sponge stick was removed from the patient's vagina. The patient's infraumbilical fascia was closed using #0 Vicryl on a GI needle. The patient's skin was closed laterally and infraumbilically using 4-0 Vicryl. The patient tolerated the procedure well. Sponge, lap and needle counts were correct x 2. The patient was taken to Recovery Room in stable condition. Anesthesia: JEREDA Surgeon: Link Murillo Spot Facer: Christie Manriquez Estimated blood loss (mL): 10 Pathology: none sent Condition: stable Disposition: PACU Urinary Catheter Management Urinary Catheter Management Urethral: Cath placed during this visit: no
--- NOTE | 2024-12-16 10:40 | PC.NURSE ---
Up to bathroom with assist and voids clear yellow without difficulty
== END 2024-12-16 11:18 | disposition home or self-care (01) ==
PROVIDERS: Visit Provider Obstetrics & Gynecology
PROC: (CPT 840; principal; 2024-12-16 08:30)
DX: N94.10 Unspecified dyspareunia (principal); R10.2 Pelvic and perineal pain; N83.209 Unspecified ovarian cyst, unspecified side; K66.0 Peritoneal adhesions (postprocedural) (postinfection); Z90.710 Acquired absence of both cervix and uterus; Z98.51 Tubal ligation status; I10 Essential (primary) hypertension; M19.90 Unspecified osteoarthritis, unspecified site
CPT/HCPCS: 49329; 36415; 85025; J1100; J1885; J2250; J2405; J2704; J3010